=== PATIENT | male | born 1940 | race Caucasian/White ===

== ENCOUNTER → 2016-07-08 | Outpatient (CLI) | payer BC ==
[~2016-07-08] MED LIST: ALBUAER INH; ALBUAER2 INH; ALFU10TA2 PO; ATOR-26 PO; ATOR80TA PO; ATV1 PO; Boost Plus Vanilla PO; CARV25TA2 PO; CLOP1TAB15 PO; DIGO0.1219 PO; DUTA0.5C PO; ENOX80IN SQ; FERR1TAB62 PO; FESO4TAB PO; FLUO20CA35 PO; FRRS300 PO; FRS/40 PO; LEVO150T9 PO; MONT1TAB5 PO; NTRSLP4 SL; OSEL75CA12 PO; PANT40TA PO; PLV75 PO; POTA20TA16 PO; SACU1TAB PO; SACU1TAB7 PO; SNG10 PO; TMF75 PO; TRAM-10 PO; VNTHFA/IN INH; WARF5TAB90 PO; [UNRECOGNIZED DRUG - CODE] PO
--- NOTE | 2016-07-08 13:30 | DIAGNOSTIC IMAGING REPORT ---
CHEST 2 VIEWS ROUTINE CLINICAL HISTORY: R09.02 [id number] Influenza A (H1N1)J90 Pleural effusion on le dyspnea COMPARISON STUDY: 07/01/2016 FINDINGS: Findings of a slightly progressive left pleural effusion. Lungs otherwise are considered clear. There is subtle blunting right lateral costophrenic angle. Permanent bipolar cardiac pacemaker/fibrillator. IMPRESSION: Slightly progressive left pleural effusion. Electronically signed by: Davy Fontana M.D. 07/08/2016 1:28 PM
== END | disposition home or self-care (01) ==
LOC: C.RAD1850 13:12
PROVIDERS: ATTEND Internal Medicine Pulmonary Disease
DX: J18.9 Pneumonia, unspecified organism (principal); J10.1 Influenza due to other identified influenza virus with other respiratory manifestations; J90 Pleural effusion, not elsewhere classified; R09.02 Hypoxemia

== ENCOUNTER 2016-07-12 12:09 | Day surgery (SDC) | payer BC ==
[~2016-07-12] VITALS: Ht 177.8 cm; Wt 71.9 kg
[~2016-07-12 12:09] MED LIST changes: -ALBUAER INH; -ALFU10TA2 PO; +ALFU10TA30 PO; -ATOR-26 PO; -ATOR80TA PO; -Boost Plus Vanilla PO; -CLOP1TAB15 PO; -ENOX80IN SQ; -FERR1TAB62 PO; +FERR325T PO; -FRRS300 PO; -MONT1TAB5 PO; -OSEL75CA12 PO; -POTA20TA16 PO; -SACU1TAB PO; -TRAM-10 PO; -VNTHFA/IN INH; -[UNRECOGNIZED DRUG - CODE] PO
[2016-07-12] MEDS ORDERED: ENOX80IN SQ (12:41)
[2016-07-12 12:42] VITALS: BP 107/66; PULSE 72; TEMP 36.3; O2SAT 100; Ht 177.8 cm; Wt 71.9 kg
[2016-07-12 12:57] LABS: INR 1.8 (0.9-1.1); PROTHROMBIN TIME (PATIENT) 19.5 SECONDS (9.0-12.0)
[2016-07-12 14:12] VITALS: BP 110/61; PULSE 68; TEMP 36.8; O2SAT 100
--- NOTE | 2016-07-12 14:13 | Discharge Instructions ---
Discharge Instructions Visit Reason for Visit: Left Pleural Effusion Discharge Discharge Diagnosis / Problem: Left Pleural Effusion Discharge Goals Goal(s): Decrease discomfort, Learn about illness Medications Restart Stopped Medication(s): 1. Coumadin Activity Recommendations Activity Limitations: resume your previous activity (in 24 hours) Anesthesia . Post Anesthesia Instructions: If you have had General Anesthesia or IV Sedation: * Do not drive today. * Resume driving when surgeon permits. * Do not make important decisions or sign legal documents today. * Call surgeon for: 1. Temperature elevations greater than 101 degrees F. 2. Uncontrollable pain. 3. Excessive bleeding. 4. Persistent nausea and vomiting. 5. Medication intolerance (nausea, vomiting or rash). * For nausea and vomiting use only clear liquids such as: tea, soda, bouillon until nausea subsides, then gradually increase diet as tolerated. * If you have any concerns or questions, call your surgeon's office. If physician is unavailable and it is an emergency, call 911 or go to the nearest emergency room. . Instructions / Follow-Up Instructions / Follow-Up 1. Resume your coumadin tonight (07/12/16) 2. Check you INR daily starting on 07/13/16. 3. Take lovenox the evening of 07/12/16 and continue to take twice daily until INR 2.5 or higher, then discontinue the lovenox. 4. Keep your schedule appointment with Dr. Connelly on 07/26/16 @10:30. You will need a chest x-ray prior to appointment. Diet Recommendations Recommended Home Diet: resume previous diet Pending Studies Studies pending at discharge: no Medical Emergencies . Who to Call and When: Medical Emergencies: If at any time you feel your situation is an emergency, please call 911 immediately. . Non-Emergent Contact Non-Emergency issues call your: Surgeon Call Non-Emergent contact if: you have a fever, your pain is unusual for you . . "Provider Documentation" section prepared by John Meier.
[2016-07-12 14:31] VITALS: BP 105/64; PULSE 70; TEMP 36.3; O2SAT 100
--- NOTE | 2016-07-12 14:34 | DIAGNOSTIC IMAGING REPORT ---
CHEST ONE VIEW PORTABLE CLINICAL HISTORY: Status post thoracentesis. COMPARISON STUDY: Chest radiograph July 08, 2016. FINDINGS: The left pleural effusion has markedly decreased in size. Left lower lung opacity favors atelectasis. There may be a hiatal hernia. A left ablative pacemaker and median sternotomy wires are noted. There is no pneumothorax. There is no evidence of pulmonary edema. There may be pulmonary vascular congestion. IMPRESSION: No pneumothorax following left thoracentesis. Marked decrease in size of the left pleural effusion. Electronically signed by: Gilmar Garcia M.D. 07/12/2016 2:32 PM Dictated Date/Time: 07/12/2016 2:26 PM
[2016-07-12 14:59] LABS: PLEURAL FLUID APPEARANCE CLEAR; PLEURAL FLUID COLOR YELLOW; PLEURAL FLUID MONONUC RELAT 90.2 %; PLEURAL FLUID POLYNUC 9.8 %; PLEURAL FLUID SOURCE LEFT LUNG; PLEURAL FLUID WBC (A) 130 /uL
[2016-07-12 15:00] LABS: PLEURAL FLUID TOTAL PROTEIN 3.1 g/dl
--- NOTE | 2016-07-12 15:04 | OPERATIVE REPORT ---
DATE OF OPERATION: 07/12/2016 PREOPERATIVE DIAGNOSIS: Unilateral left pleural effusion. POSTOPERATIVE DIAGNOSIS: Same. PROCEDURE: Left thoracentesis under ultrasound guidance. SURGEON: Dr. Connelly. REFRIGERATOR CAR ICER: SUMANTH Clark. ANESTHESIA: Local. SPECIFICS OF PROCEDURE: The patient arrived in the medical treatment unit and after signing an appropriate consent and calling a time-out, the patient was positioned in the upright position leaning forward on a procedure table. His left chest was evaluated using an ultrasound probe and we were able to see that he had a significant amount of fluid. Just lateral to the posterior axillary line at about the eighth interspace, a spot was selected and marked with an indelible ink. He was then prepped with ChloraPrep and then draped in usual sterile fashion. Under sterile technique, a 25-gauge needle with 1% Xylocaine was used to raise the skin wheal and then a larger needle was used to anesthetize the muscles and pleura. We had free flowing fluid back. A guidewire was inserted through the needle and needle removed. The insertion site was then gently dilated up and then a triple lumen catheter was slid over the guidewire in to 17 cm. A 1500 mL of a clear yellow fluid was drained. He had no reexpansion pain or cough. I stopped at 1500 mL given his history of cardiomyopathy and with depressed LV function. I slowly removed the catheter. An antimicrobial disc with adhesive was then placed over the thoracentesis spot. There was no bleeding. He tolerated it very well. I attest to the content of the Intraoperative Record and any orders documented therein. Any exceptio ns are noted below.
== END 2016-07-12 14:45 | disposition home or self-care (01) ==
LOC: C.ACU 12:09
PROVIDERS: ATTEND Surgery
DX: J90 Pleural effusion, not elsewhere classified (principal)

== ENCOUNTER → 2016-07-22 | Outpatient (CLI) | payer BC ==
[~2016-07-22] MED LIST changes: +ALBUAER INH; +ATOR-26 PO; +ATOR80TA PO; +Boost Plus Vanilla PO; +CLOP1TAB15 PO; +ENOX80IN SQ; +FRRS300 PO; +MONT1TAB5 PO; +OSEL75CA12 PO; +POTA20TA16 PO; +SACU1TAB PO; -TMF75 PO; +TRAM-10 PO; +VNTHFA/IN INH; +[UNRECOGNIZED DRUG - CODE] PO
--- NOTE | 2016-07-22 15:21 | DIAGNOSTIC IMAGING REPORT ---
CHEST 2 VIEWS ROUTINE HISTORY: J90 Pleural effusion on left RAD COMPARISON: Chest 07/12/2016. FINDINGS: Left-sided pacemaker/defibrillator. There are poststernotomy changes. Moderate to large hiatus hernia remains unchanged. The right lung is clear. No pneumothorax. Small left pleural effusion has slight progressed. Left basilar densities remain unchanged. IMPRESSION: 1. The small left pleural effusion has slightly progressed. 2. Patchy left basilar densities remain unchanged. This favors compressive atelectasis from the pleural fluid. 3. Moderate to large hiatus hernia is again noted. Electronically signed by: Raffy Graff M.D. 07/22/2016 3:19 PM Dictated Date/Time: 07/22/2016 3:17 PM
== END | disposition home or self-care (01) ==
LOC: C.RAD1850 14:49
PROVIDERS: ATTEND Internal Medicine Gastroenterology
DX: J90 Pleural effusion, not elsewhere classified (principal)

== ENCOUNTER 2016-08-25 15:37 | Emergency (ER) | payer BC, OTHER ==
[~2016-08-25] VITALS: Ht 170.2 cm; Wt 68.0 kg
[~2016-08-25 15:37] MED LIST changes: -ALBUAER INH; -ATOR-26 PO; -ATOR80TA PO; -Boost Plus Vanilla PO; -CLOP1TAB15 PO; -FRRS300 PO; -MONT1TAB5 PO; -OSEL75CA12 PO; -POTA20TA16 PO; -SACU1TAB PO; -TRAM-10 PO; -VNTHFA/IN INH; -[UNRECOGNIZED DRUG - CODE] PO
[2016-08-25 15:48] VITALS: TEMP 36.4; Ht 170.2 cm; Wt 68.0 kg
[2016-08-25] MEDS ORDERED: SODIUM CHLORIDE 0.9% 250ML 250 ML IV STA ×2 (16:11→17:23)
[2016-08-25 16:27] VITALS: O2SAT 97
[2016-08-25 16:32] LABS: BASO % 0.6 %; BASO ABS # 0.03 K/uL (0-0.2); COMPLETE YES; EOS % 6.9 %; HEMATOCRIT 33.8 % (42-52); IG% 0.2 %; LYMPH % 18.3 %; MEAN CORPUSCULAR HEMOGLOBIN 29.4 pg (25-34); MEAN CORPUSCULAR HGB CONC 33.4 g/dl (32-36); MEAN PLATELET VOLUME 9.3 fL (7.4-10.4); MONO % 11.6 %; NEUT % 62.4 %; PLATELET COUNT 177 K/uL (130-400); RED BLOOD COUNT 3.84 M/uL (4.7-6.1); WHITE BLOOD COUNT 4.92 K/uL (4.8-10.8)
--- NOTE | 2016-08-25 16:36 | DIAGNOSTIC IMAGING REPORT ---
CHEST ONE VIEW PORTABLE CLINICAL HISTORY: EVALUATE ALTERED MENTAL STATUS/WEAKNESS dyspnea COMPARISON STUDY: 07/22/2016 FINDINGS: Left pleural effusion stable from the prior exam. Mild increase in pulmonary vasculature compared to the prior exam. External hernia. Pacemaker/defibrillator unchanged in position. IMPRESSION: Mild congestive failure. Stable left effusion. Stable hiatal hernia. Electronically signed by: Davy Fontana M.D. 08/25/2016 4:35 PM Dictated Date/Time: 08/25/2016 4:34 PM
[2016-08-25] MEDS ORDERED: WARF5TAB90 PO (16:37)
[2016-08-25 16:43] LABS: PARTIAL THROMBOPLASTIN RATIO 1.4; PROTHROMBIN TIME (PATIENT) 21.7 SECONDS (9.0-12.0)
--- NOTE | 2016-08-25 16:53 | EMERGENCY ROOM VISIT NOTE ---
History Report prepared by Enedina: Kelly Dominguez Under the Supervision of: Dr. Chance Trent M.D. First contact with patient: 16:08 Chief Complaint: REFERRED BY DOCTOR Stated Complaint: CHF, DEHYDRATION History of Present Illness The patient is a 76 year old male who presents to the Emergency Room with complaints of persistent weakness starting 2 days ago. He reports a mild cough. As per family member, the patient was started on a Z-pack today for flu-like symptoms. His family member was recently diagnosed with the flu. The patient also complains of hypotension. His blood pressure was 84/60. His blood pressure is normally in the 90s/60s. He notes reduced fluid intake but a normal appetite. He denies fevers, chills, or any other complaints. He normally wears oxygen at night. He was diagnosed with influenza A in June 2016. He has a history of heart failure. He also has a history of aortic and mitral valve replacements. He was referred to the Emergency Room by the home health nurse. The patient is DNR. Source of History: patient Onset: 2 days ago Position: other (global) Quality: other (weakness) Timing: other (persistent) Associated Symptoms: No chills, No fevers Review of Systems See HPI for pertinent positives & negatives. A total of 10 systems reviewed and were otherwise negative. Past Medical & Surgical Medical Problems: (1) YRIS (acute kidney injury) (2) CAD (coronary artery disease) (3) Chronic systolic CHF (congestive heart failure) (4) Dehydration (5) Failure to thrive (6) Influenza, pneumonia (7) Ischemic cardiomyopathy Family History Hypertension Social History Smoking Status: Never Smoker Drug Use: none Marital Status: Housing Status: lives with family Occupation Status: retired Current/Historical Medications Scheduled Albuterol (Ventolin), 2 PUFFS INH PRN Alfuzosin Hcl (Uroxatral), 10 MG PO QPM Carvedilol (Coreg), 1 TAB PO BID Clopidogrel Bisulfate (Clopidogrel), 75 MG PO QAM Digoxin (Digox), 125 MCG PO QAM Dutasteride (Avodart), 0.5 MG PO QAM Ferrous Sulfate (Ferrous Sulfate), 1 TAB PO QPM Fesoterodine Fumarate (Toviaz), 4 MG PO QAM Fluoxetine (Prozac), 40 MG PO QAM Levothyroxine Sodium (Levothyroxine Sodium), 1 TAB PO QAM Montelukast Sod (Montelukast Sodium), 10 MG PO HS Oseltamivir (Tamiflu), 75 MG PO BID Pantoprazole (Protonix), 40 MG PO QAM Sacubitril-Valsartan (Entresto 49-51 mg), 1 TAB PO DAILY Warfarin Sodium (Coumadin), 5 MG PO MON-WED-FRI Warfarin Sodium (Coumadin), 5 MG PO 4XWK Scheduled PRN Furosemide (Lasix), 40 MG PO DAILY PRN for WEIGHT GAIN PARAMETERS Lorazepam (Lorazepam), 1 MG PO Q6 PRN for Anxiety Nitroglycerin (Nitrostat), 0.4 MG SL UD PRN for Chest Pain Allergies Coded Allergies: Iodinated Diagnostic Agents (Verified Allergy, Mild, HIVES, 07/12/16) Physical Exam Vital Signs Date Time Temp Pulse Resp B/P Pulse Ox O2 Delivery O2 Flow Rate FiO2 08/25/16 19:13 74 20 97/77 96 Nasal Cannula 2.0 08/25/16 17:44 72 20 111/62 97 Room Air 08/25/16 16:31 71 20 113/61 74 111/78 79 93/62 08/25/16 16:29 71 20 123/69 97 Nasal Cannula 2.0 08/25/16 16:27 99 Nasal Cannula 2.0 08/25/16 16:27 97 Nasal Cannula 2.0 08/25/16 16:23 75 08/25/16 15:48 36.4 72 18 90/60 99 Nasal Cannula 3.0 Physical Exam GENERAL: Patient is in no acute distress. HEENT: No acute trauma, normocephalic atraumatic, mucous membranes moist, no nasal congestion, no scleral icterus. NECK: No stridor, no adenopathy, no meningismus, trachea is midline. LUNGS: Crackles and some decreased breath sounds on the left, right lung is clear. HEART: 2/6 systolic murmur, regular rate and rhythm, there is a metallic click heard. ABDOMEN: Soft, nontender, bowel sounds positive, no hernias, no peritonitis. EXTREMITIES: No cyanosis or edema, full range of motion of all the joints without pain or difficulty, no signs for acute trauma. NEUROLOGIC: Oriented x 3, no acute motor or sensory deficits, no focal weakness. SKIN: No rash, no jaundice, no diaphoresis. Medical Decision & Procedures ER Provider Diagnostic Interpretation: Orthostatic vital signs are negative. X-ray results as stated below per interpretation by me and the radiologist: CHEST ONE VIEW PORTABLE CLINICAL HISTORY: EVALUATE ALTERED MENTAL STATUS/WEAKNESS dyspnea COMPARISON STUDY: 07/22/2016 FINDINGS: Left pleural effusion stable from the prior exam. Mild increase in pulmonary vasculature compared to the prior exam. External hernia. Pacemaker/defibrillator unchanged in position. IMPRESSION: Mild congestive failure. Stable left effusion. Stable hiatal hernia. Electronically signed by: Davy Fontana M.D. 08/25/2016 4:35 PM Dictated Date/Time: 08/25/2016 4:34 PM Laboratory Results 08/25/16 16:15 Red Blood Count 3.84, Mean Corpuscular Volume 88.0, Mean Corpuscular Hemoglobin 29.4, Mean Corpuscular Hemoglobin Concent 33.4, Mean Platelet Volume 9.3, Neutrophils (%) (Auto) 62.4, Lymphocytes (%) (Auto) 18.3, Monocytes (%) (Auto) 11.6, Eosinophils (%) (Auto) 6.9, Basophils (%) (Auto) 0.6, Neutrophils # (Auto ) 3.07, Lymphocytes # (Auto) 0.90, Monocytes # (Auto) 0.57, Eosinophils # (Auto ) 0.34, Basophils # (Auto) 0.03 08/25/16 16:15 Test 08/25/16 16:15 08/25/16 16:25 08/25/16 17:45 08/25/16 18:25 White Blood Count 4.92 K/uL (4.8-10.8) Red Blood Count 3.84 M/uL (4.7-6.1) Hemoglobin 11.3 g/dL (14.0-18.0) Hematocrit 33.8 % (42-52) Mean Corpuscular Volume 88.0 fL (80-100) Mean Corpuscular Hemoglobin 29.4 pg (25-34) Mean Corpuscular Hemoglobin Concent 33.4 g/dl (32-36) Platelet Count 177 K/uL (130-400) Mean Platelet Volume 9.3 fL (7.4-10.4) Neutrophils (%) (Auto) 62.4 % Lymphocytes (%) (Auto) 18.3 % Monocytes (%) (Auto) 11.6 % Eosinophils (%) (Auto) 6.9 % Basophils (%) (Auto) 0.6 % Neutrophils # (Auto) 3.07 K/uL (1.4-6.5) Lymphocytes # (Auto) 0.90 K/uL (1.2-3.4) Monocytes # (Auto) 0.57 K/uL (0.11-0.59) Eosinophils # (Auto) 0.34 K/uL (0-0.5) Basophils # (Auto) 0.03 K/uL (0-0.2) RDW Standard Deviation 54.7 fL (36.4-46.3) RDW Coefficient of Variation 16.9 % (11.5-14.5) Immature Granulocyte % (Auto) 0.2 % Immature Granulocyte # (Auto) 0.01 K/uL (0.00-0.02) Prothrombin Time 21.7 SECONDS (9.0-12.0) Prothromb Time International Ratio 2.0 (0.9-1.1) Activated Partial Thromboplast Time 36.8 SECONDS (21.0-31.0) Partial Thromboplastin Ratio 1.4 Anion Gap 7.0 mmol/L (3-11) Est Creatinine Clear Calc Drug Dose 43.8 ml/min Estimated GFR () 60.6 Estimated GFR (Non- 52.3 BUN/Creatinine Ratio 17.2 (10-20) Calcium Level 8.4 mg/dl (8.5-10.1) Total Bilirubin 0.7 mg/dl (0.2-1) Aspartate Amino Transf (AST/SGOT) 20 U/L (15-37) Alanine Aminotransferase (ALT/SGPT) 21 U/L (12-78) Alkaline Phosphatase 176 U/L (45-117) Total Protein 6.9 gm/dl (6.4-8.2) Albumin 3.4 gm/dl (3.4-5.0) Globulin 3.5 gm/dl (2.5-4.0) Albumin/Globulin Ratio 1.0 (0.9-2) Thyroid Stimulating Hormone (TSH) 0.281 uIu/ml (0.300-4.500) Free Thyroxine 1.83 ng/dl (0.80-1.60) Digoxin Level 1.3 ng/ml (0.8-2.0) Influenza Type A (RT-PCR) Neg for Influ A (NEG) Influenza Type B (RT-PCR) POS for Influ B (NEG) Urine Color DK YELLOW Urine Appearance CLEAR (CLEAR) Urine pH 5.0 (4.5-7.5) Urine Specific Carriere 1.023 (1.000-1.030) Urine Protein NEG (NEG) Urine Glucose (UA) NEG (NEG) Urine Ketones NEG (NEG) Urine Occult Blood NEG (NEG) Urine Nitrite NEG (NEG) Urine Bilirubin NEG (NEG) Urine Urobilinogen NEG (NEG) Urine Leukocyte Esterase TRACE (NEG) Urine WBC (Auto) 1-5 /hpf (0-5) Urine RBC (Auto) 0-4 /hpf (0-4) Urine Hyaline Casts (Auto) 10-30 /lpf (0-5) Urine Epithelial Cells (Auto) 20-30 /lpf (0-5) Urine Bacteria (Auto) 1+ (NEG) Troponin I 0.051 ng/ml (0-0.045) Medications Administered Medications (Trade) Dose Ordered Sig/Javier Route Start Time Stop Time Status Last Admin Dose Admin Sodium Chloride 250 ml @ 999 mls/hr Q16M STAT IV 08/25/16 16:11 08/25/16 16:26 DC 08/25/16 16:11 999 MLS/HR Sodium Chloride (Nss 250ml) 250 ml @ 999 mls/hr Q16M STAT IV 08/25/16 17:23 08/25/16 17:38 DC 08/25/16 17:23 999 MLS/HR Oseltamivir Phosphate (Tamiflu Cap) 75 mg NOW STAT PO 08/25/16 18:11 08/25/16 18:12 DC 08/25/16 19:13 75 MG ECG Indication: weakness Rate (beats per minute): 75 Rhythm: other (Ventricular paced rhythm) Findings: no ectopy, other (No obvious ischemia) ED Course 160: The patient was evaluated in room C01B. A complete history and physical exam was performed. 161: Sodium Chloride 250 ml @ 999 mls/hr IV 172: Sodium Chloride 250 ml @ 999 mls/hr IV 1810: Tamiflu Cap 75 mg PO 1811: I updated the patient on his findings. 1920: Reevaluated the patient. Discussed results and discharge instructions: He verbalized understanding and agreement. The patient is ready for discharge. Medical Decision Differential diagnosis includes but is not limited to dehydration, pneumonia, influenza, flu-like illness, electrolyte imbalance, anemia, UTI, and cardiac ischemia. There is no leukocytosis or concerning anemia. No significant electrolyte abnormality or kidney failure. There is no hepatitis. Thyroid testing is consistent with someone taking thyroid medication. Chest x-ray shows some chronic findings, no acute pneumonia, there was no pneumothorax. The left pleural effusion seen on film has been known. EKG shows a ventricular pacemaker , no obvious ischemia. Cardiac enzyme testing times one is slightly elevated. A repeat cardiac troponin showed a similar elevation. The patient has had elevated cardiac enzymes in the past, his values have been higher in the past. Orthostatic vital signs were negative. INR is elevated consistent with his Coumadin use. Urinalysis does not show infection. Digoxin level is not toxic. Influenza test is positive for influenza B. The patient received IV saline, he received a 500 mL dose. He was given oral Tamiflu. He is resting comfortably. I talked to patient about staying in the hospital. He does have elevated cardiac markers and was somewhat hypotensive earlier. He does not want to stay , his significant other does not want him to stay. The patient is a DO NOT RESUSCITATE and does not want to spend anymore time in the hospital. He has agreed though to return here if he is feeling worse at home. He will see his doctor in follow-up this week. The patient is being discharged on Tamiflu, he will stay well hydrated and rest. If he has worsening symptoms, any chest pain or worsening dyspnea, he has agreed to return for reassessment. Impression Primary Impression: Hypotension Additional Impressions: Influenza B Elevated troponin Dehydration Scribe Attestation The scribe's documentation has been prepared under my direction and personally reviewed by me in its entirety. I confirm that the note above accurately reflects all work, treatment, procedures, and medical decision making performed by me. Departure Information Dispostion Home / Self-Care Prescriptions Oseltamivir (Tamiflu) 75 Mg Cap 75 MG PO BID, #10 CAP Prov: Chance Trent M.D. 08/25/16 Referrals Donis Mcdonald M.D. (PCP) Forms HOME CARE DOCUMENTATION FORM, IMPORTANT VISIT INFORMATION, WORK / SCHOOL INSTRUCTIONS Patient Instructions [facility] Additional Instructions tamiflu as directed stay well hydrated tylenol for aches and fever see imtiaz goetz for a recheck Tuesday return for worsening symptoms as discussed you have decided to be discharged today, return to the ER for worsening symptoms or if you change your mind about a hospital stay Problem Qualifiers
[2016-08-25 16:58] LABS: BUN/CREATININE RATIO 17.2 (10-20); CALCIUM 8.4 mg/dl (8.5-10.1); CREATININE 1.3 mg/dl (0.60-1.40)
[2016-08-25 17:11] LABS: THYROID STIMULATING HORMONE 0.281 uIu/ml (0.300-4.500)
[2016-08-25 18:08] LABS: INFLUENZA A PCR Neg for Influ A (NEG)
[2016-08-25 18:09] LABS: INFLUENZA B PCR POS for Influ B (NEG)
[2016-08-25 18:09] LABS: URINE APPEARANCE CLEAR (CLEAR); URINE BILIRUBIN NEG (NEG); URINE COLOR DK YELLOW; URINE EPITHELIAL CELL AUTO 20-30 /lpf (0-5); URINE NITRITE NEG (NEG); URINE SPECIFIC GRAVITY 1.023 (1.000-1.030); UROBILINOGEN NEG (NEG); ZZUR CULT IF INDIC CLEAN CATCH YES
[2016-08-25] MEDS ORDERED: OSELTAMIVIR PHOSPHATE 75 MG CAP PO STA (18:11)
[2016-08-25 18:14] LABS: MANUAL MICROSCOPIC REQUIRED? NO; REVIEW REQ? NO
[2016-08-25] MEDS ORDERED: OSEL75CA12 PO (19:35)
[2016-08-25 19:53] VITALS: BP 99/65; PULSE 67; O2SAT 96
== END 2016-08-25 19:55 | disposition home or self-care (01) ==
LOC: C.EDB 15:38 → C.EDC 19:55
DX: J11.1 Influenza due to unidentified influenza virus with other respiratory manifestations (principal); I95.9 Hypotension, unspecified; E86.0 Dehydration; R79.89 Other specified abnormal findings of blood chemistry; I25.10 Atherosclerotic heart disease of native coronary artery without angina pectoris; I25.5 Ischemic cardiomyopathy; I50.22 Chronic systolic (congestive) heart failure; Z79.01 Long term (current) use of anticoagulants; Z79.899 Other long term (current) drug therapy; Z91.041 Radiographic dye allergy status; Z82.49 Family history of ischemic heart disease and other diseases of the circulatory system

== ENCOUNTER → 2016-11-10 | Outpatient (CLI) | payer BC ==
[~2016-11-10] MED LIST changes: +ALBUAER INH; +ALFU10TA2 PO; -ALFU10TA30 PO; +ATOR-26 PO; +ATOR80TA PO; +Boost Plus Vanilla PO; +CLOP1TAB15 PO; -ENOX80IN SQ; +FERR1TAB62 PO; -FERR325T PO; +FRRS300 PO; +MONT1TAB5 PO; +OSEL75CA12 PO; +POTA20TA16 PO; +SACU1TAB PO; +TRAM-10 PO; +VNTHFA/IN INH; +[UNRECOGNIZED DRUG - CODE] PO
[2016-11-10 17:35] LABS: BASO % 0.6 %; BASO ABS # 0.04 K/uL (0-0.2); COMPLETE YES; EOS % 5.9 %; HEMATOCRIT 36.1 % (42-52); IG% 0.2 %; LYMPH % 12.2 %; LYMPH ABS # 0.79 K/uL (1.2-3.4); MEAN CELL VOLUME 94.8 fL (80-100); MEAN CORPUSCULAR HEMOGLOBIN 30.2 pg (25-34); MEAN CORPUSCULAR HGB CONC 31.9 g/dl (32-36); MONO % 10.9 %; NEUT % 70.2 %; PLATELET COUNT 224 K/uL (130-400); RED BLOOD COUNT 3.81 M/uL (4.7-6.1); WHITE BLOOD COUNT 6.49 K/uL (4.8-10.8)
[2016-11-10 18:01] LABS: URINE APPEARANCE CLEAR (CLEAR); URINE BILIRUBIN NEG (NEG); URINE COLOR DK YELLOW; URINE NITRITE NEG (NEG); URINE SPECIFIC GRAVITY 1.024 (1.000-1.030); UROBILINOGEN NEG (NEG); ZZUR CULT IF INDIC CLEAN CATCH NO
[2016-11-10 18:06] LABS: MANUAL MICROSCOPIC REQUIRED? NO; REVIEW REQ? NO
[2016-11-10 18:13] LABS: ALKALINE PHOSPHATASE 164 U/L (45-117); ALT/SGPT 16 U/L (12-78); AST/SGOT 17 U/L (15-37); BLOOD UREA NITROGEN 31 mg/dl (7-18); BUN/CREATININE RATIO 21.8 (10-20); CALCIUM 8.8 mg/dl (8.5-10.1); CARBON DIOXIDE 29 mmol/L (21-32); CHLORIDE 104 mmol/L (98-107); GLUCOSE 101 mg/dl (70-99); POTASSIUM 4.2 mmol/L (3.5-5.1); SODIUM 138 mmol/L (136-145)
== END | disposition home or self-care (01) ==
LOC: C.LABPVFM 13:17
PROVIDERS: ATTEND Internal Medicine Pulmonary Disease
DX: N41.1 Chronic prostatitis (principal)

== ENCOUNTER 2016-11-16 19:30 | Inpatient (IN) | payer BC, OTHER ==
[~2016-11-16] VITALS: Ht 177.8 cm; Wt 76.3 kg
[~2016-11-16 19:30] MED LIST changes: -ALBUAER INH; -ATOR-26 PO; -ATOR80TA PO; -Boost Plus Vanilla PO; -CLOP1TAB15 PO; -FRRS300 PO; -MONT1TAB5 PO; -POTA20TA16 PO; -SACU1TAB PO; -TRAM-10 PO; -VNTHFA/IN INH; -[UNRECOGNIZED DRUG - CODE] PO
[2016-11-16] MEDS ORDERED: ONDANSETRON INJ 2 MG/ML 2 ML VIAL ONE (19:44)
[2016-11-16] MEDS ORDERED: ONDANSETRON INJ 2 MG/ML 2 ML VIAL IV STA (19:48)
[2016-11-16] MEDS ORDERED: SODIUM CHLORIDE 0.9% 500ML 500 ML IV STA (19:51)
[2016-11-16] MEDS ORDERED: POTA20TA16 PO (19:58)
[2016-11-16] MEDS ORDERED: VNTHFA/IN INH (19:58)
[2016-11-16 20:01] LABS: BASO % 0.4 %; BASO ABS # 0.04 K/uL (0-0.2); COMPLETE YES; EOS % 3.8 %; HEMATOCRIT 34.7 % (42-52); IG% 0.2 %; LYMPH % 6.8 %; LYMPH ABS # 0.69 K/uL (1.2-3.4); MEAN CELL VOLUME 92.8 fL (80-100); MEAN CORPUSCULAR HEMOGLOBIN 30.5 pg (25-34); MEAN CORPUSCULAR HGB CONC 32.9 g/dl (32-36); MEAN PLATELET VOLUME 9.6 fL (7.4-10.4); MONO % 9.6 %; NEUT % 79.2 %; PLATELET COUNT 222 K/uL (130-400); RED BLOOD COUNT 3.74 M/uL (4.7-6.1); WHITE BLOOD COUNT 10.21 K/uL (4.8-10.8)
[2016-11-16 20:08] LABS: INR 2.1 (0.9-1.1); PROTHROMBIN TIME (PATIENT) 23.2 SECONDS (9.0-12.0)
[2016-11-16 20:18] LABS: BUN/CREATININE RATIO 18.9 (10-20); CALCIUM 8.8 mg/dl (8.5-10.1); CREATININE 1.5 mg/dl (0.60-1.40); POTASSIUM 4.5 mmol/L (3.5-5.1)
[2016-11-16 20:32] LABS: CKMB/CK RATIO 3.4 (0-3.0); THYROID STIMULATING HORMONE 1.01 uIu/ml (0.300-4.500)
[2016-11-16] MEDS ORDERED: MECLIZINE HCL 25 MG TAB PO STA (20:33)
--- NOTE | 2016-11-16 20:33 | DIAGNOSTIC IMAGING REPORT ---
CT HEAD WITHOUT CONTRAST (CT) CLINICAL HISTORY: Dizziness, vomiting. COMPARISON STUDY: No previous studies for comparison. TECHNIQUE: Axial CT of the brain is performed from the vertex to the skull base. IV contrast was not administered for this examination. CT DOSE: 614.27 mGy.cm FINDINGS: No intra or extra-axial mass lesions are visualized. There is no CT evidence of acute cortical infarction. There is no evidence of midline shift. There is no acute hemorrhage. No calvarial fractures are visualized. There are patchy white matter hypodensities likely on a small vessel basis.There are scattered lacunar infarcts within the basal ganglia, cerebellum, and left thalamus. There is mild ventricular dilatation, likely secondary to volume loss. There is no evidence of acute sinusitis IMPRESSION: No acute intracranial findings Electronically signed by: Maverick Street M.D. 11/16/2016 8:32 PM Dictated Date/Time: 11/16/2016 8:30 PM
--- NOTE | 2016-11-16 20:58 | DIAGNOSTIC IMAGING REPORT ---
CT SCAN OF THE ABDOMEN AND PELVIS WITHOUT CONTRAST CLINICAL HISTORY: Nausea, vomiting. COMPARISON STUDY: No previous studies for comparison. TECHNIQUE: CT scan of the abdomen and pelvis was performed from the lung bases to the proximal femurs. Images are reviewed in the axial, sagittal, and coronal planes. IV contrast was not administered for this examination. CT DOSE: 359.78 mGy.cm FINDINGS: Lower chest: There are coronary artery and pericardial calcifications. There is a pacemaker present. There is a hiatal hernia. There is a moderate left pleural effusion with associated left lower lobe atelectasis/consolidation. Liver: The unenhanced liver is normal in size, contour, and attenuation. There is no intrahepatic biliary ductal dilatation. Gallbladder: Unremarkable. Spleen: Normal in size and attenuation. Pancreas: Unremarkable. Adrenal glands: There is mild adrenal gland thickening Kidneys: There is a nonobstructing 2 mm lower pole right renal calculus. There is no hydronephrosis. No ureteral or bladder calculi are visualized. There is a 26 mm right renal cyst. Bowel: There are no transition zones indicate bowel obstruction. The appendix appears normal. There are scattered colonic diverticula present. There is no acute diverticulitis. Peritoneum: There is no intraperitoneal free air or abdominal ascites. There is a fat-containing umbilical hernia. There is a left inguinal hernia which contains a loop of small bowel. There is no current evidence of obstruction. Vasculature: The abdominal aorta is normal in course and caliber. Adenopathy: There are Lymph nodes which are the upper limits of normal in size. There is no definitive pathologic adenopathy Pelvic viscera: The prostate is prominent. Skeletal structures: There is a 24 mm sclerotic lesion involving the right superior pubic ramus. This remains unchanged from December 2014 IMPRESSION: 1. Moderate left pleural effusion with left lower lobe atelectasis/consolidation 2. Hiatal hernia 3. No evidence of bowel obstruction. No evidence of free air 4. Nonobstructing lower pole right renal calculus 5. No evidence of acute diverticulitis. No evidence of acute appendicitis. 6. Left inguinal hernia containing a loop of small bowel. No current evidence of obstruction Electronically signed by: Maverick Street M.D. 11/16/2016 8:56 PM Dictated Date/Time: 11/16/2016 8:50 PM
[2016-11-16] MEDS ORDERED: VANCOMYCIN 1GM/270ML NSS IV STA (21:10)
[2016-11-16] MEDS ORDERED: METOCLOPRAMIDE HCL INJ 5 MG/ML 2 ML VIAL IV STA (21:10)
[2016-11-16] MEDS ORDERED: PIPERACILLIN/TAZOBACTAM 4.5 GM/100ML D5W IV STA (21:10)
[2016-11-16] MEDS ORDERED: LEVAQUIN 750MG / 150ML D5W IV STA (21:10)
--- NOTE | 2016-11-16 21:37 | DIAGNOSTIC IMAGING REPORT ---
CHEST ONE VIEW PORTABLE CLINICAL HISTORY: Pneumonia. Cough. COMPARISON STUDY: 08/23/2016 FINDINGS: The heart remains enlarged. There is a hiatal hernia. There is a left subclavian implantable defibrillator present. There is an increasing moderate left pleural effusion with associated left lower lobe atelectasis/consolidation.[ The right lung is generally clear IMPRESSION: Cardiomegaly. Increasing moderate left pleural effusion with associated left lower lobe atelectasis/consolidation Electronically signed by: Maverick Street M.D. 11/16/2016 9:35 PM Dictated Date/Time: 11/16/2016 9:35 PM
--- NOTE | 2016-11-16 22:15 | EMERGENCY ROOM VISIT NOTE ---
History Report prepared by Enedina: Bryan Breen Under the Supervision of: Dr. Ant Thao M.D. First contact with patient: 19:39 Chief Complaint: NAUSEA Stated Complaint: NAUSEA, VOMITING, DIZZY History of Present Illness The patient is a 76 year old male who presents to the Emergency Room by EMS with complaints of intermittent episodes of vomiting beginning today. He states that he has felt sick for the past six weeks. He also complains of nausea, weakness and dizziness. The patient estimates that he vomited 13 times today. He feels that his vomiting was the result of his dizziness. His dizziness is worsened with positional changes. The patient states that he ate normally today. He was given 4 mg of Zofran en route which improved his nausea. He has two mechanical heart valves. He is on Coumadin and Digoxin. Source of History: patient Onset: today Symptom Intensity: 13 episodes Quality: other (vomiting ) Timing: intermittent Associated Symptoms: + nausea, + weakness Note: The patient also complains of dizziness. Review of Systems See HPI for pertinent positives & negatives. A total of 10 systems reviewed and were otherwise negative. Past Medical & Surgical Medical Problems: (1) YRIS (acute kidney injury) (2) CAD (coronary artery disease) (3) Central nervous system origin vertigo (4) Chronic systolic CHF (congestive heart failure) (5) Dehydration (6) Failure to thrive (7) Influenza, pneumonia (8) Ischemic cardiomyopathy (9) Vertigo Family History Hypertension Social History Smoking Status: Former Smoker Drug Use: none Marital Status: Housing Status: lives with family Occupation Status: retired Current/Historical Medications Scheduled Alfuzosin Hcl (Uroxatral), 10 MG PO QPM Carvedilol (Coreg), 25 MG PO BID Clopidogrel Bisulfate (Clopidogrel), 75 MG PO QAM Digoxin (Digox), 125 MCG PO QAM Dutasteride (Avodart), 0.5 MG PO QAM Fesoterodine Fumarate (Toviaz), 4 MG PO QAM Fluoxetine (Prozac), 40 MG PO QAM Levothyroxine Sodium (Levothyroxine Sodium), 150 MCG PO QAM Montelukast Sod (Montelukast Sodium), 10 MG PO HS Pantoprazole (Protonix), 40 MG PO QAM Potassium Ext Rel (Klor-Con), 20 MEQ PO DIRECTED Warfarin Sodium (Coumadin), 2.5 MG PO 4XWK Warfarin Sodium (Coumadin), 5 MG PO 3XWK Scheduled PRN Albuterol Hfa (Ventolin Hfa), 2 PUFFS INH QID PRN for Shortness of Breath Furosemide (Lasix), 40 MG PO DAILY PRN for WEIGHT GAIN PARAMETERS Nitroglycerin (Nitrostat), 0.4 MG SL UD PRN for Chest Pain Allergies Coded Allergies: Iodinated Diagnostic Agents (Verified Allergy, Mild, HIVES, 07/12/16) Physical Exam Vital Signs Date Time Temp Pulse Resp B/P Pulse Ox O2 Delivery O2 Flow Rate FiO2 11/16/16 21:13 70 14 113/63 96 Room Air 11/16/16 20:02 70 103/61 70 119/64 71 128/72 11/16/16 20:00 92 Room Air 11/16/16 19:42 70 11/16/16 19:36 36.6 77 14 121/76 98 Room Air Physical Exam GENERAL: Patient is a healthy-appearing well-nourished HEAD: Normocephalic atraumatic EYES: Ocular movements intact pupils equal and react to light OROPHARYNX mucous membranes are moist no exudates present no erythema or edema present NECK: Supple no nuchal rigidity CHEST: Good equal expansion LUNGS: Clear and equal to auscultation CARDIAC: Normal S1 and S2 ABDOMEN: Soft nontender no guarding BACK: No CVA tenderness EXTREMITIES: No pain upon palpation normal muscle strength in all groups no clubbing cyanosis or edema NEURO: Patient is following commands is answering questions appropriately. Alert and oriented x3 Cranial Nerves 2-12 grossly intact Medical Decision & Procedures ER Provider Diagnostic Interpretation: X-ray results as stated below per interpretation by me and the radiologist. CT results as stated below per my review and radiologist interpretation: CT HEAD WITHOUT CONTRAST (CT) FINDINGS: No intra or extra-axial mass lesions are visualized. There is no CT evidence of acute cortical infarction. There is no evidence of midline shift. There is no acute hemorrhage. No calvarial fractures are visualized. There are patchy white matter hypodensities likely on a small vessel basis.There are scattered lacunar infarcts within the basal ganglia, cerebellum, and left thalamus. There is mild ventricular dilatation, likely secondary to volume loss. There is no evidence of acute sinusitis IMPRESSION: No acute intracranial findings Electronically signed by: Maverick Street M.D. CT SCAN OF THE ABDOMEN AND PELVIS WITHOUT CONTRAST FINDINGS: Lower chest: There are coronary artery and pericardial calcifications. There is a pacemaker present. There is a hiatal hernia. There is a moderate left pleural effusion with associated left lower lobe atelectasis/consolidation. Liver: The unenhanced liver is normal in size, contour, and attenuation. There is no intrahepatic biliary ductal dilatation. Gallbladder: Unremarkable. Spleen: Normal in size and attenuation. Pancreas: Unremarkable. Adrenal glands: There is mild adrenal gland thickening Kidneys: There is a nonobstructing 2 mm lower pole right renal calculus. There is no hydronephrosis. No ureteral or bladder calculi are visualized. There is a 26 mm right renal cyst. Bowel: There are no transition zones indicate bowel obstruction. The appendix appears normal. There are scattered colonic diverticula present. There is no acute diverticulitis. Peritoneum: There is no intraperitoneal free air or abdominal ascites. There is a fat-containing umbilical hernia. There is a left inguinal hernia which contains a loop of small bowel. There is no current evidence of obstruction. Vasculature: The abdominal aorta is normal in course and caliber. Adenopathy: There are Lymph nodes which are the upper limits of normal in size. There is no definitive pathologic adenopathy Pelvic viscera: The prostate is prominent. Skeletal structures: There is a 24 mm sclerotic lesion involving the right superior pubic ramus. This remains unchanged from December 2014 IMPRESSION: 1. Moderate left pleural effusion with left lower lobe atelectasis/consolidation 2. Hiatal hernia 3. No evidence of bowel obstruction. No evidence of free air 4. Nonobstructing lower pole right renal calculus 5. No evidence of acute diverticulitis. No evidence of acute appendicitis. 6. Left inguinal hernia containing a loop of small bowel. No current evidence of obstruction Electronically signed by: Maverick Street M.D. CHEST ONE VIEW PORTABLE FINDINGS: The heart remains enlarged. There is a hiatal hernia. There is a left subclavian implantable defibrillator present. There is an increasing moderate left pleural effusion with associated left lower lobe atelectasis/consolidation.[ The right lung is generally clear IMPRESSION: Cardiomegaly. Increasing moderate left pleural effusion with associated left lower lobe atelectasis/consolidation Electronically signed by: Maverick Street M.D. Laboratory Results 11/16/16 19:15 Red Blood Count 3.74, Mean Corpuscular Volume 92.8, Mean Corpuscular Hemoglobin 30.5, Mean Corpuscular Hemoglobin Concent 32.9, Mean Platelet Volume 9.6, Neutrophils (%) (Auto) 79.2, Lymphocytes (%) (Auto) 6.8, Monocytes (%) (Auto) 9.6, Eosinophils (%) (Auto) 3.8, Basophils (%) (Auto) 0.4, Neutrophils # (Auto) 8.09, Lymphocytes # (Auto) 0.69, Monocytes # (Auto) 0.98, Eosinophils # (Auto) 0.39, Basophils # (Auto) 0.04 11/16/16 19:15 Test 11/16/16 19:15 11/16/16 19:54 White Blood Count 10.21 K/uL (4.8-10.8) Red Blood Count 3.74 M/uL (4.7-6.1) Hemoglobin 11.4 g/dL (14.0-18.0) Hematocrit 34.7 % (42-52) Mean Corpuscular Volume 92.8 fL (80-100) Mean Corpuscular Hemoglobin 30.5 pg (25-34) Mean Corpuscular Hemoglobin Concent 32.9 g/dl (32-36) Platelet Count 222 K/uL (130-400) Mean Platelet Volume 9.6 fL (7.4-10.4) Neutrophils (%) (Auto) 79.2 % Lymphocytes (%) (Auto) 6.8 % Monocytes (%) (Auto) 9.6 % Eosinophils (%) (Auto) 3.8 % Basophils (%) (Auto) 0.4 % Neutrophils # (Auto) 8.09 K/uL (1.4-6.5) Lymphocytes # (Auto) 0.69 K/uL (1.2-3.4) Monocytes # (Auto) 0.98 K/uL (0.11-0.59) Eosinophils # (Auto) 0.39 K/uL (0-0.5) Basophils # (Auto) 0.04 K/uL (0-0.2) RDW Standard Deviation 46.6 fL (36.4-46.3) RDW Coefficient of Variation 13.7 % (11.5-14.5) Immature Granulocyte % (Auto) 0.2 % Immature Granulocyte # (Auto) 0.02 K/uL (0.00-0.02) Prothrombin Time 23.2 SECONDS (9.0-12.0) Prothromb Time International Ratio 2.1 (0.9-1.1) Anion Gap 5.0 mmol/L (3-11) Est Creatinine Clear Calc Drug Dose 41.9 ml/min Estimated GFR () 51.0 Estimated GFR (Non- 44.0 BUN/Creatinine Ratio 18.9 (10-20) Calcium Level 8.8 mg/dl (8.5-10.1) Total Bilirubin 0.7 mg/dl (0.2-1) Direct Bilirubin 0.2 mg/dl (0-0.2) Aspartate Amino Transf (AST/SGOT) 19 U/L (15-37) Alanine Aminotransferase (ALT/SGPT) 15 U/L (12-78) Alkaline Phosphatase 171 U/L (45-117) Total Creatine Kinase 56 U/L (39-308) Creatine Kinase MB 1.9 ng/ml (0.5-3.6) Creatine Kinase MB Ratio 3.4 (0-3.0) Troponin I 0.046 ng/ml (0-0.045) Total Protein 7.1 gm/dl (6.4-8.2) Albumin 3.6 gm/dl (3.4-5.0) Thyroid Stimulating Hormone (TSH) 1.010 uIu/ml (0.300-4.500) Digoxin Level 0.9 ng/ml (0.8-2.0) Bedside Glucose 107 mg/dl (70-99) Labs reviewed by ED physician. Medications Administered Medications (Trade) Dose Ordered Sig/Javier Route Start Time Stop Time Status Last Admin Dose Admin Ondansetron HCl 4 mg 4 mg NOW STAT IV 11/16/16 19:48 11/16/16 19:50 DC 11/16/16 19:57 4 MG Sodium Chloride (Nss 500ml) 500 ml @ 999 mls/hr Q31M STAT IV 11/16/16 19:51 11/16/16 20:21 DC 11/16/16 19:54 999 MLS/HR Meclizine HCl (Antivert Tab) 25 mg NOW STAT PO 11/16/16 20:33 11/16/16 20:34 DC 11/16/16 21:07 25 MG Piperacillin Sod/ Tazobactam Sod (Zosyn Iv) 4.5 gm NOW STAT IV 11/16/16 21:10 11/16/16 21:12 DC 11/16/16 21:22 4.5 GM Levofloxacin (Levaquin / D5W) 750 mg NOW STAT IV 11/16/16 21:10 11/16/16 21:12 DC 11/16/16 22:14 750 MG Metoclopramide HCl (Reglan Inj) 10 mg NOW STAT IV 11/16/16 21:10 11/16/16 21:12 DC 11/16/16 21:22 10 MG ECG Indication: other (dizziness) Rate (beats per minute): 75 Rhythm: other (paced rhythm) Findings: no acute ischemic change, no ectopy ED Course 1944: Past medical records reviewed. The patient was evaluated in room C5. A complete history and physical examination was performed. 1947: Ordered Zofran 4 mg IV. 1950: Ordered Sodium Chloride 500 ml @ 999 mls/hr. 2032: Ordered Antivert Tab 25 mg PO. 2109: Ordered Reglan Inj 10 mg IV, Vancomycin 1 gm/270 mL NSS 1 gm IV, Levaquin / D5W 750 mg IV, Zosyn 4.5 gm IV. 2144: Upon reexamination the patient is resting comfortably. I discussed results and treatment plan with the patient. I recommended hospitalization. He verbalizes agreement and understanding. I spoke with Dr. Barrera from the [facility] [facility]. The patient will be evaluated for further management. Medical Decision Differential diagnosis: Etiologies such as metabolic, infection, hypo/hyperglycemia, electrolyte abnormalities, cardiac sources, intracerebral event, toxicologic, neurologic, as well as others were entertained. This is a 76-year-old male who presents emergency department complaining of dizziness along with nausea and vomiting. The patient's vomiting has been difficult to control while in the emergency department and she required multiple doses of Zofran as well as Reglan. The patient was sent for CAT scan of the head which was concerning for multiple old infarcts. In addition the patient appears to have pneumonia on his chest x-ray and the abdomen and pelvis CT. The patient also has an elevation in his troponin. I did discuss the case with the hospitalist service. Patient was given meclizine in the emergency department however he continue to vomit. Consults Time Called: 2139 Consulting Physician: Dr. Barrera -[facility] Returned Call: [phone] I discussed the patient's case with Dr. Barrera, he has agreed to evaluate the patient for further management and care. Impression Primary Impression: Pneumonia Scribe Attestation The scribe's documentation has been prepared under my direction and personally reviewed by me in its entirety. I confirm that the note above accurately reflects all work, treatment, procedures, and medical decision making performed by me. Departure Information Dispostion Being Evaluated By Hospitalist Referrals Donis Mcdonald M.D. (PCP) Patient Instructions My [facility] Problem Qualifiers Primary Impression: Pneumonia Pneumonia type: due to unspecified organism Laterality: unspecified laterality Lung location: unspecified part of lung Qualified Codes: J18.9 - Pneumonia, unspecified organism
[2016-11-16] MEDS ORDERED: NITROGLYCERIN 0.4 MG SL PER TAB CHARGE SL PRN (23:00)
[2016-11-16] MEDS ORDERED: ALBUTEROL HFA 8 GM INHALER INH PRN (23:00)
[2016-11-16] MEDS ORDERED: PHARMACIST DISCHARGE MED REC CONSULT PRN (23:00)
--- NOTE | 2016-11-16 23:19 | History and Physical ---
History & Physical Date & Time of Service: November 16, 2016 at 22:55 Chief Complaint: Nausea, Vomiting, Dizzy Primary Care Physician: Donis Mcdonald M.D. History of Present Illness Mr Siddiqui is a 76 year old male with ischemic cardiomyopathy, aortic valve and mitral valve replacement who presents to the ER with sudden onset vertigo with associated diaphoresis and vomiting. He was sitting on the back porch when he leant forward to stand up and sudden felt the ground spinning. His and a friend found him on the back porch diaphoretic and vomiting. This started around 6pm today. He felt any head movement made the dizziness worse. He denies any chest pain or shortness of breath. He was well and eating normally up until this episode in the afternoon. He denies any previous stroke. This is on a background of general deterioration over the last month where he has been feeling increasingly weak and drowsy with intermittent dizziness episodes on standing. He feels this other episodes are different and more light headedness than room spinning to which his agrees and also points out these episodes occurred when he was to stand up and he has had low blood pressure reading recently. He denies any diaphoresis, vomting, chest pain or shortness of breath related to these episodes. His notes he used to get vertigo 20 years previously for which he took Antivert but he is unsure whether the episode today is similar to that one. Past Medical/Surgical History Past Medical history: Atrial fibrillation LBBB Hyperlipidemia Coronary artery disease (LAD and OM1 BMS, Feb 2015 Hx ventricular tachycardia (LVOT vs. 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 Past Surgical History: Aortic valve replacement Mitral valve replacement Pacemaker for complete heart block 2006 -> Biventricular pacemaker/ICD Apr 2015 Vas deferens vasectomy Spermatic cord surgery for varicocele Coronary artery stents to mid-LAD, OM1, Proximal RCA Family History Hypertension Social History Smoking Status: Former Smoker Drug Use: none Marital Status: Housing status: lives with family Occupational Status: retired Immunizations History of Influenza Vaccine: N/A Influenza Vaccine Date: Apr 09, 2007 History of Tetanus Vaccine?: Yes Tetanus Immunization Date: Jun 09, 1997 History of Pneumococcal: Yes Pneumococcal Date: Jun 09, 2003 History of Hepatitis B Vaccine: Yes Hepatitis Immunization Date: Jun 09, 1985 Multi-Drug Resistant Organisms History of MDRO: No Allergies Coded Allergies: Iodinated Diagnostic Agents (Verified Allergy, Mild, HIVES, 07/12/16) Home Medications Scheduled Alfuzosin Hcl (Uroxatral), 10 MG PO QPM Atorvastatin Calcium (Lipitor), 1 TAB PO DAILY Carvedilol (Coreg), 25 MG PO BID Clopidogrel Bisulfate (Clopidogrel), 75 MG PO QAM Digoxin (Digox), 125 MCG PO QAM Dutasteride (Avodart), 0.5 MG PO QAM Fesoterodine Fumarate (Toviaz), 4 MG PO QAM Fluoxetine (Prozac), 40 MG PO QAM Levothyroxine Sodium (Levothyroxine Sodium), 150 MCG PO QAM Montelukast Sod (Montelukast Sodium), 10 MG PO HS Pantoprazole (Protonix), 40 MG PO QAM Potassium Ext Rel (Klor-Con), 20 MEQ PO DIRECTED Warfarin Sodium (Coumadin), 2.5 MG PO 4XWK Warfarin Sodium (Coumadin), 5 MG PO 3XWK Scheduled PRN Albuterol Hfa (Ventolin Hfa), 2 PUFFS INH QID PRN for Shortness of Breath Furosemide (Lasix), 40 MG PO DAILY PRN for WEIGHT GAIN PARAMETERS Nitroglycerin (Nitrostat), 0.4 MG SL UD PRN for Chest Pain Review of Systems Constitutional: + sweats (see HPI), No chills, No fever Respiratory: + cough (chronic dry), + dyspnea on exertion (ischemic cardiomyopathy, pleural effusion), No dyspnea at rest, No wheezing Cardiovascular: + orthopnea, No PND, No chest pain, No claudication, No edema, No palpitations Abdomen: + nausea, + vomiting (see HPI), No GI bleeding, No constipation, No diarrhea, No pain Musculoskeletal: + joint pain (chronic back pain), No muscle pain Genitourinary - Male: No dysuria, No hematuria, No urinary frequency, No urinary urgency Endocrine: + fatigue, No excessive thirst, No excessive urination Hematologic / Lymphatic: No abnormal bleeding/bruising, No night sweats Integumentary: No itch, No rash Physical Exam Vital Signs Date Time Temp Pulse Resp B/P Pulse Ox O2 Delivery O2 Flow Rate FiO2 11/16/16 21:13 70 14 113/63 96 Room Air 11/16/16 20:02 70 103/61 70 119/64 71 128/72 11/16/16 20:00 92 Room Air 11/16/16 19:42 70 11/16/16 19:36 36.6 77 14 121/76 98 Room Air General Appearance: WD/WN, + mild distress (feels nausous, better when his eyes are closed) Head: normocephalic Eyes: + abnormal EOM (HINTS exam (slow direction nystagmus to left on right gaze, slow firection nystagmus to right on left gaze, nausea worse on right gaze , vertical scew present b/l, catch up present on head impulse test)), + pertinent finding (double vision present (longstanding grave's opthalmoplegia), unable to focus both eyes in same direction on inspection) ENT: TMs normal Neck: trachea midline, + JVD, + pertinent finding (systolic murmur heard over carotid bruits but likely radiation from AVR) Respiratory/Chest: chest non-tender, no respiratory distress, no accessory muscle use, + decreased breath sounds (left base and mid zone) Cardiovascular: regular rate, rhythm, no edema, normal peripheral pulses, + JVD , + systolic murmur (RUSB) Abdomen/GI: normal bowel sounds, non tender, soft Back: no CVA tenderness Extremities/Musculoskelatal: no calf tenderness, normal capillary refill, no pedal edema Neurologic/Psych: no motor/sensory deficits, + abnormal cerebellar tests ( slower and more difficult co-ordination of LUE, mild LUE dysdiachokinesis both of which he reports as acute), + abnormal mold yard supervisor II-XII (see EOMI above, otherwise normal examination) Skin: normal color, warm/dry, no rash Diagnostics Laboratory Results Results Past 24 Hours Test 11/16/16 19:15 11/16/16 19:54 Range/Units White Blood Count 10.21 4.8-10.8 K/uL Red Blood Count 3.74 4.7-6.1 M/uL Hemoglobin 11.4 14.0-18.0 g/dL Hematocrit 34.7 42-52 % Mean Corpuscular Volume 92.8 80-100 fL Mean Corpuscular Hemoglobin 30.5 25-34 pg Mean Corpuscular Hemoglobin Concent 32.9 32-36 g/dl Platelet Count 222 130-400 K/uL Mean Platelet Volume 9.6 7.4-10.4 fL Neutrophils (%) (Auto) 79.2 % Lymphocytes (%) (Auto) 6.8 % Monocytes (%) (Auto) 9.6 % Eosinophils (%) (Auto) 3.8 % Basophils (%) (Auto) 0.4 % Neutrophils # (Auto) 8.09 1.4-6.5 K/uL Lymphocytes # (Auto) 0.69 1.2-3.4 K/uL Monocytes # (Auto) 0.98 0.11-0.59 K/uL Eosinophils # (Auto) 0.39 0-0.5 K/uL Basophils # (Auto) 0.04 0-0.2 K/uL RDW Standard Deviation 46.6 36.4-46.3 fL RDW Coefficient of Variation 13.7 11.5-14.5 % Immature Granulocyte % (Auto) 0.2 % Immature Granulocyte # (Auto) 0.02 0.00-0.02 K/uL Prothrombin Time 23.2 9.0-12.0 SECONDS Prothromb Time International Ratio 2.1 0.9-1.1 Sodium Level 140 136-145 mmol/L Potassium Level 4.5 3.5-5.1 mmol/L Chloride Level 106 98-107 mmol/L Carbon Dioxide Level 29 21-32 mmol/L Anion Gap 5.0 3-11 mmol/L Blood Urea Nitrogen 28 7-18 mg/dl Creatinine 1.50 0.60-1.40 mg/dl Est Creatinine Clear Calc Drug Dose 41.9 ml/min Estimated GFR () 51.0 Estimated GFR (Non- 44.0 BUN/Creatinine Ratio 18.9 10-20 Random Glucose 101 70-99 mg/dl Calcium Level 8.8 8.5-10.1 mg/dl Total Bilirubin 0.7 0.2-1 mg/dl Direct Bilirubin 0.2 0-0.2 mg/dl Aspartate Amino Transf (AST/SGOT) 19 15-37 U/L Alanine Aminotransferase (ALT/SGPT) 15 12-78 U/L Alkaline Phosphatase 171 45-117 U/L Total Creatine Kinase 56 39-308 U/L Creatine Kinase MB 1.9 0.5-3.6 ng/ml Creatine Kinase MB Ratio 3.4 0-3.0 Troponin I 0.046 0-0.045 ng/ml Total Protein 7.1 6.4-8.2 gm/dl Albumin 3.6 3.4-5.0 gm/dl Thyroid Stimulating Hormone (TSH) 1.010 0.300-4.500 uIu/ml Digoxin Level 0.9 0.8-2.0 ng/ml Bedside Glucose 107 70-99 mg/dl Diagnostic Radiology CT HEAD WITHOUT CONTRAST (CT) CLINICAL HISTORY: Dizziness, vomiting. COMPARISON STUDY: No previous studies for comparison. TECHNIQUE: Axial CT of the brain is performed from the vertex to the skull base. IV contrast was not administered for this examination. CT DOSE: 614.27 mGy.cm FINDINGS: No intra or extra-axial mass lesions are visualized. There is no CT evidence of acute cortical infarction. There is no evidence of midline shift. There is no acute hemorrhage. No calvarial fractures are visualized. There are patchy white matter hypodensities likely on a small vessel basis.There are scattered lacunar infarcts within the basal ganglia, cerebellum, and left thalamus. There is mild ventricular dilatation, likely secondary to volume loss. There is no evidence of acute sinusitis IMPRESSION: No acute intracranial findings Electronically signed by: Maverick Street M.D. 11/16/2016 8:32 PM Dictated Date/Time: 11/16/2016 8:[address] SCAN OF THE ABDOMEN AND PELVIS WITHOUT CONTRAST CLINICAL HISTORY: Nausea, vomiting. COMPARISON STUDY: No previous studies for comparison. TECHNIQUE: CT scan of the abdomen and pelvis was performed from the lung bases to the proximal femurs. Images are reviewed in the axial, sagittal, and coronal planes. IV contrast was not administered for this examination. CT DOSE: 359.78 mGy.cm FINDINGS: Lower chest: There are coronary artery and pericardial calcifications. There is a pacemaker present. There is a hiatal hernia. There is a moderate left pleural effusion with associated left lower lobe atelectasis/consolidation. Liver: The unenhanced liver is normal in size, contour, and attenuation. There is no intrahepatic biliary ductal dilatation. Gallbladder: Unremarkable. Spleen: Normal in size and attenuation. Pancreas: Unremarkable. Adrenal glands: There is mild adrenal gland thickening Kidneys: There is a nonobstructing 2 mm lower pole right renal calculus. There is no hydronephrosis. No ureteral or bladder calculi are visualized. There is a 26 mm right renal cyst. Bowel: There are no transition zones indicate bowel obstruction. The appendix appears normal. There are scattered colonic diverticula present. There is no acute diverticulitis. Peritoneum: There is no intraperitoneal free air or abdominal ascites. There is a fat-containing umbilical hernia. There is a left inguinal hernia which contains a loop of small bowel. There is no current evidence of obstruction. Vasculature: The abdominal aorta is normal in course and caliber. Adenopathy: There are Lymph nodes which are the upper limits of normal in size. There is no definitive pathologic adenopathy Pelvic viscera: The prostate is prominent. Skeletal structures: There is a 24 mm sclerotic lesion involving the right superior pubic ramus. This remains unchanged from December 2014 IMPRESSION: 1. Moderate left pleural effusion with left lower lobe atelectasis/consolidation 2. Hiatal hernia 3. No evidence of bowel obstruction. No evidence of free air 4. Nonobstructing lower pole right renal calculus 5. No evidence of acute diverticulitis. No evidence of acute appendicitis. 6. Left inguinal hernia containing a loop of small bowel. No current evidence of obstruction Electronically signed by: Maverick Street M.D. 11/16/2016 8:56 PM Dictated Date/Time: 11/16/2016 8:50 PM CHEST ONE VIEW PORTABLE CLINICAL HISTORY: Pneumonia. Cough. COMPARISON STUDY: 08/23/2016 FINDINGS: The heart remains enlarged. There is a hiatal hernia. There is a left subclavian implantable defibrillator present. There is an increasing moderate left pleural effusion with associated left lower lobe atelectasis/consolidation.[ The right lung is generally clear IMPRESSION: Cardiomegaly. Increasing moderate left pleural effusion with associated left lower lobe atelectasis/consolidation Electronically signed by: Maverick Street M.D. 11/16/2016 9:35 PM Dictated Date/Time: 11/16/2016 9:35 PM Impression Assessment and Plan 76 year old with coronary artery disease, ischemic cardiomyopathy and atrial fibrillation presents with acute onset vertigo Vertigo - difficult to ascertain peripheral vs. central given longstanding grave 's ophthalmoplegia. He did have some head movement prior to onset of vertigo but given vascular history and positive HINTS examination with non acute lacunar infarcts on CT the assumption is this is central. He does have some mild dysdiadochokinesis in addition of his LUE with slower co-ordination (no pronator drift). Gait was not assessed at this time due to ongoing nausea. - Consult neurology in morning - Already taking ASA, clopidogrel, warfarin (therapeutic for A fib at 2.1) atorvastatin therefore unclear what further therapy is warranted - unable to have MRI due to pacemaker, could consider CT in 1-2 days - will treat ongoing dizziness with meclizine to see if peripheral treatment helps - neuro checks Moderate left pleural effusion - Consult thoracic surgery as it has progressed somewhat since August and may explain his general decline but not acute admission Elevated troponin - appears at his baseline and no concerning symptoms for NSTEMI, will repeat in the morning Hypothyroidism s/p iodine ablation for Grave's disease - TSH WNL, continue current levothyroxine dose Aortic and Mitral valve replacement - INR subtherapeutic for this at 2.1. Aim INR 2.5-3.5. Will increase his warfarin to 5mg daily with daily PTINRs. VTE Prophylaxis - warfarin therapeutic for this purpose Code - Discussed and he wishes no resuscitation efforts consistent with previous advanced directive. Notes he has an ICD in place and he wishes to leave this on but does not wish it to continually go off. I suggested he discussed this further with his credit reporting clerk. Disposition - admit to telemetry and treat as suspected CVA with neuro checks. Level of Care Telemetry Advanced Directives Existing Advance Directive: Yes Existing Power of Screen Cutter And Trimmer: Yes Resuscitation Status DO NOT RESUSCITATE (noted ICD which he wishes to be left on but not resus if this doesn't fire) VTE Prophylaxis VTE Risk Assessment Done? Y/N: Yes Risk Level: Moderate Given or contraindicated: Warfarin (Coumadin) Additional Copies To Donis Mcdonald M.D. Resident Tracking Resident Involvement: Resident Care Provided Care Provided: [facility] Medicine Assessment and Plan Attending Addendum: I have physically seen and examined this patient, have directed their medical care, have supervised the medical residents activities, and agree with the H&P as noted above, with the following changes: NONE
[2016-11-16] MEDS ORDERED: VANCOMYCIN 1GM/270ML NSS ONE (23:43)
[2016-11-16] MEDS ORDERED: MECLIZINE HCL 25 MG TAB PO PRN (23:45)
[2016-11-16 23:53] VITALS: BP 124/69; PULSE 72; TEMP 36.4; O2SAT 95; Ht 177.8 cm; Wt 76.3 kg
[2016-11-17] VITALS (11 sets, daily range): BP systolic 104–131; BP diastolic 62–78; PULSE 69–82; TEMP 36.4–36.7; O2SAT 92–100
[2016-11-17] MEDS: AVODART~ORDER AWAITING ACTION SCH ×4 (00:43→23:08)
[2016-11-17] MEDS: LEVOTHYROXINE 150 MCG TAB PO SCH (05:28)
[2016-11-17] MEDS: PROMETHAZINE HCL INJ 12.5 MG in SODIUM CHLORIDE 0.9% 50ML 50 ML IV PRN ×2 (06:27→12:25)
[2016-11-17 06:40] LABS: BASO % 0.3 %; BASO ABS # 0.02 K/uL (0-0.2); COMPLETE YES; EOS % 0.3 %; HEMATOCRIT 34.1 % (42-52); IG% 0.1 %; LYMPH ABS # 0.36 K/uL (1.2-3.4); MEAN CELL VOLUME 92.7 fL (80-100); MEAN CORPUSCULAR HEMOGLOBIN 30.4 pg (25-34); MEAN CORPUSCULAR HGB CONC 32.8 g/dl (32-36); MONO % 8.1 %; NEUT % 86.2 %; PLATELET COUNT 189 K/uL (130-400); RED BLOOD COUNT 3.68 M/uL (4.7-6.1); WHITE BLOOD COUNT 7.15 K/uL (4.8-10.8)
[2016-11-17 06:48] LABS: INR 2.2 (0.9-1.1); PROTHROMBIN TIME (PATIENT) 24.8 SECONDS (9.0-12.0)
[2016-11-17 07:15] LABS: BUN/CREATININE RATIO 20.3 (10-20); CALCIUM 8.4 mg/dl (8.5-10.1); CREATININE 1.4 mg/dl (0.60-1.40); POTASSIUM 4.4 mmol/L (3.5-5.1)
--- NOTE | 2016-11-17 09:56 | DIAGNOSTIC IMAGING REPORT ---
CHEST ONE VIEW PORTABLE HISTORY: left thoracentesis COMPARISON: Chest 11/16/2016. FINDINGS: No pneumothorax. Small left pleural effusion has decreased in size status post thoracentesis. Left basilar densities persist. The heart remains mildly enlarged. The right lung is clear. No evidence for pulmonary edema. Left-sided pacemaker/defibrillator. Poststernotomy changes. IMPRESSION: Decrease in size in the small left pleural effusion status post thoracentesis. No pneumothorax. Electronically signed by: Raffy Graff M.D. 11/17/2016 9:54 AM Dictated Date/Time: 11/17/2016 9:53 AM
[2016-11-17] MEDS: CLOPIDOGREL BISULFATE 75 MG TAB PO SCH (10:02)
[2016-11-17] MEDS: CARVEDILOL 25 MG TAB PO SCH ×2 (10:02→21:11)
[2016-11-17] MEDS: FLUOXETINE HCL 20 MG CAP PO SCH (10:02)
[2016-11-17] MEDS: PANTOprazole SOD 40 MG TAB PO SCH (10:03)
[2016-11-17] MEDS: POTASSIUM CHLORIDE 20 MEQ TABCR PO SCH (10:03)
[2016-11-17 10:29] LABS: PLEURAL FLUID APPEARANCE HAZY; PLEURAL FLUID COLOR AMBER; PLEURAL FLUID SOURCE LEFT LUNG; PLEURAL FLUID WBC (A) 240 /uL
[2016-11-17 10:42] LABS: PLEURAL FLUID TOTAL PROTEIN 3.5 g/dl
[2016-11-17 10:46] LABS: PLEURAL FLUID MONONUC RELAT 84.5 %; PLEURAL FLUID POLYNUC 15.5 %
--- NOTE | 2016-11-17 11:16 | OPERATIVE REPORT ---
DATE OF OPERATION: 11/16/2016 PROCEDURE: Left thoracentesis under ultrasound guidance. SURGEON: Dr. Connelly. CONSTRUCTION ENGINEERING MANAGER: John Meier. ANESTHESIA: Local. SPECIFICS OF PROCEDURE: With the patient sitting upright the bedside, leaning on a bedside table. Left chest was evaluated with a large amount of fluid. I found a window at about the eighth interspace laterally. After prepping, draping and appropriate time out, skin wheal was raised 25 gauge needle, 1% Xylocaine. A large bore needle was used to anesthetize the deeper tissues and pleura and we got free-flowing fluid. Syringe was removed from the needle and guidewire was inserted through the needle and needle removed. Introducer sheath was slid over to enlarge the insertion tract and then removed. A triple lumen catheter was slid into 17 cm and wire removed. 1500 mL of a tea-colored fluid were drained. I stopped at 1500 given his poor heart function and the fact that I did not want to induce reexpansion pulmonary edema. I attest to the content of the Intraoperative Record and any orders documented therein. Any exceptio ns are noted below.
--- NOTE | 2016-11-17 12:52 | Neurology Consultation ---
Neurology Consultation Date of Consultation: November 17, 2016. Attending Physician: Devon Metcalf D.O. Primary Care Physician: Donis Mcdonald M.D. Reason for Consultation: Vertigo History of Present Illness Source: patient, hospital records The patient is a 76-year-old male who complains of nausea and recurrent vomiting that began somewhat acutely yesterday evening. He complains of a spinning sensation that is worse with movement. He does admit that he has not been feeling well for about the past 6 weeks and reports a feeling of generalized weakness, malaise, and dizziness. A chest x-ray obtained in the emergency department did reveal a left pleural effusion of increasing size. He underwent thoracentesis earlier this morning. Past medical history is notable for congestive heart failure, mechanical aortic and mitral valves, coronary artery disease, chronic kidney disease, Graves ophthalmopathy, and spinal stenosis. He is anticoagulated, INR upon presentation 2.1. I reviewed the images and radiologist's interpretation of the recently completed CT of the head. No prior brain imaging available for comparison. The study reveals multiple, scattered, lacunar infarcts within both cerebellar hemispheres, bilateral basal ganglia, left thalamus. These findings are either chronic or possibly subacute. No evidence of hemorrhage. An electrocardiogram reveals a ventricular paced rhythm, 75 bpm. Past Medical/Surgical History Medical Problems: (1) Anemia Status: Acute (2) CHF (congestive heart failure) Status: Acute (3) Elevated troponin Status: Acute (4) Flu Status: Acute (5) Hypotension Status: Acute (6) Influenza B Status: Acute (7) Pneumonia Status: Acute (8) Pneumonia Status: Acute Family History Hypertension Social History Smoking Status: Former smoker Drug Use: none Marital Status: Housing Status: lives with family Occupation Status: retired Allergies Coded Allergies: Iodinated Diagnostic Agents (Verified Allergy, Mild, HIVES, 07/12/16) Current Inpatient Medications Current Inpatient Medications Medications (Trade) Dose Ordered Sig/Javier Route Start Time Stop Time Status Last Admin Dose Admin Albuterol (Ventolin Hfa Inhaler) 2 puffs QID PRN INH 11/16/16 23:00 12/16/16 22:59 Alfuzosin HCl (Uroxatral Tab) 10 mg QPM PO 11/17/16 21:00 12/17/16 20:59 Carvedilol (Coreg Tab) 25 mg BID PO 11/17/16 09:00 12/17/16 08:59 11/17/16 10:02 25 MG Clopidogrel Bisulfate (plAVix TAB) 75 mg QAM PO 11/17/16 09:00 12/17/16 08:59 11/17/16 10:02 75 MG Digoxin (Lanoxin Tab) 0.125 mg DAILY@1600 PO 11/17/16 16:00 12/17/16 15:59 Fluoxetine HCl (Prozac Cap) 40 mg QAM PO 11/17/16 09:00 12/17/16 08:59 11/17/16 10:02 40 MG Levothyroxine Sodium (Synthroid Tab) 150 mcg DAILYBB PO 11/17/16 06:00 12/17/16 06:59 Montelukast Sodium (Singulair Tab) 10 mg HS PO 11/17/16 21:00 12/17/16 20:59 Nitroglycerin (Nitrostat Tab) 0.4 mg UD PRN SL 11/16/16 23:00 12/16/16 22:59 Pantoprazole Sodium (Protonix Tab) 40 mg QAM PO 11/17/16 09:00 12/17/16 08:59 11/17/16 10:03 40 MG Potassium Chloride (Klor-Con Tab) 20 meq DAILY PO 11/17/16 09:00 12/17/16 08:59 11/17/16 10:03 20 MEQ Miscellaneous Information (Order Awaiting Action) 1 ea QS N/A 11/17/16 00:00 12/17/16 00:00 Miscellaneous Information (Pharmacist Discharge Med Rec Consult) 1 ea UD PRN N/A 11/16/16 23:00 12/16/16 22:59 Meclizine HCl 25 mg 25 mg QID PRN PO 11/16/16 23:45 12/16/16 23:44 11/17/16 10:36 25 MG Promethazine HCl/ Sodium Chloride (Phenergan Inj/ Nss 50ml) 50.5 ml @ 204 mls/hr Q6H PRN IV 11/17/16 01:00 12/17/16 00:59 11/17/16 06:27 204 MLS/HR Warfarin Sodium (Coumadin Tab) 5 mg DAILY@16 PO 11/17/16 16:00 12/17/16 15:59 Review of Systems The patient denies fever, chills, vision change, hearing change, chest pain, abdominal pain, diarrhea, myalgia, arthralgia, swollen glands, abnormal bleeding , rash, depression, or anxiety He does complain of some shortness of breath. A 10 point review of systems was obtained from this patient with pertinent positives and negatives described in history of present illness and otherwise listed above Physical Exam Vital Signs (Past 24 Hrs): Date Time Temp Pulse Resp B/P Pulse Ox O2 Delivery O2 Flow Rate FiO2 11/17/16 12:00 98 Nasal Cannula 2.0 11/17/16 11:03 36.6 70 20 117/70 100 Nasal Cannula 2.0 11/17/16 08:00 100 Nasal Cannula 2.0 11/17/16 07:26 36.5 82 20 131/78 100 Nasal Cannula 2.0 11/17/16 04:00 Nasal Cannula 11/17/16 04:00 36.4 70 18 125/72 99 Nasal Cannula 2.0 11/16/16 23:53 Room Air 11/16/16 23:53 36.4 72 22 124/69 95 Room Air 11/16/16 23:30 70 20 109/64 97 Room Air 11/16/16 22:59 70 16 116/66 96 Room Air 11/16/16 21:13 70 14 113/63 96 Room Air 11/16/16 20:02 70 103/61 70 119/64 71 128/72 11/16/16 20:00 92 Room Air 11/16/16 19:42 70 11/16/16 19:36 36.6 77 14 121/76 98 Room Air The patient is chronically ill-appearing elderly male, he appears mildly uncomfortable and is just undergone thoracentesis. He is alert and oriented to person place and time. Attention and concentration somewhat diminished. Recent and remote memory intact. He is able to name objects and repeat phrases. Gen. fund of knowledge and vocabulary normal. Visual berry full to confrontation. Visual acuity normal. Pupils equal round reactive to light and accommodation. There is some limitation of ocular motility more notable for the right ( probably related to history of Graves' ophthalmopathy in this patient). The right eye appears slightly proptotic. Facial sensation intact bilaterally. There is no facial droop. Palate elevates to midline. Tongue protrudes to midline. Shoulder shrug intact bilaterally. Hearing intact bilaterally. Sensation intact to light touch, temperature, vibration, and proprioception for all 4 limbs. Deep tendon reflexes are 2+ for the upper and lower limbs bilaterally. Plantar responses equivocal bilaterally. There is no dysmetria with finger to nose or heel to burch bilaterally. Ophthalmoscopic examination reveals normal-appearing optic nerves and posterior elements, no papilledema or hemorrhages. Carotid pulses normal bilaterally, no bruits to auscultation. Musculoskeletal examination reveals normal strength for the arms and legs proximally and distally and bilaterally. Muscle tone normal throughout. No atrophy. No abnormal movements observed. Gait and station not tested due to safety concerns. Laboratory Results Past 24 Hours: 11/17/16 05:50 Red Blood Count 3.68, Mean Corpuscular Volume 92.7, Mean Corpuscular Hemoglobin 30.4, Mean Corpuscular Hemoglobin Concent 32.8, Mean Platelet Volume 10.0, Neutrophils (%) (Auto) 86.2, Lymphocytes (%) (Auto) 5.0, Monocytes (%) (Auto) 8.1, Eosinophils (%) (Auto) 0.3, Basophils (%) (Auto) 0.3, Neutrophils # (Auto) 6.16, Lymphocytes # (Auto) 0.36, Monocytes # (Auto) 0.58, Eosinophils # (Auto) 0.02, Basophils # (Auto) 0.02 11/17/16 05:50 Test 11/16/16 19:15 11/16/16 19:54 11/17/16 00:00 11/17/16 05:50 Total Bilirubin 0.7 mg/dl (0.2-1) Direct Bilirubin 0.2 mg/dl (0-0.2) Aspartate Amino Transf (AST/SGOT) 19 U/L (15-37) Alanine Aminotransferase (ALT/SGPT) 15 U/L (12-78) Alkaline Phosphatase 171 U/L (45-117) Total Creatine Kinase 56 U/L (39-308) Creatine Kinase MB 1.9 ng/ml (0.5-3.6) Creatine Kinase MB Ratio 3.4 (0-3.0) Total Protein 7.1 gm/dl (6.4-8.2) Albumin 3.6 gm/dl (3.4-5.0) Thyroid Stimulating Hormone (TSH) 1.010 uIu/ml (0.300-4.500) Digoxin Level 0.9 ng/ml (0.8-2.0) Bedside Glucose 107 mg/dl (70-99) Pleural Fluid pH 7.33 (7.3-7.4) White Blood Count 7.15 K/uL (4.8-10.8) Red Blood Count 3.68 M/uL (4.7-6.1) Hemoglobin 11.2 g/dL (14.0-18.0) Hematocrit 34.1 % (42-52) Mean Corpuscular Volume 92.7 fL (80-100) Mean Corpuscular Hemoglobin 30.4 pg (25-34) Mean Corpuscular Hemoglobin Concent 32.8 g/dl (32-36) Platelet Count 189 K/uL (130-400) Mean Platelet Volume 10.0 fL (7.4-10.4) Neutrophils (%) (Auto) 86.2 % Lymphocytes (%) (Auto) 5.0 % Monocytes (%) (Auto) 8.1 % Eosinophils (%) (Auto) 0.3 % Basophils (%) (Auto) 0.3 % Neutrophils # (Auto) 6.16 K/uL (1.4-6.5) Lymphocytes # (Auto) 0.36 K/uL (1.2-3.4) Monocytes # (Auto) 0.58 K/uL (0.11-0.59) Eosinophils # (Auto) 0.02 K/uL (0-0.5) Basophils # (Auto) 0.02 K/uL (0-0.2) RDW Standard Deviation 46.2 fL (36.4-46.3) RDW Coefficient of Variation 13.6 % (11.5-14.5) Immature Granulocyte % (Auto) 0.1 % Immature Granulocyte # (Auto) 0.01 K/uL (0.00-0.02) Prothrombin Time 24.8 SECONDS (9.0-12.0) Prothromb Time International Ratio 2.2 (0.9-1.1) Anion Gap 7.0 mmol/L (3-11) Est Creatinine Clear Calc Drug Dose 44.9 ml/min Estimated GFR () 55.4 Estimated GFR (Non- 47.8 BUN/Creatinine Ratio 20.3 (10-20) Calcium Level 8.4 mg/dl (8.5-10.1) Troponin I 0.045 ng/ml (0-0.045) Test 11/17/16 09:07 11/17/16 09:21 Pleural Fluid Source LEFT LUNG Pleural Fluid Color HARSH Pleural Fluid Appearance HAZY Pleural Fluid WBC 240 /uL Pleural Fluid RBC 50181 /uL Pleural Fluid Polynuclear WBCs % 15.5 % Pleural Fluid Mononuclear WBCs % 84.5 % Pleural Fluid Total Protein 3.5 g/dl Pleural Fluid LDH 155 IU Pleural Fluid Glucose 111 mg/dl Pleural Fluid Amylase 12 U/L Blood Gas Sample Site Heel Stick Bedside Blood Gas pH (LAB) 7.32 (7.35-7.45) Bedside Blood Gas pCO2 (LAB) 44 mmHg (35-46) Bedside Blood Gas pO2 (LAB) 59 mmHg (80-95) Bedside Blood Gas HCO3 (LAB) 23 meq/L (19-24) Bedside Blood Gas Total CO2 24 mEq/l (24-31) Bedside Blood Gas Base Excess (LAB) -4.0 meq/L (-9-1.8) Bedside Blood Gas O2 Saturation 87.0 % (90-95) Erasto Test NA Impression This patient's recently completed CT of the head suggests that he has had multiple lacunar ischemic infarcts within both cerebellar hemispheres as well as the bilateral basal ganglia. Some of these infarcts may be chronic while others may be subacute. It is not possible to give a more accurate timeline for this imaging finding currently. Unfortunately, we are unable to obtain an MRI as this patient has 2 mechanical heart valves and a cardiac pacer. It is certainly possible that to some extent his symptoms could be related to acute or subacute posterior circulation infarcts. However, his worsening pleural effusion may also have contributed to his symptomatology. Plan This patient is already prescribed warfarin and Plavix and he should probably continue with both of these therapies. As we are unable to obtain an MRI for this patient I would recommend a repeat CT of the head early this evening which may be useful to diagnose and evolving subacute infarct. Would also obtain a carotid ultrasound. Given this patient's history of allergy to iodinated contrast agents and chronic renal failure I would rather avoid a CT angiogram of the head and neck. Furthermore, it is unlikely that angiography of the head and neck would alter his management. However, if a significant carotid stenosis is identified on ultrasound and it may be reasonable to pursue CT angiography with premedication if carotid endarterectomy is in consideration. Of course, the identified chronic to subacute infarcts on this patient's CT of the head localize to the posterior circulation. Symptomatic management of this patient's vertigo with meclizine or a low-dose benzodiazepine would be appropriate. I will make further recommendations pending completion of the repeat CT of the head and carotid duplex.
--- NOTE | 2016-11-17 12:57 | SURGICAL CONSULTATION ---
DATE OF CONSULTATION: 11/17/2016 REASON FOR CONSULTATION: Recurrent left pleural effusion. 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 He was admitted last evening with nausea, vomiting and some dizziness. The patient has multiple medical problems including ischemic cardiomyopathy. He has had aortic and mitral valve replacements and this vertigo associated with diaphoresis and vomiting was very concerning. He has also been increasingly weak. I have actually seen this patient before when he had a left pleural effusion. I performed a thoracentesis 4 months ago and we drained about 1500 mL of fluid. The patient does have a history of cardiomyopathy with an ejection fraction of 20%-25%, moderately depressed LV function. He is on oxygen now. He states that he has become more short of breath. I saw him back in the office and we discussed a possible PleurX catheter, but he was better, so we held off. I discussed this in detail with the patient and his . He was last seen in my office on 07/26/2016. He also suffers from atrial fibrillation and recurrent episodes of congestive heart failure. I was asked to see him as he has a large left pleural effusion seen at a CT of his abdomen and chest x-ray. PAST MEDICAL HISTORY: 1. Coronary artery lesion. 2. Ventricular tachycardia. 3. Atrial fibrillation. 4. Congestive heart failure. 5. Ischemic cardiomyopathy. 6. Chronic prostatitis. 7. Chronic renal insufficiency. 8. Spinal stenosis. 9. Graves' disease. PAST SURGICAL HISTORY: 1. Coronary artery bypass grafting. 2. Aortic valve replacement. 3. Mitral valve replacement. 4. Pacemaker insertion. 5. ICD insertion. 6. Vasectomy. 7. Spermatic cord excision for spermatocele. SOCIAL HISTORY: He did smoke in the past. The patient lives with his who is extremely devoted. He is retired. 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 MEDICATIONS: Please see chart, but include Coumadin. ALLERGIES: None. HE DOES HAVE RENAL INSUFFICIENCY, SO IV CONTRAST IS A CONCERN. FAMILY MEDICAL HISTORY: History of hypertension, hypercholesterolemia, and arteriosclerotic cardiovascular disease. REVIEW OF SYSTEMS: The patient has had some sweats. He denies fevers or chills. He has had a chronic cough. He has marked dyspnea. This has not really changed much. He denies any palpitations or chest pain per se. He has had very little in the way of any edema. He has had some nausea and vomiting with the presenting symptoms, but this is not chronic. He denies melena or hematochezia. He does have chronic back pain and also has some joint pain, which I think is probably osteoarthritis. He denies any urinary symptoms such as hematuria or dysuria. He has been quite fatigued. He has had no skin breakdown. He has had no visual or auditory symptoms. He does have vertigo as noted. PHYSICAL EXAMINATION: GENERAL: He is an elderly appearing white male, who is awake and alert. He actually is conversive and understands. We have presented to the room and the patient knew I was there to talkabout his pleural effusion. He is awake and alert. HEENT: He does have evidence of Graves' disease with almost exophthalmus especially in left eye. He also has some mild nystagmus. He has no nasotracheal flattening. His tongue is midline. NECK: He does have some mild neck vein distention. I do not believe he has carotid bruits. I agree that these are probably radiating from his chest. HEART: He has a well-healed midline sternotomy with no click. He has a irregularly irregular rhythm of his heart. LUNGS: He does have decreased breath sounds in the left base. ABDOMEN: Nice and soft. There is no evidence of abdominal aortic aneurysm. EXTREMITIES: He has no real edema. He has no joint effusions. NEUROLOGICAL: He is moving everything. He is conversant. ASSESSMENT AND PLAN: Recurrent left pleural effusion. INR is 2.2; however, I am going to go ahead and do a thoracentesis. We discussed this in detail. I would hold off putting a PleurX in him at this point.
--- NOTE | 2016-11-17 14:49 | Family Medicine Progress Note ---
Progress Note Date of Service November 17, 2016. Subjective Pt evaluation today including: conversation w/ patient, physical exam, chart review, lab review, review of studies Pain: 0/10 Voiding: no voiding problems Patient gives a limited history States that he has ongoing vertigo but only with any sort of head movement. If patient does not move there is no vertigo. He has had vertigo similar to this episode in the past but severity has much worse than any other episode He denies any headache, chest pain, SOB, abdominal pain He states that he normally takes entresto as an outpt He also states that he used to be on Atorvastatin daily but is unsure Limited ROS because of limited history Medications Medications Administered Medications (Trade) Dose Ordered Sig/Javier Route Start Time Stop Time Status Last Admin Dose Admin Ondansetron HCl 4 mg 4 mg NOW STAT IV 11/16/16 19:48 11/16/16 19:50 DC 11/16/16 19:57 4 MG Sodium Chloride (Nss 500ml) 500 ml @ 999 mls/hr Q31M STAT IV 11/16/16 19:51 11/16/16 20:21 DC 11/16/16 19:54 999 MLS/HR Meclizine HCl (Antivert Tab) 25 mg NOW STAT PO 11/16/16 20:33 11/16/16 20:34 DC 11/16/16 21:07 25 MG Piperacillin Sod/ Tazobactam Sod (Zosyn Iv) 4.5 gm NOW STAT IV 11/16/16 21:10 11/16/16 21:12 DC 11/16/16 21:22 4.5 GM Levofloxacin (Levaquin / D5W) 750 mg NOW STAT IV 11/16/16 21:10 11/16/16 21:12 DC 11/16/16 22:14 750 MG Metoclopramide HCl (Reglan Inj) 10 mg NOW STAT IV 11/16/16 21:10 11/16/16 21:12 DC 11/16/16 21:22 10 MG Carvedilol (Coreg Tab) 25 mg BID PO 11/17/16 09:00 12/17/16 08:59 11/17/16 10:02 25 MG Clopidogrel Bisulfate (plAVix TAB) 75 mg QAM PO 11/17/16 09:00 12/17/16 08:59 11/17/16 10:02 75 MG Fluoxetine HCl (Prozac Cap) 40 mg QAM PO 11/17/16 09:00 12/17/16 08:59 11/17/16 10:02 40 MG Pantoprazole Sodium (Protonix Tab) 40 mg QAM PO 11/17/16 09:00 12/17/16 08:59 11/17/16 10:03 40 MG Potassium Chloride (Klor-Con Tab) 20 meq DAILY PO 11/17/16 09:00 12/17/16 08:59 11/17/16 10:03 20 MEQ Meclizine HCl (Antivert Tab) 25 mg QID PRN PO 11/16/16 23:45 12/16/16 23:44 11/17/16 10:36 25 MG Vancomycin HCl 1 gm 1 gm STK-MED ONCE .ROUTE 11/16/16 23:43 11/16/16 23:44 DC 11/16/16 23:46 1 GM Promethazine HCl/ Sodium Chloride (Phenergan Inj/ Nss 50ml) 50.5 ml @ 204 mls/hr Q6H PRN IV 11/17/16 01:00 12/17/16 00:59 11/17/16 12:25 204 MLS/HR Objective Vital Signs Date Time Temp Pulse Resp B/P Pulse Ox O2 Delivery O2 Flow Rate FiO2 11/17/16 12:00 98 Nasal Cannula 2.0 11/17/16 11:03 36.6 70 20 117/70 100 Nasal Cannula 2.0 11/17/16 08:00 100 Nasal Cannula 2.0 11/17/16 07:26 36.5 82 20 131/78 100 Nasal Cannula 2.0 11/17/16 04:00 Nasal Cannula 11/17/16 04:00 36.4 70 18 125/72 99 Nasal Cannula 2.0 11/16/16 23:53 Room Air 11/16/16 23:53 36.4 72 22 124/69 95 Room Air 11/16/16 23:30 70 20 109/64 97 Room Air 11/16/16 22:59 70 16 116/66 96 Room Air 11/16/16 21:13 70 14 113/63 96 Room Air 11/16/16 20:02 70 103/61 70 119/64 71 128/72 11/16/16 20:00 92 Room Air 11/16/16 19:42 70 11/16/16 19:36 36.6 77 14 121/76 98 Room Air Physical Exam General Appearance: no apparent distress Eyes: + pertinent finding (mild expothalmos) ENT: + pertinent finding (very minimal facial droop left lip) Neck: supple Respiratory/Chest: no respiratory distress, no accessory muscle use, + decreased breath sounds (left lung), + crackles (left lung) Cardiovascular: regular rate, rhythm, + pertinent finding (mechanical click noted ) Abdomen: normal bowel sounds, non tender, soft Extremities: normal range of motion, non-tender, no pedal edema, no calf tenderness Neurologic/Psychiatric: 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, no motor/sensory deficits, alert, normal mood/affect, oriented x 3, + pertinent finding (HINTS negative) Skin: normal color, warm/dry, no rash Lymphatic: no adenopathy Laboratory Results Results Past 24 Hours Test 11/16/16 19:15 11/16/16 19:54 11/17/16 00:00 11/17/16 05:50 Range/Units White Blood Count 10.21 7.15 4.8-10.8 K/uL Red Blood Count 3.74 3.68 4.7-6.1 M/uL Hemoglobin 11.4 11.2 14.0-18.0 g/dL Hematocrit 34.7 34.1 42-52 % Mean Corpuscular Volume 92.8 92.7 80-100 fL Mean Corpuscular Hemoglobin 30.5 30.4 25-34 pg Mean Corpuscular Hemoglobin Concent 32.9 32.8 32-36 g/dl Platelet Count 222 189 130-400 K/uL Mean Platelet Volume 9.6 10.0 7.4-10.4 fL Neutrophils (%) (Auto) 79.2 86.2 % Lymphocytes (%) (Auto) 6.8 5.0 % Monocytes (%) (Auto) 9.6 8.1 % Eosinophils (%) (Auto) 3.8 0.3 % Basophils (%) (Auto) 0.4 0.3 % Neutrophils # (Auto) 8.09 6.16 1.4-6.5 K/uL Lymphocytes # (Auto) 0.69 0.36 1.2-3.4 K/uL Monocytes # (Auto) 0.98 0.58 0.11-0.59 K/uL Eosinophils # (Auto) 0.39 0.02 0-0.5 K/uL Basophils # (Auto) 0.04 0.02 0-0.2 K/uL RDW Standard Deviation 46.6 46.2 36.4-46.3 fL RDW Coefficient of Variation 13.7 13.6 11.5-14.5 % Immature Granulocyte % (Auto) 0.2 0.1 % Immature Granulocyte # (Auto) 0.02 0.01 0.00-0.02 K/uL Prothrombin Time 23.2 24.8 9.0-12.0 SECONDS Prothromb Time International Ratio 2.1 2.2 0.9-1.1 Sodium Level 140 139 136-145 mmol/L Potassium Level 4.5 4.4 3.5-5.1 mmol/L Chloride Level 106 106 98-107 mmol/L Carbon Dioxide Level 29 26 21-32 mmol/L Anion Gap 5.0 7.0 3-11 mmol/L Blood Urea Nitrogen 28 28 7-18 mg/dl Creatinine 1.50 1.40 0.60-1.40 mg/dl Est Creatinine Clear Calc Drug Dose 41.9 44.9 ml/min Estimated GFR () 51.0 55.4 Estimated GFR (Non- 44.0 47.8 BUN/Creatinine Ratio 18.9 20.3 10-20 Random Glucose 101 126 70-99 mg/dl Calcium Level 8.8 8.4 8.5-10.1 mg/dl Total Bilirubin 0.7 0.2-1 mg/dl Direct Bilirubin 0.2 0-0.2 mg/dl Aspartate Amino Transf (AST/SGOT) 19 15-37 U/L Alanine Aminotransferase (ALT/SGPT) 15 12-78 U/L Alkaline Phosphatase 171 45-117 U/L Total Creatine Kinase 56 39-308 U/L Creatine Kinase MB 1.9 0.5-3.6 ng/ml Creatine Kinase MB Ratio 3.4 0-3.0 Troponin I 0.046 0.045 0-0.045 ng/ml Total Protein 7.1 6.4-8.2 gm/dl Albumin 3.6 3.4-5.0 gm/dl Thyroid Stimulating Hormone (TSH) 1.010 0.300-4.500 uIu/ml Digoxin Level 0.9 0.8-2.0 ng/ml Bedside Glucose 107 70-99 mg/dl Pleural Fluid pH 7.33 7.3-7.4 Test 11/17/16 09:07 Range/Units Pleural Fluid Source LEFT LUNG Pleural Fluid Color HARSH Pleural Fluid Appearance HAZY Pleural Fluid WBC 240 /uL Pleural Fluid RBC 54172 /uL Pleural Fluid Polynuclear WBCs % 15.5 % Pleural Fluid Mononuclear WBCs % 84.5 % Pleural Fluid Total Protein 3.5 g/dl Pleural Fluid LDH 155 IU Pleural Fluid Glucose 111 mg/dl Pleural Fluid Amylase 12 U/L Microbiology Results 11/17/16 Fungal Smear - Final, Resulted 11/17/16 Fungal Culture, Resulted Pending 11/17/16 Acid Fast Stain, Received Pending 11/17/16 Mycobacterial Culture, Received Pending 11/17/16 Gram Stain - Final, Resulted 11/17/16 Bacterial Culture, Resulted Pending Assessment and Plan 76 year old with coronary artery disease, ischemic cardiomyopathy and atrial fibrillation presents with acute onset vertigo. Considering the patient's severity of vertigo and significant CAD there was concern for CVA and work up was completed. A CT was negative and unfortunately because of the defibb unable to complete an MRI. When we further discussed the patient's vertigo with him it was very suspicious for BPPV and since he is already on appropriate therapy ( plavix/ASA) and symptom improvement a second CT was deferred. Vertigo; BPPV most likely - Consult neurology - appreciate rec - Already taking ASA, clopidogrel, warfarin (therapeutic for A fib at 2.1) atorvastatin therefore unclear what further therapy is warranted - unable to have MRI due to pacemaker - Meclizine and Zofran for vertigo - neuro checks Moderate left pleural effusion -Thoracentesis completed today and patient tolerated Chronic Systolic CHF Echo - may 2016 - EF 20-25% - mechanical mitral and aortic valve is well seated - apical akinesis - mod global hypokinesis - continue the patient's entresto Elevated troponin - Trending down, could be supply and demand in the presence of severe chronic CHF Hypothyroidism s/p iodine ablation for Grave's disease - TSH WNL, continue current levothyroxine dose Aortic and Mitral valve replacement - INR subtherapeutic for this at 2.1. Aim INR 2.5-3.5. Will increase his warfarin to 5mg daily with daily PTINRs. VTE Prophylaxis - warfarin therapeutic for this purpose Code - Discussed and he wishes no resuscitation efforts consistent with previous advanced directive. Notes he has an ICD in place and he wishes to leave this on but does not wish it to continually go off. 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 Disposition - will downgrade to med surg since tele admission warranted to r/o a fibb and patient is therapeutically anticoag. Resident Physician Supervision Note: I interviewed and examined the patient. Discussed with Dr. Vargas and agree with findings and plan as documented in the note. Any exceptions or clarifications are listed here: None Documented By: Devon Metcalf can't really move without dizzy and nausea neuro input appreciated breathing better since thoracentesis ros otherwise negative except for as above vitals noted nad chronic facial changes breathing unlabored vertigo/lightheaded/dizzy - hard to totally discern - likely will need repeat head CT. med manage as vascular (add statin, otherwise on appropriate meds) severe chronic systolic CHF w effusion - thoracentesis done otherwise as above Continued [facility] stay due to: other Discharge planning: uncertain
[2016-11-17] MEDS ORDERED: SACUBITRIL-VALSARTAN 24-26 MG TAB PO SCH (15:00)
--- NOTE | 2016-11-17 15:54 | DIAGNOSTIC IMAGING REPORT ---
HEAD CT NONCONTRAST CT DOSE: 639.38 mGy.cm HISTORY: Vertigo. stroke TECHNIQUE: Multiaxial CT images of the head were performed without the use of intravenous contrast. Automated exposure control was utilized for this study. Comparison: Head CT 11/16/2016. Findings: Small retention cysts within the maxillary sinuses. The mastoid air cells are clear. There is question of progressive hypodensity within the left cerebellar hemisphere which may represent an acute infarct. The calvarium and skull base are intact. There is no mass, hematoma, midline shift. White matter hypodensity is nonspecific but suggestive of microvascular ischemic change. The ventricles and sulci demonstrate mild age-related involutional changes. Old lacunar infarcts seen within the basal ganglia, left thalamus, and cerebellum are again noted. 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 There may be a patchy area of progressive hypodensity within the left cerebellar hemisphere raising the possibility of an acute infarct at this location. Follow-up brain MRI can be used for confirmation. Electronically signed by: Raffy Graff M.D. 11/17/2016 3:53 PM Dictated Date/Time: 11/17/2016 3:46 PM
--- NOTE | 2016-11-17 16:26 | DIAGNOSTIC IMAGING REPORT ---
ULTRASOUND OF THE CAROTID ARTERIES CLINICAL HISTORY: stroke COMPARISON STUDY: None. TECHNIQUE: Real-time, grayscale, and color Doppler sonography of the carotid arteries was performed. Imaging reviewed in the transverse and longitudinal planes. NASCET criteria was utilized for stenosis calcification. FINDINGS: There is moderate atherosclerotic plaque present at the origin of the right internal carotid. The peak systolic velocity within the right internal carotid artery is 223 cm/sec. The systolic velocity ratio of right internal to common carotid artery is 3.0. The peak systolic velocity within the left internal carotid artery is 48 cm/sec. The systolic velocity ratio left internal to common carotid artery is 0.6. Antegrade flow is seen in the vertebral arteries. The external carotid arteries are patent. Blood pressure in the right arm measured 104 mm/Hg. Blood pressure in the left arm measured 116 mm/Hg. IMPRESSION: 50-69% stenosis of the right internal carotid artery. Electronically signed by: Maverick Street M.D. 11/17/2016 4:24 PM Dictated Date/Time: 11/17/2016 4:22 PM
[2016-11-17] MEDS: DIGOXIN 0.125 MG TAB PO SCH (16:30)
[2016-11-17] MEDS: WARFARIN SOD 5 MG TAB PO SCH (16:30)
--- NOTE | 2016-11-17 18:55 | Medical Student: [facility] ---
Med Student History & Physical Date & Time of Service: November 17, 2016 at 18:22 Chief Complaint: Central Nervous System Origin Vertigo Primary Care Physician: Donis Mcdonald M.D. History of Present Illness Source: patient, hospital records Mr. Erasto Siddiqui is a 76 yo male with a history of mechanical aortic and mitral valves, CHF with an EF of ~25%, hypothyroidism s/p ablative therapy, and intermittent vertigo who became nauseated and dizzy yesterday with unrelenting vertigo symptoms. He presented to the ED last night having vomited more than a dozen times. His symptoms improved with meclizine and promethazine, but he continues to feel nauseous with head movements. He has not vomited since last night. He also noted shortness of breath upon arrival to the ED which had worsened over the past several weeks. This improved following draining ~1.5L from his L lung. He is currently in no acute distress. He denies syncope, chest pain, dyspnea at rest, and or changes in bowel or bladder function. 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 He had ablative therapy and has been on levothyroxine since that time. He has not had any recent episodes of vertigo but they have occurred periodically since the . He notes that several years ago he had surgery to correct his extraoccular muscles, as he was experiencing frequent diplopia. He still has some diplopia with upward gaze. 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) Immunizations History of Influenza Vaccine: N/A Influenza Vaccine Date: Apr 09, 2007 History of Tetanus Vaccine?: Yes Tetanus Immunization Date: Jun 09, 1997 History of Pneumococcal: Yes Pneumococcal Date: Jun 09, 2003 History of Hepatitis B Vaccine: Yes Hepatitis Immunization Date: Jun 09, 1985 Allergies Coded Allergies: Iodinated Diagnostic Agents (Verified Allergy, Mild, HIVES, 07/12/16) Medications Albuterol Hfa (Ventolin Hfa), 2 PUFFS INH QID PRN for Shortness of Breath Alfuzosin Hcl (Uroxatral), 10 MG PO QPM Carvedilol (Coreg), 25 MG PO BID Clopidogrel Bisulfate (Clopidogrel), 75 MG PO QAM Digoxin (Digox), 125 MCG PO QAM Dutasteride (Avodart), 0.5 MG PO QAM Fesoterodine Fumarate (Toviaz), 4 MG PO QAM Fluoxetine (Prozac), 40 MG PO QAM Furosemide (Lasix), 40 MG PO DAILY PRN for WEIGHT GAIN PARAMETERS Levothyroxine Sodium (Levothyroxine Sodium), 150 MCG PO QAM Montelukast Sod (Montelukast Sodium), 10 MG PO HS Nitroglycerin (Nitrostat), 0.4 MG SL UD PRN for Chest Pain Pantoprazole (Protonix), 40 MG PO QAM Potassium Ext Rel (Klor-Con), 20 MEQ PO DIRECTED Warfarin Sodium (Coumadin), 2.5 MG PO 4XWK Warfarin Sodium (Coumadin), 5 MG PO 3XWK Review of Systems Constitutional: + fatigue, + weakness, No chills, No fever, No sweats Eyes: + diplopia (with upward gaze), No problem reported ENT: No problem reported, No tinnitus Respiratory: + cough, + dyspnea on exertion, + shortness of breath Cardiovascular: + orthopnea, No chest pain Abdomen: + nausea, + vomiting, No GI bleeding, No constipation, No diarrhea, No pain Musculoskeletal: No joint pain, No muscle pain Genitourinary - Male: No problem reported Neurologic: + vertigo (intermittent with head movement) Psychiatric: No problem reported Endocrine: No problem reported Physical Exam Vital Signs (24 Hours) Date Time Temp Pulse Resp B/P Pulse Ox O2 Delivery O2 Flow Rate FiO2 11/17/16 17:51 97 Room Air 11/17/16 17:29 Room Air 11/17/16 16:30 73 11/17/16 16:26 36.7 73 18 115/71 97 Room Air 11/17/16 15:37 36.5 69 20 100 2.0 11/17/16 15:30 36.5 69 20 116/70 100 Nasal Cannula 2.0 11/17/16 12:00 98 Nasal Cannula 2.0 11/17/16 11:03 36.6 70 20 117/70 100 Nasal Cannula 2.0 11/17/16 08:00 100 Nasal Cannula 2.0 11/17/16 07:26 36.5 82 20 131/78 100 Nasal Cannula 2.0 11/17/16 04:00 Nasal Cannula 11/17/16 04:00 36.4 70 18 125/72 99 Nasal Cannula 2.0 11/16/16 23:53 Room Air 11/16/16 23:53 36.4 72 22 124/69 95 Room Air 11/16/16 23:30 70 20 109/64 97 Room Air 11/16/16 22:59 70 16 116/66 96 Room Air 11/16/16 21:13 70 14 113/63 96 Room Air 11/16/16 20:02 70 103/61 70 119/64 71 128/72 11/16/16 20:00 92 Room Air 11/16/16 19:42 70 11/16/16 19:36 36.6 77 14 121/76 98 Room Air Vitals: See above. General: Wd/wn, no acute distress. Resting comfortably. HEENT: NCAT, Extraoccular movements slightly out of sync at extremes of lateral vision (not new according to patient). PERRLA. Mild exopthalmos noted. Slight L sided facial droop. CV: S1, S2 with loud mechanical snaps. No murmur appreciated. Peripheral pulses weak but equal bilaterally. Pulm: Bilateral crackles in lower lobes. Decreased air movement. Abdomen: Bowel sounds hyperactive. No tenderness or guarding. No palpable masses or HSM. Neuro: CNII-XII grossly intact, with weak extraoccular movements at extremes. Negative HINTS test. Rapid alternating movements slightly slower on L hand. Diagnostics Laboratory Results Results Past 24 Hours Test 11/16/16 19:15 11/16/16 19:54 11/17/16 00:00 11/17/16 05:50 Range/Units White Blood Count 10.21 7.15 4.8-10.8 K/uL Red Blood Count 3.74 3.68 4.7-6.1 M/uL Hemoglobin 11.4 11.2 14.0-18.0 g/dL Hematocrit 34.7 34.1 42-52 % Mean Corpuscular Volume 92.8 92.7 80-100 fL Mean Corpuscular Hemoglobin 30.5 30.4 25-34 pg Mean Corpuscular Hemoglobin Concent 32.9 32.8 32-36 g/dl Platelet Count 222 189 130-400 K/uL Mean Platelet Volume 9.6 10.0 7.4-10.4 fL Neutrophils (%) (Auto) 79.2 86.2 % Lymphocytes (%) (Auto) 6.8 5.0 % Monocytes (%) (Auto) 9.6 8.1 % Eosinophils (%) (Auto) 3.8 0.3 % Basophils (%) (Auto) 0.4 0.3 % Neutrophils # (Auto) 8.09 6.16 1.4-6.5 K/uL Lymphocytes # (Auto) 0.69 0.36 1.2-3.4 K/uL Monocytes # (Auto) 0.98 0.58 0.11-0.59 K/uL Eosinophils # (Auto) 0.39 0.02 0-0.5 K/uL Basophils # (Auto) 0.04 0.02 0-0.2 K/uL RDW Standard Deviation 46.6 46.2 36.4-46.3 fL RDW Coefficient of Variation 13.7 13.6 11.5-14.5 % Immature Granulocyte % (Auto) 0.2 0.1 % Immature Granulocyte # (Auto) 0.02 0.01 0.00-0.02 K/uL Prothrombin Time 23.2 24.8 9.0-12.0 SECONDS Prothromb Time International Ratio 2.1 2.2 0.9-1.1 Sodium Level 140 139 136-145 mmol/L Potassium Level 4.5 4.4 3.5-5.1 mmol/L Chloride Level 106 106 98-107 mmol/L Carbon Dioxide Level 29 26 21-32 mmol/L Anion Gap 5.0 7.0 3-11 mmol/L Blood Urea Nitrogen 28 28 7-18 mg/dl Creatinine 1.50 1.40 0.60-1.40 mg/dl Est Creatinine Clear Calc Drug Dose 41.9 44.9 ml/min Estimated GFR () 51.0 55.4 Estimated GFR (Non- 44.0 47.8 BUN/Creatinine Ratio 18.9 20.3 10-20 Random Glucose 101 126 70-99 mg/dl Calcium Level 8.8 8.4 8.5-10.1 mg/dl Total Bilirubin 0.7 0.2-1 mg/dl Direct Bilirubin 0.2 0-0.2 mg/dl Aspartate Amino Transf (AST/SGOT) 19 15-37 U/L Alanine Aminotransferase (ALT/SGPT) 15 12-78 U/L Alkaline Phosphatase 171 45-117 U/L Total Creatine Kinase 56 39-308 U/L Creatine Kinase MB 1.9 0.5-3.6 ng/ml Creatine Kinase MB Ratio 3.4 0-3.0 Troponin I 0.046 0.045 0-0.045 ng/ml Total Protein 7.1 6.4-8.2 gm/dl Albumin 3.6 3.4-5.0 gm/dl Thyroid Stimulating Hormone (TSH) 1.010 0.300-4.500 uIu/ml Digoxin Level 0.9 0.8-2.0 ng/ml Bedside Glucose 107 70-99 mg/dl Pleural Fluid pH 7.33 7.3-7.4 Test 11/17/16 09:07 Range/Units Pleural Fluid Source LEFT LUNG Pleural Fluid Color HARSH Pleural Fluid Appearance HAZY Pleural Fluid WBC 240 /uL Pleural Fluid RBC 67339 /uL Pleural Fluid Polynuclear WBCs % 15.5 % Pleural Fluid Mononuclear WBCs % 84.5 % Pleural Fluid Total Protein 3.5 g/dl Pleural Fluid LDH 155 IU Pleural Fluid Glucose 111 mg/dl Pleural Fluid Amylase 12 U/L Microbiology Results 11/17/16 Fungal Smear - Final, Resulted 11/17/16 Fungal Culture, Resulted Pending 11/17/16 Acid Fast Stain, Received Pending 11/17/16 Mycobacterial Culture, Received Pending 11/17/16 Gram Stain - Final, Resulted 11/17/16 Bacterial Culture, Resulted Pending Diagnostic Radiology Carotid US: 50-65% occulsion of R carotid. 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 There may be a patchy area of progressive hypodensity within the left cerebellar hemisphere raising the possibility of an acute infarct at this location. CXR: Small L pleural effusion following thoracentesis. No pneumothorax. CT Abdomen: Hiatial and inguinal hernias. EKG biventricular paced rhythm at 75 Impression Assessment and Plan Mr. Erasto Siddiqui is a 76 yo male with a history of mechanical aortic and mitral valve replacement, hypothyroidism, and a long history of vertigo who presented to the ED last night following an unrelenting episode of vertigo resulting in more than a dozen episodes of vomiting. He had been increasingly sick and short of breath over the last six weeks as well. Individual assessment and plan are as follows: 1. Vertigo. Acute with chronic history. Patient still becomes nauseous with head position changes. Likely BPPV but could also be vestibular neuronitis or other cause fo peripheral vertigo. Patient notes feeling unwell for past several weeks, so viral cause may be possible. Will continue meclizine, zofran and promethazine as needed. Neurology consulted, recs appreciated. Repeat CT shows evolving cerebellar hypodensity. Will possibly repeat CT tomorrow pending neuro recs. Cannot MRI due to pacer. 2. Nausea/vomiting: Likely secondary to vertigo. See above. 3. Shortness of breath: Likley seconary to moderate L pleural effusion, as breathing improved following tapping 1.5L off L lung. This is a chronic problem for which pt sees Dr. Connelly. Per his note, may revisit option of Pleurex tube. 4. CHF: Already taking ASA, clopidogrel, warfarin, Entresto. Unclear as to why atorvastatin was previously stopped. Will restart at 80mg. 5. Elevated troponin: Trending down. Likely demand ischemia. 6. Hypothyrodism. Secondary to ablation in secondary to thyrotoxicosis. Will continue current levothyroxine dose, as TSH is within goal. 7. PT/IRN: Currently subtherapeutic at 2.1 with 2.3-2.5 goal. Will increase to 5 daily and monitor daily PT/INR. 8. DVT proph: Not indicated, currently on warfarin and clopidogrel. 9. Disposition: Continued admission on med/surg. Normal diet. DNR. Level of Care Med/Surg Advanced Directives Existing Advance Directive: Yes Existing Living Will: Yes Existing Power of Security Installer: Yes Resuscitation Status DO NOT RESUSCITATE DVT Prophylaxis other (already on coumadin for mechanical valve)
[2016-11-17] MEDS: MONTELUKAST SOD 10 MG TAB PO SCH (21:10)
[2016-11-17] MEDS: ALFUZosin TAB 10 MG TAB PO SCH (21:10)
[2016-11-18] MEDS: LEVOTHYROXINE 150 MCG TAB PO SCH (06:11)
[2016-11-18 06:18] LABS: BASO % 0.3 %; BASO ABS # 0.02 K/uL (0-0.2); COMPLETE YES; HEMATOCRIT 35.3 % (42-52); LYMPH ABS # 0.69 K/uL (1.2-3.4); MEAN CELL VOLUME 93.4 fL (80-100); MEAN CORPUSCULAR HEMOGLOBIN 29.9 pg (25-34); MEAN PLATELET VOLUME 9.9 fL (7.4-10.4); MONO % 13.4 %; NEUT % 72.3 %; PLATELET COUNT 198 K/uL (130-400); RED BLOOD COUNT 3.78 M/uL (4.7-6.1); WHITE BLOOD COUNT 6.92 K/uL (4.8-10.8)
[2016-11-18 06:37] LABS: ESTIMATED AVERAGE GLUCOSE 103 mg/dl; HA1C FLAG Normal (Normal)
[2016-11-18 06:40] LABS: INR 2.8 (0.9-1.1); PROTHROMBIN TIME (PATIENT) 31.8 SECONDS (9.0-12.0)
[2016-11-18 06:48] LABS: BUN/CREATININE RATIO 16.7 (10-20); CALCIUM 8.4 mg/dl (8.5-10.1); CREATININE 1.5 mg/dl (0.60-1.40); POTASSIUM 4.1 mmol/L (3.5-5.1)
[2016-11-18 06:51] LABS: CHOLESTEROL/HDL RATIO 3.5
--- NOTE | 2016-11-18 07:16 | DIAGNOSTIC IMAGING REPORT ---
CHEST ONE VIEW PORTABLE CLINICAL HISTORY: pleural effusion COMPARISON STUDY: 11/17/2016 FINDINGS: The cardiac and mediastinal contours remain stable. There are postsurgical changes of a midline sternotomy. There is a left subclavian pacer/defibrillator present. There is a persistent left pleural effusion with associated left basilar atelectasis/consolidation. There is minimal blunting right lateral costophrenic angle.[ IMPRESSION: Persistent left pleural effusion with associated left basilar atelectasis/consolidation. Electronically signed by: Maverick Street M.D. 11/18/2016 7:15 AM Dictated Date/Time: 11/18/2016 7:14 AM
[2016-11-18] MEDS: AVODART~ORDER AWAITING ACTION SCH ×3 (07:30→23:23)
[2016-11-18 08:00] VITALS: O2SAT 97
[2016-11-18 08:02] VITALS: BP 122/70; PULSE 59; TEMP 36.5; O2SAT 97
[2016-11-18 08:13] VITALS: PULSE 80
[2016-11-18] MEDS: FLUOXETINE HCL 20 MG CAP PO SCH (08:15)
[2016-11-18] MEDS: ATORVASTATIN 40 MG TAB PO SCH (08:15)
[2016-11-18] MEDS: PANTOprazole SOD 40 MG TAB PO SCH (08:15)
[2016-11-18] MEDS: SACUBITRIL-VALSARTAN 24-26 MG TAB PO SCH (08:16)
[2016-11-18] MEDS: POTASSIUM CHLORIDE 20 MEQ TABCR PO SCH (08:16)
[2016-11-18] MEDS: CLOPIDOGREL BISULFATE 75 MG TAB PO SCH (08:16)
[2016-11-18] MEDS: CARVEDILOL 25 MG TAB PO SCH ×2 (08:17→21:42)
[2016-11-18] MEDS ORDERED: ATOR80TA PO (10:11)
--- NOTE | 2016-11-18 11:50 | Neurology Progress Notes ---
Neurology Progress Note Date of Service November 18, 2016. Subjective Patient reports that he is doing better. No longer feeling dizzy or having vertigo symptoms. Vertigo described as being significantly worse with movement and intermittent. Appears to have more of a peripheral vertigo-type quality as opposed to central. Repeat CT of the head report and images were reviewed by myself. The patient was noted to have multi-territory old ischemic strokes plus an area in the left cerebellum that may be more hypointense possibly indicating a more recent subacute stroke. Per my review it's possible that this may be more recent subacute stroke is not entirely clear. 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 Patient is currently on a statin, Coumadin, and Plavix with a history of valve replacement. Patient is not able to get a CTA of the head and neck secondary to contrast allergy and renal function and is not able to get an MRI. Objective Date Time Temp Pulse Resp B/P Pulse Ox O2 Delivery O2 Flow Rate FiO2 11/18/16 08:13 80 11/18/16 08:02 36.5 59 18 122/70 97 Room Air 11/18/16 08:00 97 Room Air 11/18/16 00:00 Room Air 11/17/16 23:01 36.4 71 18 104/62 92 Room Air 11/17/16 21:12 70 18 111/69 11/17/16 17:51 97 Room Air 11/17/16 17:29 Room Air 11/17/16 16:30 73 11/17/16 16:26 36.7 73 18 115/71 97 Room Air 11/17/16 15:37 36.5 69 20 100 2.0 11/17/16 15:30 36.5 69 20 116/70 100 Nasal Cannula 2.0 11/17/16 12:00 98 Nasal Cannula 2.0 Last 24 Hours Test 11/18/16 05:23 White Blood Count 6.92 K/uL Red Blood Count 3.78 M/uL Hemoglobin 11.3 g/dL Hematocrit 35.3 % Mean Corpuscular Volume 93.4 fL Mean Corpuscular Hemoglobin 29.9 pg Mean Corpuscular Hemoglobin Concent 32.0 g/dl Platelet Count 198 K/uL Mean Platelet Volume 9.9 fL Neutrophils (%) (Auto) 72.3 % Lymphocytes (%) (Auto) 10.0 % Monocytes (%) (Auto) 13.4 % Eosinophils (%) (Auto) 4.0 % Basophils (%) (Auto) 0.3 % Neutrophils # (Auto) 5.00 K/uL Lymphocytes # (Auto) 0.69 K/uL Monocytes # (Auto) 0.93 K/uL Eosinophils # (Auto) 0.28 K/uL Basophils # (Auto) 0.02 K/uL RDW Standard Deviation 47.1 fL RDW Coefficient of Variation 13.8 % Immature Granulocyte % (Auto) 0.0 % Immature Granulocyte # (Auto) 0.00 K/uL Prothrombin Time 31.8 SECONDS Prothromb Time International Ratio 2.8 Sodium Level 141 mmol/L Potassium Level 4.1 mmol/L Chloride Level 107 mmol/L Carbon Dioxide Level 29 mmol/L Anion Gap 5.0 mmol/L Blood Urea Nitrogen 25 mg/dl Creatinine 1.50 mg/dl Est Creatinine Clear Calc Drug Dose 41.9 ml/min Estimated GFR () 51.0 Estimated GFR (Non- 44.0 BUN/Creatinine Ratio 16.7 Random Glucose 90 mg/dl Estimated Average Glucose 103 mg/dl Hemoglobin A1c 5.2 % Calcium Level 8.4 mg/dl Triglycerides Level 54 mg/dl Cholesterol Level 156 mg/dl HDL Cholesterol 44 mg/dl LDL Cholesterol, Calculated 101 mg/dl VLDL Cholesterol, Calculated 11 mg/dl Cholesterol/HDL Ratio 3.5 Imaging: As noted above in subjective Exam: Gen.: Patient is alert and oriented in no acute distress lying in bed HEENT: Normocephalic atraumatic no scleral icterus Extremities: No gross deformities or rashes noted Neurological examination: Mental status: Patient is alert and oriented to person place and time able to give his own history. Speech is fluent without any dysarthria or aphasia noted Cranial nerves: Extraocular muscles intact without nystagmus. No facial symmetry noted. Facial sensation intact. Hearing grossly intact to voice. Tongue is midline. Strength: 5/5 approximately distally in all extremities. No arm drift. Sensation grossly intact in all extremities Coordination: Patient had good finger to nose without dysmetria. Mild to moderate action tremor noted (Right greater than left) Current Inpatient Medications Medications (Trade) Dose Ordered Sig/Javier Route Start Time Stop Time Status Last Admin Dose Admin Albuterol (Ventolin Hfa Inhaler) 2 puffs QID PRN INH 11/16/16 23:00 12/16/16 22:59 Alfuzosin HCl (Uroxatral Tab) 10 mg QPM PO 11/17/16 21:00 12/17/16 20:59 11/17/16 21:10 10 MG Carvedilol (Coreg Tab) 25 mg BID PO 11/17/16 09:00 12/17/16 08:59 11/18/16 08:17 25 MG Clopidogrel Bisulfate (plAVix TAB) 75 mg QAM PO 11/17/16 09:00 12/17/16 08:59 11/18/16 08:16 75 MG Digoxin (Lanoxin Tab) 0.125 mg DAILY@1600 PO 11/17/16 16:00 12/17/16 15:59 11/17/16 16:30 0.125 MG Fluoxetine HCl (Prozac Cap) 40 mg QAM PO 11/17/16 09:00 12/17/16 08:59 11/18/16 08:15 40 MG Levothyroxine Sodium (Synthroid Tab) 150 mcg DAILYBB PO 11/17/16 06:00 12/17/16 06:59 11/18/16 06:11 150 MCG Montelukast Sodium (Singulair Tab) 10 mg HS PO 11/17/16 21:00 12/17/16 20:59 11/17/16 21:10 10 MG Nitroglycerin (Nitrostat Tab) 0.4 mg UD PRN SL 11/16/16 23:00 12/16/16 22:59 Pantoprazole Sodium (Protonix Tab) 40 mg QAM PO 11/17/16 09:00 12/17/16 08:59 11/18/16 08:15 40 MG Potassium Chloride (Klor-Con Tab) 20 meq DAILY PO 11/17/16 09:00 12/17/16 08:59 11/18/16 08:16 20 MEQ Miscellaneous Information (Order Awaiting Action) 1 ea QS N/A 11/17/16 00:00 12/17/16 00:00 Miscellaneous Information (Pharmacist Discharge Med Rec Consult) 1 ea UD PRN N/A 11/16/16 23:00 12/16/16 22:59 Meclizine HCl 25 mg 25 mg QID PRN PO 11/16/16 23:45 12/16/16 23:44 11/17/16 10:36 25 MG Promethazine HCl/ Sodium Chloride (Phenergan Inj/ Nss 50ml) 50.5 ml @ 204 mls/hr Q6H PRN IV 11/17/16 01:00 12/17/16 00:59 11/17/16 12:25 204 MLS/HR Warfarin Sodium (Coumadin Tab) 5 mg DAILY@16 PO 11/17/16 16:00 12/17/16 15:59 11/17/16 16:30 5 MG Sacubitril/ Valsartan (Entresto 24-26 Mg) 1 tab DAILY PO 11/18/16 09:00 12/18/16 08:59 11/18/16 08:16 1 TAB Atorvastatin Calcium (Lipitor Tab) 80 mg QAM PO 11/18/16 09:00 12/18/16 08:59 11/18/16 08:15 80 MG Impression This is a 76-year-old male with multi territory ischemic strokes in the past. Right cerebellar ischemic stroke of unknown timeframe, but possibly may have been more recent. Overall vertigo symptoms sound to be more peripheral vertigo rather than central. Plan Continue with Coumadin and antiplatelets per cardiology recommendations. There is no indication for dual or triple therapy for stroke prevention. As such I do not recommend addition of aspirin. Consider repeating echocardiogram to rule out cardiac embolic sources for stroke. Follow-up PT/OT evaluation and recommendations No additional neurological recommendations at this time. Please call or page me if there is any questions or concerns.
--- NOTE | 2016-11-18 12:52 | Clinical Documentation Query ---
CLINICAL DOCUMENTATION QUERY Dr. HARDWICK, In your clinical opinion is this patient being managed for: ( ) Chronic kidney disease, stage 3 ( ) Other explanation of clinical findings (Please Explain) ( ) Unable to determine (Please Define) ( ) Need to Discuss ( ) Not Agree The medical record reflects the following clinical findings, treatment, and risk factors. Clinical Indicators: 76 yo male presenting with vomiting and vertigo. Noted in H/P to have CKD. Review of historical GFR revealed range of 31-52.3 over the past year. Treatment: monitor PRP's, treat comorbid conditions Risk Factors: age, chronic systolic CHF, CKD, ischemic cardiomyopathy, A fib Documenting the stage of CKD will improve data integrity and will help clarify vague terms such as "renal insufficiency" or "chronic renal failure." The stages of CKD according to the [employer] are as follows: Stage I: GFR >90 Stage II: GFR 60-89 Stage III: GFR 30-59 Stage IV: GFR 15-29 Stage V: GFR <15 Please clarify and document your clinical opinion in the progress notes and discharge summary. Terms such as "probable", "suspected", "likely", "questionable", "possible", or "still to be ruled out" are acceptable. IF IN AGREEMENT, YOU MUST DOCUMENT ABOVE DIAGNOSTIC STATEMENT IN DAILY PROGRESS NOTES AND DISCHARGE SUMMARY. This document is not part of the patient's record. Thank You, Litzy Osborne, RN [phone]
--- NOTE | 2016-11-18 12:53 | Clinical Documentation Query ---
CLINICAL DOCUMENTATION QUERY Dr. SALTER, In your clinical opinion is this patient being managed for: ( x ) Chronic kidney disease, stage 3 ( ) Other explanation of clinical findings (Please Explain) ( ) Unable to determine (Please Define) ( ) Need to Discuss ( ) Not Agree The medical record reflects the following clinical findings, treatment, and risk factors. Clinical Indicators: 76 yo male presenting with vomiting and vertigo. Noted in H/P to have CKD. Review of historical GFR revealed range of 31-52.3 over the past year. Treatment: monitor PRP's, treat comorbid conditions Risk Factors: age, chronic systolic CHF, CKD, ischemic cardiomyopathy, A fib Documenting the stage of CKD will improve data integrity and will help clarify vague terms such as "renal insufficiency" or "chronic renal failure." The stages of CKD according to the National Kid[employer] are as follows: Stage I: GFR >90 Stage II: GFR 60-89 Stage III: GFR 30-59 Stage IV: GFR 15-29 Stage V: GFR <15 Please clarify and document your clinical opinion in the progress notes and discharge summary. Terms such as "probable", "suspected", "likely", "questionable", "possible", or "still to be ruled out" are acceptable. IF IN AGREEMENT, YOU MUST DOCUMENT ABOVE DIAGNOSTIC STATEMENT IN DAILY PROGRESS NOTES AND DISCHARGE SUMMARY. This document is not part of the patient's record. Thank You, Litzy Osborne, RN [phone]
--- NOTE | 2016-11-18 13:23 | SURGERY PROGRESS NOTE ---
DATE: 11/18/2016 DATE: 11/18/2016. Mr. Siddiqui looks much better today. We drained him for about 1500 mL yesterday. His x-ray showed some improvement but clinically he is greatly improved. I believe this man would probably benefit from a PleurX catheter; however, he is scheduled for another CT of his head today. 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 I would not keep him in the hospital for this. He sounds and looks much better today.
[2016-11-18 15:48] VITALS: BP 116/74; PULSE 70; TEMP 36.6; O2SAT 97
[2016-11-18] MEDS: DIGOXIN 0.125 MG TAB PO SCH (16:21)
[2016-11-18] MEDS: WARFARIN SOD 5 MG TAB PO SCH (16:21)
--- NOTE | 2016-11-18 16:22 | Family Medicine Progress Note ---
Progress Note Date of Service November 18, 2016. Subjective Pt evaluation today including: conversation w/ patient, physical exam, chart review, lab review, review of studies Pain: 0/10 PO Intake: WNL Voiding: no voiding problems Patient is feeling much better today and says his vertigo is under control we did discuss the potential for rehab/ SNF after this admission and the patient is agreeable to this Discussed results of his CT scan and reflected understanding Constitutional: No fever Eyes: No worsening of vision ENT: No hearing loss Respiratory: No cough, No dyspnea on exertion, No shortness of breath, No sputum, No wheezing Cardiovascular: No chest pain Abdomen: No constipation, No diarrhea, No nausea, No pain, No vomiting Musculoskeletal: No joint pain, No muscle pain Male : No dysuria Neurologic: + balance problems, + vertigo, + weakness Heme: No abnormal bleeding/bruising Endo: + fatigue Skin: No rash Medications Medications Administered Medications (Trade) Dose Ordered Sig/Javier Route Start Time Stop Time Status Last Admin Dose Admin Ondansetron HCl 4 mg 4 mg NOW STAT IV 11/16/16 19:48 11/16/16 19:50 DC 11/16/16 19:57 4 MG Sodium Chloride (Nss 500ml) 500 ml @ 999 mls/hr Q31M STAT IV 11/16/16 19:51 11/16/16 20:21 DC 11/16/16 19:54 999 MLS/HR Meclizine HCl (Antivert Tab) 25 mg NOW STAT PO 11/16/16 20:33 11/16/16 20:34 DC 11/16/16 21:07 25 MG Piperacillin Sod/ Tazobactam Sod (Zosyn Iv) 4.5 gm NOW STAT IV 11/16/16 21:10 11/16/16 21:12 DC 11/16/16 21:22 4.5 GM Levofloxacin (Levaquin / D5W) 750 mg NOW STAT IV 11/16/16 21:10 11/16/16 21:12 DC 11/16/16 22:14 750 MG Metoclopramide HCl (Reglan Inj) 10 mg NOW STAT IV 11/16/16 21:10 11/16/16 21:12 DC 11/16/16 21:22 10 MG Alfuzosin HCl (Uroxatral Tab) 10 mg QPM PO 11/17/16 21:00 12/17/16 20:59 11/17/16 21:10 10 MG Carvedilol (Coreg Tab) 25 mg BID PO 11/17/16 09:00 12/17/16 08:59 11/18/16 08:17 25 MG Clopidogrel Bisulfate (plAVix TAB) 75 mg QAM PO 11/17/16 09:00 12/17/16 08:59 11/18/16 08:16 75 MG Digoxin (Lanoxin Tab) 0.125 mg DAILY@1600 PO 11/17/16 16:00 12/17/16 15:59 11/17/16 16:30 0.125 MG Fluoxetine HCl (Prozac Cap) 40 mg QAM PO 11/17/16 09:00 12/17/16 08:59 11/18/16 08:15 40 MG Levothyroxine Sodium (Synthroid Tab) 150 mcg DAILYBB PO 11/17/16 06:00 12/17/16 06:59 11/18/16 06:11 150 MCG Montelukast Sodium (Singulair Tab) 10 mg HS PO 11/17/16 21:00 12/17/16 20:59 11/17/16 21:10 10 MG Pantoprazole Sodium (Protonix Tab) 40 mg QAM PO 11/17/16 09:00 12/17/16 08:59 11/18/16 08:15 40 MG Potassium Chloride (Klor-Con Tab) 20 meq DAILY PO 11/17/16 09:00 12/17/16 08:59 11/18/16 08:16 20 MEQ Meclizine HCl (Antivert Tab) 25 mg QID PRN PO 11/16/16 23:45 12/16/16 23:44 11/17/16 10:36 25 MG Vancomycin HCl 1 gm 1 gm STK-MED ONCE .ROUTE 11/16/16 23:43 11/16/16 23:44 DC 11/16/16 23:46 1 GM Promethazine HCl/ Sodium Chloride (Phenergan Inj/ Nss 50ml) 50.5 ml @ 204 mls/hr Q6H PRN IV 11/17/16 01:00 12/17/16 00:59 11/17/16 12:25 204 MLS/HR Warfarin Sodium (Coumadin Tab) 5 mg DAILY@16 PO 11/17/16 16:00 12/17/16 15:59 11/17/16 16:30 5 MG Sacubitril/ Valsartan (Entresto 24-26 Mg) 1 tab DAILY PO 11/18/16 09:00 12/18/16 08:59 11/18/16 08:16 1 TAB Atorvastatin Calcium (Lipitor Tab) 80 mg QAM PO 11/18/16 09:00 12/18/16 08:59 11/18/16 08:15 80 MG Objective Vital Signs Date Time Temp Pulse Resp B/P Pulse Ox O2 Delivery O2 Flow Rate FiO2 11/18/16 15:48 36.6 70 18 116/74 97 11/18/16 08:13 80 11/18/16 08:02 36.5 59 18 122/70 97 Room Air 11/18/16 08:00 97 Room Air 11/18/16 00:00 Room Air 11/17/16 23:01 36.4 71 18 104/62 92 Room Air 11/17/16 21:12 70 18 111/69 11/17/16 17:51 97 Room Air 11/17/16 17:29 Room Air 11/17/16 16:30 73 11/17/16 16:26 36.7 73 18 115/71 97 Room Air Physical Exam General Appearance: no apparent distress Eyes: normal inspection ENT: normal ENT inspection, + pertinent finding (expothalmos but BL) Neck: supple Respiratory/Chest: no respiratory distress, no accessory muscle use, + decreased breath sounds (to left base with occasional crackle) Cardiovascular: regular rate, rhythm, no murmur Abdomen: normal bowel sounds, non tender, soft Extremities: normal range of motion, non-tender, normal inspection Neurologic/Psychiatric: alert, normal mood/affect Skin: normal color, warm/dry, no rash Lymphatic: no adenopathy Laboratory Results Results Past 24 Hours Test 11/18/16 05:23 Range/Units White Blood Count 6.92 4.8-10.8 K/uL Red Blood Count 3.78 4.7-6.1 M/uL Hemoglobin 11.3 14.0-18.0 g/dL Hematocrit 35.3 42-52 % Mean Corpuscular Volume 93.4 80-100 fL Mean Corpuscular Hemoglobin 29.9 25-34 pg Mean Corpuscular Hemoglobin Concent 32.0 32-36 g/dl Platelet Count 198 130-400 K/uL Mean Platelet Volume 9.9 7.4-10.4 fL Neutrophils (%) (Auto) 72.3 % Lymphocytes (%) (Auto) 10.0 % Monocytes (%) (Auto) 13.4 % Eosinophils (%) (Auto) 4.0 % Basophils (%) (Auto) 0.3 % Neutrophils # (Auto) 5.00 1.4-6.5 K/uL Lymphocytes # (Auto) 0.69 1.2-3.4 K/uL Monocytes # (Auto) 0.93 0.11-0.59 K/uL Eosinophils # (Auto) 0.28 0-0.5 K/uL Basophils # (Auto) 0.02 0-0.2 K/uL RDW Standard Deviation 47.1 36.4-46.3 fL RDW Coefficient of Variation 13.8 11.5-14.5 % Immature Granulocyte % (Auto) 0.0 % Immature Granulocyte # (Auto) 0.00 0.00-0.02 K/uL Prothrombin Time 31.8 9.0-12.0 SECONDS Prothromb Time International Ratio 2.8 0.9-1.1 Sodium Level 141 136-145 mmol/L Potassium Level 4.1 3.5-5.1 mmol/L Chloride Level 107 98-107 mmol/L Carbon Dioxide Level 29 21-32 mmol/L Anion Gap 5.0 3-11 mmol/L Blood Urea Nitrogen 25 7-18 mg/dl Creatinine 1.50 0.60-1.40 mg/dl Est Creatinine Clear Calc Drug Dose 41.9 ml/min Estimated GFR () 51.0 Estimated GFR (Non- 44.0 BUN/Creatinine Ratio 16.7 10-20 Random Glucose 90 70-99 mg/dl Estimated Average Glucose 103 mg/dl Hemoglobin A1c 5.2 4.5-5.6 % Calcium Level 8.4 8.5-10.1 mg/dl Triglycerides Level 54 0-150 mg/dl Cholesterol Level 156 0-200 mg/dl HDL Cholesterol 44 mg/dl LDL Cholesterol, Calculated 101 mg/dl VLDL Cholesterol, Calculated 11 mg/dl Cholesterol/HDL Ratio 3.5 Assessment and Plan 76 year old with coronary artery disease, ischemic cardiomyopathy and atrial fibrillation presents with acute onset vertigo. Considering the patient's severity of vertigo and significant CAD there was concern for CVA and work up was completed. A CT was negative and unfortunately because of the defibb unable to complete an MRI. When we further discussed the patient's vertigo with him it was very suspicious for BPPV. A repeat CT revealed old lacunar infarcts as well as a developing hypodensity in the cerebellum which was suspicious for a stroke. Atorvastatin was restarted and plavix continued. No need for dual therapy and ASA held. Vertigo; BPPV most likely; new hypodensity in cerebellum concerning for stroke - Consult neurology - appreciate rec - Already taking clopidogrel, warfarin (therapeutic for A fib at 2.1) atorvastatin therefore unclear what further therapy is warranted - unable to have MRI due to pacemaker - Meclizine and Zofran for vertigo - neuro checks - will repeat echo Moderate left pleural effusion -Thoracentesis completed today and patient tolerated - Patient is a candidate for Pleurx Chronic Systolic CHF Echo - may 2016 - EF 20-25% - mechanical mitral and aortic valve is well seated - apical akinesis - mod global hypokinesis - continue the patient's entresto Elevated troponin - Trending down, could be supply and demand in the presence of severe chronic CHF Hypothyroidism s/p iodine ablation for Grave's disease - TSH WNL, continue current levothyroxine dose Aortic and Mitral valve replacement - INR subtherapeutic for this at 2.1. Aim INR 2.5-3.5. Will increase his warfarin to 5mg daily with daily PTINRs. VTE Prophylaxis - warfarin therapeutic for this purpose Code - Discussed and he wishes no resuscitation efforts consistent with previous advanced directive. Notes he has an ICD in place and he wishes to leave this on but does not wish it to continually go off. 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 Disposition - d/c to rehab/ SNF when bed available Resident Physician Supervision Note: I interviewed and examined the patient. Discussed with Dr. Vargas and agree with findings and plan as documented in the note. Any exceptions or clarifications are listed here: None Documented By: Devon Metcalf feeling much less dizzy at rest. for rehab once approved. no other new complaints ros otehrwise negative except for as above vitals noted nad breathing unlabored no pallor or icterus no new neuro deficits dizziness - stroke vs peripheral - CT very concerning for stroke - re-addition of statin (watch closely for next several months as outpt since he doesn't really recall a problem but also not clear why it was stopped) - otherwise med management as currently being done otherwise as above Continued [facility] stay due to: other Discharge planning: uncertain
[2016-11-18 16:31] VITALS: O2SAT 97
--- NOTE | 2016-11-18 17:45 | ECHOCARDIOGRAM REPORT ---
*NOTICE TO RECEIVING REPUBLICAN AGENCY This information is strictly Confidential and protected under [place] law. [place] law prohibits you from making any further disclosure of this information unless further disclosure is expressly permitted by the written consent of the person to whom it pertains or is authorized by law. A general authorization for the release of medical or other information is not sufficient for this purpose. Hospital accepts no responsibility if the information is made available to any other person, INCLUDING THE PATIENT. Interpretation Summary * Name: DALJIT MARK Study Date: 11/18/2016 01:08 PM BP: 122/70 mmHg * Patient Location: .[id number]\W259\S\1 HR: 80 * : 1940 (M/d/yyyy) Gender: Male Height: 70 in * Age: 76 yrs Ethnicity: [place] Weight: 168 lb * Ordering Physician: Leslye Vargas * Referring Physician: Self, Referred * Performed By: Ashleigh Sanderson RDCS * * Reason For Study: Stroke * BSA: 1.9 m2 * -- Conclusions -- * Left ventricular systolic function is moderately reduced. * There are regional wall motion abnormalities as specified. * The right ventricular systolic function is reduced as assessed by tricuspid annular plane systolic excursion (TAPSE) (TAPSE <1.6 cm). * The left atrium is moderately dilated. * Due to acoustic shadowing and poor image quality, a PFO cannot be excluded * There is a mechanical aortic valve. * There is a mechanical mitral valve. * When compared directly to a study from 08/2015, the overall LV systolic function may be sllightly worse. Procedure Details * A complete two-dimensional transthoracic echocardiogram was performed (2D, M-mode, Doppler and color flow Doppler). * A saline contrast injection was performed to assess for cardiac shunting. * The injection was performed through an intravenous line in the right arm. * The attending nurse who injected the saline contrast was Joslyn Martinez RN. * A total of 30 cc of agitated saline was given. * A contrast injection of Definity was performed to improve assessment for apical thrombus. * Contrast was injected into an intravenous site in the right arm. * One vial of Definity ultrasound contrast was diluted in normal saline to a total volume of 10 ml. A total of '3' ml of solution was administered during imaging. * Lot # [id number] of Definity utilized for procedure. * Expiration date OCT 19. * The attending nurse who injected the contrast agent was Joslyn Martinez RN. Left Ventricle * The left ventricle is normal in size. * The apex appears aneurysmal. * There is normal left ventricular wall thickness. * Ejection Fraction = 35-40%. * Left ventricular systolic function is moderately reduced. * Global hypokinesis with normal function of the lateral apex and improved function of the basal segements versus the apex. * There are regional wall motion abnormalities as specified. Right Ventricle * The right ventricle is grossly normal size. * The right ventricular systolic function is reduced as assessed by tricuspid annular plane systolic excursion (TAPSE) (TAPSE <1.6 cm). Atria * The left atrium is moderately dilated. * Right atrial size is normal. * Due to acoustic shadowing and poor image quality, a PFO cannot be excluded Mitral Valve * There is a mechanical mitral valve. * Prosthetic mitral valve peak and/or mean gradients are normal. Tricuspid Valve * The tricuspid valve is not well visualized. Aortic Valve * There is a mechanical aortic valve. * The gradient is normal for this prosthetic aortic valve. Pericardium/Pleural * There is no pericardial effusion. Great Vessels * Normal inferior vena cava size and collapsability with sniff indicates a normal right atrial pressure of 3 mmHg MMode 2D Measurements and Calculations IVSd 1.3 cm LVIDd 3.7 cm LVIDs 3.2 cm LVPWd 1.1 cm IVS/LVPW 1.1 FS 14.4 % EDV(Teich) 58.0 ml ESV(Teich) 39.8 ml EF(Teich) 31.4 % EDV(cubed) 50.5 ml ESV(cubed) 31.6 ml EF(cubed) 37.4 % LV mass(C)d 143.1 grams LV mass(C)dI 73.8 grams/m\S\2 CO(Teich) 1.3 l/min CI(Teich) 0.67 l/min/m\S\2 SV(Teich) 18.2 ml SI(Teich) 9.4 ml/m\S\2 CO(cubed) 1.3 l/min CI(cubed) 0.69 l/min/m\S\2 SV(cubed) 18.9 ml SI(cubed) 9.7 ml/m\S\2 asc Aorta Diam 3.1 cm LVAd ap4 43.5 cm\S\2 LVLd ap4 9.5 cm EDV(MOD-sp4) 158.0 ml LVAs ap4 38.1 cm\S\2 LVLs ap4 9.3 cm ESV(MOD-sp4) 125.0 ml EF(MOD-sp4) 20.9 % LVAd ap2 39.8 cm\S\2 LVLd ap2 8.9 cm EDV(MOD-sp2) 138.0 ml LVAs ap2 31.6 cm\S\2 LVLs ap2 8.6 cm ESV(MOD-sp2) 95.4 ml EF(MOD-sp2) 30.9 % CO(MOD-sp4) 2.3 l/min CI(MOD-sp4) 1.2 l/min/m\S\2 SV(MOD-sp4) 33.0 ml SI(MOD-sp4) 17.0 ml/m\S\2 CO(MOD-sp2) 3.0 l/min CI(MOD-sp2) 1.6 l/min/m\S\2 SV(MOD-sp2) 42.6 ml SI(MOD-sp2) 22.0 ml/m\S\2 Doppler Measurements and Calculations MV E max alfonso 151.8 cm/sec MV V2 max 157.5 cm/sec MV max PG 9.9 mmHg MV V2 mean 84.1 cm/sec MV mean PG 3.5 mmHg MV V2 VTI 30.5 cm MV dec time 0.17 sec Ao V2 max 143.9 cm/sec Ao max PG 8.3 mmHg Ao max PG (full) 7.1 mmHg Ao V2 mean 87.4 cm/sec Ao mean PG 3.9 mmHg Ao V2 VTI 23.4 cm LV V1 max PG 1.2 mmHg LV V1 max 54.3 cm/sec PA V2 max 71.9 cm/sec PA max PG 2.1 mmHg PA acc slope 653.1 cm/sec\S\2 PA acc time 0.10 sec PA pr(Accel) 36.2 mmHg
--- NOTE | 2016-11-18 18:28 | Medical Student: [facility] ---
Med Student Progress Note Date of Service November 18, 2016. Subjective Pt evaluation today including: conversation w/ patient Mr. Erasto Siddiqui is a 76 yo male with a history of CHF w/ EF 25% s/p mechanical aortic and mitral valve replacement, hypothyroidism s/p ablative therapy, and intermittent vertigo who became nauseated and dizzy yesterday with unrelenting vertigo symptoms two days ago. He was quite nauseated prior to admission but has not experienced nausea or vertigo for [address] yesterday afternoon showed a developing hypodensity in his L cerebellum questionable for subacute/ acute infarct which may help to explain the onset of his symptoms, although he continues to describe the symptoms as "when I move my head". His breathing has improved today following drainage of 1.5L from his left pleural effusion today, and he notes more energy overall. Mr Siddiqui notes that his vertigo symptoms first occurred in the at which time he was found to have Graves disease. He had ablative therapy and has been on levothyroxine since that time. He has not had any recent episodes of vertigo but they have occurred periodically since the . He notes that several years ago he had surgery to correct his extraoccular muscles, as he was experiencing frequent diplopia. He still has some diplopia with upward gaze. Review of Systems Constitutional: + fatigue, + weakness, No chills, No fever, No sweats, No weight loss Eyes: + diplopia (with upward gaze, chronic) ENT: No problem reported Respiratory: + cough, + shortness of breath (but improving) Cardiac: + orthopnea, No chest pain, No claudication, No edema Abdomen: No problem reported Musculoskeletal: No problem reported Male : No problem reported Neurologic: No balance problems, No numbness/tingling, No paralysis, No vertigo , No weakness Psychiatric: No problem reported Skin: No problem reported Objective Vital Signs Date Time Temp Pulse Resp B/P Pulse Ox O2 Delivery O2 Flow Rate FiO2 11/18/16 16:31 97 Room Air 11/18/16 16:21 70 11/18/16 15:48 36.6 70 18 116/74 97 11/18/16 08:13 80 11/18/16 08:02 36.5 59 18 122/70 97 Room Air 11/18/16 08:00 97 Room Air 11/18/16 00:00 Room Air 11/17/16 23:01 36.4 71 18 104/62 92 Room Air 11/17/16 21:12 70 18 111/69 Physical Exam General Appearance: WD/WN, no apparent distress Comments: Vitals: See above. General: Wd/wn, no acute distress. Resting comfortably. More energy than yesterday HEENT: NCAT, Extraoccular movements slightly out of sync at extremes of lateral vision, more so in R eye (not new according to patient). PERRLA. Mild exophthalmos noted. CV: S1, S2 with loud mechanical snaps. No murmur appreciated. Peripheral pulses weak but equal bilaterally. Pulm: Bilateral crackles in lower lobes. Decreased air movement in L lower lobe. Abdomen: Bowel sounds hyperactive. No tenderness or guarding. No palpable masses or HSM. Neuro: CNII-XII grossly intact, with weak extraoccular movements at extremes of vision. Negative HINTS test. Rapid alternating movements slightly slower on L hand. Laboratory Results Last 24 Hours Test 11/18/16 05:23 White Blood Count 6.92 K/uL Red Blood Count 3.78 M/uL Hemoglobin 11.3 g/dL Hematocrit 35.3 % Mean Corpuscular Volume 93.4 fL Mean Corpuscular Hemoglobin 29.9 pg Mean Corpuscular Hemoglobin Concent 32.0 g/dl Platelet Count 198 K/uL Mean Platelet Volume 9.9 fL Neutrophils (%) (Auto) 72.3 % Lymphocytes (%) (Auto) 10.0 % Monocytes (%) (Auto) 13.4 % Eosinophils (%) (Auto) 4.0 % Basophils (%) (Auto) 0.3 % Neutrophils # (Auto) 5.00 K/uL Lymphocytes # (Auto) 0.69 K/uL Monocytes # (Auto) 0.93 K/uL Eosinophils # (Auto) 0.28 K/uL Basophils # (Auto) 0.02 K/uL RDW Standard Deviation 47.1 fL RDW Coefficient of Variation 13.8 % Immature Granulocyte % (Auto) 0.0 % Immature Granulocyte # (Auto) 0.00 K/uL Prothrombin Time 31.8 SECONDS Prothromb Time International Ratio 2.8 Sodium Level 141 mmol/L Potassium Level 4.1 mmol/L Chloride Level 107 mmol/L Carbon Dioxide Level 29 mmol/L Anion Gap 5.0 mmol/L Blood Urea Nitrogen 25 mg/dl Creatinine 1.50 mg/dl Est Creatinine Clear Calc Drug Dose 41.9 ml/min Estimated GFR () 51.0 Estimated GFR (Non- 44.0 BUN/Creatinine Ratio 16.7 Random Glucose 90 mg/dl Estimated Average Glucose 103 mg/dl Hemoglobin A1c 5.2 % Calcium Level 8.4 mg/dl Triglycerides Level 54 mg/dl Cholesterol Level 156 mg/dl HDL Cholesterol 44 mg/dl LDL Cholesterol, Calculated 101 mg/dl VLDL Cholesterol, Calculated 11 mg/dl Cholesterol/HDL Ratio 3.5 Assessment and Plan Assessment and Plan: Mr. Erasto Siddiqui is a 76 yo male with a history of mechanical aortic and mitral valve replacement, hypothyroidism, and a long history of vertigo who presented to the ED last night following an unrelenting episode of vertigo resulting in more than a dozen episodes of vomiting. He had been increasingly sick and short of breath over the last six weeks as well. Individual assessment and plan are as follows: 1. Vertigo: Acute with chronic history, resolved for 24 hours. BPPV vs acute cerebellar infarct. Explained possible cerebellar infarct to patient, and that further imaging would not change our medical management, as his meds are already maximized. He is agreeable to not do any more imaging for current symptoms. Meclazine and zofran still prn, but have not needed in more than 24 hours. 2. Nausea/vomiting: Likely secondary to vertigo. See above. Resolved, no nausea in 24 hours. 3. Shortness of breath: Likley seconary to moderate L pleural effusion, as breathing improved following tapping 1.5L off L lung yesterday. Not worse today. This is a chronic problem for which pt sees Dr. Connelly. Per his note, may revisit option of Pleurex tube. Patient is considering this. 4. CHF: Already taking ASA, clopidogrel, warfarin, Entresto. Unclear as to why atorvastatin was previously stopped. Will restart at 80mg. 5. Elevated troponin: Resolving. Trending down. Likely demand ischemia. 6. Hypothyrodism. Secondary to ablation in secondary to thyrotoxicosis. Will continue current levothyroxine dose, as TSH is within goal. 7. PT/IRN: Currently therapeutic at 5 daily. Continue to monitor daily PT/INR. 8. DVT proph: Warfarin is therapeutic 9. Disposition: med/surg until bed at rehab/care home facility is available. He needs to get his strength back. Normal diet. DNR. Continued [facility] stay due to: other Discharge planning: uncertain
[2016-11-18 21:40] VITALS: BP 114/71; PULSE 70
[2016-11-18] MEDS: ALFUZosin TAB 10 MG TAB PO SCH (21:43)
[2016-11-18] MEDS: MONTELUKAST SOD 10 MG TAB PO SCH (21:43)
[2016-11-19 00:22] VITALS: BP 114/71; PULSE 67; TEMP 36.8; O2SAT 97
[2016-11-19 01:35] VITALS: O2SAT 97
[2016-11-19] MEDS: LEVOTHYROXINE 150 MCG TAB PO SCH (06:04)
[2016-11-19 07:03] LABS: BASO % 0.7 %; BASO ABS # 0.04 K/uL (0-0.2); COMPLETE YES; EOS % 5.3 %; HEMATOCRIT 35.6 % (42-52); IG% 0.2 %; LYMPH % 12.7 %; LYMPH ABS # 0.77 K/uL (1.2-3.4); MEAN CELL VOLUME 91.5 fL (80-100); MEAN CORPUSCULAR HEMOGLOBIN 30.1 pg (25-34); MEAN CORPUSCULAR HGB CONC 32.9 g/dl (32-36); MEAN PLATELET VOLUME 9.1 fL (7.4-10.4); MONO % 14.9 %; NEUT % 66.2 %; PLATELET COUNT 178 K/uL (130-400); RED BLOOD COUNT 3.89 M/uL (4.7-6.1); WHITE BLOOD COUNT 6.06 K/uL (4.8-10.8)
[2016-11-19 07:12] LABS: INR 2.4 (0.9-1.1); PROTHROMBIN TIME (PATIENT) 26.8 SECONDS (9.0-12.0)
[2016-11-19] MEDS: AVODART~ORDER AWAITING ACTION SCH ×3 (07:25→23:24)
[2016-11-19 07:38] LABS: BUN/CREATININE RATIO 17.7 (10-20); CALCIUM 8.2 mg/dl (8.5-10.1); CREATININE 1.4 mg/dl (0.60-1.40); POTASSIUM 3.9 mmol/L (3.5-5.1)
[2016-11-19 07:42] VITALS: BP 103/77; PULSE 69; TEMP 36.5; O2SAT 97
[2016-11-19] MEDS: PANTOprazole SOD 40 MG TAB PO SCH (08:22)
[2016-11-19] MEDS: CLOPIDOGREL BISULFATE 75 MG TAB PO SCH (08:23)
[2016-11-19] MEDS: SACUBITRIL-VALSARTAN 24-26 MG TAB PO SCH (08:23)
[2016-11-19] MEDS: ATORVASTATIN 40 MG TAB PO SCH (08:23)
[2016-11-19] MEDS: FLUOXETINE HCL 20 MG CAP PO SCH (08:24)
[2016-11-19] MEDS: CARVEDILOL 25 MG TAB PO SCH ×2 (08:25→20:02)
[2016-11-19] MEDS: POTASSIUM CHLORIDE 20 MEQ TABCR PO SCH (08:25)
--- NOTE | 2016-11-19 08:33 | Surgery Progress Note ---
Subjective Date of Service: November 19, 2016. Pt. notes his breathing has improved since thoracentesis Objective Vitals Date Time Temp Pulse Resp B/P Pulse Ox O2 Delivery O2 Flow Rate FiO2 11/19/16 07:42 36.5 69 18 103/77 97 11/19/16 01:35 97 Room Air 11/19/16 00:22 36.8 67 16 114/71 97 Room Air 11/18/16 21:40 70 18 114/71 11/18/16 16:31 97 Room Air 11/18/16 16:21 70 11/18/16 15:48 36.6 70 18 116/74 97 Physical Exam General: No distress Pulmonary: + pertinent finding (decreased BS at left base), No accessory muscle use, No respiratory distress Neurologic: + alert & oriented x 3 Assessment & Plan 76 year old male with pleural effusion -thoracentesis performed (11/17/16) -all culture are thus far (-) -f/u CXR shows persistent pleural effusion -Dr. Connelly has discussed placing pleurx catheter: -pt. wished to hold off for now -if this procedure is to be done can be done as oupt.
--- NOTE | 2016-11-19 10:11 | Discharge Instructions ---
Discharge Instructions Date of Service November 19, 2016. Admission Reason for Admission: Central Nervous System Origin Vertigo Discharge Discharge Diagnosis / Problem: vertigo, CVA Discharge Goals Goal(s): Improve function, Increase independence, Diagnostic testing Activity Recommendations Activity Level: OOB In Chair, Assistance Required Therapies: Physical Therapy, Occupational Therapy Exercise/Sports Limitations: as tolerated . Additional Information Patient informed of condition: Yes Advance Directives: No DNR: Yes Level of Care: Acute Rehab Communicable Disease: No Prognosis: Improving Instructions / Follow-Up Instructions / Follow-Up 76 year old with coronary artery disease, ischemic cardiomyopathy and atrial fibrillation presents with acute onset vertigo. Considering the patient's severity of vertigo and significant CAD there was concern for CVA and work up was completed. A CT was negative and unfortunately because of the defibb unable to complete an MRI. When we further discussed the patient's vertigo with him it was very suspicious for BPPV. A repeat CT revealed old lacunar infarcts as well as a developing hypodensity in the cerebellum which was suspicious for a stroke. Atorvastatin was restarted and plavix continued. No need for dual therapy and ASA held. Vertigo; BPPV most likely; new hypodensity in cerebellum concerning for stroke - clopidogrel, atorvastatin 80 mg daily ( rx given) - Outpt neuro follow up recommended - unable to have MRI due to pacemaker/ mechanical valves - Meclizine and Zofran was given for vertigo - echo: * Left ventricular systolic function is moderately reduced. * There are regional wall motion abnormalities as specified. * The right ventricular systolic function is reduced as assessed by tricuspid annular plane systolic excursion (TAPSE) (TAPSE <1.6 cm). * The left atrium is moderately dilated. * Due to acoustic shadowing and poor image quality, a PFO cannot be excluded * There is a mechanical aortic valve. * There is a mechanical mitral valve. * When compared directly to a study from 08/2015, the overall LV systolic function may be sllightly worse. Moderate left pleural effusion -Thoracentesis completed today and patient tolerated - Patient is a candidate for Pleurx however would like to hold off for now CKDIII - Cr was stable between 14-1.5 , around BL for patient Chronic Systolic CHF Echo - may 2016 - EF 20-25% - mechanical mitral and aortic valve is well seated - apical akinesis - mod global hypokinesis - continued the patient's entresto Elevated troponin- Supply and demand - Trending down, supply and demand in the presence of severe chronic CHF Hypothyroidism s/p iodine ablation for Grave's disease - TSH WNL, continue current levothyroxine dose Aortic and Mitral valve replacement - Aim INR 2.5-3.5. warfarin 5mg daily - Recheck INR in 48 hours VTE Prophylaxis - warfarin therapeutic for this purpose Code - Discussed and he wishes no resuscitation efforts consistent with previous advanced directive. Notes he has an ICD in place and he wishes to leave this on but does not wish it to continually go off. 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 Current Hospital Diet Patient's current hospital diet: AHA Diet (Heart Healthy) Discharge Diet Recommended Diet: AHA Diet (Heart Healthy), Low Sodium Diet (2gm Na) Pending Studies Studies pending at discharge: no Laboratory Results Hemoglobin A1c Test 11/18/16 05:23 Range/Units Estimated Average Glucose 103 mg/dl Hemoglobin A1c 5.2 4.5-5.6 % Lipid Panel Test 11/18/16 05:23 Range/Units Triglycerides Level 54 0-150 mg/dl Cholesterol Level 156 0-200 mg/dl HDL Cholesterol 44 mg/dl Cholesterol/HDL Ratio 3.5 LDL Cholesterol, Calculated 101 mg/dl Medical Emergencies . Who to Call and When: Medical Emergencies: If at any time you feel your situation is an emergency, please call 911 immediately. . Non-Emergent Contact Non-Emergency issues call your: Primary Care Provider . . "Provider Documentation" section prepared by Leslye Vargas. . Core Measure Problem Core Measures: Stroke Stroke Core Measures Reason no t-PA for Stroke: Treatment not indicated Reason no antithrom by day 2: Treatment not indicated Reason no antithrom at D/C: Treatment provided - N/A Reason no statin at D/C: Treatment provided - N/A Reason no anticoag w/a fib: Treatment provided - N/A
[2016-11-19 10:56] VITALS: BP 107/68
--- NOTE | 2016-11-19 13:09 | Medical Student: [facility] ---
Med Student Progress Note Date of Service November 19, 2016. Subjective Pt evaluation today including: conversation w/ patient Voiding: no voiding problems, no incontinence Mr. Siddiqui is a 76 yo male with a history of CHF s/p atrial and mitral mechanical valve replacement with a pacer/defibrillater on hospital day 4 following intense vomiting and nausea with vertigo. This was found to be either an acute cerebellar infarct or BPPV, but symptoms resolved within 12 hours of being in the hospital. However, he has remained very weak, and is well below his baseline just one month ago. He had 1.5L of pleural fluid drained from the left lung two days ago and has discussed a Pleurex catheter. His shortness of breath has improved but he remains fatigued and weak. He is in good spirits and is realistic about his health, and he is ready for rehab to regain some strength. Review of Systems Constitutional: + fatigue, + weakness, No chills, No fever, No sweats, No weight loss Eyes: + diplopia (chronic with upward gaze) ENT: No problem reported Respiratory: + dyspnea on exertion Cardiac: No problem reported Abdomen: No problem reported Musculoskeletal: No problem reported Neurologic: No problem reported Psychiatric: No problem reported Skin: No problem reported Objective Vital Signs Date Time Temp Pulse Resp B/P Pulse Ox O2 Delivery O2 Flow Rate FiO2 11/19/16 08:00 Room Air 11/19/16 07:42 36.5 69 18 103/77 97 11/19/16 01:35 97 Room Air 11/19/16 00:22 36.8 67 16 114/71 97 Room Air 11/18/16 21:40 70 18 114/71 11/18/16 16:31 97 Room Air 11/18/16 16:21 70 11/18/16 15:48 36.6 70 18 116/74 97 Physical Exam Comments: Vitals: See above. General: Wd/wn, no acute distress. Seated comfortably in a eliceo. More energy than yesterday and in good spirits. HEENT: NCAT, Extraoccular movements slightly out of sync at extremes of lateral vision, more so in R eye (not new according to patient). PERRLA. Mild exophthalmos noted. CV: S1, S2 with loud mechanical snaps. No murmur appreciated. Peripheral pulses weak but equal bilaterally. Pulm: Some soft but coarse breath sounds diffusely. Decreased air movement in L lower lobe. Abdomen: Bowel sounds hyperactive. No tenderness or guarding. No palpable masses or HSM. Neuro: CNII-XII grossly intact, with weak extraocular movements at extremes of vision. Negative HINTS test. Rapid alternating movements slightly slower on L hand. Laboratory Results Last 24 Hours Test 11/19/16 06:40 White Blood Count 6.06 K/uL Red Blood Count 3.89 M/uL Hemoglobin 11.7 g/dL Hematocrit 35.6 % Mean Corpuscular Volume 91.5 fL Mean Corpuscular Hemoglobin 30.1 pg Mean Corpuscular Hemoglobin Concent 32.9 g/dl Platelet Count 178 K/uL Mean Platelet Volume 9.1 fL Neutrophils (%) (Auto) 66.2 % Lymphocytes (%) (Auto) 12.7 % Monocytes (%) (Auto) 14.9 % Eosinophils (%) (Auto) 5.3 % Basophils (%) (Auto) 0.7 % Neutrophils # (Auto) 4.02 K/uL Lymphocytes # (Auto) 0.77 K/uL Monocytes # (Auto) 0.90 K/uL Eosinophils # (Auto) 0.32 K/uL Basophils # (Auto) 0.04 K/uL RDW Standard Deviation 46.2 fL RDW Coefficient of Variation 13.8 % Immature Granulocyte % (Auto) 0.2 % Immature Granulocyte # (Auto) 0.01 K/uL Prothrombin Time 26.8 SECONDS Prothromb Time International Ratio 2.4 Sodium Level 140 mmol/L Potassium Level 3.9 mmol/L Chloride Level 105 mmol/L Carbon Dioxide Level 27 mmol/L Anion Gap 8.0 mmol/L Blood Urea Nitrogen 25 mg/dl Creatinine 1.40 mg/dl Est Creatinine Clear Calc Drug Dose 44.9 ml/min Estimated GFR () 55.4 Estimated GFR (Non- 47.8 BUN/Creatinine Ratio 17.7 Random Glucose 89 mg/dl Calcium Level 8.2 mg/dl Assessment and Plan Assessment and Plan: Mr. Erasto Siddiqui is a 76 yo male with a history of mechanical aortic and mitral valve replacement, hypothyroidism, and a long history of vertigo, now on hospital day 4. He initally presented with vertigo resulting in more than a dozen episodes of vomiting. He had been increasingly sick and short of breath over the last six weeks but is now greatly improved, just weak. Individual assessment and plan are as follows: 1. Vertigo: Acute with chronic history, resolved for 48 hours. BPPV vs acute cerebellar infarct. Explained possible cerebellar infarct to patient, and that further imaging would not change our medical management, as his meds are already maximized. He is agreeable to not do any more imaging for current symptoms. 2. Nausea/vomiting: Likely secondary to vertigo. See above. Resolved, no nausea in 48 hours. 3. Shortness of breath: Likely secondary to moderate L pleural effusion, as breathing improved following tapping 1.5L off L lung two. Not worse today. This is a chronic problem for which pt sees Dr. Connelly. 4. CHF: Already taking ASA, clopidogrel, warfarin, Entresto. Unclear as to why atorvastatin was previously stopped.. now on 80mg atorvastatin 5. Elevated troponin: Resolved. Trending down. Likely demand ischemia. 6. Hypothyrodism. Secondary to ablation in secondary to Graves. Will continue current levothyroxine dose, as TSH is within goal. 7. PT/IRN: Currently therapeutic at 5 daily. Continue to monitor daily PT/INR. 8. DVT proph: Warfarin is therapeutic 9. Disposition: med/surg until bed at rehab/half-way facility is available. He needs to get his strength back. Normal diet. DNR. Continued [facility] stay due to: other Discharge planning: rehab hospital, uncertain
--- NOTE | 2016-11-19 14:02 | Family Medicine Progress Note ---
Progress Note Date of Service November 19, 2016. Subjective Pt evaluation today including: conversation w/ patient, physical exam, chart review, lab review, review of studies Pain: 0/10 PO Intake: WNL Voiding: no voiding problems ongoing improvement in vertigo anticipating d/c questions have been answered Constitutional: No chills, No fever Eyes: No worsening of vision ENT: No hearing loss Respiratory: No cough, No dyspnea on exertion, No shortness of breath, No sputum, No wheezing Cardiovascular: No chest pain Abdomen: No constipation, No diarrhea, No nausea, No pain, No vomiting Musculoskeletal: No joint pain, No muscle pain Male : No dysuria Neurologic: + balance problems, + vertigo, + weakness Psychiatric: No depression symptoms Endo: No fatigue Skin: No rash Medications Medications Administered Medications (Trade) Dose Ordered Sig/Javier Route Start Time Stop Time Status Last Admin Dose Admin Ondansetron HCl 4 mg 4 mg NOW STAT IV 11/16/16 19:48 11/16/16 19:50 DC 11/16/16 19:57 4 MG Sodium Chloride (Nss 500ml) 500 ml @ 999 mls/hr Q31M STAT IV 11/16/16 19:51 11/16/16 20:21 DC 11/16/16 19:54 999 MLS/HR Meclizine HCl (Antivert Tab) 25 mg NOW STAT PO 11/16/16 20:33 11/16/16 20:34 DC 11/16/16 21:07 25 MG Piperacillin Sod/ Tazobactam Sod (Zosyn Iv) 4.5 gm NOW STAT IV 11/16/16 21:10 11/16/16 21:12 DC 11/16/16 21:22 4.5 GM Levofloxacin (Levaquin / D5W) 750 mg NOW STAT IV 11/16/16 21:10 11/16/16 21:12 DC 11/16/16 22:14 750 MG Metoclopramide HCl (Reglan Inj) 10 mg NOW STAT IV 11/16/16 21:10 11/16/16 21:12 DC 11/16/16 21:22 10 MG Alfuzosin HCl (Uroxatral Tab) 10 mg QPM PO 11/17/16 21:00 12/17/16 20:59 11/18/16 21:43 10 MG Carvedilol (Coreg Tab) 25 mg BID PO 11/17/16 09:00 12/17/16 08:59 11/18/16 21:42 25 MG Clopidogrel Bisulfate (plAVix TAB) 75 mg QAM PO 11/17/16 09:00 12/17/16 08:59 11/19/16 08:23 75 MG Digoxin (Lanoxin Tab) 0.125 mg DAILY@1600 PO 11/17/16 16:00 12/17/16 15:59 11/18/16 16:21 0.125 MG Fluoxetine HCl (Prozac Cap) 40 mg QAM PO 11/17/16 09:00 12/17/16 08:59 11/19/16 08:24 40 MG Levothyroxine Sodium (Synthroid Tab) 150 mcg DAILYBB PO 11/17/16 06:00 12/17/16 06:59 11/19/16 06:04 150 MCG Montelukast Sodium (Singulair Tab) 10 mg HS PO 11/17/16 21:00 12/17/16 20:59 11/18/16 21:43 10 MG Pantoprazole Sodium (Protonix Tab) 40 mg QAM PO 11/17/16 09:00 12/17/16 08:59 11/19/16 08:22 40 MG Potassium Chloride (Klor-Con Tab) 20 meq DAILY PO 11/17/16 09:00 12/17/16 08:59 11/19/16 08:25 20 MEQ Meclizine HCl (Antivert Tab) 25 mg QID PRN PO 11/16/16 23:45 12/16/16 23:44 11/17/16 10:36 25 MG Vancomycin HCl 1 gm 1 gm STK-MED ONCE .ROUTE 11/16/16 23:43 11/16/16 23:44 DC 11/16/16 23:46 1 GM Promethazine HCl/ Sodium Chloride (Phenergan Inj/ Nss 50ml) 50.5 ml @ 204 mls/hr Q6H PRN IV 11/17/16 01:00 12/17/16 00:59 11/17/16 12:25 204 MLS/HR Warfarin Sodium (Coumadin Tab) 5 mg DAILY@16 PO 11/17/16 16:00 12/17/16 15:59 11/18/16 16:21 5 MG Sacubitril/ Valsartan (Entresto 24-26 Mg) 1 tab DAILY PO 11/18/16 09:00 12/18/16 08:59 11/19/16 08:23 1 TAB Atorvastatin Calcium (Lipitor Tab) 80 mg QAM PO 11/18/16 09:00 12/18/16 08:59 11/19/16 08:23 80 MG Objective Vital Signs Date Time Temp Pulse Resp B/P Pulse Ox O2 Delivery O2 Flow Rate FiO2 11/19/16 08:00 Room Air 11/19/16 07:42 36.5 69 18 103/77 97 11/19/16 01:35 97 Room Air 11/19/16 00:22 36.8 67 16 114/71 97 Room Air 11/18/16 21:40 70 18 114/71 11/18/16 16:31 97 Room Air 11/18/16 16:21 70 11/18/16 15:48 36.6 70 18 116/74 97 Physical Exam General Appearance: no apparent distress Eyes: normal inspection ENT: normal ENT inspection Neck: supple Respiratory/Chest: normal breath sounds, no respiratory distress, no accessory muscle use, + decreased breath sounds (to left base) Cardiovascular: regular rate, rhythm, no murmur Abdomen: normal bowel sounds, non tender, soft Extremities: normal range of motion, non-tender Neurologic/Psychiatric: alert, normal mood/affect, oriented x 3 Skin: normal color, warm/dry, no rash Lymphatic: no adenopathy Laboratory Results Results Past 24 Hours Test 11/19/16 06:40 Range/Units White Blood Count 6.06 4.8-10.8 K/uL Red Blood Count 3.89 4.7-6.1 M/uL Hemoglobin 11.7 14.0-18.0 g/dL Hematocrit 35.6 42-52 % Mean Corpuscular Volume 91.5 80-100 fL Mean Corpuscular Hemoglobin 30.1 25-34 pg Mean Corpuscular Hemoglobin Concent 32.9 32-36 g/dl Platelet Count 178 130-400 K/uL Mean Platelet Volume 9.1 7.4-10.4 fL Neutrophils (%) (Auto) 66.2 % Lymphocytes (%) (Auto) 12.7 % Monocytes (%) (Auto) 14.9 % Eosinophils (%) (Auto) 5.3 % Basophils (%) (Auto) 0.7 % Neutrophils # (Auto) 4.02 1.4-6.5 K/uL Lymphocytes # (Auto) 0.77 1.2-3.4 K/uL Monocytes # (Auto) 0.90 0.11-0.59 K/uL Eosinophils # (Auto) 0.32 0-0.5 K/uL Basophils # (Auto) 0.04 0-0.2 K/uL RDW Standard Deviation 46.2 36.4-46.3 fL RDW Coefficient of Variation 13.8 11.5-14.5 % Immature Granulocyte % (Auto) 0.2 % Immature Granulocyte # (Auto) 0.01 0.00-0.02 K/uL Prothrombin Time 26.8 9.0-12.0 SECONDS Prothromb Time International Ratio 2.4 0.9-1.1 Sodium Level 140 136-145 mmol/L Potassium Level 3.9 3.5-5.1 mmol/L Chloride Level 105 98-107 mmol/L Carbon Dioxide Level 27 21-32 mmol/L Anion Gap 8.0 3-11 mmol/L Blood Urea Nitrogen 25 7-18 mg/dl Creatinine 1.40 0.60-1.40 mg/dl Est Creatinine Clear Calc Drug Dose 44.9 ml/min Estimated GFR () 55.4 Estimated GFR (Non- 47.8 BUN/Creatinine Ratio 17.7 10-20 Random Glucose 89 70-99 mg/dl Calcium Level 8.2 8.5-10.1 mg/dl Assessment and Plan 76 year old with coronary artery disease, ischemic cardiomyopathy and atrial fibrillation presents with acute onset vertigo. Considering the patient's severity of vertigo and significant CAD there was concern for CVA and work up was completed. A CT was negative and unfortunately because of the defibb unable to complete an MRI. When we further discussed the patient's vertigo with him it was very suspicious for BPPV. A repeat CT revealed old lacunar infarcts as well as a developing hypodensity in the cerebellum which was suspicious for a stroke. Atorvastatin was restarted and plavix continued. No need for dual therapy and ASA held. Vertigo; BPPV most likely; new hypodensity in cerebellum concerning for stroke - Consult neurology - appreciate rec - Already taking clopidogrel, warfarin, atorvastatin - unable to have MRI due to pacemaker - Meclizine and Zofran for vertigo - neuro checks - echo shows mild worsening of CHF Moderate left pleural effusion -Thoracentesis completed - Patient is a candidate for Pleurx however not interested at this time Chronic Systolic CHF Echo - may 2016 - EF 20-25% - mechanical mitral and aortic valve is well seated - apical akinesis - mod global hypokinesis - continue the patient's entresto Elevated troponin - Trending down, could be supply and demand in the presence of severe chronic CHF Hypothyroidism s/p iodine ablation for Grave's disease - TSH WNL, continue current levothyroxine dose Aortic and Mitral valve replacement Aim INR 2.5-3.5. Will increase his warfarin to 5mg daily with daily PTINRs. VTE Prophylaxis - warfarin therapeutic for this purpose Code - Discussed and he wishes no resuscitation efforts consistent with previous advanced directive. Notes he has an ICD in place and he wishes to leave this on but does not wish it to continually go off. I suggested he discussed this further with his road tester. Disposition - d/c to rehab/ SNF when bed available Resident Physician Supervision Note: I interviewed and examined the patient. Discussed with Dr. Vargas and agree with findings and plan as documented in the note. Any exceptions or clarifications are listed here: None Documented By: Devon Metcalf feeling about the same - better than at admission. still waiting on rehab approval and placement ros otherwise negative except for as above vitals noted nad breathing unlabored no pallor or icterus, chronic facial findings dizziness/vertigo - likely CVA vs peripheral - ongiong med management, stable for rehab once approved and bed available Continued [facility] stay due to: other Discharge planning: uncertain
[2016-11-19 14:54] VITALS: BP 97/62; PULSE 70; TEMP 36.6; O2SAT 98
[2016-11-19] MEDS: DIGOXIN 0.125 MG TAB PO SCH (16:01)
[2016-11-19] MEDS: WARFARIN SOD 5 MG TAB PO SCH (16:01)
[2016-11-19 20:00] VITALS: PULSE 74
[2016-11-19] MEDS: ALFUZosin TAB 10 MG TAB PO SCH (20:01)
[2016-11-19] MEDS: MONTELUKAST SOD 10 MG TAB PO SCH (20:03)
[2016-11-20] VITALS: O2SAT 96
[2016-11-20 00:05] VITALS: BP 115/73; PULSE 72; TEMP 36.9; O2SAT 96
[2016-11-20] MEDS: LEVOTHYROXINE 150 MCG TAB PO SCH (05:38)
[2016-11-20 06:44] LABS: BUN/CREATININE RATIO 16.9 (10-20); CALCIUM 8.4 mg/dl (8.5-10.1); CREATININE 1.5 mg/dl (0.60-1.40)
[2016-11-20 06:46] LABS: INR 2.3 (0.9-1.1); PARTIAL THROMBOPLASTIN RATIO 1.5; PROTHROMBIN TIME (PATIENT) 25.8 SECONDS (9.0-12.0)
[2016-11-20] MEDS: AVODART~ORDER AWAITING ACTION SCH (07:15)
--- NOTE | 2016-11-20 07:30 | Surgery Progress Note ---
Subjective Date of Service: November 20, 2016. Pt. denies SOB today and states his breathing is better since thoracentesis Objective Vitals Date Time Temp Pulse Resp B/P Pulse Ox O2 Delivery O2 Flow Rate FiO2 11/20/16 00:05 36.9 72 16 115/73 96 11/20/16 00:00 Room Air 11/20/16 00:00 96 Room Air 11/19/16 20:00 Room Air 11/19/16 20:00 74 11/19/16 16:01 80 11/19/16 16:00 Room Air 11/19/16 14:54 36.6 70 18 97/62 98 11/19/16 08:00 Room Air 11/19/16 07:42 36.5 69 18 103/77 97 Physical Exam General: No distress Pulmonary: + pertinent finding (crackles and decreases BS noted at left base), No accessory muscle use, No respiratory distress Neurologic: + alert & oriented x 3 Assessment & Plan 76 year old male with pleural effusion -thoracentesis performed (11/17/16) -all cultures remain (-) -cytology (-) for malignancy -f/u CXR showed persistent pleural effusion -Dr. Connelly has discussed placing pleurx catheter: -pt. wished to hold off for now -if this procedure is to be done can be done as outpt.
[2016-11-20] MEDS: SACUBITRIL-VALSARTAN 24-26 MG TAB PO SCH (07:44)
[2016-11-20] MEDS: POTASSIUM CHLORIDE 20 MEQ TABCR PO SCH (07:44)
[2016-11-20] MEDS: FLUOXETINE HCL 20 MG CAP PO SCH (07:45)
[2016-11-20] MEDS: CARVEDILOL 25 MG TAB PO SCH (07:45)
[2016-11-20] MEDS: CLOPIDOGREL BISULFATE 75 MG TAB PO SCH (07:46)
[2016-11-20] MEDS: ATORVASTATIN 40 MG TAB PO SCH (07:46)
[2016-11-20] MEDS: PANTOprazole SOD 40 MG TAB PO SCH (07:46)
[2016-11-20 07:52] VITALS: BP 112/62; PULSE 70; TEMP 36.5; O2SAT 95
[2016-11-20 10:03] VITALS: O2SAT 95
--- NOTE | 2016-11-20 13:16 | Discharge Summary ---
Discharge Summary Date of Service November 20, 2016. Discharge Summary Admission Date: November 16, 2016 at 22:50 Discharge Date: November 20, 2016 Discharge Disposition: [facility] facility Principal Diagnosis: Vertigo (BBPV) Problems/Secondary Diagnoses: left pleural effusion Immunizations: Have You Had Influenza Vaccine: N/A Influenza Vaccine Date: Apr 09, 2007 History of Tetanus Vaccine?: Yes Tetanus Immunization Date: Jun 09, 1997 History of Pneumococcal: Yes Pneumococcal Date: Jun 09, 2003 History of Hepatitis B Vaccine: Yes Hepatitis Immunization Date: Jun 09, 1985 Procedures: none Consultations: Thoracic surgery Neurology Medication Reconciliation New Medications: Atorvastatin Calcium (Lipitor) 80 Mg Tab 1 TAB PO DAILY for 30 Days, #30 TAB 5 Refills Continued Medications: Albuterol Hfa (Ventolin Hfa) 200 Puffs/87823 Mcg Aers 2 PUFFS INH QID PRN for Shortness of Breath, #1 INHALER Alfuzosin Hcl (Uroxatral) 10 Mg Tab 10 MG PO QPM, TAB Carvedilol (Coreg) 25 Mg Tab 25 MG PO BID, 1 Refill Clopidogrel Bisulfate (Clopidogrel) 75 Mg Tab 75 MG PO QAM for 90 Days, TAB 3 Refills Digoxin (Digox) 125 Mcg Tab 125 MCG PO QAM Dutasteride (Avodart) 0.5 Mg Cap 0.5 MG PO QAM, CAP Fesoterodine Fumarate (Toviaz) 4 Mg Tab 4 MG PO QAM for 30 Days, #30 TAB 11 Refills Fluoxetine (Prozac) 20 Mg Cap 40 MG PO QAM, CAP Furosemide (Lasix) 40 Mg Tab 40 MG PO DAILY PRN for WEIGHT GAIN PARAMETERS, TAB Levothyroxine Sodium (Levothyroxine Sodium) 150 Mcg Tab 150 MCG PO QAM for 90 Days, #90 TAB 3 Refills Montelukast Sod (Montelukast Sodium) 10 Mg Tab 10 MG PO HS for 30 Days, TAB 3 Refills Nitroglycerin (Nitrostat) 0.4 Mg/1 Tab Subl 0.4 MG SL UD PRN for Chest Pain, #25 Pantoprazole (Protonix) 40 Mg Tab 40 MG PO QAM, #30 TAB Potassium Ext Rel (Klor-Con) 20 Meq Tabcr 20 MEQ PO DIRECTED, TAB TAKE ON DAYS LASIX IS TAKEN Warfarin Sodium (Coumadin) 5 Mg Tab 2.5 MG PO 4XWK, TAB SUN, TUES, THURS, SAT Warfarin Sodium (Coumadin) 5 Mg Tab 5 MG PO 3XWK, TAB MON, WED, FRI Discharge Exam pt is seen and examined by me. Pt denies Cp, SOB, dizziness, palpitation and LOC. Pt denies vertigo at present. Pt denies abdominal pain, nausea, vomiting and diarrhea.Pt denies fever, and chills.. [facility]. Review of Systems: Constitutional: No chills, No fever Eyes: No discharge, No redness ENT: No hearing loss, No tinnitus Respiratory: No cough, No dyspnea at rest, No dyspnea on exertion, No shortness of breath, No sputum, No wheezing Cardiovascular: No chest pain, No edema, No orthopnea Abdomen: No diarrhea, No nausea, No pain Genitourinary - Male: No dysuria, No urinary frequency, No urinary urgency Neurologic: No numbness/tingling, No vertigo Integumentary: No rash Physical Exam: General Appearance: no apparent distress Neck: supple, no adenopathy Respiratory/Chest: lungs clear, normal breath sounds, no respiratory distress Cardiovascular: regular rate, rhythm, no edema, no murmur Abdomen / GI: normal bowel sounds, non tender, soft Extremities: no calf tenderness, no pedal edema Neurologic/Psychiatric: 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 Considering the patient's severity of vertigo and significant CAD there was concern for CVA and work up was completed. A CT was negative and unfortunately because of the defibb unable to complete an MRI. When we further discussed the patient's vertigo with him it was very suspicious for BPPV. A repeat CT revealed old lacunar infarcts as well as a developing hypodensity in the cerebellum which was suspicious for a stroke. Atorvastatin was restarted and plavix continued. No need for dual therapy and ASA held. Vertigo; BPPV most likely; new hypodensity in cerebellum concerning for stroke - Consult neurology - appreciate rec - Already taking clopidogrel, warfarin, atorvastatin - unable to have MRI due to pacemaker - Meclizine and Zofran for vertigo - Neurology input appreciated from Dr Radha Moderate left pleural effusion -Thoracentesis completed - Patient is a candidate for Pleurx however not interested at this time - Dr Connelly Chronic Systolic CHF Echo - may 2016 - EF 20-25% - mechanical mitral and aortic valve is well seated - apical akinesis - mod global hypokinesis - continue the patient's entresto Elevated troponin - Trending down, could be supply and demand in the presence of severe chronic CHF Hypothyroidism s/p iodine ablation for Grave's disease - TSH WNL, continue current levothyroxine dose Aortic and Mitral valve replacement Aim INR 2.5-3.5. Will increase his warfarin to 5mg daily with daily PTINRs. VTE Prophylaxis - warfarin therapeutic for this purpose Total Time Spent: Greater than 30 minutes This includes examination of the patient, discharge planning, medication reconciliation, and communication with other providers. Discharge Instructions Please refer to the electronic Patient Visit Report (Discharge Instructions) for additional information. Follow-Up with PCP with in 1 week. Additional Copies To Donis Mcdonald M.D.
[2016-11-20 13:34] VITALS: BP 112/62; PULSE 70; TEMP 36.5; O2SAT 95
--- NOTE | 2016-12-02 10:39 | EDITING REQUIRED CODING QUERY ---
CODING QUERY Dear Dr. Metcalf, To promote full compliance with coding requirements relating to patient care, provider participation is requested in all cases of heel seam rubber uncertainty. Please assist us with the question(s) below: Coding Question(s): CVA Please clarify below: ( ) CVA ( ) Ruled Out CVA ( ) Other: Please explain ( x ) Unable to determine - please see notes, it unfortunately wasn't entirely clear - certainly very plausible evidence of new stroke, but also clinical picture c/w vertigo. Ultimately had to manage as both as notes detail. Medical documentation: Vertigo; BPPV most likely; new hypodensity in cerebellum concerning for stroke - Consult neurology - appreciate rec - Already taking clopidogrel, warfarin, atorvastatin - unable to have MRI due to pacemaker - Meclizine and Zofran for vertigo - Neurology input appreciated from Dr Garcia Physician's Response(s): Thank you for your time. Carolina Prater, [facility] Principal Diagnosis: "_that condition established after study, to be chiefly responsible for occasioning the admission of the patient to the hospital for care." Co-Existing Principal Diagnosis: "_when two or more diagnoses equally meet the criteria for principal diagnosis as determined by the circumstances of admission, diagnostic work up, and/or therapy provided, and the Alphabetic Index, Tabular List, or another coding guideline does not provide sequencing direction, any one of the diagnoses may be sequenced first." "When the physician has documented what appears to be a current diagnosis in the body of the record, but has not included the diagnosis in the final diagnostic statement, the physician should be asked whether the diagnosis should be added." (Source Coding Clinic 2 QTR90. p3-4)
== END 2016-11-20 13:50 | DRG 65 ==
LOC: ENRESERVDT → ENRESERVTM → EDBD 19:30 → C.EDC 19:30 → C.2T 22:50 → C.MS2W 11-17 15:32
PROVIDERS: ADMIT Hospitalist; ATTEND Family Medicine
PROC: 0B9P3ZZ Drainage of Left Pleura, Percutaneous Approach (ICD-10-PCS; principal; 2016-11-17)
DX: I63.9 Cerebral infarction, unspecified (principal); J90 Pleural effusion, not elsewhere classified; I50.22 Chronic systolic (congestive) heart failure; I13.0 Hypertensive heart and chronic kidney disease with heart failure and stage 1 through stage 4 chronic kidney disease, or unspecified chronic kidney disease; N18.3 Chronic kidney disease, stage 3 (moderate); E05.00 Thyrotoxicosis with diffuse goiter without thyrotoxic crisis or storm; H81.10 Benign paroxysmal vertigo, unspecified ear; R79.89 Other specified abnormal findings of blood chemistry; E03.9 Hypothyroidism, unspecified; I48.91 Unspecified atrial fibrillation; E78.5 Hyperlipidemia, unspecified; I25.10 Atherosclerotic heart disease of native coronary artery without angina pectoris; I44.7 Left bundle-branch block, unspecified; M48.00 Spinal stenosis, site unspecified; I25.5 Ischemic cardiomyopathy; N41.1 Chronic prostatitis; Z95.810 Presence of automatic (implantable) cardiac defibrillator; Z95.5 Presence of coronary angioplasty implant and graft; Z95.3 Presence of xenogenic heart valve; Z86.79 Personal history of other diseases of the circulatory system; Z87.891 Personal history of nicotine dependence; Z95.1 Presence of aortocoronary bypass graft; Z79.01 Long term (current) use of anticoagulants; Z79.02 Long term (current) use of antithrombotics/antiplatelets; Z79.899 Other long term (current) drug therapy

== ENCOUNTER → 2016-11-30 | Outpatient (CLI) | payer BC ==
[~2016-11-30] MED LIST changes: +ALBUAER INH; -ALBUAER2 INH; +ATOR-26 PO; +ATOR80TA PO; -ATV1 PO; +Boost Plus Vanilla PO; +CLOP1TAB15 PO; -FERR1TAB62 PO; +FRRS300 PO; +MONT1TAB5 PO; -OSEL75CA12 PO; +POTA20TA16 PO; +SACU1TAB PO; -SACU1TAB7 PO; +TRAM-10 PO; +VNTHFA/IN INH; +[UNRECOGNIZED DRUG - CODE] PO
--- NOTE | 2016-11-30 09:33 | DIAGNOSTIC IMAGING REPORT ---
CHEST 2 VIEWS ROUTINE CLINICAL HISTORY: Shortness of breath. COMPARISON STUDY: 11/18/2016 FINDINGS: There are postsurgical changes of a midline sternotomy. There is a left subclavian pacer/defibrillator present. There is a retrocardiac opacity suspicious for a hiatal hernia. There is a persistent left pleural effusion with associated left basilar atelectasis/consolidation. There is minimal blunting of the right lateral costophrenic angle.[ IMPRESSION: No significant change the preceding study. Persistent left pleural effusion with associated left basilar atelectasis/consolidation Electronically signed by: Maverick Street M.D. 11/30/2016 9:31 AM Dictated Date/Time: 11/30/2016 9:30 AM
== END | disposition home or self-care (01) ==
LOC: C.RAD 09:01
PROVIDERS: ATTEND Surgery
DX: J90 Pleural effusion, not elsewhere classified (principal); J98.11 Atelectasis

== ENCOUNTER 2016-12-03 11:04 | Day surgery (SDC) | payer BC ==
[~2016-12-03] VITALS: Ht 177.8 cm; Wt 79.0 kg
[~2016-12-03 11:04] MED LIST changes: -ALBUAER INH; -ATOR-26 PO; -Boost Plus Vanilla PO; -CLOP1TAB15 PO; -FRRS300 PO; -MONT1TAB5 PO; -SACU1TAB PO; -TRAM-10 PO; -[UNRECOGNIZED DRUG - CODE] PO
[2016-12-03 12:19] LABS: INR 1.4 (0.9-1.1); PROTHROMBIN TIME (PATIENT) 15.3 SECONDS (9.0-12.0)
[2016-12-03] MEDS ORDERED: ALBUAER INH (12:34)
[2016-12-03] MEDS ORDERED: SACU1TAB PO (12:34)
[2016-12-03] MEDS ORDERED: MONT1TAB5 PO (12:34)
[2016-12-03] MEDS ORDERED: CLOP1TAB15 PO (12:34)
[2016-12-03] MEDS ORDERED: TRAM-10 PO (12:34)
[2016-12-03] MEDS ORDERED: ATOR-26 PO (12:34)
[2016-12-03 12:36] VITALS: BP 123/70; PULSE 74; TEMP 36.3; O2SAT 98; Ht 177.8 cm; Wt 79.0 kg
[2016-12-03] MEDS ORDERED: LIDOCAINE HCL 1% 20 ML VIAL ONE (13:03)
[2016-12-03] MEDS ORDERED: NURSING VERBAL MED ORDER ONE (13:15)
[2016-12-03 13:43] LABS: ISTAT ARTERIAL BLOOD GAS HCO3 22 meq/L (19-24); ISTAT ARTERIAL BLOOD GAS PCO2 37 mmHg (35-46); ISTAT ARTERIAL BLOOD GAS PO2 113 mmHg (80-95); ISTAT ARTERIAL BLOOD GAS pH 7.37 (7.35-7.45); ISTAT CARBON DIOXIDE 23 mEq/l (24-31); ISTAT SITE Heel Stick
--- NOTE | 2016-12-03 13:44 | Discharge Instructions ---
Discharge Instructions Date of Service Dec 03, 2016. Visit Reason for Visit: Left Pleural Effusion Discharge Discharge Diagnosis / Problem: Left Pleural Effusion Discharge Goals Goal(s): Improve function Activity Recommendations Activity Limitations: resume your previous activity (in 24 hours) Lifting Limitations: none Shower/Bathe: keep incision dry 1. Keep pleurx catheter dry until Dr. Connelly clears you to shower. Anesthesia . Post Anesthesia Instructions: If you have had General Anesthesia or IV Sedation: * Do not drive today. * Resume driving when surgeon permits. * Do not make important decisions or sign legal documents today. * Call surgeon for: 1. Temperature elevations greater than 101 degrees F. 2. Uncontrollable pain. 3. Excessive bleeding. 4. Persistent nausea and vomiting. 5. Medication intolerance (nausea, vomiting or rash). * For nausea and vomiting use only clear liquids such as: tea, soda, bouillon until nausea subsides, then gradually increase diet as tolerated. * If you have any concerns or questions, call your surgeon's office. If physician is unavailable and it is an emergency, call 911 or go to the nearest emergency room. . Instructions / Follow-Up Instructions / Follow-Up 1. Visiting nurses will assist you in draining your pleurx daily. Record amounts and call Dr. Connelly's office every with amounts. 2. Check your PT/INR daily. Continue to take lovenox injections twice daily until your INR is therapeutic, at which time you may stop taking the lovenox. You may resume your coumadin at your regular dose/schedule the evening of December 03, 2016. 3. Keep your scheduled appointment with Dr. Connelly on December 09, 2016 @ 9:30. Go to hospital to have a chest x-ray taken prior to this appointment. 4. You may take ultram or tylenol as needed for pain. Diet Recommendations Recommended Home Diet: resume previous diet Procedures Procedures Performed: Left pleurx catheter insertion Pending Studies Studies pending at discharge: no Medical Emergencies . Who to Call and When: Medical Emergencies: If at any time you feel your situation is an emergency, please call 911 immediately. . Non-Emergent Contact Non-Emergency issues call your: Surgeon Call Non-Emergent contact if: you have a fever, your pain is not controlled, wound has increased drainage . . "Provider Documentation" section prepared by John Meier. .
[2016-12-03 14:29] VITALS: BP 118/72; PULSE 70; TEMP 36.5; O2SAT 95
--- NOTE | 2016-12-03 14:31 | DIAGNOSTIC IMAGING REPORT ---
CHEST ONE VIEW PORTABLE HISTORY: Left pleural effusion COMPARISON: Chest 11/30/2016. FINDINGS: Interval placement of a left pleural drain. Small left pleural effusion has decreased in size. Left basilar linear densities persist. No pneumothorax. The heart remains mildly enlarged. Left-sided pacemaker/defibrillator. Poststernotomy changes. IMPRESSION: 1. Decrease in size in the small left pleural effusion status post placement of a left basilar pleural drain. No pneumothorax. 2. Left basilar densities persist. Electronically signed by: Raffy Graff M.D. 12/03/2016 2:29 PM Dictated Date/Time: 12/03/2016 2:28 PM
[2016-12-03 14:36] LABS: PLEURAL FLUID TOTAL PROTEIN 2.5 g/dl
[2016-12-03 14:37] LABS: PLEURAL FLUID APPEARANCE HAZY; PLEURAL FLUID COLOR AMBER; PLEURAL FLUID SOURCE LEFT LUNG; PLEURAL FLUID WBC (A) 247 /uL
[2016-12-03 15:19] LABS: PLEURAL FLUID MONONUC RELAT 86.5 %; PLEURAL FLUID POLYNUC 13.5 %
--- NOTE | 2016-12-03 19:54 | OPERATIVE REPORT ---
DATE OF OPERATION: 12/03/2016 PREOPERATIVE DIAGNOSIS: Recalcitrant left pleural effusion. POSTOPERATIVE DIAGNOSIS: Same. PROCEDURE: Insertion of left PleurX catheter. SURGEON: Tad Connelly MD Silo Painter: SUMANTH Clark ANESTHESIA: Local. SPECIFICS OF PROCEDURE: The patient in the right lateral decubitus position, his left chest prepped, draped in usual sterile fashion. Under ultrasound guidance, a window between his seventh and eighth rib was located which had fluid behind it. This was anesthetized with 25-gauge needle, 1% Xylocaine. A large bore needle was used to enter the pleural cavity after anesthetizing the deeper tissues. A guidewire was inserted through the needle and needle removed. Approximately 10 cm anterior to this, another skin wheal was raised 25-gauge needle, 1% Xylocaine and a 1 cm incision was made in both skin wheals. A long needle was used to anesthetize subcutaneous tissues between the 2 incisions. A tunneler was attached to the PleurX catheter and dragged from the anterior to the posterior incision and the tunneler removed. Introducer sheath was slid over the guidewire and inner cannula and guidewire removed and PleurX catheter insertion of the peel away sheath which was removed. Two separate 3-0 silk sutures used to close the posterior incision and 3-0 silk was used to anchor the catheter to the patient's skin anteriorly. 1200 mL of a rust colored fluid was drained. It was sent for appropriate labs. Antimicrobial dressings were placed and chest x-ray is pending. I attest to the content of the Intraoperative Record and any orders documented therein. Any exception s are noted below.
== END 2016-12-03 14:58 | disposition home or self-care (01) ==
LOC: C.ACU 11:04
PROVIDERS: ATTEND Surgery
DX: J90 Pleural effusion, not elsewhere classified (principal)

== ENCOUNTER → 2016-12-06 | Outpatient (CLI) | payer BC ==
[~2016-12-06] MED LIST changes: +ALBUAER INH; +ATOR-26 PO; -ATOR80TA PO; +Boost Plus Vanilla PO; +CLOP1TAB15 PO; +FRRS300 PO; +MONT1TAB5 PO; -PLV75 PO; +SACU1TAB PO; -SNG10 PO; +TRAM-10 PO; +[UNRECOGNIZED DRUG - CODE] PO
--- NOTE | 2016-12-06 09:21 | DIAGNOSTIC IMAGING REPORT ---
TWO VIEW CHEST CLINICAL HISTORY: Pleural effusion. FINDINGS: PA and lateral chest radiographs are compared to study dated 12/03/2016. A multiple lead cardiac AICD is unchanged in position and partially obscures the left mid chest. The patient is status post midline sternotomy. The heart is enlarged and there is atherosclerotic calcification of the thoracic aorta. The pulmonary vasculature is noncongested. A hiatal hernia is noted. Emphysema and chronic interstitial thickening are similar to previous. There is a small to moderate left pleural effusion with associated consolidation. The right lung appears clear. There is no pneumothorax. The skeletal structures are osteopenic. The bony thorax appears intact. IMPRESSION: 1. Cardiomegaly and AICD. There is no radiographic evidence of congestive failure. 2. Emphysema. 3. Small to moderate left pleural effusion with associated consolidation. This has not significantly changed from 12/03/2016. 4. Hiatal hernia. Electronically signed by: Chance Garcia M.D. 12/06/2016 9:20 AM Dictated Date/Time: 12/06/2016 9:18 AM
== END | disposition home or self-care (01) ==
LOC: C.RAD 08:45
PROVIDERS: ATTEND Surgery
DX: J90 Pleural effusion, not elsewhere classified (principal); I51.7 Cardiomegaly; J43.9 Emphysema, unspecified; K44.9 Diaphragmatic hernia without obstruction or gangrene

== ENCOUNTER → 2016-12-20 | Outpatient (CLI) | payer BC ==
--- NOTE | 2016-12-20 16:32 | DIAGNOSTIC IMAGING REPORT ---
CHEST 2 VIEWS ROUTINE CLINICAL HISTORY: J90 Pleural effusion on left COMPARISON STUDY: 12/06/2016 FINDINGS: The heart remains enlarged. There is a left subclavian pacer/defibrillator present. There are postsurgical changes of a midline sternotomy. There is a retrocardiac opacity consistent with a hiatal hernia. There are bilateral pleural effusions left greater than right. There are persistent left lower lobe airspace opacities. There is no overt failure.[ IMPRESSION: 1. Persistent left pleural effusion with associated left lower lobe atelectasis/consolidation 2. Stable trace right pleural effusion 3. Hiatal hernia Electronically signed by: Maverick Street M.D. 12/20/2016 4:31 PM Dictated Date/Time: 12/20/2016 4:30 PM
== END | disposition home or self-care (01) ==
LOC: C.RAD 16:00
PROVIDERS: ATTEND Surgery
DX: J90 Pleural effusion, not elsewhere classified (principal); K44.9 Diaphragmatic hernia without obstruction or gangrene

== ENCOUNTER 2017-01-18 15:28 | Inpatient (IN) | payer BC, OTHER ==
[~2017-01-18] VITALS: Ht 177.8 cm; Wt 71.3 kg
[~2017-01-18 15:28] MED LIST changes: -Boost Plus Vanilla PO; -FRRS300 PO; -[UNRECOGNIZED DRUG - CODE] PO
[2017-01-18] MEDS ORDERED: DORNASE ALFA (2500U) 2.5MG/2.5ML IPL ONE (15:30)
[2017-01-18] MEDS ORDERED: ALTEPLASE, RECOMBINANT 1 MG/ML 2 ML VIAL IPL ONE (16:00)
[2017-01-18] MEDS ORDERED: DORNASE ALFA 2.5MG 5 ML in SYRINGE 25 ML IPL ONE (16:00)
[2017-01-18 16:15] VITALS: BP 103/64; PULSE 71; TEMP 36.7; O2SAT 100; Ht 177.8 cm; Wt 71.3 kg
--- NOTE | 2017-01-18 16:38 | Surgery Consultation ---
Consultation Date of Consultation: Jan 18, 2017. Attending Physician: Alisa Chávez MD Reason for Consultation: Pleurx Catheter History of Present Illness 76 year old male known to our service. He had a left sided pleurx catheter placed on 12/03/16 due to recurrent pleural effusion. Pt. has bee followed as outpt. since his pleurx insertion and has been doing well until the past several days. His notes a generalized decline with poor apatite and worsening fatigue. She also notes the past few time his pleurx has been drained minimal fluid has been obtained. The pt. denies fevers, shakes, or chills. No fall or blurry vision. No sore throat. No CP or palpitations. He notes some SOB with activity along with generalized fatigue and poor apatite. No abdominal pain, N/V or dysuria. Pt. was seen in oupt. clinical today and due to the above direct admit was recommended. Pt. was agreeable. 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 ) Allergies Coded Allergies: Iodinated Diagnostic Agents (Verified Allergy, Mild, HIVES, 12/03/16) Home Medications Scheduled Alfuzosin Hcl (Uroxatral), 10 MG PO QPM Atorvastatin (Lipitor), 1 TAB PO DAILY Carvedilol (Coreg), 25 MG PO BID Clopidogrel (Plavix), 75 MG PO DAILY Digoxin (Digox), 125 MCG PO QAM Dutasteride (Avodart), 0.5 MG PO QAM Fesoterodine Fumarate (Toviaz), 4 MG PO QAM Fluoxetine (Prozac), 40 MG PO QAM Levothyroxine Sodium (Levothyroxine Sodium), 150 MCG PO QAM Montelukast Sodium (Montelukast Sodium), 1 TAB PO DAILY Pantoprazole (Protonix), 40 MG PO QAM Potassium Ext Rel (Klor-Con), 20 MEQ PO DIRECTED Sacubitril-Valsartan (Entresto 24-26 mg), 1 TAB PO DAILY Warfarin Sodium (Coumadin), 2.5 MG PO 4XWK Warfarin Sodium (Coumadin), 5 MG PO 3XWK Scheduled PRN Albuterol Hfa (Ventolin Hfa), 2 PUFFS INH QID PRN for Shortness of Breath Albuterol Sulfate (Proventil Hfa), 2 PUFF INH QID PRN for SOB/Wheezing Furosemide (Lasix), 40 MG PO DAILY PRN for WEIGHT GAIN PARAMETERS Nitroglycerin (Nitrostat), 0.4 MG SL UD PRN for Chest Pain Tramadol (Ultram), 1 TAB PO TID PRN for Pain Review of Systems Constitutional: + weakness, No fever, No chills, No sweats Eyes: No worsening of vision ENT: No hearing loss Respiratory: + shortness of breath (with activity ), No cough Cardiovascular: No chest pain Abdomen: + problem reported (poor apatite), No pain, No nausea, No vomiting Musculoskeletal: No joint pain Genitourinary - Male: No dysuria Neurologic: No memory loss Endocrine: + fatigue Hematologic / Lymphatic: No abnormal bleeding/bruising Physical Exam General Appearance: no apparent distress Eyes: normal inspection, PERRL ENT: hearing grossly normal, + pertinent finding (oral mucosa is dry ) Neck: supple, no JVD Respiratory/Chest: no respiratory distress, no accessory muscle use, + decreased breath sounds (left base), + pertinent finding (pleurex insertion site does not appear infected) Cardiovascular: regular rate, rhythm Abdomen/GI: non tender, soft Extremities/Musculoskelatal: no calf tenderness Neurologic/Psych: lieutenant governor II-XII nml as tested, alert, oriented x 3 Skin: warm/dry Assessment & Plan 76 year old male with failure to thrive -CXR performed as outpt. today showed persistent left pleural effusion -in office pleurx drainage attempted with minimal drainage of discolored fluid-- pt. denies pain when drainage attempted -FTT may be in part due to pleural infusion +/- infectious process -Dr. Connelly discussed with hospitalist and requested direct admit -due to CXR findings and pleurx findings the following was done: -2 mg TPA and 5 mg dornase instilled in left pleurx -RN to drain in approx 2 hours -will repeat CXR in am and reassess pt. in am and determine if further fibrinolytics will be of benefit -for remainder of plan please refer to hospitalist notes/orders
--- NOTE | 2017-01-18 16:44 | History and Physical ---
History & Physical Date & Time of Service: Jan 18, 2017 at 16:43 Chief Complaint: Anemia, Dehydration Primary Care Physician: Donis Mcdonald M.D. History of Present Illness Source: patient, family This is a 76 yo M with PMHx ischemic cardiomyopathy with LVEF 30-45% , biventricular pacemaker with implantable cardiac defibrillator (Apr 2015), rheumatic heart disease with mechanical valve replacement (mitral and aortic) Apr 2015, LBBB, paroxysmal V-tach, chronic systolic heart failure, chronic afib on plavix and coumadin, hypothyroidism, a flutter, reactive airway disease, cervical radiculopathy, intermitted claudication, hypercholesterolemia, spinal stenosis and previous STEMI who presented with worsening fatigue and failure to thrive from the Pulmonary clinic. His is present at bedside. The patient is a poor historian but is able to answer simple questions. His provides the majority of this history. She notes the pt has not been eating well and complaining of intermittent nausea for the past 2 weeks. It commonly occurs when he wakes up in the morning, and then once or twice more throughout the day. He denies any specific foods which make it worse. He has not seen GI or a kiss machine operator that he can recall. He has lost a significant amount of weight, but maintains a dry weight around ~162 pounds. He has been taking his medications as directed. Past Medical/Surgical History Chronic Atrial fibrillation LBBB Hyperlipidemia Coronary artery disease (LAD and OM1 BMS, Feb 2015) Hx ventricular tachycardia (LVOT vs. coronary cusp focus) Congestive heart failure with Ischemic cardiomyopathy (LVEF 30-45%) Left transudative pleural effusion s/p thoracocentesis in Jul 2016 (Dr Connelly) Chronic prostatitis Chronic Respiratory Failure (on 2-3L O2 at night) Chronic kidney disease stage III Spinal stenosis [facility] - longstanding double vison s/p iodine ablation GERD Depression Surgical Hx: Aortic valve replacement Cardioverter-defibrillator with synchronous cardiac pacemaker Jun 2007 Hx of Cath stent x 3 to LAD, OM1, and proximal RCA Feb 2015 Pleurex catheter with cuff insertion November 2016 Hx of spermatic cord for varicocele Hx of vas deferens vasectomy Hx thoracentesis for pleural effusion Family History Hypertension Social History Smoking Status: Former Smoker Drug Use: none Marital Status: Housing status: lives with family 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 ) Immunizations History of Influenza Vaccine: N/A Influenza Vaccine Date: Apr 09, 2007 History of Tetanus Vaccine?: Yes Tetanus Immunization Date: Jun 09, 1997 History of Pneumococcal: Yes Pneumococcal Date: Jun 09, 2003 History of Hepatitis B Vaccine: Yes Hepatitis Immunization Date: Jun 09, 1985 Multi-Drug Resistant Organisms History of MDRO: No Allergies Coded Allergies: Iodinated Diagnostic Agents (Verified Allergy, Mild, HIVES, 12/03/16) Home Medications Scheduled Alfuzosin Hcl (Uroxatral), 10 MG PO QPM Atorvastatin (Lipitor), 1 TAB PO DAILY Carvedilol (Coreg), 25 MG PO BID Clopidogrel (Plavix), 75 MG PO DAILY Digoxin (Digox), 125 MCG PO QAM Dutasteride (Avodart), 0.5 MG PO QAM Fesoterodine Fumarate (Toviaz), 4 MG PO QAM Fluoxetine (Prozac), 40 MG PO QAM Levothyroxine Sodium (Levothyroxine Sodium), 150 MCG PO QAM Montelukast Sodium (Montelukast Sodium), 1 TAB PO DAILY Pantoprazole (Protonix), 40 MG PO QAM Potassium Ext Rel (Klor-Con), 20 MEQ PO DIRECTED Sacubitril-Valsartan (Entresto 24-26 mg), 1 TAB PO DAILY Warfarin Sodium (Coumadin), 2.5 MG PO 4XWK Warfarin Sodium (Coumadin), 5 MG PO 3XWK Scheduled PRN Albuterol Hfa (Ventolin Hfa), 2 PUFFS INH QID PRN for Shortness of Breath Albuterol Sulfate (Proventil Hfa), 2 PUFF INH QID PRN for SOB/Wheezing Furosemide (Lasix), 40 MG PO DAILY PRN for WEIGHT GAIN PARAMETERS Nitroglycerin (Nitrostat), 0.4 MG SL UD PRN for Chest Pain Tramadol (Ultram), 1 TAB PO TID PRN for Pain Review of Systems Constitutional: No fever, No chills, No sweats Eyes: No discharge, No diplopia ENT: No tinnitus, No trouble swallowing Respiratory: + dyspnea on exertion, + problem reported (wears 2L at night and 2L with exertion during the day), No cough, No sputum, No shortness of breath, No dyspnea at rest Cardiovascular: No chest pain, No palpitations Abdomen: + nausea, + problem reported (last bowel movement yesterday), No pain , No vomiting, No diarrhea, No constipation, No GI bleeding Genitourinary - Male: No hematuria, No dysuria, No urinary frequency, No urinary urgency Neurologic: + balance problems, + problem reported (walks with a walker), No numbness/tingling Psychiatric: + depression symptoms Endocrine: + fatigue Integumentary: No rash, No itch Physical Exam General: awake, alert, no apparent distress, flat affect, poor historian Head: Normocephalic, atraumatic ENT: PERRL, EOMI, no pharyngeal exudate, mucous membranes moist Chest: Pleurx catheter insertion into the left base, diminished breath sounds at left base, on room air, no adventitious breath sounds Cardiac: Irregularly irregular, pacemaker clinic, no JVD, normal peripheral pulses, good capillary refill Abdominal: NABS x 4 quadrants, soft, nontender to palpation, no rebound, guarding or tenderness Extremities: Normal inspection, no peripheral edema or erythema, calfs nontender to palpation Psych: Normal mood and affect Neuro: AAO x 3, Mini-Mental exam completed, patient is unable to spell the word "world" backwards, he draws a clock in an attempt to make it say 3:00 but only with one clock hand which is pointed to the 5:00 region. strength intact bilaterally and related 4/5, no motor deficits, speech is clear, no peripheral sensory deficits Skin: appears slightly pale and possibly has slight jaundice Impression Assessment and Plan This is a 76 yo M with PMHx ischemic cardiomyopathy with LVEF 20-25% , biventricular pacemaker with implantable cardiac defibrillator (Apr 2015), rheumatic heart disease with mechanical valve replacement (mitral and aortic) Apr 2015, LBBB, paroxysmal V-tach, chronic systolic heart failure, chronic afib on plavix and coumadin, hypothyroidism, a flutter, reactive airway disease, cervical radiculopathy, intermitted claudication, hypercholesterolemia, spinal stenosis and previous STEMI who presented with worsening fatigue and failure to thrive from the Pulmonary clinic. Failure to thrive Dehydration - Admit to tele - Will hydrate with NSS at 50mL/hr x 1 day with low EF. Dry weight is 162 lbs per and outpatient records. Hold lasix. - Will consult GI and nutrition to see the patient - no known egd/colonoscopy within past 10 years - Pt reports significant weight loss - Pt reports losing > 60 lbs since Feb 2015. Pt reports never having had a colonoscopy or egd. Work up had been done but was for antiinflammatory reasons which was apparently negative. - Monitor PO intake during stay - CT of the abdomen pelvis from November 2016 reviewed: - Will check a KUB today - Antiemetics for nausea control- zofran - Continue tramadol for pain control if needed Anemia, normocytic - Will check iron panel - follow - Hgb drop from 11.5 to 9.5 within the past month. - Will check liver panel with questionable jaudice as well. Supratherapeutic INR - Currently 5.3, Home regimen is 2.5 mg MWF and all other days is 5 mg. He did take his normal dose last evening. Chronic Respiratory Failure Reactive airways disease - Wears 2 L O2 QHS and with exertion/walking during the day - cont Singular tabs, inhalers p.r.n. as he has no active reactive airways disease. Pleural Effusion - Chronic, follows with Dr. Connelly as an outpatient, pleurex catheter was placed on 12/03/16 - Thoracic medicine consulted: plan for Pulmozyme and ateplase tonight, drain catheter at 6pm, and repeat CXR in the morning. Ischemic cardiomyopathy/ Biventricular pacemaker with implantables cardiac defibrillator/ Mechanical (Aortic and mitral) valve - Last ECHO November 2015 with LVEF =30-45% - Cardiology consulted- appreciate recs on volume status; no further intervention from cards standpoint - Cont home meds Plavix 75 mg, Coreg 25 mg BID, digoxin 125 mcg QAM, Entresto 24 -26 mg BID - Holding lasix for now with gentle hydration - Hold coumadin with supratherapeutic INR - Follows with Dr. Roblero as an outpatient Chronic Afib - Currently rate controlled, irregular with a pacemaker click - Coumadin regimen as above. - INR supratherapeutic at 5.8, hold Coumadin - Regular outpatient regimen of coumadin per is 2.5 mg MWF and 5 mg on all other days. He took 2.5 mg yesterday Hypothyroidism - Cont levothyroxine 150 mcg daily CKD stage III - Cr. baseline of 1.4, currently 1.3 Depression: - Continue prozac 40 mg daily GERD - Cont protonix 40 mg daily Urinary Urgency - cont toviaz 4 mg daily DVT ppx: on coumadin CODE STATUS: DNR Disposition: From home, lives with , PT/OT evals, discharge when medically stable. Level of Care Telemetry Advanced Directives Existing Advance Directive: Yes Resuscitation Status DO NOT RESUSCITATE VTE Prophylaxis VTE Risk Assessment Done? Y/N: Yes Risk Level: Low Given or contraindicated: Warfarin (Coumadin), Other Anticoagulation, T.E.D. 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 Discussed with SUMANTH Shea and agree with findings and plan as documented in the note. Any exceptions or clarifications are listed here: Pt is a direct admit with multiple medical issues including ischemic CM, mechanical AV and MVs on coumadin, with PleurX catheter in place for recurrent left pleural effusion, here with almost 2 weeks of intermittent nausea and dry heaves and "zero appetite." He has lost about 60 lbs in the last two years, and more in the last 2 weeks but unclear how much more recently. He denies abd pain , no fevers/chills, no blood in his stool, no melena, no heartburn. His hgb on outpatient labs today showed a 2 gram drop from 2 months ago from 11.7--> 9.5. Fe studies show anemia of chronic disease, some Fe deficiency. Admitted for failure to thrive, dehydration, anemia. Vitals reviewed, tele paced rhythm NAD, very pleasant, AAOx3 RRR with loud S1 and S2, no murmur Lungs with decreased BS at left base, otherwise CTAB ABd +BS, soft, NT ND no HSM Ext no edema Skin-no rashes, not jaundiced, mild pallor 76 yo male with multiple medical issues, here with failure to thrive, worsening anemia, loss of appetite and nausea and dry heaving x 2 weeks in setting of recurrent left pleural effusion with indwelling PleurX catheter and probable loculated effusion CT abd/pel from 11/2016 without significant abnormality as cause of weight loss or N/V. Has never had EGD/colonoscopy INR supratherapeutic which is a bit unusual for him possibly due to poor po intake the last 1-2 weeks. -holding coumadin tonight, can start heparin gtt when INR drifts t less than 2.5 -discussed case with GI, may need at least EGD done first when safe to do so from standpoint of his anticoagulation -low appetite and nausea could be from left pleural effusion with loculations if there is superimposed infection or perhaps underlying PNA? -appreciate Thoracic Surgery input -follow CBC, hemoccult stool Documented By: Alisa Chávez
[2017-01-18] MEDS ORDERED: ALBUTEROL HFA 8 GM INHALER INH PRN ×2 (17:30)
[2017-01-18] MEDS ORDERED: ONDANSETRON INJ 2 MG/ML 2 ML VIAL IV PRN (17:30)
[2017-01-18] MEDS ORDERED: ACETAMINOPHEN 325 MG TAB PO PRN (17:30)
[2017-01-18] MEDS ORDERED: POLYETHYLENE (MIRALAX) 17 GM PACK PO PRN (17:30)
[2017-01-18] MEDS ORDERED: TRAMADOL HCL 50 MG TAB PO PRN (17:30)
[2017-01-18] MEDS: SODIUM CHLORIDE 0.9% 1000ML 1,000 ML IV SCH (18:11)
[2017-01-18 18:52] VITALS: BP 125/75; PULSE 77; TEMP 36.9; O2SAT 95
[2017-01-18 18:59] LABS: FERRITIN 326.3 ng/ml (8.0-388.0); THYROID STIMULATING HORMONE 1.13 uIu/ml (0.300-4.500)
[2017-01-18] MEDS: DIGOXIN 0.125 MG TAB PO SCH (19:15)
--- NOTE | 2017-01-18 20:27 | DIAGNOSTIC IMAGING REPORT ---
KUB CLINICAL HISTORY: nausea COMPARISON STUDY: No previous studies for comparison. FINDINGS: There is scattered stool present throughout the colon. There is no pathologic bowel dilatation. Degenerative changes are present within the lumbar spine. There is a left pleural effusion with left lower lobe consolidative change. A left basilar chest tube is visualized. IMPRESSION: 1. Left pleural effusion with associated left lower lobe atelectasis/consolidation 2. No evidence of pathologic bowel dilatation Electronically signed by: Maverick Street M.D. 01/18/2017 8:26 PM Dictated Date/Time: 01/18/2017 8:25 PM
[2017-01-18] MEDS: ALFUZosin TAB 10 MG TAB PO SCH (20:38)
[2017-01-18] MEDS: CARVEDILOL 25 MG TAB PO SCH (20:39)
[2017-01-18] MEDS ORDERED: NURSING VERBAL MED ORDER ONE (21:30)
--- NOTE | 2017-01-18 23:42 | Gastrointestinal Consultation ---
Gastrointestinal Consultation Date of Consultation: Jan 18, 2017 Attending Physician: Dr Chávez Consulting Physician: Dr Alexander Reason for Consultation: Anemia; weight loss History of Present Illness Patient is a 76 year old male white male with an extensive and complicated medical history that includes ischemic cardiomyopathy with an LV of 30-45% biventricular pacemaker placement defibrillator mechanical valve placement in the mitral and aortic positions and a description of a 60 pound or perhaps more weight loss over the past year or so. Patient is also found to have an anemia. He recalls an upper endoscopy perhaps [address] Vitale although does not recall ever having had a colonoscopy. The patient has had a poor appetite with intermittent nausea that is described as moderate to intense at times. This has been mostly over the past couple weeks although has occasionally occurred prior to this time. He has no prior history of peptic ulcer disease by his recollection and currently does not use nonsteroidal agents. His gallbladder is intact. His past medical history is extensive and includes chronic atrial fibrillation, left bundle branch block, coronary artery disease with surgery in 2014. Additionally the patient has ischemic cardiomyopathy with congestive heart failure and a chronic left transudate of pleural effusion for which a catheter has been placed for chronic drainage to alleviate respiratory distress. Additionally the patient has chronic kidney disease Graves' ophthalmology GERD depression chronic kidney disease and spinal stenosis. Surgically he had an aortic valve repair defibrillator placement, varicocele vasectomy, thoracentesis , Pleurx catheter in November 2016. 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 Patient denies recent tobacco or alcohol use. Allergies Coded Allergies: Iodinated Diagnostic Agents (Verified Allergy, Mild, HIVES, 12/03/16) Current Medications Home Meds and Scripts Medications Dose Route/Sig Max Daily Dose Days Date Category Dose Instructions Proventil Hfa (Albuterol Sulfate) 108 Mcg/Act Aer 2 Puff INH QID PRN 12/03/16 Reported Ultram (Tramadol HCl) 50 Mg Tab 1 Tab PO TID PRN 30 12/03/16 Reported Montelukast Sodium 10 Mg Tab 1 Tab PO DAILY 30 12/03/16 Reported Entresto 24-26 mg (Sacubitril-Valsartan) 1 Tab Tab 1 Tab PO DAILY 12/03/16 Reported Plavix (Clopidogrel Bisulfate) 75 Mg Tab 75 Mg PO DAILY 12/03/16 Reported Lipitor (Atorvastatin Calcium) 80 Mg Tab 1 Tab PO DAILY 30 12/03/16 Reported Ventolin Hfa (Albuterol) 200 Puffs/18425 Mcg Aers 2 Puffs INH QID PRN 11/16/16 Reported Klor-Con (Potassium Chloride) 20 Meq Tabcr 20 Meq PO DIRECTED 11/16/16 Reported TAKE ON DAYS LASIX IS TAKEN Coumadin (Warfarin Sodium) 5 Mg Tab 5 Mg PO 3XWK 08/25/16 Reported MON, WED, FRI Digox (Digoxin) 125 Mcg Tab 125 Mcg PO QAM 04/26/16 Reported Lasix (Furosemide) 40 Mg Tab 40 Mg PO DAILY PRN 04/13/16 Reported Protonix (Pantoprazole Sodium) 40 Mg Tab 40 Mg PO QAM 04/13/16 Reported Levothyroxine Sodium 150 Mcg Tab 150 Mcg PO QAM 90 04/13/16 Reported Prozac (Fluoxetine HCl) 20 Mg Cap 40 Mg PO QAM 04/13/16 Reported Coreg (Carvedilol) 25 Mg Tab 25 Mg PO BID 07/24/15 Reported Nitrostat (Nitroglycerin) 0.4 Mg/1 Tab Subl 0.4 Mg SL UD PRN 02/25/15 Rx Toviaz (Fesoterodine Fumarate) 4 Mg Tab 4 Mg PO QAM 30 02/19/15 Reported Coumadin (Warfarin Sodium) 5 Mg Tab 2.5 Mg PO 4XWK 03/28/14 Reported SUN, TUSRUTHI, THDEBBY, SAT Avodart (Dutasteride) 0.5 Mg Cap 0.5 Mg PO QAM 03/28/14 Reported Uroxatral (Alfuzosin HCl) 10 Mg Tab 10 Mg PO QPM 03/28/14 Reported Review of Systems Constitutional: + see HPI, + weight loss, + fatigue, No fever, No chills, No sweats Eyes: No worsening of vision ENT: No hearing loss, No unusual epistaxis Respiratory: + shortness of breath, + dyspnea on exertion, No cough, No sputum , No wheezing Cardiac: No chest pain, No PND, No edema, No claudication, No palpitations Abdomen: + nausea, No pain, No vomiting, No diarrhea, No constipation, No GI bleeding, No dysphagia, No odynophagia, No acolic stools, No jaundice, No dark urine Male : No dysuria Neuro: No memory loss, No weakness, No numbness/tingling Psych: No depression symptoms, No anxiety Heme: No abnormal bleeding/bruising Endo: + fatigue Skin: No rash, No itch Review of systems otherwise noncontributory based on 13 point exam except for mentioned above Physical Exam Date Time Temp Pulse Resp B/P (MAP) Pulse Ox O2 Delivery O2 Flow Rate FiO2 01/18/17 20:00 Room Air 01/18/17 19:15 77 01/18/17 18:52 36.9 77 19 125/75 (92) 95 Room Air 01/18/17 16:15 36.7 71 20 103/64 100 Room Air General Appearance: WD/WN, no apparent distress Eyes: normal inspection ENT: hearing grossly normal Neck: supple, no adenopathy, thyroid normal, no JVD Respiratory/Chest: chest non-tender, no respiratory distress Cardiovascular: regular rate, rhythm, + diastolic murmur, + systolic murmur Abdomen: normal bowel sounds, non tender, no organomegaly, no pulsatile mass Extremities: normal range of motion, non-tender, normal inspection, no pedal edema, no calf tenderness Neurologic/Psych: no motor/sensory deficits, normal mood/affect, oriented x 3 Skin: normal color, no jaundice, no rash Laboratory Results Last 24 Hours Test 01/18/17 18:23 01/18/17 18:24 Vitamin B12 Level 547 pg/mL Folate > 24.00 ng/mL Digoxin Level 1.3 ng/ml Iron Level 21 mcg/dl Total Iron Binding Capacity 152 mcg/dl Transferrin 122 mg/dl Transferrin % Saturation 12 % Ferritin 326.3 ng/ml Thyroid Stimulating Hormone (TSH) 1.130 uIu/ml Impression Patient is a 76 year old male who presents with anemia that has worsened, evidence of decreased iron indices, significant weight loss and (at least 60 pounds) and nausea. The differential is broad and includes upper and lower sources of GI bleeding that may be responsible for anemia and iron deficiency. The source of the nausea may reflect peptic ulcer disease gastritis possibly H. pylori infection and a disorder of the gallbladder which the patient reports is intact. Sources of anemia from the lower GI tract include AVMs polyps masses although colitis is less likely with the absence of diarrhea. There is a left lung effusion and perhaps atelectasis and consolidation. However despite the weight loss there are no fevers or shaking chills. Plan Impression: I made the following recommendations. Ultimately patient would benefit from upper endoscopy and colonoscopy once his coagulation profile can be optimized. This may require a judicious careful reversal of anticoagulation imprint is on warfarin) and either heparin or Lovenox bridge until procedures can be completed. If not recently performed a CT of the chest may be helpful to further assess the consolidation in the left lung field although this may simply represent atelectasis from his effusion. Would strive to keep hemoglobin at approximately 9. In this position would continue PPI therapy until upper endoscopy has been completed. Tentatively will plan for upper endoscopy and colonoscopy for . All questions answered. I did have an opportunity to speak with Dr. Chávez regarding some of these recommendations and the tentative plan for . Thank you for allowing me to participate in this pleasant gentleman's care
[2017-01-19] VITALS (8 sets, daily range): BP systolic 94–121; BP diastolic 52–70; PULSE 70–75; TEMP 36.3–36.8; O2SAT 95–97
[2017-01-19] MEDS: LEVOTHYROXINE 150 MCG TAB PO SCH (05:55)
[2017-01-19 07:14] LABS: BASO % 0.5 %; BASO ABS # 0.03 K/uL (0-0.2); COMPLETE YES; EOS % 5.6 %; HEMATOCRIT 27.1 % (42-52); LYMPH % 10.5 %; LYMPH ABS # 0.63 K/uL (1.2-3.4); MEAN CELL VOLUME 86.6 fL (80-100); MEAN CORPUSCULAR HEMOGLOBIN 28.8 pg (25-34); MEAN CORPUSCULAR HGB CONC 33.2 g/dl (32-36); MEAN PLATELET VOLUME 8.5 fL (7.4-10.4); MONO % 13.3 %; NEUT % 70.1 %; PLATELET COUNT 267 K/uL (130-400); RED BLOOD COUNT 3.13 M/uL (4.7-6.1); WHITE BLOOD COUNT 6.02 K/uL (4.8-10.8)
--- NOTE | 2017-01-19 07:14 | DIAGNOSTIC IMAGING REPORT ---
CHEST ONE VIEW PORTABLE CLINICAL HISTORY: Pleural effusion. COMPARISON STUDY: Chest radiograph January 18, 2017. FINDINGS: Note is made of median sternotomy wires, a left subclavian biventricular pacer/AICD and a left pleural catheter. No pneumothorax is identified. A moderate sized loculated left pleural effusion is unchanged. Asymmetric left lung interstitial thickening and left basilar opacity is noted with left lung volume loss. IMPRESSION: No change in a moderate sized loculated left pleural effusion with left pleural catheter in place. Electronically signed by: Gilmar Garcia M.D. 01/19/2017 7:13 AM Dictated Date/Time: 01/19/2017 7:08 AM
[2017-01-19 07:28] LABS: PARTIAL THROMBOPLASTIN RATIO 2.4
[2017-01-19] MEDS ORDERED: DORNASE ALFA (2500U) 2.5MG/2.5ML IPL ONE ×2 (07:30→15:15)
--- NOTE | 2017-01-19 07:31 | Progress Note ---
Progress Note Date of Service Jan 19, 2017. Progress Note Thoracic surgery progress note: Mr. Siddiqui was seen today. He was drained for about 250 mL last night and about 150 mL this morning. It is serous. It is not bloody. He feels better today. He does not appear as dry. His mentation is better. His physical exam really hasn't changed otherwise. His chest x-ray shows some loculation superiorly that he did not have before last month. We are going to institute the MIST-2 protocol. I have discussed this in detail with Mr. Siddiqui and discussed with his yesterday.
[2017-01-19 07:34] LABS: BUN/CREATININE RATIO 16.7 (10-20); CALCIUM 8.4 mg/dl (8.5-10.1); CREATININE 1.2 mg/dl (0.60-1.40); POTASSIUM 4.1 mmol/L (3.5-5.1)
[2017-01-19 07:37] LABS: C-REACTIVE PROTEIN 8.27 mg/dl (0-0.29)
[2017-01-19] MEDS ORDERED: ALTEPLASE, RECOMBINANT 1 MG/ML 2 ML VIAL IPL ONE ×2 (08:00→15:30)
[2017-01-19] MEDS ORDERED: DORNASE ALFA 2.5MG 5 ML in SYRINGE 25 ML IPL ONE ×2 (08:00→15:30)
--- NOTE | 2017-01-19 08:00 | Progress Note ---
Progress Note Date of Service Jan 19, 2017. Progress Note 10 mg TPA and 5 mg dornase placed in left pleurx. RN to drain at 1000 today.
[2017-01-19] MEDS: MONTELUKAST SOD 10 MG TAB PO SCH (08:07)
[2017-01-19] MEDS: FLUOXETINE HCL 20 MG CAP PO SCH (08:07)
[2017-01-19] MEDS: SODIUM CHLORIDE 0.9% 1000ML 1,000 ML IV SCH (08:07)
[2017-01-19] MEDS: PANTOprazole SOD 40 MG TAB PO SCH (08:07)
[2017-01-19] MEDS: CARVEDILOL 25 MG TAB PO SCH ×2 (08:08→20:44)
[2017-01-19] MEDS: ATORVASTATIN 40 MG TAB PO SCH (08:08)
[2017-01-19] MEDS: SACUBITRIL-VALSARTAN 24-26 MG TAB PO SCH (08:08)
[2017-01-19] MEDS ORDERED: NON-FORMULARY MEDICATION (Dutasteride (Avodart) 0.5 MG) PO SCH (09:00)
[2017-01-19] MEDS ORDERED: NON-FORMULARY MEDICATION (Fesoterodine Fumarate (Toviaz) 4 MG) PO SCH (09:00)
[2017-01-19] MEDS ORDERED: CLOPIDOGREL BISULFATE 75 MG TAB PO SCH (09:00)
--- NOTE | 2017-01-19 09:04 | Clinical Documentation Query ---
Ms. ANDERSON AMANDA : CLINICAL DOCUMENTATION QUERY Patient is a 76 year old male admitted for evaluation and treatment of is failure to thrive. Documentation includes " intermittent nausea and dry heaves and "zero appetite." He has lost about 60 lbs in the last two years, and more in the last 2 weeks but unclear how much more recently." EMR weight 12/03 17 of 79 Kg. Weight this admission was 69.1 Kg. This represents a 12.5% reduction in body weight over this interval. He is been seen by GI web consultant and the buffer machine. As appropriate, consider documentation as suggested below. Thank you. In your clinical opinion is this patient being managed for: ( x ) possible Severe protein-calorie malnutrition ( ) Other explanation of clinical findings (Please Explain) ( ) Unable to determine (Please Define) ( ) Need to Discuss ( ) Not Agree The medical record reflects the following clinical findings, treatment, and risk factors. Clinical Indicators: As above Treatment: He is been seen by GI web consultant and the buffer machine. IVF, monitor PO intake, antiemetics. Risk Factors: Age, nausea Please clarify and document your clinical opinion in the progress notes and discharge summary. Terms such as "probable", "suspected", "likely", "questionable", "possible", or "still to be ruled out" are acceptable. IF IN AGREEMENT, YOU MUST DOCUMENT ABOVE DIAGNOSTIC STATEMENT IN DAILY PROGRESS NOTES AND DISCHARGE SUMMARY. This document is not part of the patient's record. Thank You, Eliezer Diego, JAGDEEP [phone]
--- NOTE | 2017-01-19 09:05 | Clinical Documentation Query ---
DIO Dill : CLINICAL DOCUMENTATION QUERY Patient is a 76 year old male admitted for evaluation and treatment of is failure to thrive. Documentation includes " intermittent nausea and dry heaves and "zero appetite." He has lost about 60 lbs in the last two years, and more in the last 2 weeks but unclear how much more recently." EMR weight 12/03 17 of 79 Kg. Weight this admission was 69.1 Kg. This represents a 12.5% reduction in body weight over this interval. He is been seen by GI internal audit consultant and the water hauler. As appropriate, consider documentation as suggested below. Thank you. In your clinical opinion is this patient being managed for: ( x) possible Severe protein-calorie malnutrition ( ) Other explanation of clinical findings (Please Explain) ( ) Unable to determine (Please Define) ( ) Need to Discuss ( ) Not Agree The medical record reflects the following clinical findings, treatment, and risk factors. Clinical Indicators: As above Treatment: He is been seen by GI internal audit consultant and the water hauler. IVF, monitor PO intake, antiemetics. Risk Factors: Age, nausea Please clarify and document your clinical opinion in the progress notes and discharge summary. Terms such as "probable", "suspected", "likely", "questionable", "possible", or "still to be ruled out" are acceptable. IF IN AGREEMENT, YOU MUST DOCUMENT ABOVE DIAGNOSTIC STATEMENT IN DAILY PROGRESS NOTES AND DISCHARGE SUMMARY. This document is not part of the patient's record. Thank You, Eliezer Diego, JAGDEEP [phone]
[2017-01-19 09:34] LABS: PROTHROMBIN TIME (PATIENT) 92.9 SECONDS (9.0-12.0)
--- NOTE | 2017-01-19 10:15 | Hospitalist Progress Note ---
Hospitalist Progress Note Date of Service Jan 19, 2017. Subjective Pt evaluation today including: conversation w/ patient, physical exam, chart review, lab review, conversation w/ strategic planning consultant (spoke with Dr. Alexander), review of inpatient medication list Pain: None PO Intake: Tolerating PO diet Voiding: no voiding problems Patient reports feeling well. He currently denies any shortness of breath or wheezing. He does admit to a non-productive cough. He denies any pain at the site of his Pleurex catheter. He does complain of intermittent nausea, but he states that he was able to eat his breakfast this morning and denies vomiting. He also admits to feeling generally weak. The patient denies fevers, chills, sweats, chest pain, palpitations, claudication, wheezing, shortness of breath, vomiting, abdominal pain, dysuria, hematuria, urinary retention, paralysis, numbness and tingling. Additional Comments: See HPI for pertinent positives and negatives. All other systems reviewed and negative. Objective Vital Signs Date Time Temp Pulse Resp B/P (MAP) Pulse Ox O2 Delivery O2 Flow Rate FiO2 01/19/17 08:13 36.7 73 16 119/69 (86) 95 01/19/17 08:00 96 Room Air 01/19/17 04:00 Room Air 01/19/17 03:51 36.6 70 20 104/52 (69) 96 Room Air 01/19/17 00:01 36.7 72 20 94/53 (67) 96 Room Air 01/18/17 23:59 Room Air 01/18/17 20:00 Room Air 01/18/17 19:15 77 01/18/17 18:52 36.9 77 19 125/75 (92) 95 Room Air 01/18/17 16:15 36.7 71 20 103/64 100 Room Air Physical Exam Notes: General appearance: Well-developed, well-nourished, no apparent distress Head: Normocephalic, atraumatic Eyes: Normal inspection, PERRL, EOMI ENT: Normal ENT inspection, hearing grossly normal, pharynx normal Neck: Supple, no JVD, trachea midline Respiratory/Chest: +Decreased breath sounds left base. Lungs clear to auscultation, normal breath sounds, no respiratory distress Cardiovascular: +Pacemaker. Regular rate & rhythm, no gallop, no murmur Abdomen/GI: Normal bowel sounds, non-tender, soft Extremities/Musculoskeletal: Normal inspection, no calf tenderness, no pedal edema Neurological/Psych: Alert, normal mood/affect, answering questions appropriately Skin: Normal color, warm/dry, no rash Laboratory Results Last 24 Hours Test 01/18/17 18:23 01/18/17 18:24 01/19/17 06:44 01/19/17 07:50 Vitamin B12 Level 547 pg/mL Folate > 24.00 ng/mL Digoxin Level 1.3 ng/ml Iron Level 21 mcg/dl Total Iron Binding Capacity 152 mcg/dl Transferrin 122 mg/dl Transferrin % Saturation 12 % Ferritin 326.3 ng/ml Thyroid Stimulating Hormone (TSH) 1.130 uIu/ml White Blood Count 6.02 K/uL Red Blood Count 3.13 M/uL Hemoglobin 9.0 g/dL Hematocrit 27.1 % Mean Corpuscular Volume 86.6 fL Mean Corpuscular Hemoglobin 28.8 pg Mean Corpuscular Hemoglobin Concent 33.2 g/dl Platelet Count 267 K/uL Mean Platelet Volume 8.5 fL Neutrophils (%) (Auto) 70.1 % Lymphocytes (%) (Auto) 10.5 % Monocytes (%) (Auto) 13.3 % Eosinophils (%) (Auto) 5.6 % Basophils (%) (Auto) 0.5 % Neutrophils # (Auto) 4.22 K/uL Lymphocytes # (Auto) 0.63 K/uL Monocytes # (Auto) 0.80 K/uL Eosinophils # (Auto) 0.34 K/uL Basophils # (Auto) 0.03 K/uL RDW Standard Deviation 47.4 fL RDW Coefficient of Variation 14.9 % Immature Granulocyte % (Auto) 0.0 % Immature Granulocyte # (Auto) 0.00 K/uL Activated Partial Thromboplast Time 63.4 SECONDS Partial Thromboplastin Ratio 2.4 Sodium Level 137 mmol/L Potassium Level 4.1 mmol/L Chloride Level 104 mmol/L Carbon Dioxide Level 27 mmol/L Anion Gap 6.0 mmol/L Blood Urea Nitrogen 20 mg/dl Creatinine 1.20 mg/dl Est Creatinine Clear Calc Drug Dose 49.7 ml/min Estimated GFR () 66.7 Estimated GFR (Non- 57.6 BUN/Creatinine Ratio 16.7 Random Glucose 91 mg/dl Calcium Level 8.4 mg/dl Total Bilirubin 0.7 mg/dl Direct Bilirubin 0.3 mg/dl Aspartate Amino Transf (AST/SGOT) 12 U/L Alanine Aminotransferase (ALT/SGPT) 10 U/L Alkaline Phosphatase 166 U/L C-Reactive Protein 8.27 mg/dl Total Protein 6.3 gm/dl Albumin 2.4 gm/dl Stool Occult Blood POSITIVE Test 01/19/17 08:05 01/19/17 08:51 Prothrombin Time 92.9 SECONDS Prothromb Time International Ratio 8.0 Diagnostic Results Reviewed the following studies and agree with interpretation as follows: Patient Name: DALJIT MARK Unit Number: [id number] Dictated: 01/18/172024 Transcribed: 01/18/172024 ARG Printed Date/Time: [~ rep prt dt]/[~ rep prt tm] [~ rep ct labl] - [~ rep ct ivnm] [facility] [place] [address] Dictated: 01/18/172024 Transcribed: 01/18/172024 ARG Printed Date/Time: [~ rep prt dt]/[~ rep prt tm] [~ rep ct labl] - [~ rep ct ivnm] Patient: DALJIT MARK Address1: [address] [place] [address] Rec: [id number] Address2: [place] [address] Acct ID: [id number] [facility] Zip: [place] [address] Date: 1940 Sex: M Room/Bed: [facility] Ref Phy: Donis Mcdonald M.D. SC: CWallace2T Att Phy: Alisa Chávez MD Report #: [id number] Juliette Phy: Donis Mcdonald M.D. Test: KUB Admit Phy: Alisa Chávez MD Dam Tender: [facility] Interpreting Phy: Maverick Street M.D. Diagnosis: ANEMIA, DEHYDRATION Ordering Phy: Imelda Shea PA-C Service Date: 01/18/17 Admit Date: 01/18/17 MNE: [id number] CONF: DICTATED BY: Maverick Street M.D.]] CC: Imelda Shea PA-C Solic, John, M.D. Alisa Chávez MD Endcc: [~ rep ct add3]] KUB CLINICAL HISTORY: nausea COMPARISON STUDY: No previous studies for comparison. FINDINGS: There is scattered stool present throughout the colon. There is no pathologic bowel dilatation. Degenerative changes are present within the lumbar spine. There is a left pleural effusion with left lower lobe consolidative change. A left basilar chest tube is visualized. IMPRESSION: 1. Left pleural effusion with associated left lower lobe atelectasis/consolidation 2. No evidence of pathologic bowel dilatation Electronically signed by: Maverick Street M.D. 01/18/2017 8:26 PM Dictated Date/Time: 01/18/2017 8:25 PM The status of this report is Signed. Draft = Not yet reviewed or approved by Radiologist. Signed = Reviewed and approved by Radiologist. <AttendingPhy>Alisa Chávez MD</AttendingPhy> <FamilyPhy>Donis Mcdonald M.D.< /FamilyPhy> <PrimaryPhy>Donis Mcdonald M.D.</PrimaryPhy> <UnitNumber>[id number]</ UnitNumber> <VisitNumber>[id number]</VisitNumber> <PatientName>DALJIT MARK</ PatientName> <DateOfBirth>1940</DateOfBirth> <Location>C.2T</Location> < ServiceDate></ServiceDate> <MNE>ESINDI</MNE> <OrderingPhy>Imelda Shea PA-C</OrderingPhy> <OrderingPhyMNE>f rep ord dr pryor</OrderingPhyMNE> < DictatingPhyMNE>f rep dict dr pryor</DictatingPhyMNE> <CCListMNE>f rep ct mne</ CCListMNE> <AdmittingPhyMNE>f pt admit dr pryor</AdmittingPhyMNE> <AttendingPhyMNE >f pt attend dr pryor</AttendingPhyMNE> <ConsultingPhyMNE>f pt consult dr pryor</ConsultingPhyMNE> <FamilyPhyMNE>f pt fam dr pryor</FamilyPhyMNE> <OtherPhyMNE>f pt other dr pryor</OtherPhyMNE> < PrimaryPhyMNE>f pt prim care dr pryor</PrimaryPhyMNE> <ReferringPhyMNE>f pt referring dr pryor</ReferringPhyMNE> Patient Name: DALJIT MARK Unit Number: [id number] Dictated: 01/19/17707 Transcribed: 01/19/17707 JACKIE Printed Date/Time: [~ rep prt dt]/[~ rep prt tm] [~ rep ct labl] - [~ rep ct ivnm] [facility] [place] [place] [address] Dictated: 01/19/17707 Transcribed: 01/19/17707 JACKIE Printed Date/Time: [~ rep prt dt]/[~ rep prt tm] [~ rep ct labl] - [~ rep ct ivnm] Patient: DALJIT MARK Address1: [address] [place] [address] Rec: [id number] Address2: [place] [address] Acct ID: [id number] [facility] Zip: [place] [address] Date: 1940 Sex: M Room/Bed: [facility] Ref Phy: Donis Mcdonald M.D. SC: C.2T Att Phy: Alisa Chávez MD Report #: [id number] Juliette Phy: Donis Mcdonald M.D. Test: CXR1P Admit Phy: Alisa Chávez MD Dam Tender: [facility] Interpreting Phy: Gilmar Garcia MD Diagnosis: ANEMIA, DEHYDRATION Ordering Phy: John Meier Service Date: 01/19/17 Admit Date: 01/18/17 MNE: [id number] CONF: DICTATED BY: Gilmar Garcia MD]] CC: Donis Mcdonald M.D. Steward, Benjamin G., PA Tussey, Natalie B., MD Endcc: [~ rep ct add3]] CHEST ONE VIEW PORTABLE CLINICAL HISTORY: Pleural effusion. COMPARISON STUDY: Chest radiograph January 18, 2017. FINDINGS: Note is made of median sternotomy wires, a left subclavian biventricular pacer/AICD and a left pleural catheter. No pneumothorax is identified. A moderate sized loculated left pleural effusion is unchanged. Asymmetric left lung interstitial thickening and left basilar opacity is noted with left lung volume loss. IMPRESSION: No change in a moderate sized loculated left pleural effusion with left pleural catheter in place. Electronically signed by: Gilmar Garcia M.D. 01/19/2017 7:13 AM Dictated Date/Time: 01/19/2017 7:08 AM The status of this report is Signed. Draft = Not yet reviewed or approved by Radiologist. Signed = Reviewed and approved by Radiologist. <AttendingPhy>Alisa Chávez MD</AttendingPhy> <FamilyPhy>Donis Mcdonald M.D.< /FamilyPhy> <PrimaryPhy>Donis Mcdonald M.D.</PrimaryPhy> <UnitNumber>[id number]</ UnitNumber> <VisitNumber>[id number]</VisitNumber> <PatientName>DALJIT MARK</ PatientName> <DateOfBirth>1940</DateOfBirth> <Location>C.2T</Location> < ServiceDate></ServiceDate> <MNE>ESINDI</MNE> <OrderingPhy>John Meier</OrderingPhy> <OrderingPhyMNE>f rep ord dr pryor</OrderingPhyMNE> < DictatingPhyMNE>f rep dict dr pryor</DictatingPhyMNE> <CCListMNE>f rep ct mne</ CCListMNE> <AdmittingPhyMNE>f pt admit dr pryor</AdmittingPhyMNE> <AttendingPhyMNE >f pt attend dr pryor</AttendingPhyMNE> <ConsultingPhyMNE>f pt consult dr pryor</ConsultingPhyMNE> <FamilyPhyMNE>f pt fam dr pryor</FamilyPhyMNE> <OtherPhyMNE>f pt other dr pryor</OtherPhyMNE> < PrimaryPhyMNE>f pt prim care dr pryor</PrimaryPhyMNE> <ReferringPhyMNE>f pt referring dr pryor</ReferringPhyMNE> Assessment and Plan 76 yo male with a history of ischemic cardiomyopathy with LVEF 20-25%, biventricular pacemaker w/ICD (Apr 2015), rheumatic heart disease with mechanical valve replacement (mitral and aortic) Apr 2015, LBBB, paroxysmal V- tach, chronic systolic heart failure, chronic afib on Plavix and Coumadin, hypothyroidism, a flutter, reactive airway disease, cervical radiculopathy, intermitted claudication, hypercholesterolemia, spinal stenosis and previous STEMI who presented with worsening fatigue and failure to thrive from the Pulmonary clinic. Failure to thrive, dehydration, severe protein calorie malnutrition--stable - Admit to tele. No acute events overnight. Pt in paced rhythm HR 60s-70s. - Gentle hydration with NSS at 75 cc/hr with low EF. Dry weight is 162 lbs per and outpatient records. Hold lasix. - Bender Hand consulted, appreciate recs - GI consulted, appreciate recs: Plan for EGD/colonoscopy when INR allows, consider CT chest. Will tentatively schedule EGD for tomorrow if INR 2.5 or lower and will hold off on colonoscopy for now. - Pt reports significant weight loss - Pt reports losing > 60 lbs since Feb 2015. Pt reports never having had a colonoscopy or EGD. Work up had been done but was for antiinflammatory reasons which was apparently negative. - Monitor PO intake during stay - CT of the abdomen pelvis from November 2016 reviewed: Moderate left pleural effusion with left lower lobe atelectasis/consolidation and hiatal hernia. No evidence of bowel obstruction, free air, acute diverticulitis, or acute appendicitis. Left inguinal hernia containing loop of small bowel. No current evidence of obstruction. - KUB: left pleural effusion w/associate left lower lobe atelectasis/ consolidation. No evidence of pathologic bowel dilatation. - Antiemetics for nausea control- zofran - Continue tramadol for pain control if needed Anemia, normocytic--stable - Ferritin WNL, all other iron studies low - Hgb drop from 11.5 to 9.5 within the past month at time of admission - Hgb 9.0 on 01/19 Supratherapeutic INR--ongoing - Home regimen is 2.5 mg MWF and all other days is 5 mg - INR 5.3 at time of admission, warfarin held - Repeat INR 8.0 on 01/19. Continue to hold warfarin - Vitamin K 5 mg IV x 1 Chronic Respiratory Failure/Reactive airways disease--stable, denies SOB and is on room air - Wears 2 L O2 QHS and with exertion/walking during the day - Continue Singular tabs, inhalers p.r.n. as he has no active reactive airway disease. Pleural Effusion--ongoing - Chronic, follows with Dr. Connelly as an outpatient, Pleurx catheter was placed on 12/03/16 - CXR 01/19: no change in loculated left pleural effusion - Cardiothoracic surgery consulted, appreciate recs: 10 mg TPA and 5 mg dornase placed in left Pleurx. RN to drain at 1000 today. Ischemic cardiomyopathy/ Biventricular pacemaker with ICD/ Mechanical (Aortic and mitral) valve - Last ECHO November 2015 with LVEF =30-45% - Hold Plavix for now for upcoming procedures - Cont Coreg 25 mg PO BID, digoxin 125 mcg PO QAM, Entresto 24/26 mg PO qd - Holding lasix for now with gentle hydration - Hold coumadin with supratherapeutic INR - Follows with Dr. Roblero as an outpatient Chronic Afib--stable. Paced rhythm, rate controlled - INR supratherapeutic, awaiting endoscopies. Vitamin K as above - Continue home meds as above Hypothyroidism - Cont levothyroxine 150 mcg PO qd CKD stage III--stable - Cr. baseline of 1.4 - Creatinine 1.2 on 01/19 Depression - Continue Prozac 40 mg PO qd GERD - Continue Protonix 40 mg PO qd Urinary Urgency - Continue Toviaz 4 mg PO qd DVT prophylaxis -INR supratherapeutic Code Status -Level V, DO NOT RESUSCITATE
[2017-01-19] MEDS ORDERED: PHYTONADIONE INJ 5 MG in SODIUM CHLORIDE 0.9% 50ML 50 ML IV SCH (10:30)
[2017-01-19] MEDS: DIGOXIN 0.125 MG TAB PO SCH (15:03)
--- NOTE | 2017-01-19 16:02 | Progress Note ---
Progress Note Date of Service Jan 19, 2017. Progress Note 10 mg TPA and 5 mg dornase placed in left pleurx. RN to drain at 6:00 pm today
--- NOTE | 2017-01-19 16:26 | Gastroenterology Progress Note ---
Progress Note Date of Service: Jan 19, 2017 Subjective The patient events since the last GI assessment were reviewed. Patient did well overnight. INR is increased from admission value and plans for partial reversal with vitamin K 5 mg are in progress. Patient denies any present nausea vomiting abdominal pain melena or bright red blood per rectum Review of Systems Constitutional: No fever Eyes: + see HPI ENT: + see HPI Respiratory: No cough, No sputum Cardiac: No chest pain Abdomen: No pain, No vomiting, No diarrhea, No constipation, No GI bleeding Male : No dysuria Neuro: + weakness Psych: No anxiety Heme: No abnormal bleeding/bruising Endo: + fatigue Skin: No rash Medications Current Inpatient Medications Medications (Trade) Dose Ordered Sig/Javier Route Start Time Stop Time Status Last Admin Dose Admin Sodium Chloride 1,000 ml @ 75 mls/hr [id number] IV 01/18/17 17:25 01/19/17 17:24 01/19/17 08:07 75 MLS/HR Acetaminophen (Tylenol Tab) 650 mg Q4H PRN PO 01/18/17 17:30 02/17/17 17:29 Ondansetron HCl (Zofran Inj) 4 mg Q6H PRN IV 01/18/17 17:30 02/17/17 17:29 Polyethylene (Miralax Powder Packet) 17 gm DAILY PRN PO 01/18/17 17:30 02/17/17 17:29 Albuterol (Ventolin Hfa Inhaler) 2 puffs QID PRN INH 01/18/17 17:30 02/17/17 17:29 Alfuzosin HCl (Uroxatral Tab) 10 mg QPM PO 01/18/17 21:00 02/17/17 20:59 01/18/17 20:38 10 MG Atorvastatin Calcium (Lipitor Tab) 80 mg DAILY PO 01/19/17 09:00 02/18/17 08:59 01/19/17 08:08 80 MG Carvedilol (Coreg Tab) 25 mg BID PO 01/18/17 21:00 02/17/17 20:59 01/19/17 08:08 25 MG Clopidogrel Bisulfate (plAVix TAB) 75 mg DAILY PO 01/19/17 09:00 02/18/17 08:59 Future Hold 01/19/17 08:07 75 MG Digoxin (Lanoxin Tab) 0.125 mg DAILY@1600 PO 01/18/17 18:00 02/17/17 17:59 01/19/17 15:03 0.125 MG Fluoxetine HCl (Prozac Cap) 40 mg QAM PO 01/19/17 09:00 02/18/17 08:59 01/19/17 08:07 40 MG Levothyroxine Sodium (Synthroid Tab) 150 mcg DAILYBB PO 01/19/17 06:00 02/18/17 05:59 01/19/17 05:55 150 MCG Montelukast Sodium (Singulair Tab) 10 mg DAILY PO 01/19/17 09:00 02/18/17 08:59 01/19/17 08:07 10 MG Pantoprazole Sodium (Protonix Tab) 40 mg QAM PO 01/19/17 09:00 02/18/17 08:59 01/19/17 08:07 40 MG Sacubitril/ Valsartan (Entresto 24-26 Mg) 1 tab DAILY PO 01/19/17 09:00 02/18/17 08:59 01/19/17 08:08 1 TAB Tramadol HCl (Ultram Tab) 50 mg TID PRN PO 01/18/17 17:30 02/17/17 17:29 Miscellaneous Information (Order Awaiting Action) 1 ea QS N/A 01/19/17 00:00 02/18/17 00:00 Miscellaneous Information (Order Awaiting Action) 1 ea QS N/A 01/19/17 00:00 02/18/17 00:00 Enteral Nutritional Formula (Boost Plus Vanilla) 1 can DAILY@1900 PO 01/19/17 19:00 02/18/17 18:59 Objective Vital Signs Date Time Temp Pulse Resp B/P (MAP) Pulse Ox O2 Delivery O2 Flow Rate FiO2 01/19/17 16:00 Room Air 01/19/17 15:43 36.7 73 20 107/70 (82) 97 Room Air 01/19/17 15:03 75 01/19/17 12:00 95 Room Air 01/19/17 08:13 36.7 73 16 119/69 (86) 95 01/19/17 08:00 96 Room Air 01/19/17 04:00 Room Air 01/19/17 03:51 36.6 70 20 104/52 (69) 96 Room Air 01/19/17 00:01 36.7 72 20 94/53 (67) 96 Room Air 01/18/17 23:59 Room Air 01/18/17 20:00 Room Air 01/18/17 19:15 77 01/18/17 18:52 36.9 77 19 125/75 (92) 95 Room Air Physical Exam General Appearance: WD/WN, no apparent distress Eyes: normal inspection ENT: hearing grossly normal Neck: supple Respiratory/Chest: lungs clear, no respiratory distress Cardiovascular: regular rate, rhythm, no edema Abdomen: normal bowel sounds, non tender, soft, no organomegaly Extremities: non-tender, no pedal edema, no calf tenderness Neurologic/Psych: alert, normal mood/affect, oriented x 3 Skin: no rash The patient is awake alert and oriented 3 oral mucosa moist heart normal S1-S2 lungs clear to auscultation. Abdomen soft flat nontender nondistended with bowel sounds extremities without edema a rectal exam is deferred Laboratory Results Last 24 Hours Test 01/18/17 18:23 01/18/17 18:24 01/19/17 06:44 01/19/17 07:50 Vitamin B12 Level 547 pg/mL Folate > 24.00 ng/mL Digoxin Level 1.3 ng/ml Iron Level 21 mcg/dl Total Iron Binding Capacity 152 mcg/dl Transferrin 122 mg/dl Transferrin % Saturation 12 % Ferritin 326.3 ng/ml Thyroid Stimulating Hormone (TSH) 1.130 uIu/ml White Blood Count 6.02 K/uL Red Blood Count 3.13 M/uL Hemoglobin 9.0 g/dL Hematocrit 27.1 % Mean Corpuscular Volume 86.6 fL Mean Corpuscular Hemoglobin 28.8 pg Mean Corpuscular Hemoglobin Concent 33.2 g/dl Platelet Count 267 K/uL Mean Platelet Volume 8.5 fL Neutrophils (%) (Auto) 70.1 % Lymphocytes (%) (Auto) 10.5 % Monocytes (%) (Auto) 13.3 % Eosinophils (%) (Auto) 5.6 % Basophils (%) (Auto) 0.5 % Neutrophils # (Auto) 4.22 K/uL Lymphocytes # (Auto) 0.63 K/uL Monocytes # (Auto) 0.80 K/uL Eosinophils # (Auto) 0.34 K/uL Basophils # (Auto) 0.03 K/uL RDW Standard Deviation 47.4 fL RDW Coefficient of Variation 14.9 % Immature Granulocyte % (Auto) 0.0 % Immature Granulocyte # (Auto) 0.00 K/uL Activated Partial Thromboplast Time 63.4 SECONDS Partial Thromboplastin Ratio 2.4 Sodium Level 137 mmol/L Potassium Level 4.1 mmol/L Chloride Level 104 mmol/L Carbon Dioxide Level 27 mmol/L Anion Gap 6.0 mmol/L Blood Urea Nitrogen 20 mg/dl Creatinine 1.20 mg/dl Est Creatinine Clear Calc Drug Dose 49.7 ml/min Estimated GFR () 66.7 Estimated GFR (Non- 57.6 BUN/Creatinine Ratio 16.7 Random Glucose 91 mg/dl Calcium Level 8.4 mg/dl Total Bilirubin 0.7 mg/dl Direct Bilirubin 0.3 mg/dl Aspartate Amino Transf (AST/SGOT) 12 U/L Alanine Aminotransferase (ALT/SGPT) 10 U/L Alkaline Phosphatase 166 U/L C-Reactive Protein 8.27 mg/dl Total Protein 6.3 gm/dl Albumin 2.4 gm/dl Stool Occult Blood POSITIVE Test 01/19/17 08:05 01/19/17 08:51 01/19/17 15:08 Prothrombin Time 92.9 SECONDS Prothromb Time International Ratio 8.0 Prealbumin 5.9 mg/dl Assessment and Plan Patient with a history of anemia hemoglobin today is down to 9 INR is up at approximately 8. Reversal in progress. Will tentatively plan for upper endoscopy tomorrow and depending on his response to this procedure will later plan for colonoscopy tentatively for Tuesday. Would strive for INR of 2 or under if possible and if necessary Lovenox or heparin bridging is appropriate. Would maintain liquid diet tonight and nothing by mouth after midnight except for meds. Thank you for allowing me to participate in this patient's care
[2017-01-19] MEDS: BOOST PLUS VANILLA PO SCH ×2 (19:09)
[2017-01-19] MEDS: ALFUZosin TAB 10 MG TAB PO SCH (20:43)
[2017-01-20] VITALS (7 sets, daily range): BP systolic 97–125; BP diastolic 58–88; PULSE 70–75; TEMP 36.4–36.6; O2SAT 94–97
[2017-01-20] MEDS: LEVOTHYROXINE 150 MCG TAB PO SCH (06:00)
--- NOTE | 2017-01-20 06:58 | DIAGNOSTIC IMAGING REPORT ---
CHEST ONE VIEW PORTABLE HISTORY: 76 years Male pleural effusion COMPARISON: 01/19/2017 TECHNIQUE: Portable upright AP view of the chest FINDINGS: Cardiac silhouette is again enlarged left pectoral pacer/ICD appears unchanged with leads intact. Telemetry leads overlie the chest as well. There is been prior median sternotomy. There is atherosclerosis of the aorta. There is persistent mild pulmonary vascular congestion with moderate left pleural effusion and left basilar consolidation. Left-sided pleural catheter is unchanged These findings appear unchanged from comparison. No pneumothorax. Bones are grossly intact. IMPRESSION: Stable exam with persistent moderate left pleural effusion with pleural catheter in place. The above report was generated using voice recognition software. It may contain grammatical, syntax or spelling errors. Electronically signed by: Hunter Sheehan M.D. 01/20/2017 6:57 AM Dictated Date/Time: 01/20/2017 6:55 AM
[2017-01-20] MEDS ORDERED: DORNASE ALFA (2500U) 2.5MG/2.5ML IPL ONE ×2 (07:15→14:15)
[2017-01-20] MEDS ORDERED: DORNASE ALFA 2.5MG 5 ML in SYRINGE 25 ML IPL ONE (07:15)
[2017-01-20] MEDS ORDERED: ALTEPLASE, RECOMBINANT 1 MG/ML 2 ML VIAL IPL ONE (07:15)
[2017-01-20 07:20] LABS: BASO % 0.1 %; BASO ABS # 0.01 K/uL (0-0.2); COMPLETE YES; EOS % 2.4 %; HEMATOCRIT 29.6 % (42-52); IG% 0.1 %; LYMPH % 5.7 %; LYMPH ABS # 0.47 K/uL (1.2-3.4); MEAN CELL VOLUME 86.8 fL (80-100); MEAN CORPUSCULAR HEMOGLOBIN 27.6 pg (25-34); MEAN CORPUSCULAR HGB CONC 31.8 g/dl (32-36); MEAN PLATELET VOLUME 8.8 fL (7.4-10.4); MONO % 13.5 %; NEUT % 78.2 %; PLATELET COUNT 293 K/uL (130-400); RED BLOOD COUNT 3.41 M/uL (4.7-6.1); WHITE BLOOD COUNT 8.22 K/uL (4.8-10.8)
[2017-01-20 07:31] LABS: INR 1.4 (0.9-1.1); PARTIAL THROMBOPLASTIN RATIO 1.5; PROTHROMBIN TIME (PATIENT) 15.6 SECONDS (9.0-12.0)
--- NOTE | 2017-01-20 07:39 | Progress Note ---
Progress Note Date of Service Jan 20, 2017. Progress Note Pleurex drained for 500 cc dark/rust colored fluid. Lab reviewed--H/H did not demonstrate drop since admission. CXR this am shows left pleural effusion with some improved aeration at base. 10 mg TPA and 5 mg dornase placed in left pleurex. RN to drain in [address] scan of chest after drainage. Pt. tent. for GI endoscopy--TPA will not preclude this procedure, as it was not administered systemically. Discussed with primary service.
[2017-01-20] MEDS: SACUBITRIL-VALSARTAN 24-26 MG TAB PO SCH (07:59)
[2017-01-20] MEDS: CARVEDILOL 25 MG TAB PO SCH ×2 (07:59→19:26)
[2017-01-20] MEDS: ATORVASTATIN 40 MG TAB PO SCH (08:00)
[2017-01-20] MEDS: PANTOprazole SOD 40 MG TAB PO SCH (08:00)
[2017-01-20] MEDS: MONTELUKAST SOD 10 MG TAB PO SCH (08:01)
[2017-01-20] MEDS: FLUOXETINE HCL 20 MG CAP PO SCH (08:01)
[2017-01-20 08:02] LABS: BUN/CREATININE RATIO 15.7 (10-20); CALCIUM 8.5 mg/dl (8.5-10.1); CREATININE 1.1 mg/dl (0.60-1.40); POTASSIUM 4.2 mmol/L (3.5-5.1)
--- NOTE | 2017-01-20 11:11 | DIAGNOSTIC IMAGING REPORT ---
(CHEST) THORAX WITHOUT CLINICAL HISTORY: pleural effusion COMPARISON STUDY: CT scan of the abdomen pelvis dated 11/16/2016, chest x-ray dated 01/20/2017 CT DOSE: 460.40 mGycm TECHNIQUE: CT of the thorax was performed from the thoracic inlet to the lung bases. Images are reviewed in the axial, sagittal, and coronal planes. IV contrast was not administered for this examination. A dose lowering technique was utilized adhering to the principles of ALARA. FINDINGS: Thyroid: Imaged portions of the thyroid gland are normal in appearance. Thoracic aorta: There is dilatation of the ascending thoracic aorta which measures 48 mm in diameter. Heart: The heart is enlarged. There is a left subclavian pacer/defibrillator present. There is a possible ventricular aneurysm. There are coronary artery calcifications. There are pericardial calcifications. Lungs and pleural spaces: There is a small right pleural effusion. There is a small loculated left pleural effusion. There is a left pleural drain present. There is left lower lobe atelectasis/consolidation with areas of calcification. There is a 33 mm pleural-based opacity within the lingula. While possibly representing round atelectasis, other pathology cannot be excluded. Continued imaging follow-up is recommended. There is mild emphysema. Mediastinum: There are mildly enlarged mediastinal lymph nodes measuring up to 11 mm in short axis. Vernell: Hilar lymph nodes are the upper limits of normal in size Axilla: Clear. Upper abdomen: There is a hiatal hernia. There is a 27 mm right renal cyst. Skeletal structures: There is a subacute L1 compression fracture. IMPRESSION: 1. 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 2. Cardiomegaly, coronary calcifications, and possible ventricular aneurysm 3. Mild mediastinal lymphadenopathy 4. Small right pleural effusion and small loculated left pleural effusion. 5. Interval in left pleural drain 6. Left lower lobe atelectasis/consolidation. 33 mm pleural-based opacity within the lingula. Continued imaging follow-up is recommended. 7. Subacute L1 compression fracture Electronically signed by: Maverick Street M.D. 01/20/2017 11:10 AM Dictated Date/Time: 01/20/2017 10:13 AM
--- NOTE | 2017-01-20 12:31 | History & Physical Bridge Note ---
H&P Re-Evaluation Bridge Note: I have examined the patient, reviewed the History & Physical and in the interval since the performance of the History & Physical I have noted the following changes of clinical significance: No changes noted
[2017-01-20] MEDS ORDERED: LIDOCAINE HCL 2% 2 ML VIAL (20MG/ML) ONE (13:01)
[2017-01-20] MEDS ORDERED: PROPOFOL IV EMULSION 10 MG/ML 20 ML VIAL IV ONE (13:01)
[2017-01-20] MEDS ORDERED: PHENYLEPHRINE 100MCG/ML 5ML SYR ONE (13:01)
[2017-01-20] MEDS ORDERED: EpHEDrine SULFATE 50MG/5ML SYR ONE (13:01)
--- NOTE | 2017-01-20 13:06 | GI REPORT ---
Procedure Date: 01/20/2017 12:37 PM Procedure: Upper GI endoscopy Indications: Anemia, Anorexia Medicines: Propofol per Anesthesia Complications: No immediate complications. Estimated blood loss: Minimal. Estimated Blood Loss: Estimated blood loss was minimal. Procedure: Pre-Anesthesia Assessment: - Prior to the procedure, a History and Physical was performed, and patient medications and allergies were reviewed. The patient's tolerance of previous anesthesia was also reviewed. The risks and benefits of the procedure and the sedation options and risks were discussed with the patient. All questions were answered, and informed consent was obtained. Prior Anticoagulants: The patient has taken no previous anticoagulant or antiplatelet agents. ASA Grade Assessment: III - A patient with severe systemic disease. After reviewing the risks and benefits, the patient was deemed in satisfactory condition to undergo the procedure. After obtaining informed consent, the endoscope was passed under direct vision. Throughout the procedure, the patient's blood pressure, pulse, and oxygen saturations were monitored continuously. The scope was introduced through the mouth, and advanced to the third part of duodenum. The upper GI endoscopy was accomplished without difficulty. The patient tolerated the procedure well. Findings: The examined esophagus was normal. A medium-sized hiatus hernia was found. The proximal extent of the gastric folds (end of tubular esophagus) was 40 cm from the incisors. The hiatal narrowing was 43 cm from the incisors. The Z-line was 40 cm from the incisors. A single localized, 3 mm non-bleeding erosion was found in the gastric fundus. There were no stigmata of recent bleeding. Biopsies were taken with a cold forceps for histology. Estimated blood loss was minimal. Verification of patient identification for the specimen was done by the physician and career guidance technician using the patient's name and medical record number. Patchy mildly erythematous mucosa without bleeding was found in the gastric body and in the gastric antrum. Biopsies were taken with a cold forceps for Helicobacter pylori testing. Verification of patient identification for the specimen was done by the physician and career guidance technician using the patient's name and medical record number. The cardia and gastric fundus were normal on retroflexion. Retained gastric contents are not identified on this exam. Impression: - Normal esophagus. - Medium-sized hiatus hernia. - Non-bleeding erosive gastropathy. Biopsied. - Erythematous mucosa in the gastric body and antrum. Biopsied. Recommendation: - [facility]. - Perform a colonoscopy tomorrow. - Clear liquid diet today. MD Omid Bob MD 01/20/2017 1:05:49 PM This report has been signed electronically. Note Initiated On: 01/20/2017 12:37 PM I attest to the content of the Intraoperative Record and orders documented therein, exceptions below
--- NOTE | 2017-01-20 13:39 | Anesthesiology Progress Note ---
Anesthesia Post Op Note Date & Time Jan 20, 2017 at 13:36 Vital Signs Pain Intensity: 0.0 Vital Signs Past 12 Hours Date Time Temp Pulse Resp B/P (MAP) Pulse Ox O2 Delivery O2 Flow Rate FiO2 01/20/17 13:26 75 20 103/58 (73) 98 Room Air 01/20/17 13:11 70 20 99/57 (71) 96 Room Air 01/20/17 13:04 95/52 (66) 01/20/17 12:58 97/55 (69) 01/20/17 12:56 73 20 95/53 (67) 98 Room Air 01/20/17 12:00 Room Air 01/20/17 12:00 36.8 74 20 107/58 (74) 96 Room Air 01/20/17 11:37 36.5 75 18 112/72 (85) 96 Nasal Cannula 01/20/17 08:00 Room Air 01/20/17 07:10 36.5 75 21 125/88 (100) 96 Room Air 01/20/17 06:05 36.4 72 18 112/58 95 Room Air 01/20/17 04:00 Room Air 01/20/17 04:00 36.4 72 18 112/58 (76) 95 Room Air Notes Mental Status: alert / awake / arousable, participated in evaluation Pt Amnestic to Procedure: Yes Nausea / Vomiting: adequately controlled Pain: adequately controlled Airway Patency, RR, SpO2: stable & adequate BP & HR: stable & adequate Hydration State: stable & adequate Anesthetic Complications: no major complications apparent Pt to have colonoscopy tomorrow - will be heparinized overnight and this will be stopped for his colonoscopy at the appropriate time tomorrow.
[2017-01-20] MEDS ORDERED: ALTEPLASE, RECOMBINANT 1 MG/ML 2 ML VIAL IPL SCH (14:00)
[2017-01-20] MEDS ORDERED: DORNASE ALFA 2.5MG 5 ML in SYRINGE 25 ML IPL SCH (14:00)
--- NOTE | 2017-01-20 14:38 | Progress Note ---
Progress Note Date of Service Jan 20, 2017. Progress Note Mr. stock was seen today. He had some reexpansion pain but his chest tube was drained for 250 mL after dornase and TPA had been instilled. He was drained for 500 mL this morning. I thought his CAT scan looked very good. He really has very little fluid on the left side. At this point we are going to plan on completing the MIST - 2 protocol tomorrow afternoon. From my standpoint he may be discharged home with this catheter in place after that. He is on room air with good saturations and states his breathing is better. He is scheduled for an upper endoscopy today.
--- NOTE | 2017-01-20 14:40 | Progress Note ---
Subjective Date of Service: Jan 20, 2017. Subjective Pt evaluation today including: conversation w/ patient, conversation w/ family , physical exam, chart review, lab review, review of studies, review of inpatient medication list Patient back from EGD, Awake and alert and conversational, mental status in baseline No complaining, pleasant Problem List Medical Problems: (1) Anemia Status: Acute (2) CHF (congestive heart failure) Status: Acute (3) Elevated troponin Status: Acute (4) Flu Status: Acute (5) Hypotension Status: Acute (6) Influenza B Status: Acute (7) Pneumonia Status: Acute (8) Pneumonia Status: Acute Review of Systems Constitutional: + fatigue, No fever, No chills, No sweats, No weight loss, No weakness, No problem reported Eyes: No worsening of vision, No eye pain, No redness, No discharge, No diplopia ENT: No hearing loss, No unusual epistaxis, No nasal symptoms, No sore throat, No tinnitus, No dental problems, No trouble swallowing Respiratory: No cough, No sputum, No wheezing, No shortness of breath, No dyspnea on exertion, No dyspnea at rest, No hemoptysis Cardiac: No chest pain, No orthopnea, No PND, No edema, No claudication, No palpitations Abdomen: + problem reported (no appetite), No pain, No nausea, No vomiting, No diarrhea, No constipation Musculoskeletal: No joint pain, No muscle pain, No swelling, No calf pain Male : No dysuria, No urinary frequency, No incontinence, No nocturia more than once/night, No slowing stream, No hematuria Neurologic: No memory loss, No paralysis, No weakness, No numbness/tingling, No vertigo, No balance problems Psychiatric: No depression symptoms, No anhedonism, No anxiety, No insomnia, No substance abuse Heme: No abnormal bleeding/bruising, No clotting problems, No swollen lymph nodes, No night sweats Endo: No fatigue, No excessive thirst, No excessive urination Skin: No rash, No itch, No new/changing skin lesions, No color change, No bleeding Objective Vital Signs Date Time Temp Pulse Resp B/P (MAP) Pulse Ox O2 Delivery O2 Flow Rate FiO2 01/20/17 13:26 75 20 103/58 (73) 98 Room Air 01/20/17 13:11 70 20 99/57 (71) 96 Room Air 01/20/17 13:04 95/52 (66) 01/20/17 12:58 97/55 (69) 01/20/17 12:56 73 20 95/53 (67) 98 Room Air 01/20/17 12:00 Room Air 01/20/17 12:00 36.8 74 20 107/58 (74) 96 Room Air 01/20/17 11:37 36.5 75 18 112/72 (85) 96 Nasal Cannula 01/20/17 08:00 Room Air 01/20/17 07:10 36.5 75 21 125/88 (100) 96 Room Air 01/20/17 06:05 36.4 72 18 112/58 95 Room Air 01/20/17 04:00 Room Air 01/20/17 04:00 36.4 72 18 112/58 (76) 95 Room Air 01/19/17 23:59 Room Air 01/19/17 23:47 36.3 74 20 116/67 (83) 95 Room Air 01/19/17 20:00 Room Air 01/19/17 18:54 36.8 75 22 121/70 (87) 95 Room Air 01/19/17 16:00 Room Air 01/19/17 15:43 36.7 73 20 107/70 (82) 97 Room Air 01/19/17 15:03 75 Physical Exam General Appearance: WD/WN, no apparent distress, + thin, + pertinent finding ( frail, chronically ill-looking) Eyes: normal inspection, PERRL, EOMI, sclerae normal ENT: normal ENT inspection, hearing grossly normal, pharynx normal Neck: supple, no adenopathy, thyroid normal, no JVD, no carotid bruits, trachea midline Respiratory/Chest: chest non-tender, lungs clear, normal breath sounds, no respiratory distress, no accessory muscle use, + decreased breath sounds Cardiovascular: regular rate, rhythm, no edema, no gallop, no JVD, no murmur, + systolic murmur (metal clicks) Abdomen: normal bowel sounds, non tender, soft, no organomegaly, no pulsatile mass Extremities: normal range of motion, non-tender, normal inspection, no pedal edema, no calf tenderness, normal capillary refill, pelvis stable Neurologic/Psychiatric: business solutions analyst II-XII nml as tested, no motor/sensory deficits, alert, normal mood/affect, oriented x 3 Skin: normal color, warm/dry, no rash Lymphatic: no adenopathy Laboratory Results Last 24 Hours Test 01/19/17 15:08 01/20/17 06:27 Prealbumin 5.9 mg/dl White Blood Count 8.22 K/uL Red Blood Count 3.41 M/uL Hemoglobin 9.4 g/dL Hematocrit 29.6 % Mean Corpuscular Volume 86.8 fL Mean Corpuscular Hemoglobin 27.6 pg Mean Corpuscular Hemoglobin Concent 31.8 g/dl Platelet Count 293 K/uL Mean Platelet Volume 8.8 fL Neutrophils (%) (Auto) 78.2 % Lymphocytes (%) (Auto) 5.7 % Monocytes (%) (Auto) 13.5 % Eosinophils (%) (Auto) 2.4 % Basophils (%) (Auto) 0.1 % Neutrophils # (Auto) 6.42 K/uL Lymphocytes # (Auto) 0.47 K/uL Monocytes # (Auto) 1.11 K/uL Eosinophils # (Auto) 0.20 K/uL Basophils # (Auto) 0.01 K/uL RDW Standard Deviation 46.3 fL RDW Coefficient of Variation 14.8 % Immature Granulocyte % (Auto) 0.1 % Immature Granulocyte # (Auto) 0.01 K/uL Prothrombin Time 15.6 SECONDS Prothromb Time International Ratio 1.4 Activated Partial Thromboplast Time 39.2 SECONDS Partial Thromboplastin Ratio 1.5 Sodium Level 135 mmol/L Potassium Level 4.2 mmol/L Chloride Level 103 mmol/L Carbon Dioxide Level 26 mmol/L Anion Gap 6.0 mmol/L Blood Urea Nitrogen 17 mg/dl Creatinine 1.10 mg/dl Est Creatinine Clear Calc Drug Dose 53.9 ml/min Estimated GFR () 74.1 Estimated GFR (Non- 64.0 BUN/Creatinine Ratio 15.7 Random Glucose 103 mg/dl Calcium Level 8.5 mg/dl Assessment and Plan 76 yo male admitted on 01/18/2017 with worsening fatigue and failure to thrive from the Pulmonary clinic. History of ischemic cardiomyopathy with LVEF 20-25%, biventricular pacemaker w/ ICD (Apr 2015), rheumatic heart disease with mechanical valve replacement ( mitral and aortic) Apr 2015, LBBB, paroxysmal V-tach, chronic systolic heart failure, chronic afib on Plavix and Coumadin, hypothyroidism, a flutter, reactive airway disease, cervical radiculopathy, intermitted claudication, hypercholesterolemia, spinal stenosis and previous STEMI Possible upper GI bleeding with Anemia and hem occult positive stool, anemia is moderate and normocytic, Relative stable - Ferritin WNL, all other iron studies low, Witt acid and vitamin B12 level were within normal limits - GI on the case, EGD was done today reported see below: EGD results per report: - Normal esophagus. - Medium-sized hiatus hernia. - Non-bleeding erosive gastropathy. Biopsied. - Erythematous mucosa in the gastric body and antrum. Biopsied. Recommendation: - [facility]. - Perform a colonoscopy tomorrow. - Clear liquid diet today. Failure to thrive, dehydration, poor oral intake, and weight lost, possible severe protein calorie malnutrition--stable - Food Service Worker consulted, appreciate recs, check prealbumin which was 5.8, which indicated severe protein malnutrition - GI consulted, appreciate recs: EGD unremarkable, plan colonoscopy tomorrow - Pt reports significant weight loss - Pt reports losing > 60 lbs since Feb 2015. Pt reports never having had a colonoscopy or EGD. Work up had been done but was for antiinflammatory reasons which was apparently negative. - CT of the abdomen pelvis from November 2016 reviewed: Moderate left pleural effusion with left lower lobe atelectasis/consolidation and hiatal hernia. No evidence of bowel obstruction, free air, acute diverticulitis, or acute appendicitis. Left inguinal hernia containing loop of small bowel. No current evidence of obstruction. - KUB: left pleural effusion w/associate left lower lobe atelectasis/ consolidation. No evidence of pathologic bowel dilatation. - Antiemetics for nausea control- zofran - Continue tramadol for pain control if needed Mechanical valve was on Coumadin prior to admission Was Supratherapeutic INR, resolved Got 1 dose of vitamin K 5 mg yesterday This morning INR was 1.4 After procedure, discussed with anesthesiologist, plan to start having drip now and plan to stop tomorrow in certain point For colonoscopy evaluation - Home regimen is 2.5 mg MWF and all other days is 5 mg - Repeat INR 8.0 on 01/19. Continue to hold warfarin Chronic Respiratory Failure/Reactive airways disease--stable, denies SOB and is on room air - Wears 2 L O2 QHS and with exertion/walking during the day - Continue Singular tabs, inhalers p.r.n. as he has no active reactive airway disease. Pleural Effusion--ongoing - Chronic, follows with Dr. Connelly as an outpatient, Pleurx catheter was placed on 12/03/16 - CXR 01/19: no change in loculated left pleural effusion - Cardiothoracic surgery consulted, appreciate recs: Treated with TPA again in left Pleurx, we'll continue follow-up Ischemic cardiomyopathy/ Biventricular pacemaker with ICD/ Mechanical (Aortic and mitral) valve - Last ECHO November 2015 with LVEF =30-45% - Hold Plavix for now for upcoming procedures - Cont Coreg 25 mg PO BID, digoxin 125 mcg PO QAM, Entresto 24/26 mg PO qd - Holding lasix for now with gentle hydration - Follows with Dr. Roblero as an outpatient Chronic Afib--stable. Paced rhythm, rate controlled - Heparin drip - Continue home meds as above Hypothyroidism CKD stage III--stable Depression GERD Urinary Urgency Above medical condition is stable, continue current care Multiple medical conditions, possible poor prognosis, DVT prophylaxis -INR supratherapeutic Code Status -Level V, DO NOT RESUSCITATE Continued [facility] stay due to: multiple IV medications needed Discharge planning: home, uncertain
--- NOTE | 2017-01-20 15:08 | Progress Note ---
Progress Note Date of Service Jan 20, 2017. Progress Note 10 mg TPA and 5 mg dornase placed in left pleurex. RN to drain in 2 hours.
[2017-01-20 15:17] LABS: BASO % 0.3 %; BASO ABS # 0.02 K/uL (0-0.2); EOS % 2.4 %; HEMATOCRIT 29.6 % (42-52); LYMPH % 8.5 %; LYMPH ABS # 0.61 K/uL (1.2-3.4); MEAN CELL VOLUME 86.5 fL (80-100); MEAN CORPUSCULAR HEMOGLOBIN 28.4 pg (25-34); MEAN PLATELET VOLUME 8.5 fL (7.4-10.4); MONO % 12.7 %; NEUT % 76.1 %; PLATELET COUNT 272 K/uL (130-400); RED BLOOD COUNT 3.42 M/uL (4.7-6.1); WHITE BLOOD COUNT 7.17 K/uL (4.8-10.8)
[2017-01-20 15:26] LABS: COMPLETE YES; MEAN CORPUSCULAR HGB CONC 32.8 g/dl (32-36)
[2017-01-20 15:28] LABS: INR 1.4 (0.9-1.1); PARTIAL THROMBOPLASTIN RATIO 1.5; PROTHROMBIN TIME (PATIENT) 15.4 SECONDS (9.0-12.0)
[2017-01-20] MEDS: HEPARIN 25000 UNIT/ D5W 500 ML (PHARMACY PREPARED) IV PRN ×2 (15:40)
[2017-01-20] MEDS ORDERED: LAVAGE SOLUTION 4000ML PO SCH (16:00)
[2017-01-20] MEDS: DIGOXIN 0.125 MG TAB PO SCH (16:37)
[2017-01-20] MEDS: BOOST PLUS VANILLA PO SCH ×2 (19:00)
[2017-01-20] MEDS: ALFUZosin TAB 10 MG TAB PO SCH (19:25)
[2017-01-20 22:45] LABS: PARTIAL THROMBOPLASTIN RATIO 2.5
[2017-01-21] VITALS (9 sets, daily range): BP systolic 89–150; BP diastolic 53–81; PULSE 54–86; TEMP 36.1–37; O2SAT 93–97
[2017-01-21] MEDS: LEVOTHYROXINE 150 MCG TAB PO SCH (05:55)
[2017-01-21] MEDS ORDERED: AMPICILLIN IV 2,000 MG in SODIUM CHLOR 0.9% AD-VAN 100ML 100 ML IV SCH (06:00)
[2017-01-21] MEDS ORDERED: ALTEPLASE, RECOMBINANT 1 MG/ML 2 ML VIAL IPL ONE (07:00)
[2017-01-21] MEDS ORDERED: DORNASE ALFA (2500U) 2.5MG/2.5ML IPL ONE (07:00)
[2017-01-21] MEDS ORDERED: DORNASE ALFA 2.5MG 5 ML in SYRINGE 25 ML IPL ONE (07:00)
[2017-01-21 07:14] LABS: BASO % 0.1 %; BASO ABS # 0.01 K/uL (0-0.2); COMPLETE YES; EOS % 3.3 %; HEMATOCRIT 30.4 % (42-52); IG% 0.1 %; LYMPH % 7.8 %; LYMPH ABS # 0.52 K/uL (1.2-3.4); MEAN CELL VOLUME 85.4 fL (80-100); MEAN CORPUSCULAR HGB CONC 31.6 g/dl (32-36); MEAN PLATELET VOLUME 8.7 fL (7.4-10.4); MONO % 12.4 %; NEUT % 76.3 %; PLATELET COUNT 305 K/uL (130-400); RED BLOOD COUNT 3.56 M/uL (4.7-6.1)
[2017-01-21 07:35] LABS: INR 1.6 (0.9-1.1); PARTIAL THROMBOPLASTIN RATIO 2.9
--- NOTE | 2017-01-21 07:46 | DIAGNOSTIC IMAGING REPORT ---
CHEST ONE VIEW PORTABLE CLINICAL HISTORY: 76 years-old Male presenting with effusion . TECHNIQUE: Portable upright AP view of the chest was obtained. COMPARISON: Chest x-ray from 01/20/[address] from 01/20/2017. FINDINGS: Left-sided implanted cardiac defibrillator with leads to the right atrium, right ventricular apex, and coronary sinus. Additional abandoned leads noted. Multiple overlying external leads degrade image quality. Left pleural drain in place likely terminating in the paramediastinal mid hemithorax. This may have been present on prior exam. Median sternotomy wires noted with breakage of the most inferior wire. Enlargement of the cardiac silhouette as on prior exam. Extensive mid to basilar predominant left lung opacities with a moderate left pleural effusion, slightly decreased in size from prior. Right lung clear. No pneumothorax. Osseous structures and upper abdomen normal. IMPRESSION: 1. Slight interval decrease of moderate left pleural effusion. 2. Persistent mid to basilar left lung consolidation consistent with pneumonia. 3. Cardiomegaly. Electronically signed by: Barry Matson M.D. 01/21/2017 7:44 AM Dictated Date/Time: 01/21/2017 7:41 AM
[2017-01-21 07:49] LABS: BUN/CREATININE RATIO 16.5 (10-20); CALCIUM 8.4 mg/dl (8.5-10.1); MAGNESIUM 1.9 mg/dl (1.8-2.4); POTASSIUM 3.8 mmol/L (3.5-5.1)
[2017-01-21] MEDS: HEPARIN 25000 UNIT/ D5W 500 ML (PHARMACY PREPARED) IV PRN ×6 (07:52→21:20)
--- NOTE | 2017-01-21 07:54 | Progress Note ---
Progress Note Date of Service Jan 21, 2017. Progress Note 10 mg TPA and 5 mg dornase placed in left pleurex. RN to drain in 2 hours.
[2017-01-21] MEDS: CARVEDILOL 25 MG TAB PO SCH ×2 (08:10→20:43)
[2017-01-21] MEDS: PANTOprazole SOD 40 MG TAB PO SCH (08:11)
[2017-01-21] MEDS: ATORVASTATIN 40 MG TAB PO SCH (08:11)
[2017-01-21] MEDS: SACUBITRIL-VALSARTAN 24-26 MG TAB PO SCH (08:11)
[2017-01-21] MEDS: FLUOXETINE HCL 20 MG CAP PO SCH (08:12)
[2017-01-21] MEDS: MONTELUKAST SOD 10 MG TAB PO SCH (08:12)
--- NOTE | 2017-01-21 08:41 | Surgery Progress Note ---
Subjective Date of Service: Jan 21, 2017. Pt. notes breathing has improved since admission. He denies fevers, shakes, chills. Objective Vitals Date Time Temp Pulse Resp B/P (MAP) Pulse Ox O2 Delivery O2 Flow Rate FiO2 01/21/17 07:21 36.3 74 20 111/69 (83) 96 Room Air 01/21/17 04:00 Room Air 01/21/17 03:51 36.5 54 19 104/60 (75) 96 Room Air 01/21/17 00:00 Room Air 01/20/17 23:10 36.6 70 19 103/62 (76) 97 Room Air 01/20/17 20:00 Room Air 01/20/17 18:53 36.4 71 22 99/61 (74) 94 Room Air 01/20/17 16:37 75 01/20/17 16:00 Room Air 01/20/17 15:21 36.4 73 96 97/62 (74) 96 Room Air 01/20/17 13:26 75 20 103/58 (73) 98 Room Air 01/20/17 13:11 70 20 99/57 (71) 96 Room Air 01/20/17 13:04 95/52 (66) 01/20/17 12:58 97/55 (69) 01/20/17 12:56 73 20 95/53 (67) 98 Room Air 01/20/17 12:00 Room Air 01/20/17 12:00 36.8 74 20 107/58 (74) 96 Room Air 01/20/17 11:37 36.5 75 18 112/72 (85) 96 Nasal Cannula Physical Exam General: No distress CV: + RRR Pulmonary: + pertinent finding (slight decrese noted at bases), No accessory muscle use, No respiratory distress Neurologic: + alert & oriented x 3 Radiology CXR today shows decrease in size of left pleural effusion Drains / Tubes pleurex (dained for 400 cc this am ) Assessment & Plan 76 year old male with left pleural effusion -since admission MIST protocol has been implemented with improvement of left pleural effusion -continue daily drainage of pleurx -upon d/c we will see in office in 1 week with repeat CXR
[2017-01-21] MEDS ORDERED: KETAMINE HCL INJ 50 MG/ML 10 ML VIAL ONE (12:23)
[2017-01-21] MEDS ORDERED: MIDAZOLAM HCL 1 MG/ML 2ML VIAL ONE (12:23)
[2017-01-21] MEDS ORDERED: PROPOFOL IV EMULSION 10 MG/ML 20 ML VIAL IV ONE (12:23)
[2017-01-21] MEDS ORDERED: SODIUM CHLORIDE 0.9% INJ 10 ML VIAL ONE (12:24)
--- NOTE | 2017-01-21 13:06 | Endo History and Physical ---
History & Physical Date of Service: Jan 21, 2017. Chief Complaint: anemia, wt loss Referring Physician: Dr Mcdonald History of Present Illness For colonoscopy Past Medical History Pacemaker, Asthma, Thyroid Disease Past Surgical History Hx Cardiac Surgery: Yes (Pacemaker, AVR, MVR, Cardiac Cath with 3 stents) Hx Pacemaker: Yes (Dual-chamber pacemaker ([employer]) ) Hx Abdominal Surgery: Yes (Inguinal Hernia x 2) Hx Post-Op Nausea and Vomiting: No Hx Cancer Surgery: No Hx Thoracic Surgery: No Hx Orthopedic: No Hx Urinary Tract Surgery: No Social History Smoking Status: Former Smoker Hx Substance Use: No Hx Alcohol Use: No Allergies Coded Allergies: Iodinated Diagnostic Agents (Verified Allergy, Mild, HIVES, 12/03/16) Current Medications Reported Home Medications Medications Dose Route/Sig Max Daily Dose Days Date Category Dose Instructions Proventil Hfa (Albuterol Sulfate) 108 Mcg/Act Aer 2 Puff INH QID PRN 12/03/16 Reported Ultram (Tramadol HCl) 50 Mg Tab 1 Tab PO TID PRN 30 12/03/16 Reported Montelukast Sodium 10 Mg Tab 1 Tab PO DAILY 30 12/03/16 Reported Entresto 24-26 mg (Sacubitril-Valsartan) 1 Tab Tab 1 Tab PO DAILY 12/03/16 Reported Plavix (Clopidogrel Bisulfate) 75 Mg Tab 75 Mg PO DAILY 12/03/16 Reported Lipitor (Atorvastatin Calcium) 80 Mg Tab 1 Tab PO DAILY 30 12/03/16 Reported Ventolin Hfa (Albuterol) 200 Puffs/41091 Mcg Aers 2 Puffs INH QID PRN 11/16/16 Reported Klor-Con (Potassium Chloride) 20 Meq Tabcr 20 Meq PO DIRECTED 11/16/16 Reported TAKE ON DAYS LASIX IS TAKEN Coumadin (Warfarin Sodium) 5 Mg Tab 5 Mg PO 3XWK 08/25/16 Reported MON, WED, FRI Digox (Digoxin) 125 Mcg Tab 125 Mcg PO QAM 04/26/16 Reported Lasix (Furosemide) 40 Mg Tab 40 Mg PO DAILY PRN 04/13/16 Reported Protonix (Pantoprazole Sodium) 40 Mg Tab 40 Mg PO QAM 04/13/16 Reported Levothyroxine Sodium 150 Mcg Tab 150 Mcg PO QAM 90 04/13/16 Reported Prozac (Fluoxetine HCl) 20 Mg Cap 40 Mg PO QAM 04/13/16 Reported Coreg (Carvedilol) 25 Mg Tab 25 Mg PO BID 07/24/15 Reported Nitrostat (Nitroglycerin) 0.4 Mg/1 Tab Subl 0.4 Mg SL UD PRN 02/25/15 Rx Toviaz (Fesoterodine Fumarate) 4 Mg Tab 4 Mg PO QAM 30 02/19/15 Reported Coumadin (Warfarin Sodium) 5 Mg Tab 2.5 Mg PO 4XWK 03/28/14 Reported SUN, TUAN, VIC, SAT Avodart (Dutasteride) 0.5 Mg Cap 0.5 Mg PO QAM 03/28/14 Reported Uroxatral (Alfuzosin HCl) 10 Mg Tab 10 Mg PO QPM 03/28/14 Reported Vital Signs Weight (Kilograms): 68.300 Height (Feet): 5 Height (Inches): 10.00 Date Time Temp Pulse Resp B/P (MAP) Pulse Ox O2 Delivery O2 Flow Rate FiO2 01/21/17 12:43 36.1 70 18 89/54 (66) 95 Room Air 01/21/17 12:16 36.1 71 18 94/56 (69) 95 Room Air 01/21/17 11:22 36.4 70 18 98/57 (71) 95 Room Air 01/21/17 08:00 Room Air 01/21/17 07:21 36.3 74 20 111/69 (83) 96 Room Air 01/21/17 04:00 Room Air 01/21/17 03:51 36.5 54 19 104/60 (75) 96 Room Air 01/21/17 00:00 Room Air 01/20/17 23:10 36.6 70 19 103/62 (76) 97 Room Air 01/20/17 20:00 Room Air 01/20/17 18:53 36.4 71 22 99/61 (74) 94 Room Air 01/20/17 16:37 75 01/20/17 16:00 Room Air 01/20/17 15:21 36.4 73 96 97/62 (74) 96 Room Air 01/20/17 13:26 75 20 103/58 (73) 98 Room Air 01/20/17 13:11 70 20 99/57 (71) 96 Room Air Physical Exam General Appearance: + thin Respiratory/Chest: Respiratory effort: pertinent finding (Left chest tube) Cardiovascular: Apical Impulse: pertinent finding (AVR , MVR) Heart Auscultation: RRR Abdomen: Inspection & Palpation: soft Assessment and Plan Anemia, wt loss for colonoscopy
--- NOTE | 2017-01-21 13:31 | SURGERY PROGRESS NOTE ---
DATE: 01/21/2017 DATE: 01/21/2017. Mr. Siddiqui was seen today on 01/21/2017. He had some reexpansion pain with draining his PleurX catheter. After instilling the TPA and Pulmozyme this morning for the last time we drained about 200 mL of dark blood colored fluid although it was serous and nonclotting. He is on room air 95% sats. His hemoglobin has been stable since admission 9.6. He tolerated this quite well and I was happy as he states his breathing is better. We are going to continue to drain him daily although I plan on draining him later on this afternoon also. From our standpoint if his x-ray looks good tomorrow I think he can be discharged at the discretion of the primary service.
[2017-01-21] MEDS ORDERED: LIDOCAINE HCL 2% 2 ML VIAL (20MG/ML) ONE (13:33)
--- NOTE | 2017-01-21 13:42 | Discharge Instructions ---
Endoscopy Patient Instructions Date / Procedure(s) Performed Jan 21, 2017. Colonoscopy Allergy Information Coded Allergies: Iodinated Diagnostic Agents (Verified Allergy, Mild, HIVES, 12/03/16) Discharge Date / Findings Jan 21, 2017. Diverticulosis, polyps Medication Instructions Restart Stopped Medication(s): resume meds Current Inpatient Medications Medications (Trade) Dose Ordered Sig/Javier Route Start Time Stop Time Status Last Admin Dose Admin Acetaminophen (Tylenol Tab) 650 mg Q4H PRN PO 01/18/17 17:30 02/17/17 17:29 Ondansetron HCl (Zofran Inj) 4 mg Q6H PRN IV 01/18/17 17:30 02/17/17 17:29 01/19/17 17:55 4 MG Polyethylene (Miralax Powder Packet) 17 gm DAILY PRN PO 01/18/17 17:30 02/17/17 17:29 Albuterol (Ventolin Hfa Inhaler) 2 puffs QID PRN INH 01/18/17 17:30 02/17/17 17:29 Alfuzosin HCl (Uroxatral Tab) 10 mg QPM PO 01/18/17 21:00 02/17/17 20:59 01/20/17 19:25 10 MG Atorvastatin Calcium (Lipitor Tab) 80 mg DAILY PO 01/19/17 09:00 02/18/17 08:59 01/21/17 08:11 80 MG Carvedilol (Coreg Tab) 25 mg BID PO 01/18/17 21:00 02/17/17 20:59 01/21/17 08:10 25 MG Clopidogrel Bisulfate (plAVix TAB) 75 mg DAILY PO 01/19/17 09:00 02/18/17 08:59 Future Hold 01/19/17 08:07 75 MG Digoxin (Lanoxin Tab) 0.125 mg DAILY@1600 PO 01/18/17 18:00 02/17/17 17:59 01/20/17 16:37 0.125 MG Fluoxetine HCl (Prozac Cap) 40 mg QAM PO 01/19/17 09:00 02/18/17 08:59 01/21/17 08:12 40 MG Levothyroxine Sodium (Synthroid Tab) 150 mcg DAILYBB PO 01/19/17 06:00 02/18/17 05:59 01/21/17 05:55 150 MCG Montelukast Sodium (Singulair Tab) 10 mg DAILY PO 01/19/17 09:00 02/18/17 08:59 01/21/17 08:12 10 MG Pantoprazole Sodium (Protonix Tab) 40 mg QAM PO 01/19/17 09:00 02/18/17 08:59 01/21/17 08:11 40 MG Sacubitril/ Valsartan (Entresto 24-26 Mg) 1 tab DAILY PO 01/19/17 09:00 02/18/17 08:59 01/21/17 08:11 1 TAB Tramadol HCl (Ultram Tab) 50 mg TID PRN PO 01/18/17 17:30 02/17/17 17:29 Miscellaneous Information (Order Awaiting Action) 1 ea QS N/A 01/19/17 00:00 02/18/17 00:00 Miscellaneous Information (Order Awaiting Action) 1 ea QS N/A 01/19/17 00:00 02/18/17 00:00 Enteral Nutritional Formula (Boost Plus Vanilla) 1 can DAILY@1900 PO 01/19/17 19:00 02/18/17 18:59 01/19/17 19:09 1 CAN Heparin Sodium (Porcine) 76731 unit/Dextrose 500 ml @ 22 mls/hr [id number] PRN IV 01/20/17 15:15 02/19/17 15:14 01/21/17 07:52 22 MLS/HR Ampicillin Sodium 2000 mg/Sodium Chloride 100 ml @ 200 mls/hr PREOP IV 01/21/17 06:00 01/21/17 18:00 01/21/17 12:00 200 MLS/HR Provider Instructions Activity Restrictions - No exercising or heavy lifting for 24 hours. - Do not drink alcohol the day of the procedure. - Do not drive a car or operate machinery until the day after the procedure. - Do not make any important decisions or sign important papers in 24 hours after the procedure. Following Day: - Return to full activity which may include returning to work/school. Diet Start your diet with liquids and light foods (jello, soup, juice, toast). Then eat your usual diet if not nauseated. Treatment For Common After Affects For mild abdominal pain, bloating, or excessive gas: - Rest - Eat lightly - Lie on right side Follow-Up Information Follow-up with as scheduled Anesthesia Information What You Should Know You have had a procedure that required some medicine to reduce anxiety and discomfort. This treatment is called moderate sedation. After receiving the treatment, you may be sleepy, but you will be able to breathe on your own. The effects of the treatment may last for several hours. Follow these instructions along with Activity/Diet recommendations noted above: * Do NOT do anything where dizziness or clumsiness would be dangerous. * Rest quietly at home today, then you can be up and about tomorrow. * Have a responsible person stay with you the rest of today. * You may have had an I.V. today. If so, you may take the dressing off later today. Recommendations Call your doctor if: * Trouble breathing * Continuous vomiting for more than 24 hours * Temperature above 101 degrees * Severe abdominal pain or bloating * Pain not relieved by pain medicine ordered * There is increased drainage or redness from any incision * A large amount of rectal bleeding greater than 2-3 tablespoons. (If you had a polyp/s removed or have hemorrhoids, a small amount of blood - from the rectum is to be expected.) * You have any unanswered questions or concerns. IN THE EVENT OF A SERIOUS EMERGENCY, GO TO THE NEAREST EMERGENCY ROOM Your discharge instructions were prepared by provider Junito Vitale. Patient Instructions Signature Page Erasto Siddiqui Patient (or Guardian) Signature/Date: I have read and understand the instructions given to me by my caregivers. Caregiver/RN/Doctor Signature/Date: The above-named patient and/or guardian has received patient instructions on this date. + Original Patient Signature Page (only) stays with chart. Please make copy for patient.
[2017-01-21] MEDS ORDERED: PHENYLEPHRINE 100MCG/ML 5ML SYR ONE (13:44)
[2017-01-21] MEDS ORDERED: EpHEDrine SULFATE 50MG/5ML SYR ONE (13:44)
--- NOTE | 2017-01-21 13:47 | GI REPORT ---
Procedure Date: 01/21/2017 1:05 PM Procedure: Colonoscopy Indications: Iron deficiency anemia, Weight loss Medicines: Propofol total dose 60 mg IV, Lidocaine 40 mg IV, Ketamine 20 mg IV Complications: No immediate complications. Estimated Blood Loss: Estimated blood loss: none. Procedure: Pre-Anesthesia Assessment: - Prior to the procedure, a History and Physical was performed, and patient medications, allergies and sensitivities were reviewed. The patient's tolerance of previous anesthesia was reviewed. - The risks and benefits of the procedure and the sedation options and risks were discussed with the patient. All questions were answered and informed consent was obtained. After I obtained informed consent, the scope was passed under direct vision. Throughout the procedure, the patient's blood pressure, pulse, and oxygen saturations were monitored continuously. The Scope was introduced through the anus and advanced to the cecum, identified by appendiceal orifice and ileocecal valve. The colonoscopy was somewhat difficult due to significant looping. Successful completion of the procedure was aided by applying abdominal pressure. The patient tolerated the procedure well. The quality of the bowel preparation was good. Findings: Multiple diverticula were found in the sigmoid colon and in the descending colon. A 3 mm polyp was found in the transverse colon. The polyp was sessile. The polyp was removed with a cold biopsy forceps. Resection and retrieval were complete. Estimated blood loss: none. A 5 mm polyp was found in the transverse colon. The polyp was semi-sessile. The polyp was removed with a hot snare. Resection and retrieval were complete. Estimated blood loss: none. A 3 mm polyp was found in the sigmoid colon. The polyp was sessile. Polypectomy was not attempted. Impression: - Diverticulosis in the sigmoid colon and in the descending colon. - One 3 mm polyp in the transverse colon, removed with a cold biopsy forceps. Resected and retrieved. - One 5 mm polyp in the transverse colon, removed with a hot snare. Resected and retrieved. - One 3 mm polyp in the sigmoid colon. Resection not attempted. Recommendation: - [facility]. Junito Vitale M.D. Junito Vitale MD 01/21/2017 1:46:51 PM This report has been signed electronically. Note Initiated On: 01/21/2017 1:05 PM I attest to the content of the Intraoperative Record and orders documented therein, exceptions below
--- NOTE | 2017-01-21 14:17 | Anesthesiology Progress Note ---
Anesthesia Post Op Note Date & Time Jan 21, 2017 at 14:17 Vital Signs Pain Intensity: 0.0 Vital Signs Past 12 Hours Date Time Temp Pulse Resp B/P (MAP) Pulse Ox O2 Delivery O2 Flow Rate FiO2 01/21/17 14:15 70 18 105/58 (74) 97 Room Air 01/21/17 14:00 72 18 113/59 (77) 97 Room Air 01/21/17 13:47 36.1 18 89/54 95 Room Air 01/21/17 13:45 71 18 99/56 (70) 95 Room Air 01/21/17 12:43 36.1 70 18 89/54 (66) 95 Room Air 01/21/17 12:16 36.1 71 18 94/56 (69) 95 Room Air 01/21/17 12:00 Room Air 01/21/17 12:00 Room Air 01/21/17 11:22 36.4 70 18 98/57 (71) 95 Room Air 01/21/17 08:00 Room Air 01/21/17 07:21 36.3 74 20 111/69 (83) 96 Room Air 01/21/17 04:00 Room Air 01/21/17 03:51 36.5 54 19 104/60 (75) 96 Room Air Notes Mental Status: alert / awake / arousable, participated in evaluation Pt Amnestic to Procedure: Yes Nausea / Vomiting: adequately controlled Pain: adequately controlled Airway Patency, RR, SpO2: stable & adequate BP & HR: stable & adequate Hydration State: stable & adequate Anesthetic Complications: no major complications apparent
[2017-01-21] MEDS ORDERED: NURSING VERBAL MED ORDER ONE (14:30)
--- NOTE | 2017-01-21 15:12 | Hospitalist Progress Note ---
Hospitalist Progress Note Date of Service Jan 21, 2017. Subjective Pt evaluation today including: conversation w/ patient, physical exam, chart review, lab review, review of inpatient medication list Pain: None PO Intake: Tolerating PO diet but little appetite Voiding: no voiding problems Patient has just returned from colonoscopy. He reports feeling well. He does admit to some pleuritic pain, particularly on the left side, intermittently. He denies any shortness of breath or other chest pain. The patient denies fevers, chills, sweats, chest pain, palpitations, claudication, cough, wheezing , shortness of breath, nausea, vomiting, abdominal pain, dysuria, hematuria, urinary retention, paralysis, weakness, numbness and tingling. Additional Comments: See HPI for pertinent positives and negatives. All other systems reviewed and negative. Objective Vital Signs Date Time Temp Pulse Resp B/P (MAP) Pulse Ox O2 Delivery O2 Flow Rate FiO2 01/21/17 14:19 70 18 104/57 (73) 97 Room Air 01/21/17 14:15 70 18 105/58 (74) 97 Room Air 01/21/17 14:00 72 18 113/59 (77) 97 Room Air 01/21/17 13:47 36.1 18 89/54 95 Room Air 01/21/17 13:45 71 18 99/56 (70) 95 Room Air 01/21/17 12:43 36.1 70 18 89/54 (66) 95 Room Air 01/21/17 12:16 36.1 71 18 94/56 (69) 95 Room Air 01/21/17 12:00 Room Air 01/21/17 12:00 Room Air 01/21/17 11:22 36.4 70 18 98/57 (71) 95 Room Air 01/21/17 08:00 Room Air 01/21/17 07:21 36.3 74 20 111/69 (83) 96 Room Air 01/21/17 04:00 Room Air 01/21/17 03:51 36.5 54 19 104/60 (75) 96 Room Air 01/21/17 00:00 Room Air 01/20/17 23:10 36.6 70 19 103/62 (76) 97 Room Air 01/20/17 20:00 Room Air 01/20/17 18:53 36.4 71 22 99/61 (74) 94 Room Air 01/20/17 16:37 75 01/20/17 16:00 Room Air 01/20/17 15:21 36.4 73 96 97/62 (74) 96 Room Air Physical Exam Notes: General appearance: Well-developed, well-nourished, no apparent distress Head: Normocephalic, atraumatic Eyes: Normal inspection, PERRL, EOMI ENT: Normal ENT inspection, hearing grossly normal, pharynx normal Neck: Supple, no JVD, trachea midline Respiratory/Chest: +Decreased breath sounds left base. Left Pleurx catheter in place. Lungs clear to auscultation, normal breath sounds, no respiratory distress Cardiovascular: +Pacemaker. Regular rate & rhythm, no gallop, no murmur Abdomen/GI: Normal bowel sounds, non-tender, soft Extremities/Musculoskeletal: Normal inspection, no calf tenderness, no pedal edema Neurological/Psych: Alert, normal mood/affect, oriented x 3 Skin: Normal color, warm/dry, no rash Laboratory Results Last 24 Hours Test 01/20/17 15:06 01/20/17 22:12 01/21/17 06:35 01/21/17 14:00 White Blood Count 7.17 K/uL 6.70 K/uL Red Blood Count 3.42 M/uL 3.56 M/uL Hemoglobin 9.7 g/dL 9.6 g/dL Hematocrit 29.6 % 30.4 % Mean Corpuscular Volume 86.5 fL 85.4 fL Mean Corpuscular Hemoglobin 28.4 pg 27.0 pg Mean Corpuscular Hemoglobin Concent 32.8 g/dl 31.6 g/dl Platelet Count 272 K/uL 305 K/uL Mean Platelet Volume 8.5 fL 8.7 fL Neutrophils (%) (Auto) 76.1 % 76.3 % Lymphocytes (%) (Auto) 8.5 % 7.8 % Monocytes (%) (Auto) 12.7 % 12.4 % Eosinophils (%) (Auto) 2.4 % 3.3 % Basophils (%) (Auto) 0.3 % 0.1 % Neutrophils # (Auto) 5.46 K/uL 5.11 K/uL Lymphocytes # (Auto) 0.61 K/uL 0.52 K/uL Monocytes # (Auto) 0.91 K/uL 0.83 K/uL Eosinophils # (Auto) 0.17 K/uL 0.22 K/uL Basophils # (Auto) 0.02 K/uL 0.01 K/uL RDW Standard Deviation 46.3 fL 46.6 fL RDW Coefficient of Variation 14.7 % 14.8 % Immature Granulocyte % (Auto) 0.0 % 0.1 % Immature Granulocyte # (Auto) 0.00 K/uL 0.01 K/uL Prothrombin Time 15.4 SECONDS 17.0 SECONDS Prothromb Time International Ratio 1.4 1.6 Activated Partial Thromboplast Time 37.9 SECONDS 65.8 SECONDS 76.6 SECONDS Partial Thromboplastin Ratio 1.5 2.5 2.9 Sodium Level 136 mmol/L Potassium Level 3.8 mmol/L Chloride Level 103 mmol/L Carbon Dioxide Level 27 mmol/L Anion Gap 6.0 mmol/L Blood Urea Nitrogen 17 mg/dl Creatinine 1.00 mg/dl Est Creatinine Clear Calc Drug Dose 58.8 ml/min Estimated GFR () 83.2 Estimated GFR (Non- 71.8 BUN/Creatinine Ratio 16.5 Random Glucose 95 mg/dl Calcium Level 8.4 mg/dl Magnesium Level 1.9 mg/dl Diagnostic Results Patient Name: DALJIT MARK Unit Number: [id number] Dictated: 01/21/17740 Transcribed: 01/21/17740 PBS Printed Date/Time: [~ rep prt dt]/[~ rep prt tm] [~ rep ct labl] - [~ rep ct ivnm] [facility] [place] [address] Dictated: 01/21/17740 Transcribed: 01/21/17740 PBS Printed Date/Time: [~ rep prt dt]/[~ rep prt tm] [~ rep ct labl] - [~ rep ct ivnm] Patient: DALJIT MARK Address1: [address] [place] [address] Rec: [id number] Address2: [place] [address] Acct ID: [id number] [facility] Zip: [place] [address] Date: 1940 Sex: M Room/Bed: 40-1 Ref Phy: Donis Mcdonald M.D. SC: Sasha2T Att Phy: Zeeshan Cook MD, PhD Report #: [id number] Juliette Phy: Donis Mcdonald M.D. Test: CXR1P Admit Phy: Alisa Chávez MD Hand Funnel Coater: SHIN Interpreting Phy: Barry Matson MD Diagnosis: ANEMIA, DEHYDRATION Ordering Phy: John Meier Service Date: 01/21/17 Admit Date: 01/18/17 MNE: [id number] CONF: DICTATED BY: Barry Matson MD]] CC: Zeeshan Cook MD, PhD Donis Mcdonald M.D. Steward, Benjamin G., PA Endcc: [~ rep ct add3]] CHEST ONE VIEW PORTABLE CLINICAL HISTORY: 76 years-old Male presenting with effusion . TECHNIQUE: Portable upright AP view of the chest was obtained. COMPARISON: Chest x-ray from 01/20/[address] from 01/20/2017. FINDINGS: Left-sided implanted cardiac defibrillator with leads to the right atrium, right ventricular apex, and coronary sinus. Additional abandoned leads noted. Multiple overlying external leads degrade image quality. Left pleural drain in place likely terminating in the paramediastinal mid hemithorax. This may have been present on prior exam. Median sternotomy wires noted with breakage of the most inferior wire. Enlargement of the cardiac silhouette as on prior exam. Extensive mid to basilar predominant left lung opacities with a moderate left pleural effusion, slightly decreased in size from prior. Right lung clear. No pneumothorax. Osseous structures and upper abdomen normal. IMPRESSION: 1. Slight interval decrease of moderate left pleural effusion. 2. Persistent mid to basilar left lung consolidation consistent with pneumonia. 3. Cardiomegaly. Electronically signed by: Barry Matson M.D. 01/21/2017 7:44 AM Dictated Date/Time: 01/21/2017 7:41 AM The status of this report is Signed. Draft = Not yet reviewed or approved by Radiologist. Signed = Reviewed and approved by Radiologist. <AttendingPhy>Zeeshan Cook MD, PhD</AttendingPhy> <FamilyPhy>Donis Mcdonald M.D. </FamilyPhy> <PrimaryPhy>Donis Mcdonald M.D.</PrimaryPhy> <UnitNumber>[id number]</ UnitNumber> <VisitNumber>[id number]</VisitNumber> <PatientName>DALJIT MARK</ PatientName> <DateOfBirth>1940</DateOfBirth> <Location>C.2T</Location> < ServiceDate></ServiceDate> <MNE>ESINDI</MNE> <OrderingPhy>John Meier</OrderingPhy> <OrderingPhyMNE>f rep ord dr pryor</OrderingPhyMNE> < DictatingPhyMNE>f rep dict dr pryor</DictatingPhyMNE> <CCListMNE>f rep ct mne</ CCListMNE> <AdmittingPhyMNE>f pt admit dr pryor</AdmittingPhyMNE> <AttendingPhyMNE >f pt attend dr pryor</AttendingPhyMNE> <ConsultingPhyMNE>f pt consult dr pryor</ConsultingPhyMNE> <FamilyPhyMNE>f pt fam dr pryor</FamilyPhyMNE> <OtherPhyMNE>f pt other dr pryor</OtherPhyMNE> < PrimaryPhyMNE>f pt prim care dr pryor</PrimaryPhyMNE> <ReferringPhyMNE>f pt referring dr pryor</ReferringPhyMNE> Patient: DALJIT MARK Admit Date: Med Rec: [id number] Acct ID: [id number] [~ rep ct labl] Page 2of 2 p: [~ rep prt dt last] [~ rep prt tm last] [~ rep ct labl] Page 1of 1 p: [~ rep prt dt last] [~ rep prt tm last] GI REPORT [facility], [place] Patient: DALJIT MARK Admit Date: 01/18/17 Med Rec: [id number] Att Phy: Zeeshan Cook MD, PhD Acct ID: [id number] Juliette Phy: Donis Mcdonald M.D. Date: 1940 Ref Phy: No Doctor, Assigned Fam Phy: Donis Mcdonald M.D. Age: 76 Location: C.2T Sex: M Room/Bed: S240-1 MNE:PROVATION REPORT #: [id number] CC: Junito Vitale M.D. Endcc: DICTATED BY: Junito Vitale M.D. Procedure Date: 01/21/2017 1:05 PM Procedure: Colonoscopy Indications: Iron deficiency anemia, Weight loss Medicines: Propofol total dose 60 mg IV, Lidocaine 40 mg IV, Ketamine 20 mg IV Complications: No immediate complications. Estimated Blood Loss: Estimated blood loss: none. Procedure: Pre-Anesthesia Assessment: - Prior to the procedure, a History and Physical was performed, and patient medications, allergies and sensitivities were reviewed. The patient's tolerance of previous anesthesia was reviewed. - The risks and benefits of the procedure and the sedation options and risks were discussed with the patient. All questions were answered and informed consent was obtained. After I obtained informed consent, the scope was passed under direct vision. Throughout the procedure, the patient's blood pressure, pulse, and oxygen saturations were monitored continuously. The Scope was introduced through the anus and advanced to the cecum, identified by appendiceal orifice and ileocecal valve. The colonoscopy was somewhat difficult due to significant looping. Successful completion of the procedure was aided by applying abdominal pressure. The patient tolerated the procedure well. The quality of the bowel preparation was good. Findings: Multiple diverticula were found in the sigmoid colon and in the descending colon. A 3 mm polyp was found in the transverse colon. The polyp was sessile. The polyp was removed with a cold biopsy forceps. Resection and retrieval were complete. Estimated blood loss: none. A 5 mm polyp was found in the transverse colon. The polyp was semi-sessile. The polyp was removed with a hot snare. Resection and retrieval were complete. Estimated blood loss: none. A 3 mm polyp was found in the sigmoid colon. The polyp was sessile. Polypectomy was not attempted. Impression: - Diverticulosis in the sigmoid colon and in the descending colon. - One 3 mm polyp in the transverse colon, removed with a cold biopsy forceps. Resected and retrieved. - One 5 mm polyp in the transverse colon, removed with a hot snare. Resected and retrieved. - One 3 mm polyp in the sigmoid colon. Resection not attempted. Recommendation: - [facility]. Nicho Garzon MD 01/21/2017 1:46:51 PM This report has been signed electronically. Note Initiated On: 01/21/2017 1:05 PM I attest to the content of the Intraoperative Record and orders documented therein, exceptions below Dictated: 01/21/17 1305 Signed: 01/21/17 0867 The status of this report is Signed. Draft = Not yet reviewed or approved by Medical Physician. Signed = Reviewed and approved by Medical Physician. <ConsultingPhyMNE>f pt consult dr pryor</ConsultingPhyMNE> <FamilyPhyMNE>f pt fam dr pryor</FamilyPhyMNE> <OtherPhyMNE>f pt other dr pryor</OtherPhyMNE> < PrimaryPhyMNE>f pt prim care dr pryor</PrimaryPhyMNE> <ReferringPhyMNE>f pt referring dr pryor</ReferringPhyMNE> Assessment and Plan 76 yo male with a history of ischemic cardiomyopathy with LVEF 20-25%, biventricular pacemaker w/ICD (Apr 2015), rheumatic heart disease with mechanical valve replacement (mitral and aortic) Apr 2015, LBBB, paroxysmal V- tach, chronic systolic heart failure, chronic afib on Plavix and Coumadin, hypothyroidism, a flutter, reactive airway disease, cervical radiculopathy, intermitted claudication, hypercholesterolemia, spinal stenosis and previous STEMI who presented with worsening fatigue and failure to thrive from the Pulmonary clinic. Failure to thrive, dehydration, severe protein calorie malnutrition--stable - Admit to tele. No acute events overnight. Pt in paced rhythm HR 60s-70s. - Abrasive Grader consulted, appreciate recs: Boost and MVI qd. Consider appetite stimulant. - Start Megace 400 mg PO qam - GI consulted, appreciate recs: - EGD shows hiatal hernia. Nonbleeding erosive gastropathy, biopsies taken. Nonbleeding erythematous mucosa of gastric body and antrum, biopsy taken and will check for H. Pylori - Colonoscopy showed diverticulosis and 3 polyps. 2 of the polyps were removed for biopsy. - Pt reports significant weight loss - Pt reports losing > 60 lbs since Feb 2015. Pt reports never having had a colonoscopy or EGD. Work up had been done but was for antiinflammatory reasons which was apparently negative. - Monitor PO intake during stay - CT of the abdomen pelvis from November 2016 reviewed: Moderate left pleural effusion with left lower lobe atelectasis/consolidation and hiatal hernia. No evidence of bowel obstruction, free air, acute diverticulitis, or acute appendicitis. Left inguinal hernia containing loop of small bowel. No current evidence of obstruction. - KUB: left pleural effusion w/associate left lower lobe atelectasis/ consolidation. No evidence of pathologic bowel dilatation. - Antiemetics for nausea control- zofran - Continue tramadol for pain control if needed Anemia, normocytic--stable - Ferritin WNL, all other iron studies low - Hgb drop from 11.5 to 9.5 within the past month at time of admission - Hgb 9.6 on 01/21 Supratherapeutic INR--resolved - Home regimen is 2.5 mg MWF and all other days is 5 mg - INR 5.3 at time of admission, warfarin held - Repeat INR 8.0 on 01/19. Continue to hold warfarin - Vitamin K 5 mg IV x 1 - INR 1.4 on 01/20, okay to proceed with EGD - Continue heparin drip - INR 1.6 on 01/21 Chronic Respiratory Failure/Reactive airways disease--stable, denies SOB and is on room air - Wears 2 L O2 QHS and with exertion/walking during the day - Continue Singular tabs, inhalers p.r.n. as he has no active reactive airway disease. Pleural Effusion--improving - Chronic, follows with Dr. Connelly as an outpatient, Pleurx catheter was placed on 12/03/16 - CXR 01/21 shows decrease in left pleural effusion. Report says LLL consolidation consistent with pneumonia, but there are no s/s of infection - Cardiothoracic surgery consulted, appreciate recs: Continue to drain Pleurx daily. If CXR looks good tomorrow, can discharge when okay with primary service. Ischemic cardiomyopathy/ Biventricular pacemaker with ICD/ Mechanical (Aortic and mitral) valve - Last ECHO November 2015 with LVEF =30-45% - Hold Plavix for now for upcoming procedures - Cont Coreg 25 mg PO BID, digoxin 125 mcg PO QAM, Entresto 24/26 mg PO qd - Holding lasix for now with gentle hydration - Hold coumadin with supratherapeutic INR - Follows with Dr. Roblero as an outpatient Chronic Afib--stable. Paced rhythm, rate controlled - INR subtherapeutic as warfarin has been held for endoscopies - Continue heparin drip - Continue home meds as above Hypothyroidism - Cont levothyroxine 150 mcg PO qd CKD stage III--stable - Cr. baseline of 1.4 - Creatinine stable, at baseline Depression - Continue Prozac 40 mg PO qd GERD - Continue Protonix 40 mg PO qd Urinary Urgency - Continue Toviaz 4 mg PO qd DVT prophylaxis -Heparin drip Code Status -Level V, DO NOT RESUSCITATE Dispo -Pt from home -PT recommends short rehab stay if not able to meet goals
[2017-01-21] MEDS: DIGOXIN 0.125 MG TAB PO SCH (15:46)
--- NOTE | 2017-01-21 15:46 | PROGRESS NOTE ---
DATE: 01/21/2017 DATE: 01/21/2017. The patient underwent a colonoscopy today for anemia and weight loss. EGD performed yesterday by Dr. Alexander was nondiagnostic. The patient had a colonoscopy carried into the cecum. There were multiple sigmoid diverticula found and 2 small polyps that were removed endoscopically, but no source of blood loss, tumors or other significant pathology. The patient will resume his heparin following the procedure.
[2017-01-21] MEDS: BOOST PLUS VANILLA PO SCH ×2 (20:43)
[2017-01-21] MEDS: ALFUZosin TAB 10 MG TAB PO SCH (20:43)
[2017-01-21 20:59] LABS: PARTIAL THROMBOPLASTIN RATIO 2.7
[2017-01-22] VITALS (8 sets, daily range): BP systolic 90–125; BP diastolic 31–75; PULSE 70–82; TEMP 36.3–36.8; O2SAT 91–97
[2017-01-22 03:27] LABS: HEMATOCRIT 27.5 % (42-52); MEAN CELL VOLUME 84.9 fL (80-100); MEAN CORPUSCULAR HEMOGLOBIN 28.1 pg (25-34); MEAN CORPUSCULAR HGB CONC 33.1 g/dl (32-36); MEAN PLATELET VOLUME 8.4 fL (7.4-10.4); PLATELET COUNT 274 K/uL (130-400); RED BLOOD COUNT 3.24 M/uL (4.7-6.1); WHITE BLOOD COUNT 6.01 K/uL (4.8-10.8)
[2017-01-22 03:50] LABS: INR 1.9 (0.9-1.1); PARTIAL THROMBOPLASTIN RATIO 2.8; PROTHROMBIN TIME (PATIENT) 21.4 SECONDS (9.0-12.0)
[2017-01-22 03:52] LABS: BUN/CREATININE RATIO 11.6 (10-20); CALCIUM 8.1 mg/dl (8.5-10.1); CREATININE 1.2 mg/dl (0.60-1.40); POTASSIUM 3.8 mmol/L (3.5-5.1)
[2017-01-22] MEDS: HEPARIN 25000 UNIT/ D5W 500 ML (PHARMACY PREPARED) IV PRN ×4 (04:15→23:02)
[2017-01-22] MEDS: LEVOTHYROXINE 150 MCG TAB PO SCH (05:21)
[2017-01-22] MEDS: PANTOprazole SOD 40 MG TAB PO SCH (07:59)
[2017-01-22] MEDS: FLUOXETINE HCL 20 MG CAP PO SCH (07:59)
[2017-01-22] MEDS: SACUBITRIL-VALSARTAN 24-26 MG TAB PO SCH (07:59)
[2017-01-22] MEDS: ATORVASTATIN 40 MG TAB PO SCH (07:59)
[2017-01-22] MEDS: MONTELUKAST SOD 10 MG TAB PO SCH (07:59)
[2017-01-22] MEDS: CARVEDILOL 25 MG TAB PO SCH ×2 (08:00→21:32)
[2017-01-22] MEDS ORDERED: MEGESTROL ACETATE 400 MG/10 ML UDP PO SCH (09:00)
--- NOTE | 2017-01-22 09:36 | Hospitalist Progress Note ---
Hospitalist Progress Note Date of Service Jan 22, 2017. Subjective Pt evaluation today including: conversation w/ patient, physical exam, chart review, lab review, review of inpatient medication list Pain: None PO Intake: Tolerating PO diet Voiding: no voiding problems Patient reports feeling well. He denies any weakness or fatigue. He reports a mild non-productive cough. He also notes some pleuritic pain again, but this seems improved from yesterday. He states he was able to eat his breakfast and denies any difficulties voiding. The patient denies fevers, chills, sweats, chest pain, palpitations, claudication, wheezing, shortness of breath, nausea, vomiting, abdominal pain, dysuria, hematuria, urinary retention, paralysis, weakness, numbness and tingling. Additional Comments: See HPI for pertinent positives and negatives. All other systems reviewed and negative. Objective Vital Signs Date Time Temp Pulse Resp B/P (MAP) Pulse Ox O2 Delivery O2 Flow Rate FiO2 01/22/17 08:00 Room Air 01/22/17 07:34 36.8 72 18 120/73 (89) 95 01/22/17 04:00 Room Air 01/22/17 03:20 36.3 70 23 108/62 (77) 94 Room Air 01/21/17 23:59 Room Air 01/21/17 23:52 37.0 70 20 99/53 (68) 97 Room Air 01/21/17 20:06 36.6 62 16 107/61 (76) 93 01/21/17 20:00 Room Air 01/21/17 16:00 Room Air 01/21/17 15:46 66 01/21/17 14:45 36.8 86 18 150/81 (104) 96 Room Air 01/21/17 14:30 36.5 66 18 109/68 (82) 97 Room Air 01/21/17 14:19 70 18 104/57 (73) 97 Room Air 01/21/17 14:15 70 18 105/58 (74) 97 Room Air 01/21/17 14:00 72 18 113/59 (77) 97 Room Air 01/21/17 13:47 36.1 18 89/54 95 Room Air 01/21/17 13:45 71 18 99/56 (70) 95 Room Air 01/21/17 12:43 36.1 70 18 89/54 (66) 95 Room Air 01/21/17 12:16 36.1 71 18 94/56 (69) 95 Room Air 01/21/17 12:00 Room Air 01/21/17 12:00 Room Air 01/21/17 11:22 36.4 70 18 98/57 (71) 95 Room Air Physical Exam Notes: General appearance: Well-developed, well-nourished, no apparent distress Head: Normocephalic, atraumatic Eyes: Normal inspection, PERRL, EOMI ENT: Normal ENT inspection, hearing grossly normal, pharynx normal Neck: Supple, no JVD, trachea midline Respiratory/Chest: +Decreased breath sounds left base. Left Pleurx catheter in place. Lungs clear to auscultation, normal breath sounds, no respiratory distress Cardiovascular: +Pacemaker. Regular rate & rhythm, no gallop, no murmur Abdomen/GI: Normal bowel sounds, non-tender, soft Extremities/Musculoskeletal: Normal inspection, no calf tenderness, no pedal edema Neurological/Psych: Alert, normal mood/affect, oriented x 3 Skin: Normal color, warm/dry, no rash Laboratory Results Last 24 Hours Test 01/21/17 20:27 01/22/17 03:10 Activated Partial Thromboplast Time 71.1 SECONDS 73.4 SECONDS Partial Thromboplastin Ratio 2.7 2.8 White Blood Count 6.01 K/uL Red Blood Count 3.24 M/uL Hemoglobin 9.1 g/dL Hematocrit 27.5 % Mean Corpuscular Volume 84.9 fL Mean Corpuscular Hemoglobin 28.1 pg Mean Corpuscular Hemoglobin Concent 33.1 g/dl RDW Standard Deviation 46.2 fL RDW Coefficient of Variation 14.7 % Platelet Count 274 K/uL Mean Platelet Volume 8.4 fL Prothrombin Time 21.4 SECONDS Prothromb Time International Ratio 1.9 Sodium Level 137 mmol/L Potassium Level 3.8 mmol/L Chloride Level 105 mmol/L Carbon Dioxide Level 27 mmol/L Anion Gap 5.0 mmol/L Blood Urea Nitrogen 14 mg/dl Creatinine 1.20 mg/dl Est Creatinine Clear Calc Drug Dose 49.0 ml/min Estimated GFR () 66.7 Estimated GFR (Non- 57.6 BUN/Creatinine Ratio 11.6 Random Glucose 90 mg/dl Calcium Level 8.1 mg/dl Assessment and Plan 76 yo male with a history of ischemic cardiomyopathy with LVEF 20-25%, biventricular pacemaker w/ICD (Apr 2015), rheumatic heart disease with mechanical valve replacement (mitral and aortic) Apr 2015, LBBB, paroxysmal V- tach, chronic systolic heart failure, chronic afib on Plavix and Coumadin, hypothyroidism, a flutter, reactive airway disease, cervical radiculopathy, intermitted claudication, hypercholesterolemia, spinal stenosis and previous STEMI who presented with worsening fatigue and failure to thrive from the Pulmonary clinic. Failure to thrive, dehydration, severe protein calorie malnutrition--stable - Admit to tele. No acute events overnight. Pt in paced rhythm HR 70s-80s. - Divider Operator consulted, appreciate recs: Boost and MVI qd. Consider appetite stimulant. - Continue Megace 400 mg PO qam - GI consulted, appreciate recs: Colonoscopy on 01/21, pathology pending - EGD shows hiatal hernia. Nonbleeding erosive gastropathy, biopsies taken. Nonbleeding erythematous mucosa of gastric body and antrum, biopsy taken and will check for H. Pylori - Biopsies from EGD show moderate chronic active gastritis. Negative for H. Pylori or tumor. - Colonoscopy showed diverticulosis and 3 polyps. 2 of the polyps were removed for biopsy. - Pt reports significant weight loss - Pt reports losing > 60 lbs since Feb 2015. Pt reports never having had a colonoscopy or EGD. Work up had been done but was for antiinflammatory reasons which was apparently negative. - Monitor PO intake during stay - CT of the abdomen pelvis from November 2016 reviewed: Moderate left pleural effusion with left lower lobe atelectasis/consolidation and hiatal hernia. No evidence of bowel obstruction, free air, acute diverticulitis, or acute appendicitis. Left inguinal hernia containing loop of small bowel. No current evidence of obstruction. - KUB: left pleural effusion w/associate left lower lobe atelectasis/ consolidation. No evidence of pathologic bowel dilatation. - Antiemetics for nausea control- zofran - Continue tramadol for pain control if needed Anemia, normocytic--stable - Ferritin WNL, all other iron studies low - Hgb drop from 11.5 to 9.5 within the past month at time of admission - Hgb stable in 9s Supratherapeutic INR--resolved - Home regimen is 2.5 mg MWF and all other days is 5 mg - INR 5.3 at time of admission, warfarin held - Repeat INR 8.0 on 01/19. Continue to hold warfarin - Vitamin K 5 mg IV x 1 - INR 1.4 on 01/20, okay to proceed with EGD - INR 1.9 on 01/22 - Continue warfarin 5 mg PO // and 2.5 mg PO ///Bee - Continue heparin drip, goal INR 2.5-3.5 due to mechanical valve Chronic Respiratory Failure/Reactive airways disease--stable, denies SOB and is on room air - Wears 2 L O2 QHS and with exertion/walking during the day - Continue Singular tabs, inhalers p.r.n. as he has no active reactive airway disease. Pleural Effusion--improving - Chronic, follows with Dr. Connelly as an outpatient, Pleurx catheter was placed on 12/03/16 - CXR 01/21 shows decrease in left pleural effusion. Report says LLL consolidation consistent with pneumonia, but there are no s/s of infection - Cardiothoracic surgery consulted, appreciate recs: Continue to drain Pleurx daily. If CXR looks good tomorrow, can discharge when okay with primary service. Ischemic cardiomyopathy/ Biventricular pacemaker with ICD/ Mechanical (Aortic and mitral) valve - Last ECHO November 2015 with LVEF =30-45% - Hold Plavix for now for upcoming procedures - Cont Coreg 25 mg PO BID, digoxin 125 mcg PO QAM, Entresto 24/26 mg PO qd - Holding lasix for now with gentle hydration - Restart warfarin - Follows with Dr. Roblero as an outpatient Chronic Afib--stable. Paced rhythm, rate controlled - INR subtherapeutic as warfarin has been held for endoscopies, restart today - Continue heparin drip - Continue home meds as above Hypothyroidism - Cont levothyroxine 150 mcg PO qd CKD stage III--stable - Cr. baseline of 1.4 - Creatinine stable, at baseline Depression - Continue Prozac 40 mg PO qd GERD - Continue Protonix 40 mg PO qd Urinary Urgency - Continue Toviaz 4 mg PO qd DVT prophylaxis -Heparin drip Code Status -Level V, DO NOT RESUSCITATE Dispo -Pt from home -PT recommends short rehab stay if not able to meet goals -Called PT, will re-evaluate patient today to see if he needs rehab or not
--- NOTE | 2017-01-22 10:04 | SURGERY PROGRESS NOTE ---
DATE: 01/22/2017 DATE: 01/22/2017. Mr. Siddiqui was seen today. He looks better to me. He also sounds better. I believe his left pleural cavity looks better overall. I would check one more chest x-ray tomorrow and if it looks good and our drainage is as expected, we will allow him to be discharged tomorrow. We can manage his PleurX catheter as an outpatient.
[2017-01-22 11:08] LABS: PARTIAL THROMBOPLASTIN RATIO 2.5
[2017-01-22] MEDS ORDERED: WARFARIN SOD 5 MG TAB PO SCH (16:00)
[2017-01-22] MEDS: DIGOXIN 0.125 MG TAB PO SCH (16:02)
--- NOTE | 2017-01-22 17:59 | Gastroenterology Progress Note ---
Progress Note Date of Service: Jan 22, 2017 Subjective Pt evaluation today including: conversation w/ patient The patient events since the last GI assessment were reviewed. Patient underwent colonoscopy yesterday with 2 small polyps in the transverse colon removed pathology is pending. On the patient underwent upper endoscopy for which there is no evidence for H. pylori infection normal-appearing duodenal biopsies and mild chronic active gastritis was noted in the stomach. The source of the patient's 60 pound weight loss and anemia are not identified on bidirectional endoscopy. The pattern of his anemia is a normocytic anemia and may reflect anemia of chronic disease. Today's hemoglobin is 9.1 white count 6.0 with an MCV of 85. The patient denies any abdominal pain nausea or vomiting and is tolerating a full diet well. Patient reports that 1500 mL were evacuated from his pleural catheter. Review of Systems Constitutional: + weakness, No fever, No chills ENT: No hearing loss Respiratory: No cough, No sputum Cardiac: No chest pain, No orthopnea, No edema Abdomen: No pain, No nausea, No vomiting, No diarrhea, No constipation, No GI bleeding, No dysphagia, No odynophagia Musculoskeletal: No joint pain Neuro: No memory loss, No numbness/tingling Psych: No depression symptoms Endo: + fatigue Skin: No rash, No itch Medications Current Inpatient Medications Medications (Trade) Dose Ordered Sig/Javier Route Start Time Stop Time Status Last Admin Dose Admin Acetaminophen (Tylenol Tab) 650 mg Q4H PRN PO 01/18/17 17:30 02/17/17 17:29 Ondansetron HCl (Zofran Inj) 4 mg Q6H PRN IV 01/18/17 17:30 02/17/17 17:29 01/19/17 17:55 4 MG Polyethylene (Miralax Powder Packet) 17 gm DAILY PRN PO 01/18/17 17:30 02/17/17 17:29 Albuterol (Ventolin Hfa Inhaler) 2 puffs QID PRN INH 01/18/17 17:30 02/17/17 17:29 Alfuzosin HCl (Uroxatral Tab) 10 mg QPM PO 01/18/17 21:00 02/17/17 20:59 01/21/17 20:43 10 MG Atorvastatin Calcium (Lipitor Tab) 80 mg DAILY PO 01/19/17 09:00 02/18/17 08:59 01/22/17 07:59 80 MG Carvedilol (Coreg Tab) 25 mg BID PO 01/18/17 21:00 02/17/17 20:59 01/22/17 08:00 25 MG Clopidogrel Bisulfate (plAVix TAB) 75 mg DAILY PO 01/19/17 09:00 02/18/17 08:59 Future Hold 01/19/17 08:07 75 MG Digoxin (Lanoxin Tab) 0.125 mg DAILY@1600 PO 01/18/17 18:00 02/17/17 17:59 01/22/17 16:02 0.125 MG Fluoxetine HCl (Prozac Cap) 40 mg QAM PO 01/19/17 09:00 02/18/17 08:59 01/22/17 07:59 40 MG Levothyroxine Sodium (Synthroid Tab) 150 mcg DAILYBB PO 01/19/17 06:00 02/18/17 05:59 01/22/17 05:21 150 MCG Montelukast Sodium (Singulair Tab) 10 mg DAILY PO 01/19/17 09:00 02/18/17 08:59 01/22/17 07:59 10 MG Pantoprazole Sodium (Protonix Tab) 40 mg QAM PO 01/19/17 09:00 02/18/17 08:59 01/22/17 07:59 40 MG Sacubitril/ Valsartan (Entresto 24-26 Mg) 1 tab DAILY PO 01/19/17 09:00 02/18/17 08:59 01/22/17 07:59 1 TAB Tramadol HCl (Ultram Tab) 50 mg TID PRN PO 01/18/17 17:30 02/17/17 17:29 Miscellaneous Information (Order Awaiting Action) 1 ea QS N/A 01/19/17 00:00 02/18/17 00:00 Miscellaneous Information (Order Awaiting Action) 1 ea QS N/A 01/19/17 00:00 02/18/17 00:00 Enteral Nutritional Formula (Boost Plus Vanilla) 1 can DAILY@1900 PO 01/19/17 19:00 02/18/17 18:59 01/21/17 20:43 1 CAN Heparin Sodium (Porcine) 94439 unit/Dextrose 500 ml @ 20 mls/hr Q24H PRN IV 01/21/17 14:30 02/20/17 14:29 01/22/17 04:15 21 MLS/HR Warfarin Sodium (Coumadin Tab) 2.5 mg SuTuThSa@1600 PO 01/22/17 16:00 02/21/17 15:59 01/22/17 16:03 2.5 MG Warfarin Sodium (Coumadin Tab) 5 mg MoWeFr@1600 PO 01/24/17 16:00 02/23/17 15:59 Megestrol Acetate (Megace Susp) 800 mg BID PO 01/22/17 21:00 02/21/17 20:59 Objective Vital Signs Date Time Temp Pulse Resp B/P (MAP) Pulse Ox O2 Delivery O2 Flow Rate FiO2 01/22/17 16:45 36.3 82 18 116/75 (89) 91 Room Air 01/22/17 16:19 36.5 67 22 96 01/22/17 16:02 67 01/22/17 16:00 Room Air 01/22/17 15:42 36.5 71 22 90/53 (65) 96 Room Air 01/22/17 14:25 79 95 01/22/17 12:15 Room Air 01/22/17 12:00 36.5 79 18 125/31 (62) 95 01/22/17 08:00 Room Air 01/22/17 07:34 36.8 72 18 120/73 (89) 95 01/22/17 04:00 Room Air 01/22/17 03:20 36.3 70 23 108/62 (77) 94 Room Air 01/21/17 23:59 Room Air 01/21/17 23:52 37.0 70 20 99/53 (68) 97 Room Air 01/21/17 20:06 36.6 62 16 107/61 (76) 93 01/21/17 20:00 Room Air Physical Exam General Appearance: WD/WN, no apparent distress Eyes: normal inspection ENT: hearing grossly normal Neck: supple Respiratory/Chest: chest non-tender, no respiratory distress, no accessory muscle use Cardiovascular: regular rate, rhythm, no JVD Abdomen: normal bowel sounds, non tender, soft, no pulsatile mass Extremities: non-tender, no pedal edema Neurologic/Psych: no motor/sensory deficits, alert, normal mood/affect, oriented x 3 Skin: warm/dry, no rash The patient is awake alert and oriented 3 Sclera anicteric, conjunctiva moist, oral mucosa moist. Lungs overall clear to auscultation without rhonchi or wheezes. There are diminished breath sounds at bases. Abdomen is soft flat, nontender, nondistended with normal bowel sounds extremities without edema rectal exam is deferred Laboratory Results Last 24 Hours Test 01/21/17 20:27 01/22/17 03:10 01/22/17 10:31 01/22/17 16:05 Activated Partial Thromboplast Time 71.1 SECONDS 73.4 SECONDS 65.8 SECONDS Partial Thromboplastin Ratio 2.7 2.8 2.5 White Blood Count 6.01 K/uL Red Blood Count 3.24 M/uL Hemoglobin 9.1 g/dL Hematocrit 27.5 % Mean Corpuscular Volume 84.9 fL Mean Corpuscular Hemoglobin 28.1 pg Mean Corpuscular Hemoglobin Concent 33.1 g/dl RDW Standard Deviation 46.2 fL RDW Coefficient of Variation 14.7 % Platelet Count 274 K/uL Mean Platelet Volume 8.4 fL Prothrombin Time 21.4 SECONDS Prothromb Time International Ratio 1.9 Sodium Level 137 mmol/L Potassium Level 3.8 mmol/L Chloride Level 105 mmol/L Carbon Dioxide Level 27 mmol/L Anion Gap 5.0 mmol/L Blood Urea Nitrogen 14 mg/dl Creatinine 1.20 mg/dl Est Creatinine Clear Calc Drug Dose 49.0 ml/min Estimated GFR () 66.7 Estimated GFR (Non- 57.6 BUN/Creatinine Ratio 11.6 Random Glucose 90 mg/dl Calcium Level 8.1 mg/dl Assessment and Plan The patient is doing well following upper endoscopy and colonoscopy performed yesterday.: Biopsies are pending. Suspect anemia of chronic disease and would favor stool testing in several weeks for Hemoccult positivity. If positive, then capsule study may be reasonable to assess the small bowel for sources. At the present time would advance diet as tolerated all questions were answered. We'll sign off at this time. If you have any questions please don't hesitate to contact our service. Thank you for allowing us to participate in this pleasant gentleman's care
[2017-01-22] MEDS: BOOST PLUS VANILLA PO SCH ×2 (18:42)
[2017-01-22] MEDS: ALFUZosin TAB 10 MG TAB PO SCH (21:32)
[2017-01-22] MEDS: MEGESTROL ACETATE 800 MG/20 ML UDP PO SCH (21:33)
[2017-01-22 21:39] LABS: THYROID STIMULATING HORMONE 2.7 uIu/ml (0.300-4.500)
[2017-01-23] MEDS: LEVOTHYROXINE 150 MCG TAB PO SCH (05:26)
[2017-01-23 06:33] LABS: HEMATOCRIT 30.9 % (42-52); MEAN CELL VOLUME 85.1 fL (80-100); MEAN CORPUSCULAR HGB CONC 31.7 g/dl (32-36); MEAN PLATELET VOLUME 8.6 fL (7.4-10.4); PLATELET COUNT 324 K/uL (130-400); RED BLOOD COUNT 3.63 M/uL (4.7-6.1); WHITE BLOOD COUNT 8.55 K/uL (4.8-10.8)
[2017-01-23 06:50] LABS: INR 1.7 (0.9-1.1); PARTIAL THROMBOPLASTIN RATIO 2.3; PROTHROMBIN TIME (PATIENT) 18.1 SECONDS (9.0-12.0)
[2017-01-23 07:06] LABS: CALCIUM 8.4 mg/dl (8.5-10.1); CREATININE 1.2 mg/dl (0.60-1.40); POTASSIUM 3.7 mmol/L (3.5-5.1)
[2017-01-23] MEDS: HEPARIN 25000 UNIT/ D5W 500 ML (PHARMACY PREPARED) IV PRN ×8 (07:06→23:16)
--- NOTE | 2017-01-23 07:10 | DIAGNOSTIC IMAGING REPORT ---
CHEST ONE VIEW PORTABLE CLINICAL HISTORY: left pleural effusion COMPARISON STUDY: 01/21/2017 FINDINGS: The heart is borderline enlarged. There are postsurgical changes of a midline sternotomy. There is a left subclavian pacer/defibrillator present. The right lung is clear. There is a small left pleural effusion with associated left lower lobe atelectasis/consolidation. A left basilar pleural drainage catheter remains unchanged in position.[ IMPRESSION: Persistent left basilar consolidative changes with a small left pleural effusion. The left basilar pleural drainage catheter remains in position. Electronically signed by: Maverick Street M.D. 01/23/2017 7:08 AM Dictated Date/Time: 01/23/2017 7:07 AM
[2017-01-23 07:31] VITALS: BP 112/70; PULSE 74; TEMP 36.5; O2SAT 98
[2017-01-23] MEDS: ATORVASTATIN 40 MG TAB PO SCH (09:39)
[2017-01-23] MEDS: CARVEDILOL 25 MG TAB PO SCH ×2 (09:39→21:00)
[2017-01-23] MEDS: MONTELUKAST SOD 10 MG TAB PO SCH (09:40)
[2017-01-23] MEDS: SACUBITRIL-VALSARTAN 24-26 MG TAB PO SCH (09:40)
[2017-01-23] MEDS: FLUOXETINE HCL 20 MG CAP PO SCH (09:41)
[2017-01-23] MEDS: PANTOprazole SOD 40 MG TAB PO SCH (09:41)
--- NOTE | 2017-01-23 09:42 | Hospitalist Progress Note ---
Hospitalist Progress Note Date of Service Jan 23, 2017. Subjective Pt evaluation today including: conversation w/ patient, physical exam, chart review, lab review, review of studies, review of inpatient medication list Pain: None PO Intake: Tolerating PO diet, ate 80% of breakfast Voiding: no voiding problems Patient reports feeling well. He states there is some mild pain when the Pleurx catheter is being drained but otherwise denies any pain or discomfort. He denies any pleuritic pain today. He does report a mild cough that is sometimes productive with thick yellowish sputum. He also reports intermittent nausea, which has been going on for some time, but he denies any nausea so far today. The patient denies fevers, chills, sweats, chest pain, palpitations, claudication, cough, wheezing, shortness of breath, nausea, vomiting, abdominal pain, dysuria, hematuria, urinary retention, paralysis, weakness, numbness and tingling. Additional Comments: See HPI for pertinent positives and negatives. All other systems reviewed and negative. Objective Vital Signs Date Time Temp Pulse Resp B/P (MAP) Pulse Ox O2 Delivery O2 Flow Rate FiO2 01/23/17 07:31 36.5 74 18 112/70 (84) 98 Room Air 01/23/17 00:15 Room Air 01/22/17 23:25 36.3 70 18 96/61 (73) 97 Room Air 01/22/17 21:34 82 106/63 (77) 01/22/17 17:30 Room Air 01/22/17 16:45 36.3 82 18 116/75 (89) 91 Room Air 01/22/17 16:19 36.5 67 22 96 01/22/17 16:02 67 01/22/17 16:00 Room Air 01/22/17 15:42 36.5 71 22 90/53 (65) 96 Room Air 01/22/17 14:25 79 95 01/22/17 12:15 Room Air 01/22/17 12:00 36.5 79 18 125/31 (62) 95 Physical Exam Notes: General appearance: Well-developed, well-nourished, no apparent distress Head: Normocephalic, atraumatic Eyes: Normal inspection, PERRL, EOMI ENT: Normal ENT inspection, hearing grossly normal, pharynx normal Neck: Supple, no JVD, trachea midline Respiratory/Chest: +Decreased breath sounds left base. Left Pleurx catheter in place. Lungs clear to auscultation, normal breath sounds, no respiratory distress Cardiovascular: +Pacemaker. Regular rate & rhythm, no gallop, no murmur Abdomen/GI: Normal bowel sounds, non-tender, soft Extremities/Musculoskeletal: Normal inspection, no calf tenderness, no pedal edema Neurological/Psych: Alert, normal mood/affect, oriented x 3 Skin: Normal color, warm/dry, no rash Laboratory Results Last 24 Hours Test 01/22/17 10:31 01/22/17 20:16 01/23/17 05:58 Activated Partial Thromboplast Time 65.8 SECONDS 60.1 SECONDS Partial Thromboplastin Ratio 2.5 2.3 Absolute Reticulocyte Count 0.05 10^6/uL Percent Reticulocyte Count 1.6 % Thyroid Stimulating Hormone (TSH) 2.700 uIu/ml Free Thyroxine 1.46 ng/dl Free Triiodothyronine 1.38 pg/ml Total Triiodothyronine 0.58 ng/ml White Blood Count 8.55 K/uL Red Blood Count 3.63 M/uL Hemoglobin 9.8 g/dL Hematocrit 30.9 % Mean Corpuscular Volume 85.1 fL Mean Corpuscular Hemoglobin 27.0 pg Mean Corpuscular Hemoglobin Concent 31.7 g/dl RDW Standard Deviation 46.3 fL RDW Coefficient of Variation 14.8 % Platelet Count 324 K/uL Mean Platelet Volume 8.6 fL Prothrombin Time 18.1 SECONDS Prothromb Time International Ratio 1.7 Sodium Level 138 mmol/L Potassium Level 3.7 mmol/L Chloride Level 106 mmol/L Carbon Dioxide Level 26 mmol/L Anion Gap 6.0 mmol/L Blood Urea Nitrogen 18 mg/dl Creatinine 1.20 mg/dl Est Creatinine Clear Calc Drug Dose 50.9 ml/min Estimated GFR () 66.7 Estimated GFR (Non- 57.6 BUN/Creatinine Ratio 15.0 Random Glucose 104 mg/dl Calcium Level 8.4 mg/dl Magnesium Level 2.0 mg/dl Diagnostic Results Reviewed the following studies and agree with interpretation as follows: Patient Name: DALJIT MARK Unit Number: [id number] Dictated: 01/23/17706 Transcribed: 01/23/17706 ARG Printed Date/Time: [~ rep prt dt]/[~ rep prt tm] [~ rep ct labl] - [~ rep ct ivnm] [facility] Radiology Department [place] [id number] Dictated: 01/23/17706 Transcribed: 01/23/17706 ARG Printed Date/Time: [~ rep prt dt]/[~ rep prt tm] [~ rep ct labl] - [~ rep ct ivnm] Patient: DALJIT MARK Address1: [address] [place] [address] Med Rec: [id number] Address2: [place] [address] Acct ID: [id number] [facility] Zip: [place] [address] Date: 1940 Sex: M Room/Bed: W3601 Ref Phy: Donis Mcdonald M.D. SC: ROBERT Att Phy: Zeeshan Cook MD, PhD Report #: [id number] Juliette Phy: Donis Mcdonald M.D. Test: CXR1P Admit Phy: Alisa Chávez MD Railroad Firer: MAC Interpreting Phy: Maverick Street M.D. Diagnosis: ANEMIA, DEHYDRATION Ordering Phy: Tad Connelly MD Service Date: 01/23/17 Admit Date: 01/18/17 MNE: [id number] CONF: DICTATED BY: Maverick Street M.D.]] CC: Zeeshan Cook MD, PhD Donis Mcdonald M.D. Whitlark, Joseph D., MD Endcc: [~ rep ct add3]] CHEST ONE VIEW PORTABLE CLINICAL HISTORY: left pleural effusion COMPARISON STUDY: 01/21/2017 FINDINGS: The heart is borderline enlarged. There are postsurgical changes of a midline sternotomy. There is a left subclavian pacer/defibrillator present. The right lung is clear. There is a small left pleural effusion with associated left lower lobe atelectasis/consolidation. A left basilar pleural drainage catheter remains unchanged in position.[ IMPRESSION: Persistent left basilar consolidative changes with a small left pleural effusion. The left basilar pleural drainage catheter remains in position. Electronically signed by: Maverick Street M.D. 01/23/2017 7:08 AM Dictated Date/Time: 01/23/2017 7:07 AM The status of this report is Signed. Draft = Not yet reviewed or approved by Radiologist. Signed = Reviewed and approved by Radiologist. <AttendingPhy>Zeeshan Cook MD, PhD</AttendingPhy> <FamilyPhy>Donis Mcdonald M.D. </FamilyPhy> <PrimaryPhy>Donis Mcdonald M.D.</PrimaryPhy> <UnitNumber>[id number]</ UnitNumber> <VisitNumber>[id number]</VisitNumber> <PatientName>DALJIT MARK W</ PatientName> <DateOfBirth>1940</DateOfBirth> <Location>[facility]</Location> < ServiceDate></ServiceDate> <MNE>ESINDI</MNE> <OrderingPhy>Tad Connelly MD< /OrderingPhy> <OrderingPhyMNE>f rep ord dr pryor</OrderingPhyMNE> <DictatingPhyMNE >f rep dict dr pryor</DictatingPhyMNE> <CCListMNE>f rep ct mne</CCListMNE> < AdmittingPhyMNE>f pt admit dr pryor</AdmittingPhyMNE> <AttendingPhyMNE>f pt attend dr pryor</AttendingPhyMNE> <ConsultingPhyMNE>f pt consult dr pryor</ConsultingPhyMNE> <FamilyPhyMNE>f pt fam dr pryor</FamilyPhyMNE> <OtherPhyMNE>f pt other dr pryor</OtherPhyMNE> < PrimaryPhyMNE>f pt prim care dr pryor</PrimaryPhyMNE> <ReferringPhyMNE>f pt referring dr pryor</ReferringPhyMNE> Assessment and Plan 76 yo male with a history of ischemic cardiomyopathy with LVEF 20-25%, biventricular pacemaker w/ICD (Apr 2015), rheumatic heart disease with mechanical valve replacement (mitral and aortic) Apr 2015, LBBB, paroxysmal V- tach, chronic systolic heart failure, chronic afib on Plavix and Coumadin, hypothyroidism, a flutter, reactive airway disease, cervical radiculopathy, intermitted claudication, hypercholesterolemia, spinal stenosis and previous STEMI who presented with worsening fatigue and failure to thrive from the Pulmonary clinic. Failure to thrive, dehydration, severe protein calorie malnutrition--stable - Admit to tele. Pt transferred to med/surg on 01/22 - College Administrator consulted, appreciate recs: Boost and MVI qd. Consider appetite stimulant. - Continue Megace 400 mg PO qam. - GI consulted, appreciate recs: Check stool for heme positivity in several weeks. If positive, consider capsule study to assess small intestine. Will sign off. - EGD shows hiatal hernia. Nonbleeding erosive gastropathy, biopsies taken. Nonbleeding erythematous mucosa of gastric body and antrum, biopsy taken and will check for H. Pylori - Biopsies from EGD show moderate chronic active gastritis. Negative for H. Pylori or tumor. - Colonoscopy showed diverticulosis and 3 polyps. 2 of the polyps were removed for biopsy. - Pt reports significant weight loss - Pt reports losing > 60 lbs since Feb 2015. Pt reports never having had a colonoscopy or EGD. Work up had been done but was for antiinflammatory reasons which was apparently negative. - Monitor PO intake during stay. Appetite good today so far, ate 80% of breakfast - CT of the abdomen pelvis from November 2016 reviewed: Moderate left pleural effusion with left lower lobe atelectasis/consolidation and hiatal hernia. No evidence of bowel obstruction, free air, acute diverticulitis, or acute appendicitis. Left inguinal hernia containing loop of small bowel. No current evidence of obstruction. - KUB: left pleural effusion w/associate left lower lobe atelectasis/ consolidation. No evidence of pathologic bowel dilatation. - Antiemetics for nausea control- zofran - Continue tramadol for pain control if needed Anemia, normocytic--stable - Ferritin WNL, all other iron studies low - Hgb drop from 11.5 to 9.5 within the past month at time of admission - Hgb stable in 9s Supratherapeutic INR--resolved, now subtherapeutic - Home regimen is 2.5 mg MWF and all other days is 5 mg - INR 5.3 at time of admission, warfarin held - Repeat INR 8.0 on 01/19. Continue to hold warfarin - Vitamin K 5 mg IV x 1 - INR 1.4 on 01/20, okay to proceed with EGD - INR 1.7 on 01/23 - Increase warfarin to 5 mg PO qd - Continue heparin drip, goal INR 2.5-3.5 due to mechanical valve Chronic Respiratory Failure/Reactive airways disease--stable, denies SOB and is on room air - Wears 2 L O2 QHS and with exertion/walking during the day - Continue Singular tabs, inhalers p.r.n. as he has no active reactive airway disease. Pleural Effusion--improving - Chronic, follows with Dr. Connelly as an outpatient, Pleurx catheter was placed on 12/03/16 - CXR 01/23 shows small left pleural effusion, improved form 01/21 study. - Cardiothoracic surgery consulted, appreciate recs: Spoke with Dr. Connelly. Pt is stable for discharge from his standpoint. Will continue to follow as an outpatient. Ischemic cardiomyopathy/ Biventricular pacemaker with ICD/ Mechanical (Aortic and mitral) valve - Last ECHO November 2015 with LVEF =30-45% - Hold Plavix for now for upcoming procedures - Cont Coreg 25 mg PO BID, digoxin 125 mcg PO QAM, Entresto 24/26 mg PO qd - Holding lasix for now as BP is low/low normal - Restart warfarin - Follows with Dr. Roblero as an outpatient Chronic Afib--stable. Paced rhythm, rate controlled - INR subtherapeutic as warfarin has been held for endoscopies, dose increased - Continue heparin drip - Continue home meds as above Hypothyroidism - Cont levothyroxine 150 mcg PO qd CKD stage III--stable - Cr. baseline of 1.4 - Creatinine stable, at baseline Depression - Continue Prozac 40 mg PO qd GERD - Continue Protonix 40 mg PO qd Urinary Urgency - Continue Toviaz 4 mg PO qd DVT prophylaxis -Heparin drip Code Status -Level V, DO NOT RESUSCITATE Dispo -Pt from home -PT recommends short rehab stay if not able to meet goals -PT re-evaluated patient on 01/22, recommend acute inpatient rehab
[2017-01-23] MEDS: MEGESTROL ACETATE 800 MG/20 ML UDP PO SCH ×2 (09:44→21:00)
--- NOTE | 2017-01-23 12:43 | SURGERY PROGRESS NOTE ---
DATE: 01/23/2017 Mr. Siddiqui is seen today on 01/23/2017. His PleurX catheter was drained for about 250 mL. His pulse oximetry is 98% on room air. He does have some decreased breath sounds in the left base. His PleurX site is clean. His x-ray today shows some chronic changes in the left base, but I think he looks better. In particular, he has had resolution of loculated effusion that was lateral and superior in his lung cavity upon presentation. ASSESSMENT AND PLAN: Chronic left pleural effusion. At this point, I would continue draining his PleurX on a daily basis. We follow him up in the office in a couple weeks. Disposition plans are now being made. He may go to rehab or he may go home. At any event, we will manage his PleurX catheter drained orders.
[2017-01-23 15:02] VITALS: BP 103/62; PULSE 70; TEMP 36.3; O2SAT 99
[2017-01-23] MEDS: DIGOXIN 0.125 MG TAB PO SCH (15:46)
[2017-01-23] MEDS: WARFARIN SOD 5 MG TAB PO SCH (15:48)
[2017-01-23] MEDS: BOOST PLUS VANILLA PO SCH ×2 (19:33)
[2017-01-23] MEDS: ALFUZosin TAB 10 MG TAB PO SCH (21:00)
[2017-01-23 22:56] VITALS: BP 99/58; PULSE 74; TEMP 36.6; O2SAT 96
[2017-01-24] MEDS: LEVOTHYROXINE 150 MCG TAB PO SCH (06:08)
[2017-01-24 06:43] LABS: BUN/CREATININE RATIO 14.8 (10-20); CALCIUM 8.7 mg/dl (8.5-10.1); CREATININE 1.2 mg/dl (0.60-1.40); INR 1.8 (0.9-1.1); PARTIAL THROMBOPLASTIN RATIO 2.5; POTASSIUM 3.8 mmol/L (3.5-5.1); PROTHROMBIN TIME (PATIENT) 19.2 SECONDS (9.0-12.0)
[2017-01-24 07:08] VITALS: BP 119/71; PULSE 72; TEMP 36.6; O2SAT 99
[2017-01-24] MEDS: HEPARIN 25000 UNIT/ D5W 500 ML (PHARMACY PREPARED) IV PRN ×2 (07:12)
[2017-01-24] MEDS: CARVEDILOL 25 MG TAB PO SCH ×2 (09:00→20:51)
[2017-01-24 09:01] VITALS: BP 99/64; PULSE 70
[2017-01-24] MEDS: ATORVASTATIN 40 MG TAB PO SCH (09:03)
[2017-01-24] MEDS: FLUOXETINE HCL 20 MG CAP PO SCH (09:04)
[2017-01-24] MEDS: MONTELUKAST SOD 10 MG TAB PO SCH (09:04)
[2017-01-24] MEDS: MEGESTROL ACETATE 800 MG/20 ML UDP PO SCH ×2 (09:05→20:51)
[2017-01-24] MEDS: SACUBITRIL-VALSARTAN 24-26 MG TAB PO SCH (09:05)
[2017-01-24] MEDS: PANTOprazole SOD 40 MG TAB PO SCH (09:05)
--- NOTE | 2017-01-24 09:48 | Hospitalist Progress Note ---
Hospitalist Progress Note Date of Service Jan 24, 2017. Subjective Pt evaluation today including: conversation w/ patient, conversation w/ family , physical exam, chart review, lab review, review of studies, review of inpatient medication list Patient seen and evaluated. Patient resting comfortably upon entering room. Daughter at bedside and update given to her. Plan to D/C heparin drip and initiate Lovenox injections until Warfarin therapeutic. Given permission for [facility] authorization process. Verbalizes no complaints. Has some discomfort with PleurX enrique. with draining. Constitutional: No fever, No chills Respiratory: No shortness of breath Cardiovascular: No chest pain Abdomen: No pain, No nausea, No vomiting Heme: No abnormal bleeding/bruising Medications Current Inpatient Medications Medications (Trade) Dose Ordered Sig/Javier Route Start Time Stop Time Status Last Admin Dose Admin Acetaminophen (Tylenol Tab) 650 mg Q4H PRN PO 01/18/17 17:30 02/17/17 17:29 Ondansetron HCl (Zofran Inj) 4 mg Q6H PRN IV 01/18/17 17:30 02/17/17 17:29 01/19/17 17:55 4 MG Polyethylene (Miralax Powder Packet) 17 gm DAILY PRN PO 01/18/17 17:30 02/17/17 17:29 Albuterol (Ventolin Hfa Inhaler) 2 puffs QID PRN INH 01/18/17 17:30 02/17/17 17:29 Alfuzosin HCl (Uroxatral Tab) 10 mg QPM PO 01/18/17 21:00 02/17/17 20:59 01/23/17 21:00 10 MG Atorvastatin Calcium (Lipitor Tab) 80 mg DAILY PO 01/19/17 09:00 02/18/17 08:59 01/24/17 09:03 80 MG Carvedilol (Coreg Tab) 25 mg BID PO 01/18/17 21:00 02/17/17 20:59 01/23/17 09:39 25 MG Clopidogrel Bisulfate (plAVix TAB) 75 mg DAILY PO 01/19/17 09:00 02/18/17 08:59 Future Hold 01/19/17 08:07 75 MG Digoxin (Lanoxin Tab) 0.125 mg DAILY@1600 PO 01/18/17 18:00 02/17/17 17:59 01/23/17 15:46 0.125 MG Fluoxetine HCl (Prozac Cap) 40 mg QAM PO 01/19/17 09:00 02/18/17 08:59 01/24/17 09:04 40 MG Levothyroxine Sodium (Synthroid Tab) 150 mcg DAILYBB PO 01/19/17 06:00 02/18/17 05:59 01/24/17 06:08 150 MCG Montelukast Sodium (Singulair Tab) 10 mg DAILY PO 01/19/17 09:00 02/18/17 08:59 01/24/17 09:04 10 MG Pantoprazole Sodium (Protonix Tab) 40 mg QAM PO 01/19/17 09:00 02/18/17 08:59 01/24/17 09:05 40 MG Sacubitril/ Valsartan (Entresto 24-26 Mg) 1 tab DAILY PO 01/19/17 09:00 02/18/17 08:59 01/24/17 09:05 1 TAB Tramadol HCl (Ultram Tab) 50 mg TID PRN PO 01/18/17 17:30 02/17/17 17:29 01/22/17 19:59 50 MG Miscellaneous Information (Order Awaiting Action) 1 ea QS N/A 01/19/17 00:00 02/18/17 00:00 Miscellaneous Information (Order Awaiting Action) 1 ea QS N/A 01/19/17 00:00 02/18/17 00:00 Enteral Nutritional Formula (Boost Plus Vanilla) 1 can DAILY@1900 PO 01/19/17 19:00 02/18/17 18:59 01/23/17 19:33 1 CAN Megestrol Acetate (Megace Susp) 800 mg BID PO 01/22/17 21:00 02/21/17 20:59 01/24/17 09:05 800 MG Warfarin Sodium (Coumadin Tab) 5 mg DAILY@1600 PO 01/23/17 16:00 02/22/17 15:59 01/23/17 15:48 5 MG Enoxaparin Sodium (Lovenox Inj) 70 mg Q12 SQ 01/24/17 23:00 02/23/17 22:59 Enoxaparin Sodium (Lovenox Inj) 70 mg ONE ONCE SQ 01/24/17 11:45 01/24/17 11:46 Objective Vital Signs Date Time Temp Pulse Resp B/P (MAP) Pulse Ox O2 Delivery O2 Flow Rate FiO2 01/24/17 09:01 70 99/64 (76) 01/24/17 07:08 36.6 72 18 119/71 (87) 99 Room Air 01/24/17 00:00 Room Air 01/23/17 22:56 36.6 74 16 99/58 (72) 96 Room Air 01/23/17 15:46 86 01/23/17 15:45 Room Air 01/23/17 15:02 36.3 70 18 103/62 (76) 99 Room Air Physical Exam General Appearance: no apparent distress, + thin Eyes: sclerae normal Neck: supple, no JVD, trachea midline Respiratory/Chest: lungs clear, no respiratory distress, no accessory muscle use, + pertinent finding (L Pleur-X) Cardiovascular: regular rate, rhythm, no gallop, no murmur Abdomen: normal bowel sounds, non tender, soft Extremities: no pedal edema, no calf tenderness Neurologic/Psychiatric: alert Skin: normal color, warm/dry Laboratory Results Last 24 Hours Test 01/24/17 06:03 Prothrombin Time 19.2 SECONDS Prothromb Time International Ratio 1.8 Activated Partial Thromboplast Time 65.4 SECONDS Partial Thromboplastin Ratio 2.5 Sodium Level 140 mmol/L Potassium Level 3.8 mmol/L Chloride Level 106 mmol/L Carbon Dioxide Level 27 mmol/L Anion Gap 7.0 mmol/L Blood Urea Nitrogen 18 mg/dl Creatinine 1.20 mg/dl Est Creatinine Clear Calc Drug Dose 50.9 ml/min Estimated GFR () 66.7 Estimated GFR (Non- 57.6 BUN/Creatinine Ratio 14.8 Random Glucose 100 mg/dl Calcium Level 8.7 mg/dl Assessment and Plan 76 yo male with a history of ischemic cardiomyopathy with LVEF 20-25%, biventricular pacemaker w/ICD (Apr 2015), rheumatic heart disease with mechanical valve replacement (mitral and aortic) Apr 2015, LBBB, paroxysmal V- tach, chronic systolic heart failure, chronic afib on Plavix and Coumadin, hypothyroidism, a flutter, reactive airway disease, cervical radiculopathy, intermitted claudication, hypercholesterolemia, spinal stenosis and previous STEMI who presented with worsening fatigue and failure to thrive from the Pulmonary clinic. Failure to Thrive/Dehydration/Severe Protein Calorie Malnutrition/Weight Loss: STABLE - Continue Boost and MVI; Continue Megace 400 mg daily - GI followed and signed off - recommend outpatient stool heme and if positive consideration for capsule study to assess small intestine -- EGD - moderate chronic active gastritic and neg. for H. pylori -- Colonoscopy - diverticulosis and 3 polyps with 2 removed for bx Normocytic Anemia: STABLE - Hgb 9.8 - continue to monitor Ischemic Cardiomyopathy/ Biventricular Pacemaker-ICD/ Mechanical (Aortic and Mitral) Valve: Follows with Dr. Roblero - Initially presented with supratherapeutic INR which was held for procedures and currently subtherapeutic -- Continue Heparin gtt with plans to convert to therapeutic Lovenox to continue bridge with Coumadin to prepare for D/C - INR 1.8 -- INR goal 2.5-3.5 due to valve - Home regimen Coumadin is 2.5 mg MWF and 5 mg other days - Plavix remains on hold at this time - Coreg 25 mg BID, Digoxin 125 mcg daily, and Entresto 24/26 mg daily - Lasix on hold Chronic Respiratory Failure/Reactive Airway Disease: STABLE - Wears 2 L O2 HS and with exertion/walking during the day - Continue Singular tabs, inhalers PRN Chronic Pleural Effusion S/P Pleur-X on 12/03: IMPROVING - Cardiothoracic Surg following - Dr. Connelly will follow as outpatient with plan for daily drainage at this point Chronic Atrial Fibrillation: PACED AND RATE CONTROLLED - Continue to trend INR for Coumadin and Coreg 25 mg BID CKD Stage III: Baseline Cr 1.4 - Can convert to Lovenox DVT Prophylaxis: Current Heparin gtt with plans to convert to Lovenox with Coumadin bridge Code Status: DO NOT RESUSCITATE Disposition: [facility] authorization pending - medically suitable for D/C when authorization approved Discharge planning: rehab hospital
--- NOTE | 2017-01-24 09:55 | SURGERY PROGRESS NOTE ---
DATE: 01/24/2017 Mr. Siddiqui is seen today on 01/24/2017. Erasto looks very good today. He really has no complaints. He does have some mild discomfort when they drain his PleurX. He was drained for 400 mL yesterday and 115 today. His saturations have been excellent on room air at 96%-99%. Hemoglobin is stable at 9.8. He is now therapeutic with his INR. At this point, I think he is stable for discharge when the primary service agrees. We will manage his PleurX catheters an outpatient.
[2017-01-24] MEDS ORDERED: ENOXAPARIN 80 MG/0.8 ML SYR SQ ONE (11:45)
[2017-01-24 14:53] VITALS: BP 96/57; PULSE 74; TEMP 36.4; O2SAT 99
[2017-01-24] MEDS: DIGOXIN 0.125 MG TAB PO SCH (15:43)
[2017-01-24] MEDS: WARFARIN SOD 5 MG TAB PO SCH (15:43)
[2017-01-24] MEDS ORDERED: WARFARIN SOD 5 MG TAB PO SCH (16:00)
[2017-01-24] MEDS: BOOST PLUS VANILLA PO SCH ×2 (18:38)
[2017-01-24 20:50] VITALS: BP 96/58; PULSE 66
[2017-01-24] MEDS: ALFUZosin TAB 10 MG TAB PO SCH (20:51)
[2017-01-24] MEDS: ENOXAPARIN 80 MG/0.8 ML SYR SQ SCH (22:32)
[2017-01-24 22:45] VITALS: BP 93/54; PULSE 74; TEMP 36.8; O2SAT 96
[2017-01-25] MEDS: LEVOTHYROXINE 150 MCG TAB PO SCH (05:41)
[2017-01-25 07:00] LABS: HEMATOCRIT 27.7 % (42-52); MEAN CELL VOLUME 86.8 fL (80-100); MEAN CORPUSCULAR HEMOGLOBIN 27.9 pg (25-34); MEAN CORPUSCULAR HGB CONC 32.1 g/dl (32-36); MEAN PLATELET VOLUME 8.7 fL (7.4-10.4); PLATELET COUNT 282 K/uL (130-400); RED BLOOD COUNT 3.19 M/uL (4.7-6.1); WHITE BLOOD COUNT 7.76 K/uL (4.8-10.8)
[2017-01-25 07:05] VITALS: BP 108/68; PULSE 69; TEMP 36.5; O2SAT 98
[2017-01-25 07:17] LABS: INR 2.5 (0.9-1.1); PARTIAL THROMBOPLASTIN RATIO 1.9; PROTHROMBIN TIME (PATIENT) 28.1 SECONDS (9.0-12.0)
[2017-01-25 07:36] LABS: BUN/CREATININE RATIO 17.9 (10-20); CALCIUM 8.4 mg/dl (8.5-10.1); CREATININE 1.4 mg/dl (0.60-1.40); POTASSIUM 3.7 mmol/L (3.5-5.1)
[2017-01-25] MEDS: ATORVASTATIN 40 MG TAB PO SCH (08:51)
[2017-01-25] MEDS: CARVEDILOL 25 MG TAB PO SCH ×2 (08:51→20:48)
[2017-01-25] MEDS: MEGESTROL ACETATE 800 MG/20 ML UDP PO SCH ×2 (08:52→20:49)
[2017-01-25] MEDS: SACUBITRIL-VALSARTAN 24-26 MG TAB PO SCH (08:52)
[2017-01-25] MEDS: FLUOXETINE HCL 20 MG CAP PO SCH (08:52)
[2017-01-25] MEDS: PANTOprazole SOD 40 MG TAB PO SCH (08:52)
[2017-01-25] MEDS: MONTELUKAST SOD 10 MG TAB PO SCH (08:52)
[2017-01-25] MEDS ORDERED: [UNRECOGNIZED DRUG - CODE] PO (09:34)
[2017-01-25] MEDS ORDERED: TRAM-10 PO (09:34)
--- NOTE | 2017-01-25 09:59 | SURGERY PROGRESS NOTE ---
DATE: 01/25/2017 DATE: 01/25/2017. Mr. Siddiqui is seen today on 01/25/2017. He looks about as good as I have seen him. His lung is relatively clear. He is eating well. His saturations are 98% on room air. This morning I got about 75 mL out of his PleurX catheter. It is serous. All in all I am quite happy with him. At this point, I would not do anything different. We are ready to manage his tube when he is discharged.
[2017-01-25] MEDS: ENOXAPARIN 80 MG/0.8 ML SYR SQ SCH (10:04)
--- NOTE | 2017-01-25 11:09 | Discharge Instructions ---
Discharge Instructions Date of Service Jan 25, 2017. Admission Reason for Admission: Anemia, Dehydration Discharge Discharge Diagnosis / Problem: Anemia and Dehdyration Discharge Goals Goal(s): Decrease discomfort, Improve function, Increase independence Activity Recommendations Activity Level: Up Ad Nessa Therapies: Physical Therapy, Occupational Therapy . Additional Information Patient informed of condition: Yes Advance Directives: Yes DNR: Yes Level of Care: Acute Rehab Communicable Disease: No Prognosis: Improving Instructions / Follow-Up Instructions / Follow-Up 76 yo male with a history of ischemic cardiomyopathy with LVEF 20-25%, biventricular pacemaker w/ICD (Apr 2015), rheumatic heart disease with mechanical valve replacement (mitral and aortic) Apr 2015, LBBB, paroxysmal V- tach, chronic systolic heart failure, chronic afib on Plavix and Coumadin, hypothyroidism, a flutter, reactive airway disease, cervical radiculopathy, intermitted claudication, hypercholesterolemia, spinal stenosis and previous STEMI who presented with worsening fatigue and failure to thrive from the Pulmonary clinic. Failure to Thrive/Dehydration/Severe Protein Calorie Malnutrition/Weight Loss: STABLE - Continue Boost; Continue Megace 800 mg BID - GI followed and signed off - recommend outpatient stool heme in a few weeks and if positive consideration for capsule study to assess small intestine -- EGD - moderate chronic active gastritic and neg. for H. pylori - no signs of bleeding source -- Colonoscopy - diverticulosis and 3 polyps with 2 removed for bx - tubular adenoma - no signs of bleeding source Normocytic Anemia: STABLE - Likely anemia of chronic disease and will need to be monitored - recommend CBC in 2-3 days to assess blood counts - Hgb 8.9 today - ranging from 8.9-9.8 Ischemic Cardiomyopathy/ Biventricular Pacemaker-ICD/ Mechanical (Aortic and Mitral) Valve: Follows with Dr. Roblero - Coumadin was held for procedures and was bridged with Heparin with conversion to Lovenox but not Coumadin is 2.5 and therapeutic -- Recommend keeping INR between 2.5-3.5 due to presence of two mechanical valves - Home regimen Coumadin is 2.5 mg MWF and 5 mg other days - recommend INR check in 1-2 days and adjust medication as necessary - Plavix remains on hold at this time - recommend to continue to hold for about 5 days and can resume pending blood count check - continue to monitor Chronic Respiratory Failure/Reactive Airway Disease: STABLE - Wears 2 L O2 HS and with exertion/walking during the day - Continue Singular tabs, inhalers PRN Chronic Pleural Effusion S/P Pleur-X on 12/03: IMPROVING - Cardiothoracic Surg following - Dr. Connelly will follow as outpatient with plan for daily drainage at this point of L Pleur-X Chronic Atrial Fibrillation: PACED AND RATE CONTROLLED - Continue Coumadin and Coreg 25 mg BID CKD Stage III: Baseline Cr 1.4 - STABLE Code Status: DO NOT RESUSCITATE Disposition: - Outpatient heme stool in a few weeks to assess for blood - may need capsule study per Dr. Alexander (GI) - CT Surgery to continue to manage Pleur-X catheter - Recommend CBC in 2-3 days and INR in 1-2 days Current Hospital Diet Patient's current hospital diet: AHA Diet (Heart Healthy) Discharge Diet Recommended Diet: AHA Diet (Heart Healthy) Pending Studies Studies pending at discharge: no Laboratory Results Hemoglobin A1c Test 11/18/16 05:23 Range/Units Estimated Average Glucose 103 mg/dl Hemoglobin A1c 5.2 4.5-5.6 % Lipid Panel Test 11/18/16 05:23 Range/Units Triglycerides Level 54 0-150 mg/dl Cholesterol Level 156 0-200 mg/dl HDL Cholesterol 44 mg/dl Cholesterol/HDL Ratio 3.5 LDL Cholesterol, Calculated 101 mg/dl Medical Emergencies . Who to Call and When: Medical Emergencies: If at any time you feel your situation is an emergency, please call 911 immediately. . Non-Emergent Contact Non-Emergency issues call your: Primary Care Provider Call Non-Emergent contact if: you have a fever, your pain is concerning you, you have any medication questions . . "Provider Documentation" section prepared by Holly Odom. . Core Measure Problem Core Measures: None
[2017-01-25] MEDS ORDERED: Boost Plus Vanilla PO (12:16)
[2017-01-25 14:47] VITALS: BP 92/60; PULSE 70; TEMP 36.7; O2SAT 98
--- NOTE | 2017-01-25 15:12 | Hospitalist Progress Note ---
Hospitalist Progress Note Date of Service Jan 25, 2017. Subjective Pt evaluation today including: conversation w/ patient, physical exam, chart review, lab review, review of studies, review of inpatient medication list Patient seen and evaluated. Verbalizes no complaints today. Has been tolerating a diet without issue. Reporting PleurX bothers him some when he stands to long and some with drainage but states overall is doing well. Discussed plan to get rehab but awaiting insurance approval. Patient in agreement. Constitutional: No fever, No chills Respiratory: No shortness of breath Cardiovascular: No chest pain Abdomen: No pain, No nausea, No vomiting, No diarrhea, No constipation Musculoskeletal: No swelling, No calf pain Male : No dysuria Endo: No fatigue Skin: No rash Medications Current Inpatient Medications Medications (Trade) Dose Ordered Sig/Javier Route Start Time Stop Time Status Last Admin Dose Admin Acetaminophen (Tylenol Tab) 650 mg Q4H PRN PO 01/18/17 17:30 02/17/17 17:29 Ondansetron HCl (Zofran Inj) 4 mg Q6H PRN IV 01/18/17 17:30 02/17/17 17:29 01/19/17 17:55 4 MG Polyethylene (Miralax Powder Packet) 17 gm DAILY PRN PO 01/18/17 17:30 02/17/17 17:29 Albuterol (Ventolin Hfa Inhaler) 2 puffs QID PRN INH 01/18/17 17:30 02/17/17 17:29 Alfuzosin HCl (Uroxatral Tab) 10 mg QPM PO 01/18/17 21:00 02/17/17 20:59 01/24/17 20:51 10 MG Atorvastatin Calcium (Lipitor Tab) 80 mg DAILY PO 01/19/17 09:00 02/18/17 08:59 01/25/17 08:51 80 MG Carvedilol (Coreg Tab) 25 mg BID PO 01/18/17 21:00 02/17/17 20:59 01/25/17 08:51 25 MG Clopidogrel Bisulfate (plAVix TAB) 75 mg DAILY PO 01/19/17 09:00 02/18/17 08:59 Future Hold 01/19/17 08:07 75 MG Digoxin (Lanoxin Tab) 0.125 mg DAILY@1600 PO 01/18/17 18:00 02/17/17 17:59 01/24/17 15:43 0.125 MG Fluoxetine HCl (Prozac Cap) 40 mg QAM PO 01/19/17 09:00 02/18/17 08:59 01/25/17 08:52 40 MG Levothyroxine Sodium (Synthroid Tab) 150 mcg DAILYBB PO 01/19/17 06:00 02/18/17 05:59 01/25/17 05:41 150 MCG Montelukast Sodium (Singulair Tab) 10 mg DAILY PO 01/19/17 09:00 02/18/17 08:59 01/25/17 08:52 10 MG Pantoprazole Sodium (Protonix Tab) 40 mg QAM PO 01/19/17 09:00 02/18/17 08:59 01/25/17 08:52 40 MG Sacubitril/ Valsartan (Entresto 24-26 Mg) 1 tab DAILY PO 01/19/17 09:00 02/18/17 08:59 01/25/17 08:52 1 TAB Tramadol HCl (Ultram Tab) 50 mg TID PRN PO 01/18/17 17:30 02/17/17 17:29 01/22/17 19:59 50 MG Miscellaneous Information (Order Awaiting Action) 1 ea QS N/A 01/19/17 00:00 02/18/17 00:00 Miscellaneous Information (Order Awaiting Action) 1 ea QS N/A 01/19/17 00:00 02/18/17 00:00 Enteral Nutritional Formula (Boost Plus Vanilla) 1 can DAILY@1900 PO 01/19/17 19:00 02/18/17 18:59 01/24/17 18:38 1 CAN Megestrol Acetate (Megace Susp) 800 mg BID PO 01/22/17 21:00 02/21/17 20:59 01/25/17 08:52 800 MG Warfarin Sodium (Coumadin Tab) 5 mg DAILY@1600 PO 01/23/17 16:00 02/22/17 15:59 01/24/17 15:43 5 MG Enoxaparin Sodium (Lovenox Inj) 70 mg Q12 SQ 01/24/17 23:00 02/23/17 22:59 01/25/17 10:04 70 MG Objective Vital Signs Date Time Temp Pulse Resp B/P (MAP) Pulse Ox O2 Delivery O2 Flow Rate FiO2 01/25/17 14:47 36.7 70 14 92/60 (71) 98 Room Air 01/25/17 07:40 Room Air 01/25/17 07:05 36.5 69 20 108/68 (81) 98 Room Air 01/24/17 23:45 Room Air 01/24/17 22:45 36.8 74 18 93/54 (67) 96 Room Air 01/24/17 20:50 66 96/58 (71) 01/24/17 16:00 Room Air 01/24/17 15:43 72 Physical Exam General Appearance: no apparent distress Eyes: sclerae normal Neck: supple, no JVD, trachea midline Respiratory/Chest: lungs clear, normal breath sounds, no respiratory distress, no accessory muscle use Cardiovascular: regular rate, rhythm, no gallop, no murmur, + pertinent finding (prominent valvular click) Abdomen: normal bowel sounds, non tender, soft Extremities: no pedal edema, no calf tenderness Neurologic/Psychiatric: alert Skin: normal color, warm/dry Laboratory Results Last 24 Hours Test 01/25/17 06:41 White Blood Count 7.76 K/uL Red Blood Count 3.19 M/uL Hemoglobin 8.9 g/dL Hematocrit 27.7 % Mean Corpuscular Volume 86.8 fL Mean Corpuscular Hemoglobin 27.9 pg Mean Corpuscular Hemoglobin Concent 32.1 g/dl RDW Standard Deviation 49.3 fL RDW Coefficient of Variation 15.5 % Platelet Count 282 K/uL Mean Platelet Volume 8.7 fL Prothrombin Time 28.1 SECONDS Prothromb Time International Ratio 2.5 Activated Partial Thromboplast Time 49.7 SECONDS Partial Thromboplastin Ratio 1.9 Sodium Level 140 mmol/L Potassium Level 3.7 mmol/L Chloride Level 108 mmol/L Carbon Dioxide Level 26 mmol/L Anion Gap 6.0 mmol/L Blood Urea Nitrogen 25 mg/dl Creatinine 1.40 mg/dl Est Creatinine Clear Calc Drug Dose 44.2 ml/min Estimated GFR () 55.4 Estimated GFR (Non- 47.8 BUN/Creatinine Ratio 17.9 Random Glucose 95 mg/dl Calcium Level 8.4 mg/dl Assessment and Plan 76 yo male with a history of ischemic cardiomyopathy with LVEF 20-25%, biventricular pacemaker w/ICD (Apr 2015), rheumatic heart disease with mechanical valve replacement (mitral and aortic) Apr 2015, LBBB, paroxysmal V- tach, chronic systolic heart failure, chronic afib on Plavix and Coumadin, hypothyroidism, a flutter, reactive airway disease, cervical radiculopathy, intermitted claudication, hypercholesterolemia, spinal stenosis and previous STEMI who presented with worsening fatigue and failure to thrive from the Pulmonary clinic. Failure to Thrive/Dehydration/Severe Protein Calorie Malnutrition/Weight Loss: STABLE - Continue Boost; Continue Megace 400 mg daily - GI followed and signed off - recommend outpatient stool heme and if positive consideration for capsule study to assess small intestine -- EGD - moderate chronic active gastritic and neg. for H. pylori -- Colonoscopy - diverticulosis and 3 polyps with 2 removed for bx Normocytic Anemia: STABLE - Hgb at 8.9 - will continue to monitor - appears to be of chronic disease Ischemic Cardiomyopathy/ Biventricular Pacemaker-ICD/ Mechanical (Aortic and Mitral) Valve: Follows with Dr. Roblero - Initially presented with supratherapeutic INR which was held for procedures and currently therapeutic and will D/C Lovenox bridge therapy -- INR goal 2.5-3.5 due to valve - Home regimen Coumadin is 2.5 mg MWF and 5 mg other days - Plavix remains on hold at this time - plan to continue to hold for the next 3- 5 days - Coreg 25 mg BID, Digoxin 125 mcg daily, and Entresto 24/26 mg daily - Lasix PRN on hold Chronic Respiratory Failure/Reactive Airway Disease: STABLE - Wears 2 L O2 HS and with exertion/walking during the day - Continue Singular tabs, inhalers PRN Chronic Pleural Effusion S/P Pleur-X on 12/03: IMPROVING - Cardiothoracic Surg following - Dr. Connelly will follow as outpatient with plan for daily drainage at this point Chronic Atrial Fibrillation: PACED AND RATE CONTROLLED - Continue to monitor INR for Coumadin and Coreg 25 mg BID CKD Stage III: Baseline Cr 1.4 - STABLE DVT Prophylaxis: Coumadin Code Status: DO NOT RESUSCITATE Disposition: [facility] authorization pending - medically suitable for D/C when authorization approved Discharge planning: rehab hospital
[2017-01-25] MEDS: DIGOXIN 0.125 MG TAB PO SCH (15:49)
[2017-01-25] MEDS: WARFARIN SOD 5 MG TAB PO SCH (15:50)
[2017-01-25] MEDS: BOOST PLUS VANILLA PO SCH ×2 (18:21)
[2017-01-25] MEDS: ALFUZosin TAB 10 MG TAB PO SCH (20:49)
[2017-01-25 20:51] VITALS: BP 93/51; PULSE 70
[2017-01-25 23:22] VITALS: BP 107/65; PULSE 70; TEMP 36.4; O2SAT 97
[2017-01-26] MEDS: LEVOTHYROXINE 150 MCG TAB PO SCH (05:59)
[2017-01-26 07:29] VITALS: BP 108/60; PULSE 77; TEMP 36.5; O2SAT 96
[2017-01-26 07:31] LABS: HEMATOCRIT 27.2 % (42-52); MEAN CELL VOLUME 86.3 fL (80-100); MEAN CORPUSCULAR HEMOGLOBIN 27.9 pg (25-34); MEAN CORPUSCULAR HGB CONC 32.4 g/dl (32-36); MEAN PLATELET VOLUME 8.6 fL (7.4-10.4); PLATELET COUNT 294 K/uL (130-400); RED BLOOD COUNT 3.15 M/uL (4.7-6.1); WHITE BLOOD COUNT 8.19 K/uL (4.8-10.8)
[2017-01-26 07:37] LABS: PARTIAL THROMBOPLASTIN RATIO 1.6
[2017-01-26 07:55] VITALS: O2SAT 96
[2017-01-26 08:12] LABS: BUN/CREATININE RATIO 16.9 (10-20); CALCIUM 8.5 mg/dl (8.5-10.1); CREATININE 1.5 mg/dl (0.60-1.40); POTASSIUM 4.1 mmol/L (3.5-5.1)
[2017-01-26] MEDS: PANTOprazole SOD 40 MG TAB PO SCH (08:56)
[2017-01-26] MEDS: SACUBITRIL-VALSARTAN 24-26 MG TAB PO SCH (08:56)
[2017-01-26] MEDS: MONTELUKAST SOD 10 MG TAB PO SCH (08:56)
[2017-01-26] MEDS: CARVEDILOL 25 MG TAB PO SCH (08:57)
[2017-01-26] MEDS: FLUOXETINE HCL 20 MG CAP PO SCH (08:57)
[2017-01-26] MEDS: ATORVASTATIN 40 MG TAB PO SCH (08:58)
[2017-01-26] MEDS: MEGESTROL ACETATE 800 MG/20 ML UDP PO SCH (08:58)
[2017-01-26 09:12] LABS: INR 2.8 (0.9-1.1); PROTHROMBIN TIME (PATIENT) 30.8 SECONDS (9.0-12.0)
--- NOTE | 2017-01-26 09:28 | DIAGNOSTIC IMAGING REPORT ---
CHEST ONE VIEW PORTABLE HISTORY: 76 years-old Male congestive heart failure with pleural effusion. COMPARISON: Portable chest radiograph 01/23/2017 TECHNIQUE: Portable upright AP view of the chest FINDINGS: Cardiac silhouette is again mildly enlarged. Left basilar pleural drainage catheter is in stable positioning with moderate size left pleural effusion with adjacent unchanged left basilar consolidation. Left pectoral pacer/defibrillator is noted with leads intact. Median sternotomy wires are present. The right lung is clear. There is no pneumothorax. The bones are grossly intact. Upper abdominal structures are within normal limits. IMPRESSION: Stable exam with persistent moderate left pleural effusion and left basilar consolidation with pleural drainage catheter in place. The above report was generated using voice recognition software. It may contain grammatical, syntax or spelling errors. Electronically signed by: Hunter Sheehan M.D. 01/26/2017 9:27 AM Dictated Date/Time: 01/26/2017 9:25 AM
[2017-01-26] MEDS ORDERED: FRRS300 PO (10:52)
[2017-01-26] MEDS ORDERED: FERROUS SULFATE 325 MG TAB PO SCH (12:30)
--- NOTE | 2017-01-26 13:07 | SURGERY PROGRESS NOTE ---
DATE: 01/26/2017 Mr. Siddiqui is seen today on 01/26/2017. He is being transferred to [facility], which I think is a good idea. Erasto looks great to me today. His chest x-ray shows fairly good aeration in the left base. I think he has improved since he got here. He drained very little from his chest tube today. My hope is that the drainage will drop and we will be able to get this Pleurx catheter output fin the near future. We will keep it in and drain it daily until then. I think he looks quite good. CRISTIANO
--- NOTE | 2017-01-26 14:17 | Discharge Summary ---
Discharge Summary Date of Service Jan 26, 2017. Discharge Summary Admission Date: Jan 18, 2017 at 15:54 Discharge Date: Jan 26, 2017 Discharge Disposition: Rehab Principal Diagnosis: Anemia and Fatigue Problems/Secondary Diagnoses: 1. Chronic Atrial Fibrillation 2. LBBB 3. HLD 4. CAD 5. Ischemic Cardiomyopathy S/P AL, S/P Stent, and S/P Aortic and Mitral Valve Replacement 6. Systolic Congestive Heart Failure 7. Chronic Prostatitis 8. L Transudative Pleural Effusion S/P Pleur-X 9. Chronic Hypoxic Respiratory Failure 10. CKD Stage III 11. 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 GERD 14. Depression Immunizations: Have You Had Influenza Vaccine: N/A Influenza Vaccine Date: Apr 09, 2007 History of Tetanus Vaccine?: Yes Tetanus Immunization Date: Jun 09, 1997 History of Pneumococcal: Yes Pneumococcal Date: Jun 09, 2003 History of Hepatitis B Vaccine: Yes Hepatitis Immunization Date: Jun 09, 1985 Procedures: KUB FINDINGS: There is scattered stool present throughout the colon. There is no pathologic bowel dilatation. Degenerative changes are present within the lumbar spine. There is a left pleural effusion with left lower lobe consolidative change. A left basilar chest tube is visualized. IMPRESSION: 1. Left pleural effusion with associated left lower lobe atelectasis/consolidation 2. No evidence of pathologic bowel dilatation CHEST ONE VIEW PORTABLE FINDINGS: Cardiac silhouette is again mildly enlarged. Left basilar pleural drainage catheter is in stable positioning with moderate size left pleural effusion with adjacent unchanged left basilar consolidation. Left pectoral pacer/defibrillator is noted with leads intact. Median sternotomy wires are present. The right lung is clear. There is no pneumothorax. The bones are grossly intact. Upper abdominal structures are within normal limits. IMPRESSION: Stable exam with persistent moderate left pleural effusion and left basilar consolidation with pleural drainage catheter in place. EGD Impression: - Normal esophagus. - Medium-sized hiatus hernia. - Non-bleeding erosive gastropathy. Biopsied. - Erythematous mucosa in the gastric body and antrum. Biopsied. COLONOSCOPY - Diverticulosis in the sigmoid colon and in the descending colon. - One 3 mm polyp in the transverse colon, removed with a cold biopsy forceps. Resected and retrieved. - One 5 mm polyp in the transverse colon, removed with a hot snare. Resected and retrieved. - One 3 mm polyp in the sigmoid colon. Resection not attempted. Consultations: 1. CT Surgery 2. GI 3. Medication Reconciliation New Medications: Ferrous Sulfate (Ferrous Sulfate) 325 Mg Tab 325 MG PO TIDM for 30 Days, #90 TAB Megestrol Acetate (Megestrol Acetate) 800 Mg/20 Ml Susp 800 MG PO BID for 14 Days, #28 TABS [Boost Plus Vanilla] () 1 CAN LIQD 1 CAN PO DAILY@1900 for 14 Days Continued Medications: Albuterol Hfa (Ventolin Hfa) 200 Puffs/88266 Mcg Aers 2 PUFFS INH QID PRN for Shortness of Breath, #1 INHALER Albuterol Sulfate (Proventil Hfa) 108 Mcg/Act Aer 2 PUFF INH QID PRN for SOB/Wheezing Alfuzosin Hcl (Uroxatral) 10 Mg Tab 10 MG PO QPM, TAB Atorvastatin (Lipitor) 80 Mg Tab 1 TAB PO DAILY for 30 Days, #30 TAB 5 Refills Carvedilol (Coreg) 25 Mg Tab 25 MG PO BID, 1 Refill Digoxin (Digox) 125 Mcg Tab 125 MCG PO QAM Dutasteride (Avodart) 0.5 Mg Cap 0.5 MG PO QAM, CAP Fesoterodine Fumarate (Toviaz) 4 Mg Tab 4 MG PO QAM for 30 Days, #30 TAB 11 Refills Fluoxetine (Prozac) 20 Mg Cap 40 MG PO QAM, CAP Furosemide (Lasix) 40 Mg Tab 40 MG PO DAILY PRN for WEIGHT GAIN PARAMETERS, TAB Levothyroxine Sodium (Levothyroxine Sodium) 150 Mcg Tab 150 MCG PO QAM for 90 Days, #90 TAB 3 Refills Montelukast Sodium (Montelukast Sodium) 10 Mg Tab 1 TAB PO DAILY for 30 Days, #30 TAB 5 Refills Nitroglycerin (Nitrostat) 0.4 Mg/1 Tab Subl 0.4 MG SL UD PRN for Chest Pain, #25 Pantoprazole (Protonix) 40 Mg Tab 40 MG PO QAM, #30 TAB Potassium Ext Rel (Klor-Con) 20 Meq Tabcr 20 MEQ PO DIRECTED, TAB TAKE ON DAYS LASIX IS TAKEN Sacubitril-Valsartan (Entresto 24-26 mg) 1 Tab Tab 1 TAB PO DAILY Tramadol (Ultram) 50 Mg Tab 1 TAB PO TID PRN for Pain for 7 Days, #21 TAB (This prescription has been renewed) Warfarin Sodium (Coumadin) 5 Mg Tab 2.5 MG PO 4XWK, TAB SUN, , TH, SAT Warfarin Sodium (Coumadin) 5 Mg Tab 5 MG PO 3XWK, TAB MON, WED, FRI Discontinued Medications: Clopidogrel (Plavix) 75 Mg Tab 75 MG PO DAILY, TAB Discharge Exam Review of Systems: Constitutional: No fever, No chills Eyes: No worsening of vision ENT: No nasal symptoms, No sore throat, No trouble swallowing Respiratory: No cough, No shortness of breath Cardiovascular: + chest pain (intermittent at site of L pleur-x and with draining; no other CP) Abdomen: No pain, No nausea, No vomiting, No diarrhea, No constipation, No GI bleeding Musculoskeletal: No swelling, No calf pain Genitourinary - Male: No dysuria Hematologic / Lymphatic: No abnormal bleeding/bruising, No clotting problems Integumentary: No rash, No itch Physical Exam: General Appearance: no apparent distress, + thin Eyes: sclerae normal ENT: hearing grossly normal Neck: supple, no JVD, trachea midline Respiratory/Chest: lungs clear, no respiratory distress, no accessory muscle use, + pertinent finding (L PleurX catheter) Cardiovascular: regular rate, rhythm, no gallop, + pertinent finding ( mechanical valvular sound) Abdomen / GI: normal bowel sounds, non tender, soft Extremities: no calf tenderness, no pedal edema Neurologic/Psychiatric: alert Skin: normal color, warm/dry Hospital Course ADMISSION: This is a 76 yo M with PMHx ischemic cardiomyopathy with LVEF 30-45% , biventricular pacemaker with implantable cardiac defibrillator (Apr 2015), rheumatic heart disease with mechanical valve replacement (mitral and aortic) Apr 2015, LBBB, paroxysmal V-tach, chronic systolic heart failure, chronic afib on plavix and coumadin, hypothyroidism, a flutter, reactive airway disease, cervical radiculopathy, intermitted claudication, hypercholesterolemia, spinal stenosis and previous STEMI who presented with worsening fatigue and failure to thrive from the Pulmonary clinic. His is present at bedside. The patient is a poor historian but is able to answer simple questions. His provides the majority of this history. She notes the pt has not been eating well and complaining of intermittent nausea for the past 2 weeks. It commonly occurs when he wakes up in the morning, and then once or twice more throughout the day. He denies any specific foods which make it worse. He has not seen GI or a gas specialist that he can recall. He has lost a significant amount of weight, but maintains a dry weight around ~162 pounds. He has been taking his medications as directed. HOSPITAL COURSE: Mr. Siddiqui was admitted for failure to thrive/dehydration and increasing fatigue. Patient is noted to have chronic anemia and exploration of cause was performed. EGD and Colonoscopy did not reveal sources of bleeding and initial stool was heme positive. EGD with evidence of chronic active gastritis but negative for H. pylori. Colonoscopy had polyps that were biopsied revealing tubular adenoma. Laboratories revealed a normocytic/normochromic anemia and he appears to average between 9-11. Iron studies were obtained and low and iron supplementation was started. Stool was again obtained which currently is negative for heme. GI recommended to repeat a stool heme in a few weeks and if positive to consider capsule study to further evaluated. He is on warfarin and Plavix which would increase bleeding risk. Plavix is currently held and recommend reinstitution in the next few days after repeat labs obtained. When he first presented his INR peaked at 8.0 and Coumadin was held for supratherapeutic readings as well as procedures. He was bridged initially with Heparin then Lovenox while allowing Coumadin to become therapeutic between 2.5- 3.5 due to valve replacements. He is currently therapeutic and will need ongoing INR monitoring. All other home medications were continued as previously prescribed with a temporary hold on Plavix. Due to poor oral intake/failure to thrive/malnutrition, he was started on Boost supplementation and Megace which produced improvement in appetite. He remains anemic but hemodynamically stable and will receive acute rehab at [facility]. Total Time Spent: Greater than 30 minutes This includes examination of the patient, discharge planning, medication reconciliation, and communication with other providers. Discharge Instructions Please refer to the electronic Patient Visit Report (Discharge Instructions) for additional information. Additional Copies To Edita Prasad; Donis Mcdonald M.D.
[2017-01-26 15:30] VITALS: BP 101/61; PULSE 70; TEMP 36.2; O2SAT 97
[2017-01-26 15:46] VITALS: PULSE 66
[2017-01-26] MEDS: DIGOXIN 0.125 MG TAB PO SCH (15:48)
[2017-01-26] MEDS: WARFARIN SOD 5 MG TAB PO SCH (15:49)
== END 2017-01-26 16:42 | DRG 640 ==
LOC: C.2T 15:54 → ENRESERV 01-22 15:16 → C.MSW 01-22 17:00
PROVIDERS: ADMIT Family Medicine; ATTEND Internal Medicine
PROC: 0DB68ZX Excision of Stomach, Via Natural or Artificial Opening Endoscopic, Diagnostic (ICD-10-PCS; principal; 2017-01-20 12:30)
PROC: 0DBL8ZZ Excision of Transverse Colon, Via Natural or Artificial Opening Endoscopic (ICD-10-PCS; 2017-01-21)
DX: R62.7 Adult failure to thrive (principal); E43 Unspecified severe protein-calorie malnutrition; I50.22 Chronic systolic (congestive) heart failure; J96.11 Chronic respiratory failure with hypoxia; J90 Pleural effusion, not elsewhere classified; I13.0 Hypertensive heart and chronic kidney disease with heart failure and stage 1 through stage 4 chronic kidney disease, or unspecified chronic kidney disease; D63.8 Anemia in other chronic diseases classified elsewhere; R79.1 Abnormal coagulation profile; E86.0 Dehydration; R11.0 Nausea; R19.5 Other fecal abnormalities; E61.1 Iron deficiency; K44.9 Diaphragmatic hernia without obstruction or gangrene; K29.50 Unspecified chronic gastritis without bleeding; K25.9 Gastric ulcer, unspecified as acute or chronic, without hemorrhage or perforation; K57.30 Diverticulosis of large intestine without perforation or abscess without bleeding; K63.5 Polyp of colon; I48.2 Chronic atrial fibrillation; I44.7 Left bundle-branch block, unspecified; I25.10 Atherosclerotic heart disease of native coronary artery without angina pectoris; I25.5 Ischemic cardiomyopathy; N18.3 Chronic kidney disease, stage 3 (moderate); J45.909 Unspecified asthma, uncomplicated; E03.9 Hypothyroidism, unspecified; E78.00 Pure hypercholesterolemia, unspecified; E78.5 Hyperlipidemia, unspecified; K21.9 Gastro-esophageal reflux disease without esophagitis; N41.1 Chronic prostatitis; R39.15 Urgency of urination; F32.9 Major depressive disorder, single episode, unspecified; Z68.22 Body mass index [BMI] 22.0-22.9, adult; I25.2 Old myocardial infarction; Z66 Do not resuscitate; Z99.81 Dependence on supplemental oxygen; Z95.5 Presence of coronary angioplasty implant and graft; Z95.810 Presence of automatic (implantable) cardiac defibrillator; Z95.4 Presence of other heart-valve replacement; Z97.8 Presence of other specified devices; Z87.891 Personal history of nicotine dependence; Z79.01 Long term (current) use of anticoagulants; Z79.02 Long term (current) use of antithrombotics/antiplatelets; Z79.891 Long term (current) use of opiate analgesic; Z79.899 Other long term (current) drug therapy

== ENCOUNTER → 2017-01-18 | Outpatient (CLI) | payer BC ==
[~2017-01-18] MED LIST changes: -ALFU10TA2 PO; +ALFU10TA30 PO
--- NOTE | 2017-01-18 14:42 | DIAGNOSTIC IMAGING REPORT ---
CHEST 2 VIEWS ROUTINE CLINICAL HISTORY: 76 years-old Male presenting with left pleural effusion. TECHNIQUE: PA and lateral views of the chest were obtained. COMPARISON: 12/20/2016. FINDINGS: Left-sided implanted cardiac defibrillator with leads to the right atrium, right right coronaries ventricle and coronary sinus. 2 abandoned pacer leads to the right ventricular apex also noted. Large bore left pleural drain remains in place terminating in the mid left hemithorax. Cardiomediastinal silhouette unchanged. Opacity at the left lung base with persistent moderate, likely loculated, left pleural effusion. Loculated fluid also noted at the left apex laterally, which is new from prior. Blunting of the right costophrenic angle, likely trace right effusion. No pneumothorax. Osseous structures and upper abdomen within normal limits. The moderate hiatal hernia was better demonstrated on the prior exam. IMPRESSION: 1. Left basilar consolidation, infection not excluded. 2. Persistent moderate left pleural effusion, which appears loculated. Apparent new component at the left apex. 3. Trace right pleural effusion. Electronically signed by: Barry Matson M.D. 01/18/2017 2:40 PM Dictated Date/Time: 01/18/2017 2:37 PM
[2017-01-18 14:47] LABS: BASO % 0.4 %; BASO ABS # 0.03 K/uL (0-0.2); COMPLETE YES; EOS % 4.3 %; HEMATOCRIT 30.4 % (42-52); IG% 0.3 %; LYMPH % 5.7 %; LYMPH ABS # 0.42 K/uL (1.2-3.4); MEAN CELL VOLUME 87.6 fL (80-100); MEAN CORPUSCULAR HEMOGLOBIN 27.4 pg (25-34); MEAN CORPUSCULAR HGB CONC 31.3 g/dl (32-36); MEAN PLATELET VOLUME 8.8 fL (7.4-10.4); MONO % 14.7 %; NEUT % 74.6 %; PLATELET COUNT 312 K/uL (130-400); RED BLOOD COUNT 3.47 M/uL (4.7-6.1); WHITE BLOOD COUNT 7.36 K/uL (4.8-10.8)
[2017-01-18 15:01] LABS: PROTHROMBIN TIME (PATIENT) 60.9 SECONDS (9.0-12.0)
[2017-01-18 15:16] LABS: ALT/SGPT 13 U/L (12-78); AST/SGOT 12 U/L (15-37); BLOOD UREA NITROGEN 22 mg/dl (7-18); BUN/CREATININE RATIO 16.6 (10-20); CALCIUM 8.9 mg/dl (8.5-10.1); CARBON DIOXIDE 28 mmol/L (21-32); CHLORIDE 102 mmol/L (98-107); GLUCOSE 87 mg/dl (70-99); POTASSIUM 4.4 mmol/L (3.5-5.1); SODIUM 136 mmol/L (136-145)
[2017-01-18 17:00] LABS: INR 5.3 (0.9-1.1)
== END | disposition home or self-care (01) ==
LOC: C.RAD 13:41
PROVIDERS: ATTEND Surgery
DX: J90 Pleural effusion, not elsewhere classified (principal); R06.02 Shortness of breath; I50.22 Chronic systolic (congestive) heart failure; I25.10 Atherosclerotic heart disease of native coronary artery without angina pectoris; E78.00 Pure hypercholesterolemia, unspecified; Z79.01 Long term (current) use of anticoagulants

== ENCOUNTER → 2017-02-14 | Outpatient (CLI) | payer BC ==
[~2017-02-14] MED LIST changes: +Boost Plus Vanilla PO; -CLOP1TAB15 PO; +FRRS300 PO; +[UNRECOGNIZED DRUG - CODE] PO
--- NOTE | 2017-02-14 13:12 | DIAGNOSTIC IMAGING REPORT ---
CHEST 2 VIEWS ROUTINE CLINICAL HISTORY: J90 Pleural effusion on [id number] pleural effusion COMPARISON STUDY: 01/26/2017 FINDINGS: Unchanged left pleural effusion. Left basilar drainage catheter unchanged in position. Permanent bipolar cardiac pacemaker unchanged. Trace pleural fluid right lateral costophrenic angle. Remainder the right lung is clear. IMPRESSION: 1. Left basilar drainage catheter unchanged in position. 2. Small left effusion unchanged from the prior study. 3. Trace pleural fluid right lateral costophrenic angle. The above report was generated using voice recognition software. It may contain grammatical, syntax or spelling errors. Electronically signed by: Davy Fontana M.D. 02/14/2017 1:10 PM Dictated Date/Time: 02/14/2017 1:09 PM
== END | disposition home or self-care (01) ==
LOC: C.RAD1850 12:41
PROVIDERS: ATTEND Physician Assistant
DX: J90 Pleural effusion, not elsewhere classified (principal)

== ENCOUNTER → 2017-02-18 | Outpatient (CLI) | payer BC ==
[2017-02-18 12:43] LABS: BASO % 0.3 %; BASO ABS # 0.02 K/uL (0-0.2); EOS % 4.8 %; HEMATOCRIT 24.1 % (42-52); IG% 0.6 %; LYMPH ABS # 0.39 K/uL (1.2-3.4); MEAN CELL VOLUME 87.6 fL (80-100); MEAN PLATELET VOLUME 9.2 fL (7.4-10.4); MONO % 8.9 %; NEUT % 79.4 %; PLATELET COUNT 211 K/uL (130-400); RED BLOOD COUNT 2.75 M/uL (4.7-6.1); WHITE BLOOD COUNT 6.49 K/uL (4.8-10.8)
[2017-02-18 12:56] LABS: INR 3.2 (0.9-1.1); PROTHROMBIN TIME (PATIENT) 35.4 SECONDS (9.0-12.0)
[2017-02-18 13:08] LABS: ALT/SGPT 20 U/L (12-78); BLOOD UREA NITROGEN 47 mg/dl (7-18); BUN/CREATININE RATIO 39.4 (10-20); CALCIUM 8.5 mg/dl (8.5-10.1); CARBON DIOXIDE 25 mmol/L (21-32); CHLORIDE 110 mmol/L (98-107); GLUCOSE 103 mg/dl (70-99); POTASSIUM 4.3 mmol/L (3.5-5.1); SODIUM 140 mmol/L (136-145)
[2017-02-18 13:18] LABS: ALB/GLOB RATIO 0.7 (0.9-2); ALKALINE PHOSPHATASE 138 U/L (45-117); AST/SGOT 17 U/L (15-37)
[2017-02-18 13:20] LABS: ACANTHOCYTES 3+; ANISOCYTOSIS PRESENT; COMPLETE YES; POIKILOCYTOSIS PRESENT
== END | disposition home or self-care (01) ==
LOC: C.LAB1850 11:20
PROVIDERS: ATTEND Internal Medicine Pulmonary Disease
DX: D64.9 Anemia, unspecified (principal)

== ENCOUNTER 2017-02-24 13:02 | Inpatient (IN) | payer BC, OTHER ==
[~2017-02-24] VITALS: Ht 177.8 cm; Wt 69.0 kg
[2017-02-24] VITALS (12 sets, daily range): BP systolic 94–108; BP diastolic 56–67; PULSE 64–77; TEMP 36.6–36.7; O2SAT 2–99; Ht 177.8 cm; Wt 69.0 kg
[2017-02-24] MEDS ORDERED: ALBUTEROL HFA 8 GM INHALER INH PRN ×2 (14:15)
[2017-02-24] MEDS ORDERED: NITROGLYCERIN 0.4 MG SL PER TAB CHARGE SL PRN (14:15)
[2017-02-24] MEDS ORDERED: FUROSEMIDE 40 MG TAB PO PRN (14:15)
[2017-02-24] MEDS ORDERED: TRAMADOL HCL 50 MG TAB PO PRN (14:15)
[2017-02-24] MEDS ORDERED: ACETAMINOPHEN 325 MG TAB PO PRN (14:15)
[2017-02-24] MEDS ORDERED: POLYETHYLENE (MIRALAX) 17 GM PACK PO PRN (14:15)
[2017-02-24] MEDS ORDERED: SODIUM CHLORIDE 0.9% 1000ML 1,000 ML IV SCH (14:15)
[2017-02-24] MEDS ORDERED: MAGNESIUM HYDROXIDE SUSP 30 ML UDC PO PRN (14:15)
[2017-02-24] MEDS ORDERED: ONDANSETRON INJ 2 MG/ML 2 ML VIAL IV PRN (14:15)
[2017-02-24] MEDS ORDERED: ALUMINUM/MAGNESIUM/SIMETH (MAALOX MAX) 30 ML UDC PO PRN (14:15)
--- NOTE | 2017-02-24 14:31 | History and Physical ---
History & Physical Date & Time of Service: Feb 24, 2017 at 14:10 Chief Complaint: Symptomatic Anemia Primary Care Physician: Donis Mcdonald M.D. History of Present Illness Source: patient, clinic records, hospital records This is a 76 yo M with PMHx ischemic cardiomyopathy with LVEF 30-45% , biventricular pacemaker with implantable cardiac defibrillator (Apr 2015), rheumatic heart disease with mechanical valve replacement (mitral and aortic) Apr 2015, LBBB, paroxysmal V-tach, chronic systolic heart failure, chronic afib on plavix and coumadin, hypothyroidism, a flutter, reactive airway disease, cervical radiculopathy, intermitted claudication, hypercholesterolemia, spinal stenosis and previous STEMI who was a direct admit from Dr. Connelly's office due to anemia. Patient was recently admitted to [facility] on 01/18-01/26 due to failure to thrive and fatigue. During his stay, he was anemic w/ hgb 8.0-9.0. Initial stool heme occult was positive; EGD and colonoscopy were performed revealing no source of bleeding. Repeat stool Hemoccult negative and hgb stabilized. GI recommended capsule study for further evaluation if indicated, but was not completed. He was discharged to [facility]. Today, patient states he does not feel different than baseline. He continues to feel fatigued/weak, but non- worsening. +dizziness with changing position. Patient denies any fever, chills, sweats, lightheadedness, vision changes, CP, palpitations, edema, SOB, wheezing , cough, abdominal pain, nausea, vomiting, diarrhea, urinary symptoms, melena, numbness/tingling, muscle/joint pain, anxiety/depression, active bleeding, or new skin discoloration/changes. Past Medical/Surgical History Past Medical History: Chronic Atrial fibrillation LBBB Hyperlipidemia Coronary artery disease (LAD and OM1 BMS, Feb 2015) Hx ventricular tachycardia (LVOT vs. coronary cusp focus) Congestive heart failure with Ischemic cardiomyopathy (LVEF 30-45%) Left transudative pleural effusion s/p thoracocentesis in Jul 2016 (Dr Connelly) Chronic prostatitis Chronic Respiratory Failure (on 2-3L O2 at night) Chronic kidney disease stage III Spinal stenosis [facility] - longstanding double vison s/p iodine ablation GERD Depression Surgical History: Aortic valve replacement Cardioverter-defibrillator with synchronous cardiac pacemaker Jun 2007 Hx of Cath stent x 3 to LAD, OM1, and proximal RCA Feb 2015 Pleurex catheter with cuff insertion November 2016 Hx of spermatic cord for varicocele Hx of vas deferens vasectomy Hx thoracentesis for pleural effusion Family History Hypertension Social History Smoking Status: Former Smoker Drug Use: none Marital Status: Housing status: lives with family Occupational Status: retired Immunizations History of Influenza Vaccine: N/A Influenza Vaccine Date: Apr 09, 2007 History of Tetanus Vaccine?: Yes Tetanus Immunization Date: Jun 09, 1997 History of Pneumococcal: Yes Pneumococcal Date: Jun 09, 2003 History of Hepatitis B Vaccine: Yes Hepatitis Immunization Date: Jun 09, 1985 Multi-Drug Resistant Organisms History of MDRO: No Allergies Coded Allergies: Iodinated Diagnostic Agents (Verified Allergy, Mild, HIVES, 12/03/16) Home Medications Scheduled Alfuzosin Hcl (Uroxatral), 10 MG PO QPM Atorvastatin (Lipitor), 1 TAB PO DAILY Carvedilol (Coreg), 25 MG PO BID Digoxin (Digox), 125 MCG PO QAM Dutasteride (Avodart), 0.5 MG PO QAM Ferrous Sulfate (Ferrous Sulfate), 325 MG PO TIDM Fesoterodine Fumarate (Toviaz), 4 MG PO QAM Fluoxetine (Prozac), 40 MG PO QAM Levothyroxine Sodium (Levothyroxine Sodium), 150 MCG PO QAM Megestrol Acetate (Megestrol Acetate), 800 MG PO BID Montelukast Sodium (Montelukast Sodium), 1 TAB PO DAILY Pantoprazole (Protonix), 40 MG PO QAM Potassium Ext Rel (Klor-Con), 20 MEQ PO DIRECTED Sacubitril-Valsartan (Entresto 24-26 mg), 1 TAB PO DAILY Warfarin Sodium (Coumadin), 2.5 MG PO 4XWK Warfarin Sodium (Coumadin), 5 MG PO 3XWK [Boost Plus Vanilla], 1 CAN PO DAILY@1900 Scheduled PRN Albuterol Hfa (Ventolin Hfa), 2 PUFFS INH QID PRN for Shortness of Breath Albuterol Sulfate (Proventil Hfa), 2 PUFF INH QID PRN for SOB/Wheezing Furosemide (Lasix), 40 MG PO DAILY PRN for WEIGHT GAIN PARAMETERS Nitroglycerin (Nitrostat), 0.4 MG SL UD PRN for Chest Pain Tramadol (Ultram), 1 TAB PO TID PRN for Pain Physical Exam Vital Signs Date Time Temp Pulse Resp B/P (MAP) Pulse Ox O2 Delivery O2 Flow Rate FiO2 02/24/17 13:49 36.7 77 18 104/67 (79) 99 Nasal Cannula 2.0 General Appearance: no apparent distress, + thin, + pertinent finding (2L O2 NC ) Head: normocephalic, atraumatic Eyes: normal inspection, PERRL ENT: hearing grossly normal Neck: supple Respiratory/Chest: lungs clear, no respiratory distress, no accessory muscle use, + decreased breath sounds Cardiovascular: regular rate, rhythm, + pertinent finding (mechanical valve click ) Abdomen/GI: normal bowel sounds, non tender, soft Back: normal inspection Extremities/Musculoskelatal: no calf tenderness, no pedal edema Neurologic/Psych: alert, oriented x 3, + depressed affect Skin: warm/dry, no rash, + pallor Impression Assessment and Plan This is a 76 yo M with PMHx ischemic cardiomyopathy with LVEF 30-45% , biventricular pacemaker with implantable cardiac defibrillator (Apr 2015), rheumatic heart disease with mechanical valve replacement (mitral and aortic) Apr 2015, LBBB, paroxysmal V-tach, chronic systolic heart failure, chronic afib on plavix and coumadin, hypothyroidism, a flutter, reactive airway disease, cervical radiculopathy, intermitted claudication, hypercholesterolemia, spinal stenosis and previous STEMI who was a direct admit from Dr. Connelly's office due to anemia. Acute on chronic normocytic anemia w/ hgb 7.5: - Admit to med/surg - Follw H&H q6 hrs - Type and crossmatch- Dr. Metcalf to obtain blood consent - Iron panel, TSH, b12/folate all completed within 1 month ago- reviewed. Continue Iron supplement TID - Check stool Hemoccult - Will continue Coumadin at this time due to mitral/aortic valve replacement and significant risk of clot formation- follow H&H closely - Hold PO daily Protonix; IV Protonix BID - Consult GI, appreciate recommendations Chronic respiratory failure, reactive airways disease - Wears 2 L O2 QHS and with exertion/walking during the day - Continue Singular tabs and home inhalers PRN Chronic pleural effusion- follows w/ Dr. Connelly Ischemic cardiomyopathy, biventricular pacemaker with implantables cardiac defibrillator, mechanical (aortic and mitral) valve, chronic a.fib- follows w/ Dr. Roblero: - Last ECHO November 2015 with LVEF =30-45% - Continue Coreg 25 mg BID, Digoxin 125 mcg QAM, Entresto 24-26 mg BID, Lipitor 80 mg HS - Continue Coumadin- INR 3.0- follow INR, goal range 2.5-3.5 w/ mechanical valve replacements Hypothyroidism: Continue Levothyroxine 150 mcg daily CKD stage III, Cr. baseline of 1.4: Pending PRP Depression: Continue Prozac 40 mg daily Urinary Urgency: Continue Avodart 0.5 mg daily, Toviac 4 mg daily, Alfuzosin 10 mg HS Failure to thrive: Megace 800 mg BID GERD: Protonix GI prophylaxis: Protonix IV BID DVT prophylaxis: Coumadin Code Status: LEVEL V, DNR Disposition: From home, lives with - PT/OT evaluations and social security benefits interviewer consulted i personally examined pt and verified all soto points w Arelis Jamison PAC feeling weak. d/w thoracic PA as well who's been involved in care for a while vitals noted nad breathing unlabored no pallor or icterus anemia - d/w GI - recent endoscopic w/u. capsule not yet done - could be helpful for risk stratification. suspect partly GI losses and partly hypoproliferative from Fe deficiency (which is likely from chronic slow GI losses) - can't really safely stop anticoagulation due to mechanical valves, so likely an aggressive monitoring and prn transfusion plan for management -- for now IV iron, transfuse 2 units. hopefully home tomorrow as long as feeling better. given that bleeding likely going to be an ongoing "necessary evil" due to anticoagulation for mechanical valves - likely would pursue capsule as outpt to better help quantify potential briskness//allow for localization if intervention were ever needed in crisis situation Level of Care Med/Surg Resuscitation Status DO NOT RESUSCITATE VTE Prophylaxis VTE Risk Assessment Done? Y/N: Yes Risk Level: High Given or contraindicated: T.E.D. Stockings, SCD's, Contraindicated
[2017-02-24 14:48] LABS: PROTHROMBIN TIME (PATIENT) 33.6 SECONDS (9.0-12.0)
[2017-02-24 15:09] LABS: BLOOD UREA NITROGEN 37 mg/dl (7-18); BUN/CREATININE RATIO 28.6 (10-20); CALCIUM 8.1 mg/dl (8.5-10.1); CARBON DIOXIDE 25 mmol/L (21-32); CHLORIDE 109 mmol/L (98-107); GLUCOSE 102 mg/dl (70-99); SODIUM 140 mmol/L (136-145)
[2017-02-24] MEDS: AVODART~ORDER AWAITING ACTION SCH ×2 (16:00→23:48)
--- NOTE | 2017-02-24 16:12 | Gastrointestinal Consultation ---
Gastrointestinal Consultation Date of Consultation: Feb 24, 2017 Attending Physician: Devon Metcalf Consulting Physician: Eliezer Fuller Reason for Consultation: Anemia History of Present Illness Patient is a 76 year old male with CC of anemia. Pt directed admitted with anemia Hgb 7.5 today versus 7.7 on 02/18 and 8.8 on 01/27/17. Reviewed old record and noted GI consult and notes during 01/18-01/26/17 hospitalization. He was noted to have Fe def and heme positive stools. Colonoscopy showed polyps tubular adenoma type. EGD showed HH, 3 mm erosion in the fundus and erythema of body and antrum with path of duodenum neg for sprue and antrum neg for h.pylori. Pt states no blood in red blood in stool. States stools black secondary to iron. CT chest 01/02- enlarged heart, dilated thoracic aorta, pleural opacity. A/P CT 11/2016 HH, pleural effusion,left inguinal hernia with loop of bowel. Pt is on coumadin and plavix for afib, mechanical valves and cardiomyopathy. At last hospitalization states he lost 60 lbs prior but thinks wt is currently stable. Denies dysphagia, abd pain, change in BMs. Past Medical/Surgical History Medical Problems: (1) Anemia Status: Acute (2) CHF (congestive heart failure) Status: Acute (3) Elevated troponin Status: Acute (4) Flu Status: Acute (5) Hypotension Status: Acute (6) Influenza B Status: Acute (7) Pneumonia Status: Acute (8) Pneumonia Status: Acute Family History Hypertension Social History Smoking Status: Former Smoker Drug Use: none Marital Status: Housing Status: lives with family Occupation Status: retired Allergies Coded Allergies: Iodinated Diagnostic Agents (Verified Allergy, Mild, HIVES, 12/03/16) Current Medications Home Meds and Scripts Medications Dose Route/Sig Max Daily Dose Days Date Category Dose Instructions Ferrous Sulfate 325 Mg Tab 325 Mg PO TIDM 30 01/26/17 Rx [Boost Plus Vanilla] 1 CAN Liqd 1 Can PO DAILY@1900 14 01/25/17 Rx Megestrol Acetate 800 Mg/20 Ml Susp 800 Mg PO BID 14 01/25/17 Rx Ultram (Tramadol HCl) 50 Mg Tab 1 Tab PO TID PRN 7 01/25/17 Rx Proventil Hfa (Albuterol Sulfate) 108 Mcg/Act Aer 2 Puff INH QID PRN 12/03/16 Reported Montelukast Sodium 10 Mg Tab 1 Tab PO DAILY 30 12/03/16 Reported Entresto 24-26 mg (Sacubitril-Valsartan) 1 Tab Tab 1 Tab PO DAILY 12/03/16 Reported Lipitor (Atorvastatin Calcium) 80 Mg Tab 1 Tab PO DAILY 30 12/03/16 Reported Ventolin Hfa (Albuterol) 200 Puffs/23031 Mcg Aers 2 Puffs INH QID PRN 11/16/16 Reported Klor-Con (Potassium Chloride) 20 Meq Tabcr 20 Meq PO DIRECTED 11/16/16 Reported TAKE ON DAYS LASIX IS TAKEN Coumadin (Warfarin Sodium) 5 Mg Tab 5 Mg PO 3XWK 08/25/16 Reported MON, WED, FRI Digox (Digoxin) 125 Mcg Tab 125 Mcg PO QAM 04/26/16 Reported Lasix (Furosemide) 40 Mg Tab 40 Mg PO DAILY PRN 04/13/16 Reported Protonix (Pantoprazole Sodium) 40 Mg Tab 40 Mg PO QAM 04/13/16 Reported Levothyroxine Sodium 150 Mcg Tab 150 Mcg PO QAM 90 04/13/16 Reported Prozac (Fluoxetine HCl) 20 Mg Cap 40 Mg PO QAM 04/13/16 Reported Coreg (Carvedilol) 25 Mg Tab 25 Mg PO BID 07/24/15 Reported Nitrostat (Nitroglycerin) 0.4 Mg/1 Tab Subl 0.4 Mg SL UD PRN 02/25/15 Rx Toviaz (Fesoterodine Fumarate) 4 Mg Tab 4 Mg PO QAM 30 02/19/15 Reported Coumadin (Warfarin Sodium) 5 Mg Tab 2.5 Mg PO 4XWK 03/28/14 Reported SUN, TUES, THURS, SAT Avodart (Dutasteride) 0.5 Mg Cap 0.5 Mg PO QAM 03/28/14 Reported Uroxatral (Alfuzosin HCl) 10 Mg Tab 10 Mg PO QPM 03/28/14 Reported Review of Systems 10 ROS negative Physical Exam Date Time Temp Pulse Resp B/P (MAP) Pulse Ox O2 Delivery O2 Flow Rate FiO2 02/24/17 13:49 36.7 77 18 104/67 (79) 99 Nasal Cannula 2.0 02/24/17 13:45 36.7 18 104/67 Room Air General Appearance: WD/WN, no apparent distress Eyes: normal inspection, PERRL ENT: normal ENT inspection, hearing grossly normal Neck: supple, no adenopathy Respiratory/Chest: lungs clear, normal breath sounds Cardiovascular: regular rate, rhythm, no murmur Abdomen: normal bowel sounds, non tender, soft, no organomegaly Extremities: normal range of motion, non-tender Neurologic/Psych: legal adviser II-XII nml as tested, no motor/sensory deficits Skin: normal color, no jaundice Laboratory Results Last 24 Hours Test 02/24/17 14:01 02/24/17 14:24 Prothrombin Time 33.6 SECONDS Prothromb Time International Ratio 3.0 Sodium Level 140 mmol/L Potassium Level 4.0 mmol/L Chloride Level 109 mmol/L Carbon Dioxide Level 25 mmol/L Anion Gap 6.0 mmol/L Blood Urea Nitrogen 37 mg/dl Creatinine 1.30 mg/dl Estimated GFR () 60.6 Estimated GFR (Non- 52.3 BUN/Creatinine Ratio 28.6 Random Glucose 102 mg/dl Calcium Level 8.1 mg/dl Impression A/P Anemia--check stool hemoccult. Just had EGD/colonoscopy so no need to repeat. Consider outpt capsule endoscopy. 01/2017 Fe sat low, ferritin nl, B12 nl folate high. Discussed with DR Metcalf above and recommend IV Fe. Hx mild erosive gastritis--PPI
[2017-02-24] MEDS ORDERED: IRON SUCROSE INJ 100 MG in SODIUM CHLORIDE 0.9% 100ML 100 ML IV SCH (16:30)
[2017-02-24] MEDS: TOVIAZ~ORDER AWAITING ACTION SCH ×2 (16:31→23:48)
[2017-02-24] MEDS: DIGOXIN 0.125 MG TAB PO SCH (17:26)
[2017-02-24] MEDS: FERROUS SULFATE 325 MG TAB PO SCH (17:27)
[2017-02-24 19:10] LABS: HEMATOCRIT 22.1 % (42-52)
[2017-02-24] MEDS: BOOST PLUS VANILLA PO SCH ×2 (19:24)
[2017-02-24] MEDS: MEGESTROL ACETATE 800 MG/20 ML UDP PO SCH (20:39)
[2017-02-24] MEDS: ALFUZosin TAB 10 MG TAB PO SCH (20:39)
[2017-02-24] MEDS: CARVEDILOL 25 MG TAB PO SCH (20:39)
[2017-02-24] MEDS ORDERED: PANTOprazole INJ 40 MG in SYRINGE 0 ML IV SCH (21:00)
[2017-02-25] VITALS (10 sets, daily range): BP systolic 97–122; BP diastolic 61–71; PULSE 69–76; TEMP 36.5–36.9; O2SAT 93–97
[2017-02-25] MEDS: LEVOTHYROXINE 150 MCG TAB PO SCH (05:44)
[2017-02-25 06:21] LABS: MEAN CELL VOLUME 88.4 fL (80-100); MEAN CORPUSCULAR HEMOGLOBIN 27.9 pg (25-34); MEAN CORPUSCULAR HGB CONC 31.5 g/dl (32-36); MEAN PLATELET VOLUME 9.2 fL (7.4-10.4); PLATELET COUNT 241 K/uL (130-400); RED BLOOD COUNT 2.94 M/uL (4.7-6.1); WHITE BLOOD COUNT 5.95 K/uL (4.8-10.8)
[2017-02-25 06:28] LABS: INR 2.6 (0.9-1.1); PROTHROMBIN TIME (PATIENT) 29.2 SECONDS (9.0-12.0)
[2017-02-25 06:53] LABS: BUN/CREATININE RATIO 30.5 (10-20); CALCIUM 8.2 mg/dl (8.5-10.1); CREATININE 1.1 mg/dl (0.60-1.40); POTASSIUM 3.9 mmol/L (3.5-5.1)
[2017-02-25] MEDS: AVODART~ORDER AWAITING ACTION SCH ×3 (08:00→23:47)
[2017-02-25] MEDS: TOVIAZ~ORDER AWAITING ACTION SCH ×3 (08:00→23:47)
[2017-02-25] MEDS: CARVEDILOL 25 MG TAB PO SCH ×2 (08:09→20:48)
[2017-02-25] MEDS: FERROUS SULFATE 325 MG TAB PO SCH ×3 (08:09→16:24)
[2017-02-25] MEDS: SACUBITRIL-VALSARTAN 24-26 MG TAB PO SCH (08:10)
[2017-02-25] MEDS: FLUOXETINE HCL 20 MG CAP PO SCH (08:10)
[2017-02-25] MEDS: MONTELUKAST SOD 10 MG TAB PO SCH (08:11)
[2017-02-25] MEDS: POTASSIUM CHLORIDE 20 MEQ TABCR PO SCH (08:12)
[2017-02-25] MEDS: ATORVASTATIN 40 MG TAB PO SCH (08:12)
[2017-02-25] MEDS: MEGESTROL ACETATE 800 MG/20 ML UDP PO SCH ×2 (08:12→20:48)
[2017-02-25 08:17] LABS: HEMATOCRIT 26.8 % (42-52)
--- NOTE | 2017-02-25 08:47 | Gastroenterology Progress Note ---
Progress Note Date of Service: Feb 25, 2017 Subjective Pt evaluation today including: conversation w/ patient, physical exam, chart review, lab review, review of studies, review of inpatient medication list CC f/u Anemia HPI No stools yet this admit. No abd pain. Had blood transfusion yesterday. Review of Systems Respiratory: No shortness of breath Cardiac: No chest pain Medications Current Inpatient Medications Medications (Trade) Dose Ordered Sig/Javier Route Start Time Stop Time Status Last Admin Dose Admin Acetaminophen (Tylenol Tab) 650 mg Q4H PRN PO 02/24/17 14:15 03/26/17 14:14 Al Hydrox/Mg Hydrox/Simethicone (Maalox Max Susp) 15 ml Q4H PRN PO 02/24/17 14:15 03/26/17 14:14 Magnesium Hydroxide (Milk Of Magnesia Susp) 30 ml Q6H PRN PO 02/24/17 14:15 03/26/17 14:14 Polyethylene (Miralax Powder Packet) 17 gm DAILY PRN PO 02/24/17 14:15 03/26/17 14:14 Ondansetron HCl (Zofran Inj) 4 mg Q6H PRN IV 02/24/17 14:15 03/26/17 14:14 Albuterol (Ventolin Hfa Inhaler) 2 puffs QID PRN INH 02/24/17 14:15 03/26/17 14:14 Alfuzosin HCl (Uroxatral Tab) 10 mg QPM PO 02/24/17 21:00 03/26/17 20:59 02/24/17 20:39 10 MG Atorvastatin Calcium (Lipitor Tab) 80 mg DAILY PO 02/25/17 09:00 03/27/17 08:59 02/25/17 08:12 80 MG Carvedilol (Coreg Tab) 25 mg BID PO 02/24/17 21:00 03/26/17 20:59 02/25/17 08:09 25 MG Digoxin (Lanoxin Tab) 0.125 mg DAILY@1600 PO 02/24/17 16:00 03/26/17 15:59 02/24/17 17:26 0.125 MG Ferrous Sulfate (Feosol Tab) 325 mg TIDM PO 02/24/17 17:00 03/26/17 16:59 02/25/17 08:09 325 MG Fluoxetine HCl (Prozac Cap) 40 mg QAM PO 02/25/17 09:00 03/27/17 08:59 02/25/17 08:10 40 MG Furosemide (Lasix Tab) 40 mg DAILY PRN PO 02/24/17 14:15 03/26/17 14:14 Levothyroxine Sodium (Synthroid Tab) 150 mcg DAILYBB PO 02/25/17 06:30 03/27/17 06:29 02/25/17 05:44 150 MCG Megestrol Acetate (Megace Susp) 800 mg BID PO 02/24/17 21:00 03/26/17 20:59 02/25/17 08:12 800 MG Montelukast Sodium (Singulair Tab) 10 mg DAILY PO 02/25/17 09:00 03/27/17 08:59 02/25/17 08:11 10 MG Nitroglycerin (Nitrostat Tab) 0.4 mg UD PRN SL 02/24/17 14:15 03/26/17 14:14 Potassium Chloride (Klor-Con Tab) 20 meq DAILY PO 02/25/17 09:00 03/27/17 08:59 02/25/17 08:12 20 MEQ Sacubitril/ Valsartan (Entresto 24-26 Mg) 1 tab DAILY PO 02/25/17 09:00 03/27/17 08:59 02/25/17 08:10 1 TAB Tramadol HCl (Ultram Tab) 50 mg TID PRN PO 02/24/17 14:15 03/26/17 14:14 Miscellaneous Information (Order Awaiting Action) 1 ea QS N/A 02/24/17 16:00 03/26/17 15:59 Miscellaneous Information (Order Awaiting Action) 1 ea QS N/A 02/24/17 16:00 03/26/17 15:59 Enteral Nutritional Formula (Boost Plus Vanilla) 1 can DAILY@1900 PO 02/24/17 19:00 03/26/17 18:59 02/24/17 19:24 1 CAN Warfarin Sodium (Coumadin Tab) 2.5 mg MoWeFr@1600 PO 02/25/17 16:00 03/27/17 15:59 Warfarin Sodium (Coumadin Tab) 5 mg SuTuThSa@1600 PO 02/26/17 16:00 03/28/17 15:59 Objective Vital Signs Date Time Temp Pulse Resp B/P (MAP) Pulse Ox O2 Delivery O2 Flow Rate FiO2 02/25/17 07:05 36.8 70 18 117/66 (83) 95 Nasal Cannula 02/25/17 03:45 36.7 76 18 112/70 96 2.0 02/25/17 02:45 36.6 76 18 109/66 95 2.0 02/25/17 02:15 36.8 70 18 121/70 94 2.0 02/25/17 01:45 36.8 72 18 111/69 96 2.0 02/25/17 01:30 36.8 71 18 104/65 96 2.0 02/25/17 01:09 36.9 71 18 104/64 96 2.0 02/25/17 00:00 Nasal Cannula 2.0 02/24/17 23:50 36.6 72 18 103/63 95 2.0 02/24/17 23:16 36.6 64 20 108/66 (80) 95 Nasal Cannula 2.0 02/24/17 22:50 36.6 71 18 100/60 95 2.0 02/24/17 22:20 36.7 71 18 103/64 98 2.0 02/24/17 21:50 36.7 72 18 94/59 95 2.0 02/24/17 21:35 36.7 70 18 95/59 96 2.0 02/24/17 21:21 36.7 70 18 103/56 96 2.0 02/24/17 20:37 72 16 100/63 (75) 2 Room Air 02/24/17 17:32 36.7 72 16 105/66 (79) 98 Room Air 02/24/17 17:30 Room Air 02/24/17 17:26 74 02/24/17 17:05 74 02/24/17 13:49 36.7 77 18 104/67 (79) 99 Nasal Cannula 2.0 02/24/17 13:45 36.7 18 104/67 Room Air Physical Exam General Appearance: WD/WN, no apparent distress Respiratory/Chest: lungs clear, no respiratory distress Cardiovascular: no murmur Abdomen: normal bowel sounds, non tender, soft, no organomegaly Laboratory Results Last 24 Hours Test 02/24/17 14:24 02/24/17 18:48 02/25/17 05:25 02/25/17 08:06 Prothrombin Time 33.6 SECONDS 29.2 SECONDS Prothromb Time International Ratio 3.0 2.6 Sodium Level 140 mmol/L 139 mmol/L Potassium Level 4.0 mmol/L 3.9 mmol/L Chloride Level 109 mmol/L 110 mmol/L Carbon Dioxide Level 25 mmol/L 24 mmol/L Anion Gap 6.0 mmol/L 5.0 mmol/L Blood Urea Nitrogen 37 mg/dl 34 mg/dl Creatinine 1.30 mg/dl 1.10 mg/dl Estimated GFR () 60.6 74.1 Estimated GFR (Non- 52.3 64.0 BUN/Creatinine Ratio 28.6 30.5 Random Glucose 102 mg/dl 97 mg/dl Calcium Level 8.1 mg/dl 8.2 mg/dl Hemoglobin 6.9 g/dL 8.2 g/dL 8.8 g/dL Hematocrit 22.1 % 26.0 % 26.8 % White Blood Count 5.95 K/uL Red Blood Count 2.94 M/uL Mean Corpuscular Volume 88.4 fL Mean Corpuscular Hemoglobin 27.9 pg Mean Corpuscular Hemoglobin Concent 31.5 g/dl RDW Standard Deviation 57.9 fL RDW Coefficient of Variation 18.2 % Platelet Count 241 K/uL Mean Platelet Volume 9.2 fL Est Creatinine Clear Calc Drug Dose 54.0 ml/min Assessment and Plan Anemia--stool hemoccult pending. Just had EGD/colonoscopy so no need to repeat. Consider outpt capsule endoscopy. 01/2017 Fe sat low, ferritin nl, B12 nl folate high. Incremented post transfusion Hx mild erosive gastritis--PPI
[2017-02-25] MEDS ORDERED: PANTOprazole SOD 40 MG TAB PO STA (09:17)
[2017-02-25 12:41] LABS: HEMATOCRIT 26.5 % (42-52)
--- NOTE | 2017-02-25 14:49 | Progress Note ---
Subjective Date of Service: Feb 25, 2017. Subjective Pt evaluation today including: conversation w/ patient, conversation w/ family , physical exam, chart review, lab review, review of studies, review of inpatient medication list Resting comfortably in bed No complaints at this time Problem List Medical Problems: (1) Anemia Status: Acute (2) CHF (congestive heart failure) Status: Acute (3) Elevated troponin Status: Acute (4) Flu Status: Acute (5) Hypotension Status: Acute (6) Influenza B Status: Acute (7) Pneumonia Status: Acute (8) Pneumonia Status: Acute Review of Systems Constitutional: No fever, No chills, No sweats, No weight loss Respiratory: No cough, No sputum, No wheezing, No shortness of breath, No dyspnea on exertion Cardiac: No chest pain, No orthopnea, No edema, No claudication Abdomen: No pain, No nausea, No vomiting, No diarrhea, No constipation Musculoskeletal: No joint pain, No muscle pain, No swelling, No calf pain Male : No dysuria, No urinary frequency, No incontinence, No slowing stream Neurologic: No memory loss, No paralysis, No weakness, No numbness/tingling Psychiatric: No depression symptoms, No anhedonism, No anxiety, No insomnia Endo: No fatigue, No excessive thirst Skin: No rash, No itch Objective Vital Signs Date Time Temp Pulse Resp B/P (MAP) Pulse Ox O2 Delivery O2 Flow Rate FiO2 02/25/17 08:00 Room Air 02/25/17 07:05 36.8 70 18 117/66 (83) 95 Nasal Cannula 02/25/17 03:45 36.7 76 18 112/70 96 2.0 02/25/17 02:45 36.6 76 18 109/66 95 2.0 02/25/17 02:15 36.8 70 18 121/70 94 2.0 02/25/17 01:45 36.8 72 18 111/69 96 2.0 02/25/17 01:30 36.8 71 18 104/65 96 2.0 02/25/17 01:09 36.9 71 18 104/64 96 2.0 02/25/17 00:00 Nasal Cannula 2.0 02/24/17 23:50 36.6 72 18 103/63 95 2.0 02/24/17 23:16 36.6 64 20 108/66 (80) 95 Nasal Cannula 2.0 02/24/17 22:50 36.6 71 18 100/60 95 2.0 02/24/17 22:20 36.7 71 18 103/64 98 2.0 02/24/17 21:50 36.7 72 18 94/59 95 2.0 02/24/17 21:35 36.7 70 18 95/59 96 2.0 02/24/17 21:21 36.7 70 18 103/56 96 2.0 02/24/17 20:37 72 16 100/63 (75) 2 Room Air 02/24/17 17:32 36.7 72 16 105/66 (79) 98 Room Air 02/24/17 17:30 Room Air 02/24/17 17:26 74 02/24/17 17:05 74 Physical Exam General Appearance: WD/WN, no apparent distress Eyes: normal inspection, PERRL, EOMI, sclerae normal Neck: supple, no adenopathy, thyroid normal, no JVD Respiratory/Chest: chest non-tender, lungs clear, normal breath sounds, no respiratory distress Cardiovascular: regular rate, rhythm, no edema, no gallop, no JVD Abdomen: normal bowel sounds, non tender, soft, no organomegaly Extremities: normal range of motion, non-tender, normal inspection, no pedal edema Neurologic/Psychiatric: no motor/sensory deficits, alert, normal mood/affect, oriented x 3 Laboratory Results Last 24 Hours Test 02/24/17 18:48 02/25/17 05:25 02/25/17 08:06 02/25/17 12:18 Hemoglobin 6.9 g/dL 8.2 g/dL 8.8 g/dL 8.7 g/dL Hematocrit 22.1 % 26.0 % 26.8 % 26.5 % White Blood Count 5.95 K/uL Red Blood Count 2.94 M/uL Mean Corpuscular Volume 88.4 fL Mean Corpuscular Hemoglobin 27.9 pg Mean Corpuscular Hemoglobin Concent 31.5 g/dl RDW Standard Deviation 57.9 fL RDW Coefficient of Variation 18.2 % Platelet Count 241 K/uL Mean Platelet Volume 9.2 fL Prothrombin Time 29.2 SECONDS Prothromb Time International Ratio 2.6 Sodium Level 139 mmol/L Potassium Level 3.9 mmol/L Chloride Level 110 mmol/L Carbon Dioxide Level 24 mmol/L Anion Gap 5.0 mmol/L Blood Urea Nitrogen 34 mg/dl Creatinine 1.10 mg/dl Est Creatinine Clear Calc Drug Dose 54.0 ml/min Estimated GFR () 74.1 Estimated GFR (Non- 64.0 BUN/Creatinine Ratio 30.5 Random Glucose 97 mg/dl Calcium Level 8.2 mg/dl Assessment and Plan This is a 76 yo M with PMHx ischemic cardiomyopathy with LVEF 30-45% , biventricular pacemaker with implantable cardiac defibrillator (Apr 2015), rheumatic heart disease with mechanical valve replacement (mitral and aortic) Apr 2015, LBBB, paroxysmal V-tach, chronic systolic heart failure, chronic afib on plavix and coumadin, hypothyroidism, a flutter, reactive airway disease, cervical radiculopathy, intermitted claudication, hypercholesterolemia, spinal stenosis and previous STEMI who was a direct admit from Dr. Connelly's office due to anemia. Acute on chronic normocytic anemia w/ hgb 7.5: - Admit to med/surg - Follw H&H q6 hrs, Hg stable in 8s after tranfusion of 2 units PRBCS on 02/24 - Iron panel, TSH, b12/folate all completed within 1 month ago- reviewed. Continue Iron supplement TID - Will continue Coumadin at this time due to mitral/aortic valve replacement and significant risk of clot formation- follow H&H closely - Hold PO daily Protonix; IV Protonix BID - Consult GI, recent endoscopy no need to repeat, cont PPI Chronic respiratory failure, reactive airways disease - Wears 2 L O2 QHS and with exertion/walking during the day - Continue Singular tabs and home inhalers PRN Chronic pleural effusion- follows w/ Dr. Connelly Ischemic cardiomyopathy, biventricular pacemaker with implantables cardiac defibrillator, mechanical (aortic and mitral) valve, chronic a.fib- follows w/ Dr. Roblero: - Last ECHO November 2015 with LVEF =30-45% - Continue Coreg 25 mg BID, Digoxin 125 mcg QAM, Entresto 24-26 mg BID, Lipitor 80 mg HS - Continue Coumadin- INR therapeutic- follow INR, goal range 2.5-3.5 w/ mechanical valve replacements Hypothyroidism: Continue Levothyroxine 150 mcg daily CKD stage III, Cr. baseline of 1.4: Pending PRP Depression: Continue Prozac 40 mg daily Urinary Urgency: Continue Avodart 0.5 mg daily, Toviac 4 mg daily, Alfuzosin 10 mg HS Failure to thrive: Megace 800 mg BID GERD: Protonix GI prophylaxis: Protonix IV BID DVT prophylaxis: Coumadin Code Status: LEVEL V, DNR
[2017-02-25] MEDS ORDERED: WARFARIN SOD 2.5 MG TAB PO SCH (16:00)
[2017-02-25 16:16] LABS: HEMATOCRIT 25.4 % (42-52)
[2017-02-25] MEDS: DIGOXIN 0.125 MG TAB PO SCH (16:22)
[2017-02-25] MEDS: BOOST PLUS VANILLA PO SCH ×2 (20:00)
[2017-02-25 20:03] LABS: HEMATOCRIT 25.6 % (42-52)
[2017-02-25] MEDS: ALFUZosin TAB 10 MG TAB PO SCH (20:49)
[2017-02-26] VITALS: O2SAT 93
[2017-02-26] MEDS: LEVOTHYROXINE 150 MCG TAB PO SCH (06:13)
[2017-02-26 07:33] VITALS: BP 111/65; PULSE 71; TEMP 36.8; O2SAT 95
[2017-02-26 07:39] LABS: HEMATOCRIT 27.2 % (42-52); MEAN CELL VOLUME 88.9 fL (80-100); MEAN CORPUSCULAR HEMOGLOBIN 28.8 pg (25-34); MEAN CORPUSCULAR HGB CONC 32.4 g/dl (32-36); MEAN PLATELET VOLUME 8.8 fL (7.4-10.4); PLATELET COUNT 223 K/uL (130-400); RED BLOOD COUNT 3.06 M/uL (4.7-6.1); WHITE BLOOD COUNT 7.25 K/uL (4.8-10.8)
[2017-02-26 07:56] LABS: INR 2.2 (0.9-1.1); PROTHROMBIN TIME (PATIENT) 24.5 SECONDS (9.0-12.0)
[2017-02-26] MEDS: TOVIAZ~ORDER AWAITING ACTION SCH (08:00)
[2017-02-26] MEDS: AVODART~ORDER AWAITING ACTION SCH (08:00)
[2017-02-26] MEDS: MONTELUKAST SOD 10 MG TAB PO SCH (08:04)
[2017-02-26] MEDS: FERROUS SULFATE 325 MG TAB PO SCH ×2 (08:04→11:48)
[2017-02-26] MEDS: CARVEDILOL 25 MG TAB PO SCH (08:05)
[2017-02-26] MEDS: ATORVASTATIN 40 MG TAB PO SCH (08:05)
[2017-02-26] MEDS: POTASSIUM CHLORIDE 20 MEQ TABCR PO SCH (08:06)
[2017-02-26] MEDS: SACUBITRIL-VALSARTAN 24-26 MG TAB PO SCH (08:06)
[2017-02-26] MEDS: FLUOXETINE HCL 20 MG CAP PO SCH (08:06)
[2017-02-26] MEDS: MEGESTROL ACETATE 800 MG/20 ML UDP PO SCH (08:08)
[2017-02-26 08:22] LABS: BUN/CREATININE RATIO 27.9 (10-20); CALCIUM 8.3 mg/dl (8.5-10.1); CREATININE 1.1 mg/dl (0.60-1.40)
[2017-02-26] MEDS ORDERED: PANTOprazole SOD 40 MG TAB PO SCH (09:00)
--- NOTE | 2017-02-26 10:12 | Discharge Instructions ---
Discharge Instructions Date of Service Feb 26, 2017. Admission Reason for Admission: Symptomatic Anemia Discharge Discharge Diagnosis / Problem: Acute on chronic anemia Discharge Goals Goal(s): Decrease discomfort, Improve function, Increase independence, Improve disease control, Improve nutritional status, Learn about illness, Diagnostic testing, Therapeutic intervention, Prevent Disease Progression Activity Recommendations Activity Limitations: resume your previous activity Exercise/Sports Limitations: as tolerated . Instructions / Follow-Up Instructions / Follow-Up Patient to be discharged home No further changes in medications at this time Please continue taking iron supplementation as directed Will need to have iron levels checked as an outpatient since unreliable at this time due to transfusions Please follow up with primary care provider Dr Mcdonald in 1-2 weeks Current Hospital Diet Patient's current hospital diet: AHA Diet (Heart Healthy) Discharge Diet Recommended Diet: AHA Diet (Heart Healthy) Pending Studies Studies pending at discharge: no Medical Emergencies . Who to Call and When: Medical Emergencies: If at any time you feel your situation is an emergency, please call 911 immediately. . Non-Emergent Contact Non-Emergency issues call your: Primary Care Provider Call Non-Emergent contact if: you have a fever, your pain is worsening . . "Provider Documentation" section prepared by Didier Camarena. . VTE Core Measure Inpt VTE Proph given/why not?: T.E.D. Stockings, SCD's, Contraindicated
[2017-02-26 10:21] VITALS: BP 111/65; PULSE 71; TEMP 36.8; O2SAT 95
--- NOTE | 2017-02-26 10:40 | Discharge Summary ---
Discharge Summary Date of Service Feb 26, 2017. Discharge Summary Admission Date: Feb 25, 2017 at 14:15 Discharge Date: Feb 26, 2017 Discharge Disposition: Home with services Principal Diagnosis: Acute on chronic anemia Immunizations: Have You Had Influenza Vaccine: N/A Influenza Vaccine Date: Apr 09, 2007 History of Tetanus Vaccine?: Yes Tetanus Immunization Date: Jun 09, 1997 History of Pneumococcal: Yes Pneumococcal Date: Jun 09, 2003 History of Hepatitis B Vaccine: Yes Hepatitis Immunization Date: Jun 09, 1985 Consultations: GI Medication Reconciliation Continued Medications: Albuterol Hfa (Ventolin Hfa) 200 Puffs/80068 Mcg Aers 2 PUFFS INH QID PRN for Shortness of Breath, #1 INHALER Albuterol Sulfate (Proventil Hfa) 108 Mcg/Act Aer 2 PUFF INH QID PRN for SOB/Wheezing Alfuzosin Hcl (Uroxatral) 10 Mg Tab 10 MG PO QPM, TAB Atorvastatin (Lipitor) 80 Mg Tab 1 TAB PO DAILY for 30 Days, #30 TAB 5 Refills Carvedilol (Coreg) 25 Mg Tab 25 MG PO BID, 1 Refill Digoxin (Digox) 125 Mcg Tab 125 MCG PO QAM Dutasteride (Avodart) 0.5 Mg Cap 0.5 MG PO QAM, CAP Ferrous Sulfate (Ferrous Sulfate) 325 Mg Tab 325 MG PO TIDM for 30 Days, #90 TAB Fesoterodine Fumarate (Toviaz) 4 Mg Tab 4 MG PO QAM for 30 Days, #30 TAB 11 Refills Fluoxetine (Prozac) 20 Mg Cap 40 MG PO QAM, CAP Furosemide (Lasix) 40 Mg Tab 40 MG PO DAILY PRN for WEIGHT GAIN PARAMETERS, TAB Levothyroxine Sodium (Levothyroxine Sodium) 150 Mcg Tab 150 MCG PO QAM for 90 Days, #90 TAB 3 Refills Megestrol Acetate (Megestrol Acetate) 800 Mg/20 Ml Susp 800 MG PO BID for 14 Days, #28 TABS Montelukast Sodium (Montelukast Sodium) 10 Mg Tab 1 TAB PO DAILY for 30 Days, #30 TAB 5 Refills Nitroglycerin (Nitrostat) 0.4 Mg/1 Tab Subl 0.4 MG SL UD PRN for Chest Pain, #25 Pantoprazole (Protonix) 40 Mg Tab 40 MG PO QAM, #30 TAB Potassium Ext Rel (Klor-Con) 20 Meq Tabcr 20 MEQ PO DIRECTED, TAB TAKE ON DAYS LASIX IS TAKEN Sacubitril-Valsartan (Entresto 24-26 mg) 1 Tab Tab 1 TAB PO DAILY Tramadol (Ultram) 50 Mg Tab 1 TAB PO TID PRN for Pain for 7 Days, #21 TAB Warfarin Sodium (Coumadin) 5 Mg Tab 2.5 MG PO 4XWK, TAB SUN, TUES, THURS, SAT Warfarin Sodium (Coumadin) 5 Mg Tab 5 MG PO 3XWK, TAB MON, WED, FRI [Boost Plus Vanilla] () 1 CAN LIQD 1 CAN PO DAILY@1900 for 14 Days Discharge Exam Review of Systems: Constitutional: No fever, No chills, No sweats, No weakness, No fatigue Eyes: No worsening of vision, No eye pain, No redness, No discharge Respiratory: No cough, No sputum, No wheezing, No shortness of breath Cardiovascular: No chest pain, No orthopnea, No PND, No edema Abdomen: No pain, No nausea, No vomiting, No diarrhea, No constipation Musculoskeletal: No joint pain, No muscle pain, No swelling, No calf pain Genitourinary - Male: No hematuria, No dysuria, No urinary frequency, No urinary urgency Neurologic: No memory loss, No paralysis, No weakness, No numbness/tingling Psychiatric: No depression symptoms, No anhedonism, No anxiety, No insomnia Integumentary: No rash, No itch Physical Exam: General Appearance: WD/WN, no apparent distress ENT: normal ENT inspection, hearing grossly normal, TMs normal, pharynx normal Neck: supple, no adenopathy, thyroid normal, no JVD Respiratory/Chest: chest non-tender, lungs clear, normal breath sounds, no respiratory distress Cardiovascular: regular rate, rhythm, no edema, no gallop, no JVD Abdomen / GI: normal bowel sounds, non tender, soft, no organomegaly Extremities: normal inspection, no calf tenderness, normal capillary refill , no pedal edema Neurologic/Psychiatric: no motor/sensory deficits, alert, normal mood/affect , oriented x 3 Skin: normal color, warm/dry, no rash Lymphatic: no adenopathy Hospital Course This is a 76 yo M with PMHx ischemic cardiomyopathy with LVEF 30-45%, biventricular pacemaker with implantable cardiac defibrillator (Apr 2015), rheumatic heart disease with mechanical valve replacement (mitral and aortic) Apr 2015, LBBB, paroxysmal V-tach, chronic systolic heart failure, chronic afib on plavix and coumadin, hypothyroidism, a flutter, reactive airway disease, cervical radiculopathy, intermitted claudication, hypercholesterolemia, spinal stenosis and previous STEMI who was a direct admit from Dr. Connelly's office due to anemia. Acute on chronic normocytic anemia w/ hgb 7.5: - Admit to med/surg - Follow H&H q6 hrs, Hg stable in 8s after tranfusion of 2 units PRBCS on 02/24 - Iron panel, TSH, b12/folate all completed within 1 month ago- reviewed. Continue Iron supplement TID - Will continue Coumadin at this time due to mitral/aortic valve replacement and significant risk of clot formation- follow H&H closely - Cont daily Protonix PO - Consult GI, recent endoscopy no need to repeat, cont PPI - Stable for discharge home with home health Chronic respiratory failure, reactive airways disease - Wears 2 L O2 QHS and with exertion/walking during the day - Continue Singular tabs and home inhalers PRN Chronic pleural effusion- follows w/ Dr. Connelly Ischemic cardiomyopathy, biventricular pacemaker with implantables cardiac defibrillator, mechanical (aortic and mitral) valve, chronic a.fib- follows w/ Dr. Roblero: - Last ECHO November 2015 with LVEF =30-45% - Continue Coreg 25 mg BID, Digoxin 125 mcg QAM, Entresto 24-26 mg BID, Lipitor 80 mg HS - Continue Coumadin- INR therapeutic- follow INR, goal range 2.5-3.5 w/ mechanical valve replacements Hypothyroidism: Continue Levothyroxine 150 mcg daily CKD stage III, Cr. baseline of 1.4: Pending PRP Depression: Continue Prozac 40 mg daily Urinary Urgency: Continue Avodart 0.5 mg daily, Toviac 4 mg daily, Alfuzosin 10 mg HS Failure to thrive: Megace 800 mg BID GERD: Protonix GI prophylaxis: Protonix IV BID DVT prophylaxis: Coumadin Code Status: LEVEL V, DNR Total Time Spent: Greater than 30 minutes This includes examination of the patient, discharge planning, medication reconciliation, and communication with other providers. Discharge Instructions Please refer to the electronic Patient Visit Report (Discharge Instructions) for additional information. Additional Copies To Donis Mcdonald M.D.
[2017-02-26] MEDS ORDERED: WARFARIN SOD 5 MG TAB PO SCH (16:00)
== END 2017-02-26 14:29 | disposition home health service (06) | DRG 812 ==
LOC: C.MS2W 13:17 → OBSVTOIN 02-25 14:15
PROVIDERS: ADMIT Family Medicine; ATTEND Hospitalist
DX: D64.9 Anemia, unspecified (principal); J96.10 Chronic respiratory failure, unspecified whether with hypoxia or hypercapnia; Z66 Do not resuscitate; I48.2 Chronic atrial fibrillation; E78.5 Hyperlipidemia, unspecified; E03.9 Hypothyroidism, unspecified; K21.9 Gastro-esophageal reflux disease without esophagitis; R62.7 Adult failure to thrive; F32.9 Major depressive disorder, single episode, unspecified; N18.3 Chronic kidney disease, stage 3 (moderate); Z95.2 Presence of prosthetic heart valve; Z87.891 Personal history of nicotine dependence; Z79.01 Long term (current) use of anticoagulants; J90 Pleural effusion, not elsewhere classified

== ENCOUNTER → 2017-02-24 | Outpatient (CLI) | payer BC ==
[2017-02-24 12:27] LABS: HEMATOCRIT 23.4 % (42-52); MEAN CELL VOLUME 88.3 fL (80-100); MEAN CORPUSCULAR HEMOGLOBIN 28.3 pg (25-34); MEAN PLATELET VOLUME 8.7 fL (7.4-10.4); PLATELET COUNT 226 K/uL (130-400); RED BLOOD COUNT 2.65 M/uL (4.7-6.1); WHITE BLOOD COUNT 8.14 K/uL (4.8-10.8)
[2017-02-24 12:51] LABS: MEAN CORPUSCULAR HGB CONC 32.1 g/dl (32-36)
== END | disposition home or self-care (01) ==
LOC: C.LAB 11:50
PROVIDERS: ATTEND Physician Assistant
DX: D64.9 Anemia, unspecified (principal)

== ENCOUNTER → 2017-02-24 | Outpatient (CLI) | payer BC ==
--- NOTE | 2017-02-24 11:04 | DIAGNOSTIC IMAGING REPORT ---
CHEST 2 VIEWS ROUTINE HISTORY: 76 years-old Male J90 Pleural effusion on left COMPARISON: Portable chest radiograph 02/14/2017 TECHNIQUE: Frontal and lateral views of the chest FINDINGS: Cardiac silhouette is again moderately enlarged. Left pectoral pacer/defibrillator is noted with leads appearing intact and unchanged. Prior median sternotomy. There is chronic blunting of the right costophrenic angle with unchanged small to moderate left pleural effusion. Previously noted left pleural drainage catheter is not seen and may have been removed in the interval. Mildly worsened airspace opacities are seen throughout the left lung. There is mild pulmonary vascular congestion. The bones are grossly intact. IMPRESSION: 1. Persistent small to moderate left pleural effusion with mildly progressive airspace opacities throughout the left lung. 2. Previously noted left basilar drainage catheter is not seen and may have been removed in the interval. 3. Cardiomegaly with mild vascular congestion. The above report was generated using voice recognition software. It may contain grammatical, syntax or spelling errors. Electronically signed by: Hunter Sheehan M.D. 02/24/2017 11:03 AM Dictated Date/Time: 02/24/2017 11:00 AM
== END | disposition home or self-care (01) ==
LOC: C.RAD1850 10:22
PROVIDERS: ATTEND Physician Assistant
DX: J90 Pleural effusion, not elsewhere classified (principal)

== ENCOUNTER → 2017-03-04 | Outpatient (CLI) | payer BC, OTHER ==
[2017-03-04 17:34] LABS: BASO % 0.4 %; BASO ABS # 0.03 K/uL (0-0.2); COMPLETE YES; EOS % 3.3 %; IG% 0.1 %; LYMPH % 7.8 %; LYMPH ABS # 0.54 K/uL (1.2-3.4); MEAN CORPUSCULAR HEMOGLOBIN 27.9 pg (25-34); MEAN PLATELET VOLUME 9.4 fL (7.4-10.4); MONO % 11.9 %; NEUT % 76.5 %; PLATELET COUNT 325 K/uL (130-400); RED BLOOD COUNT 3.55 M/uL (4.7-6.1); WHITE BLOOD COUNT 6.91 K/uL (4.8-10.8)
[2017-03-04 17:46] LABS: INR 1.7 (0.9-1.1); PROTHROMBIN TIME (PATIENT) 18.1 SECONDS (9.0-12.0)
[2017-03-04 17:53] LABS: ALT/SGPT 16 U/L (12-78); AST/SGOT 15 U/L (15-37); BLOOD UREA NITROGEN 34 mg/dl (7-18); BUN/CREATININE RATIO 28.3 (10-20); CALCIUM 8.3 mg/dl (8.5-10.1); CARBON DIOXIDE 25 mmol/L (21-32); CHLORIDE 111 mmol/L (98-107); GLUCOSE 102 mg/dl (70-99); POTASSIUM 3.8 mmol/L (3.5-5.1); SODIUM 140 mmol/L (136-145)
[2017-03-04 17:56] LABS: ALB/GLOB RATIO 0.6 (0.9-2); ALKALINE PHOSPHATASE 158 U/L (45-117)
== END | disposition home or self-care (01) ==
LOC: C.LABPVFM 14:18
PROVIDERS: ATTEND Internal Medicine Pulmonary Disease
DX: D64.9 Anemia, unspecified (principal); Z79.01 Long term (current) use of anticoagulants

== ENCOUNTER → 2017-04-04 | Outpatient (CLI) | payer BC ==
--- NOTE | 2017-04-04 10:57 | DIAGNOSTIC IMAGING REPORT ---
CHEST 2 VIEWS ROUTINE HISTORY: J90 Pleural effusion on [id number] COMPARISON: Chest 02/24/2017. FINDINGS: Retrocardiac lucency consistent with a large hiatus hernia. Small left pleural effusion and left basilar densities have slightly improved.. Left perihilar and right upper hazy airspace opacities have also slightly improved. No pneumothorax. Left-sided pacemaker. Poststernotomy changes. The heart remains mildly enlarged. Old compression deformity at L1, unchanged. IMPRESSION: 1. Slight improved aeration and slight decrease in size in the small left pleural fusion. 2. Right upper lobe and left perihilar hazy airspace opacities have also slightly improved. 3. Hiatus hernia. Electronically signed by: Raffy Graff M.D. 04/04/2017 10:56 AM Dictated Date/Time: 04/04/2017 10:53 AM
== END | disposition home or self-care (01) ==
LOC: C.RAD1850 10:26
PROVIDERS: ATTEND Physician Assistant
DX: J90 Pleural effusion, not elsewhere classified (principal); K44.9 Diaphragmatic hernia without obstruction or gangrene

== ENCOUNTER → 2017-04-25 | Outpatient (CLI) | payer BC ==
[~2017-04-25] MED LIST changes: +ALFU10TA2 PO; -ALFU10TA30 PO
[2017-04-25 16:38] LABS: BASO % 0.5 %; BASO ABS # 0.04 K/uL (0-0.2); COMPLETE YES; EOS % 5.3 %; HEMATOCRIT 30.5 % (42-52); IG% 0.1 %; LYMPH % 8.8 %; LYMPH ABS # 0.69 K/uL (1.2-3.4); MEAN CELL VOLUME 92.4 fL (80-100); MEAN CORPUSCULAR HEMOGLOBIN 29.4 pg (25-34); MEAN CORPUSCULAR HGB CONC 31.8 g/dl (32-36); MEAN PLATELET VOLUME 9.8 fL (7.4-10.4); MONO % 12.7 %; NEUT % 72.6 %; PLATELET COUNT 242 K/uL (130-400); WHITE BLOOD COUNT 7.87 K/uL (4.8-10.8)
[2017-04-25 16:57] LABS: PROTHROMBIN TIME (PATIENT) 45.8 SECONDS (9.0-12.0)
[2017-04-25 17:11] LABS: ALT/SGPT 17 U/L (12-78); AST/SGOT 16 U/L (15-37); BLOOD UREA NITROGEN 30 mg/dl (7-18); BUN/CREATININE RATIO 25.1 (10-20); CALCIUM 8.5 mg/dl (8.5-10.1); CARBON DIOXIDE 28 mmol/L (21-32); CHLORIDE 104 mmol/L (98-107); CREATININE 1.21 mg/dl (0.60-1.40); GLUCOSE 95 mg/dl (70-99); POTASSIUM 4.2 mmol/L (3.5-5.1); SODIUM 137 mmol/L (136-145)
[2017-04-25 17:22] LABS: ALB/GLOB RATIO 0.7 (0.9-2); ALKALINE PHOSPHATASE 201 U/L (45-117)
== END | disposition home or self-care (01) ==
LOC: C.LAB1850 14:55
PROVIDERS: ATTEND Internal Medicine Pulmonary Disease
DX: Z95.2 Presence of prosthetic heart valve (principal); I42.9 Cardiomyopathy, unspecified; D64.9 Anemia, unspecified; E03.9 Hypothyroidism, unspecified; N28.9 Disorder of kidney and ureter, unspecified; J90 Pleural effusion, not elsewhere classified; R63.0 Anorexia

== ENCOUNTER → 2017-11-10 | Outpatient (CLI) | payer BC ==
[~2017-11-10] MED LIST changes: +POTA-639 PO; -POTA20TA16 PO
[2017-11-10 12:40] LABS: INR 2.4 (0.9-1.1)
== END | disposition home or self-care (01) ==
LOC: C.LABWYN 10:47
PROVIDERS: ATTEND Internal Medicine Cardiovascular Disease
DX: Z95.2 Presence of prosthetic heart valve (principal); Z79.01 Long term (current) use of anticoagulants

== ENCOUNTER → 2017-12-02 | Outpatient (CLI) | payer BC ==
--- NOTE | 2018-01-27 10:16 | CODING QUERY NO DIAGNOSIS ---
TREATMENT RENDERED WITHOUT A DIAGNOSIS 38 To promote full compliance with coding requirements relating to patient care, physician participation is requested in all cases of grain processor uncertainty. Please assist us with providing a diagnosis/symptom for the test(s) below: A diagnosis/symptom was not documented on your Order. A valid diagnosis/symptom is required to bill all insurances. Please remember that we are unable to code a diagnosis of rule out, probable, possible, questionable, or suspected. DOS 12/02/17 Tests that require a diagnosis: * UA CLEAN CATCH DIAGNOSIS: * URINE CULTURE DIAGNOSIS: Provider Signature: Date: Thank you Anai Orr Health Information Management Once completed, please kindly fax back to [phone] For questions please call [phone]
== END | disposition home or self-care (01) ==
LOC: C.LABSPEC 16:45
PROVIDERS: ATTEND Internal Medicine Pulmonary Disease
DX: R30.0 Dysuria (principal)